=== PATIENT | male | born 1950 | race Caucasian/White ===

== ENCOUNTER 2016-12-28 16:30 | Outpatient (CLI) | payer MEDICAID | END 2016-12-28 16:31 | disposition home or self-care (01) | DX: J44.1 Chronic obstructive pulmonary disease with (acute) exacerbation (principal); R91.8 Other nonspecific abnormal finding of lung field; J84.10 Pulmonary fibrosis, unspecified ==

== ENCOUNTER 2017-01-24 16:29 | Emergency (ER) | payer MEDICAID ==
[2017-01-24] MEDS ORDERED: IPRATROPIUM/ALBUTEROL 3 ML NEB INH STA (17:02)
[2017-01-24] MEDS ORDERED: IPRATROPIUM/ALBUTEROL 3 ML NEB INH ONE (17:12)
[2017-01-24] MEDS ORDERED: DOXYCYCLINE 100 MG TABLET PO STA (17:55)
[2017-01-24] MEDS ORDERED: DOXYCYCLINE 100 MG TABLET PO ONE (17:59)
== END 2017-01-24 18:09 | disposition home or self-care (01) ==
DX: J44.1 Chronic obstructive pulmonary disease with (acute) exacerbation (principal); J84.10 Pulmonary fibrosis, unspecified; F17.200 Nicotine dependence, unspecified, uncomplicated; Z99.81 Dependence on supplemental oxygen
CPT/HCPCS: 71020; 80053; 83690; 85025; 94640; 99283; 99284; A9270; J7620

== ENCOUNTER 2017-04-05 09:18 | Outpatient (CLI) | payer MEDICAID | END 2017-04-05 09:19 | disposition home or self-care (01) | DX: D53.9 Nutritional anemia, unspecified (principal) ==

== ENCOUNTER 2017-07-01 22:24 | Outpatient (CLI) | payer MEDICAID | END 2017-07-01 22:25 | disposition critical access hospital (66) | LOC: EMS 22:24 | PROVIDERS: ATTEND Surgery | DX: R11.2 Nausea with vomiting, unspecified (principal) | CPT/HCPCS: A0425; A0427 ==

== ENCOUNTER 2017-07-01 22:35 | Inpatient (IN) | payer MEDICAID ==
[2017-07-01] MEDS ORDERED: methylPREDNISolone SUCCINATE 125 MG/2 ML VIAL IVP STA (22:46)
[2017-07-01] MEDS ORDERED: IPRATROPIUM/ALBUTEROL 3 ML NEB INH STA (22:46)
[2017-07-01] MEDS ORDERED: IPRATROPIUM/ALBUTEROL 3 ML NEB INH ONE (22:51)
[2017-07-01] MEDS ORDERED: methylPREDNISolone SUCCINATE 40 MG/ML VIAL ONE (23:10)
[2017-07-01] MEDS ORDERED: SODIUM CHLORIDE FLUSH 0.9% 10 ML SYRINGE IVP ONE (23:10)
[2017-07-01] MEDS ORDERED: levoFLOXacin 250 MG TABLET PO STA (23:15)
[2017-07-01 23:20] LABS: BASOPHILS % (AUTO) 0.3 %; EOSINOPHILS % (AUTO) 0.1 %; HCT - HEMATOCRIT 36.3 % (42.0-52.0); HGB - HEMOGLOBIN 12.3 g/dL (14.0-18.0); LYMPHOCYTES # (AUTO) 1.4 10^3/uL (1.5-3.5); LYMPHOCYTES % (AUTO) 12.3 %; MEAN CORPUSCULAR HEMOGLOBIN 31.1 pg (27.0-31.0); MEAN CORPUSCULAR VOLUME 91.6 fL (80.0-94.0); MEAN PLATELET VOLUME 8.2 fL (7.4-11.4); MONOCYTES # (AUTO) 0.6 10^3/uL (0.0-1.0); NEUTROPHILS # (AUTO) 9.1 10^3/uL (1.5-6.6); NEUTROPHILS % (AUTO) 82.3 %; RED BLOOD COUNT 3.97 10^6/uL (4.70-6.10); RED CELL DISTRIBUTION WIDTH 14.5 % (12.0-15.0); UNCORRECTED WHITE BLOOD COUNT 11.1 x10^3/uL; WHITE BLOOD COUNT 11.1 x10^3/uL (4.8-10.8)
--- NOTE | 2017-07-01 23:25 | XRAY Report ---
EXAM: CHEST RADIOGRAPHY EXAM DATE: 07/01/2017 10:54 PM. CLINICAL HISTORY: Fever, hypoxia, copd. COMPARISON: Radiograph chest 01/24/2017 TECHNIQUE: 1 view. FINDINGS: Lungs/Pleura: Redemonstration of bilateral coarse reticular opacities, consistent with chronic pulmon dang fibrosis. Redemonstration emphysematous changes bilaterally. Persistent elevation of the left hem idiaphragm. Interval development of small left pleural effusion. New left basilar atelectasis/consoli dation. No pneumothorax. Mediastinum: Stable appearance of the cardiomediastinal silhouette Other: None. IMPRESSION: 1. Compared to the prior study from 01/24/2017, there is a new left basilar atelectasis/consolidation and new small left pleural effusion, correlate clinically for pneumonia. 2. Redemonstration bilateral coarse reticular opacities, consistent with chronic pulmonary fibrosis. Redemonstration emphysematous changes bilaterally. [facility] Referring Provider Line: [phone] SITE ID: [id number]
[2017-07-01 23:32] LABS: ALBUMIN/GLOBULIN RATIO 1.2 (1.0-2.2); BILIRUBIN,TOTAL 0.9 mg/dL (0.2-1.0); CREATININE 0.7 mg/dL (0.6-1.2); POTASSIUM 3.9 mmol/L (3.5-5.0); TOTAL PROTEIN 7.4 g/dL (6.7-8.2)
[2017-07-01] MEDS ORDERED: levoFLOXacin 250 MG TABLET ONE (23:49)
--- NOTE | 2017-07-01 23:50 | ED Physician Documentation ---
PD HPI DYSPNEA - Stated complaint Stated Complaint: SOA/FEVER - Chief complaint Chief Complaint: Resp - History obtained from History obtained from: Patient, EMS - History of Present Illness Timing - onset: Today Timing - details: Gradual onset, Still present Inciting event(s): URI Improved by: O2, Inhaler/neb Worsened by: Exertion, Laying flat Associated symptoms: Fever, Cough, Wheezing Similar symptoms before: Work up / diagnostics, Treatment Recently seen: Not recently seen - Additional information Additional information: Patient is a 66 year old male with a history of severe ephysema who is presenting to the emergency department for fever, cough and hypoxia. Patient states that the symptoms have been going on for a couple days but got worse today. patient had fevers of 102. patient's girlfriend made him call ems. upon their arrival patient was hypoxic in the low 80s on room air. (patient normally is on 2 liters home 02). Review of Systems Constitutional: reports: Fever, Chills Eyes: denies: Loss of vision, Decreased vision Ears: denies: Ear pain, Drainage/discharge Nose: denies: Rhinorrhea / runny nose, Congestion Throat: denies: Dental pain / toothache Cardiac: denies: Chest pain / pressure, Palpitations, Calf pain Respiratory: reports: Dyspnea, Cough, Wheezing GI: reports: Nausea. denies: Vomiting : denies: Dysuria, Frequency Musculoskeletal: reports: Back pain. denies: Neck pain, Extremity pain, Joint pain Neurologic: denies: Generalized weakness, Focal weakness, Numbness Immunocompromised: denies: Immunocompromised PD PAST MEDICAL HISTORY - Past Medical History Past Medical History: Yes Cardiovascular: High cholesterol Respiratory: COPD, Other Neuro: None Endocrine/Autoimmune: None GI: Other : None HEENT: None Psych: None Musculoskeletal: Scoliosis, Chronic back pain Derm: None Other Past Medical History: pulmonary fibrosis. interstitial lung dz - Past Surgical History Past Surgical History: Yes General: Other HEENT: Other - Present Medications Home Medications: Ambulatory Orders Medication Instructions Recorded Confirmed Nortriptyline [Pamelor] 50 mg PO HS 11/27/13 07/01/17 Omeprazole 20 mg PO DAILY 01/21/14 07/01/17 Cyclobenzaprine [Flexeril] 10 mg PO TID PRN 07/30/15 07/01/17 Ipratropium/Albuterol [Duoneb] 3 ml INH QID PRN 07/30/15 07/01/17 Oxycodone HCl/Acetaminophen 1 each PO TID PRN 07/30/15 07/01/17 [Percocet 10-325 mg Tablet] Atorvastatin [Lipitor] 80 mg PO DAILY 01/06/16 07/01/17 Ascorbic Acid [Vitamin C] 500 mg PO BID 07/23/16 07/01/17 Cholecalciferol (Vitamin D3) 2,000 units PO DAILY 07/23/16 07/01/17 [Vitamin D3] Ferrous Sulfate 325 mg PO BID 07/23/16 07/01/17 Fluticasone/Salmeterol [Advair Hfa 2 puffs INH BID 07/23/16 07/01/17 115-21 Mcg Inhaler] Folic Acid 1 mg PO DAILY 07/23/16 07/01/17 Ipratropium/Albuterol [Combivent 1 puffs INH QID 07/23/16 07/01/17 Respimat] Budesonide [Pulmicort] 0.5 mg INH BID #60 neb 01/24/17 07/01/17 amLODIPine [Norvasc] 5 mg PO DAILY 01/24/17 07/01/17 Morphine ER [Ms Contin] 15 mg PO DAILY 07/01/17 07/01/17 - Allergies Allergies/Adverse Reactions: Allergies Allergy/AdvReac Type Severity Reaction Status Date / Time No Known Drug Allergies Allergy Verified 01/03/16 14:27 - Social History Does the pt smoke?: Yes Smoking Status: Current every day smoker Does the pt drink ETOH?: No Does the pt have substance abuse?: No - Immunizations Immunizations are current?: Yes - POLST Patient has POLST: No PD ED PE NORMAL - Vitals Vital signs reviewed: Yes - General General: Alert and oriented X 3, Well developed/nourished - HEENT HEENT: Atraumatic, PERRL - Neck Neck: Supple, no meningeal sign - Cardiac Cardiac: No murmur - Abdomen Abdomen: Soft, Non distended - Derm Derm: Normal color, Warm and dry, No rash - Extremities Extremities: No deformity, No tenderness to palpate, No edema - Neuro Neuro: Alert and oriented X 3, No motor deficit, No sensory deficit - Psych Psych: Normal mood PD ED PE EXPANDED - General General: Alert, In distress (mild distress) - Cardiac Cardiac: Tachy - Respiratory Respiratory: Distress, Labored, Accessory mm use, Retractions, Rhonchi, Right lower lobe, Left lower lobe Results - Vitals Vitals: Vital Signs - 24 hr 07/01/17 07/01/17 22:37 22:45 Temperature 40.1 C H Heart Rate 122 H 134 H Respiratory 24 22 Rate Blood Pressure 114/70 O2 Saturation 96 Oxygen O2 Source Nasal cannula Oxygen Flow Rate 5 - Labs Labs: Laboratory Tests 07/01/17 07/01/17 07/01/17 23:00 23:00 23:00 WBC 11.1 H RBC 3.97 L Hgb 12.3 L Hct 36.3 L MCV 91.6 MCH 31.1 H MCHC 34.0 RDW 14.5 Plt Count 245 MPV 8.2 Neut # 9.1 H Lymph # 1.4 L [place] # 0.6 Eos # 0.0 Baso # 0.0 Absolute Nucleated RBC 0.00 Nucleated RBCs 0.0 Sodium 137 Potassium 3.9 Chloride 104 Carbon Dioxide 23 Anion Gap 10.0 BUN 20 Creatinine 0.7 Estimated GFR (MDRD) 114 Glucose 108 H Lactic Acid Calcium 9.0 Total Bilirubin 0.9 AST 22 ALT 19 Alkaline Phosphatase 78 B-Natriuretic Peptide 32 Total Protein 7.4 Albumin 4.0 Globulin 3.4 Albumin/Globulin Ratio 1.2 Lipase 22 07/01/17 23:00 WBC RBC Hgb Hct MCV MCH MCHC RDW Plt Count MPV Neut # Lymph # [place] # Eos # Baso # Absolute Nucleated RBC Nucleated RBCs Sodium Potassium Chloride Carbon Dioxide Anion Gap BUN Creatinine Estimated GFR (MDRD) Glucose Lactic Acid 1.0 Calcium Total Bilirubin AST ALT Alkaline Phosphatase B-Natriuretic Peptide Total Protein Albumin Globulin Albumin/Globulin Ratio Lipase - Rads (name of study) chest x-ray Radiology: Final report received (left bibasilar atelectasis/consolidation) PD MEDICAL DECISION MAKING - ED course Complexity details: reviewed old records, reviewed results, re-evaluated patient , considered differential, d/w patient ED course: Patient was seen and examined at bedside. IV access was gained and labs were drawn. patient was treated with methylprednisolone and levaquin and 3 duonebs. chest x-ray was performed and consistent with pneumonia. Patient had a high port score and was admitted to the hospital for further evaluation and care. Departure - Departure Disposition: 66 [facility] DC/Xfer Clinical Impression: Pneumonia, Mild chronic obstructive pulmonary disease
[2017-07-02] MEDS ORDERED: HYDROcod/ACETAM 5/325 MG TABLET PO PRN (00:13)
[2017-07-02] MEDS ORDERED: ACETAMINOPHEN 325 MG TABLET PO PRN (00:13)
[2017-07-02] MEDS ORDERED: ONDANSETRON 4 MG/2 ML VIAL IVP PRN (00:13)
[2017-07-02] MEDS ORDERED: ONDANSETRON ODT 4 MG TABLET TL PRN (00:13)
[2017-07-02] MEDS ORDERED: NON FORMULARY MED (Oxycodone Hcl/Acetaminophen [Percocet 10-325 Mg Tablet] 1 EACH) PO SCH (00:30)
[2017-07-02] MEDS ORDERED: oxyCOD/ACETAMIN 5 MG/325 MG TABLET PO ONE (00:51)
[2017-07-02] MEDS ORDERED: NORTRIPTYLINE 25 MG CAPSULE PO SCH (01:00)
[2017-07-02] MEDS ORDERED: MORPHINE ER 15 MG TABLET PO ONE (01:39)
[2017-07-02] MEDS: MORPHINE ER 15 MG TABLET PO SCH ×2 (01:40→20:30)
[2017-07-02] MEDS ORDERED: methylPREDNISolone SUCCINATE 125 MG/2 ML VIAL IVP SCH (02:00)
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
[2017-07-02] MEDS: SODIUM CHLORIDE 0.9% 1,000 ML IV SCH ×2 (03:28→03:29)
[2017-07-02] MEDS: CYCLOBENZAPRINE 10 MG TABLET PO PRN (04:31)
[2017-07-02 05:25] LABS: BASOPHILS % (AUTO) 0.1 %; HCT - HEMATOCRIT 36.1 % (42.0-52.0); LYMPHOCYTES % (AUTO) 6.2 %; MEAN CORPUSCULAR HGB CONC 33.3 g/dL (32.0-36.0); MEAN PLATELET VOLUME 8.1 fL (7.4-11.4); MONOCYTES % (AUTO) 2.3 %; NEUTROPHILS % (AUTO) 91.4 %; RED BLOOD COUNT 3.89 10^6/uL (4.70-6.10); RED CELL DISTRIBUTION WIDTH 14.6 % (12.0-15.0)
[2017-07-02 05:32] LABS: CALCIUM 8.8 mg/dL (8.5-10.3); CREATININE 0.8 mg/dL (0.6-1.2); POTASSIUM 3.9 mmol/L (3.5-5.0)
[2017-07-02 05:45] LABS: BAND NEUTROPHILS % (MANUAL) 11 %; LYMPHOCYTES % (MANUAL) 6 %; NEUTROPHILS % (MANUAL) 80 %; NP AUTO DIFFERENTIAL? YES; NP MAN DIFFERENTIAL? NO; PLATELET ESTIMATE, MANUAL NORMAL (130-450,000) (NORMAL); TOTAL CELLS COUNTED 100
[2017-07-02] MEDS: SODIUM CHLORIDE FLUSH 0.9% 10 ML SYRINGE IVP SCH ×3 (05:53→20:34)
[2017-07-02] MEDS: methylPREDNISolone SUCCINATE 125 MG/2 ML VIAL IVP SCH ×3 (06:55→20:33)
[2017-07-02] MEDS: SACCHAROMYCES BOULARDII 250 MG CAPSULE PO SCH ×2 (08:32→16:53)
[2017-07-02] MEDS: amLODIPine 5 MG TABLET PO SCH (08:33)
[2017-07-02] MEDS: ASCORBIC ACID CHEW 500 MG TABLET PO SCH ×2 (08:33→20:29)
[2017-07-02] MEDS: ATORVASTATIN 40 MG TABLET PO SCH (08:33)
[2017-07-02] MEDS: FERROUS SULFATE 325 MG TABLET PO SCH ×2 (08:37→20:29)
[2017-07-02] MEDS: ENOXAPARIN 40 MG/0.4 ML SYRINGE SUBQ SCH (08:37)
[2017-07-02] MEDS: FOLIC ACID 1 MG TABLET PO SCH (08:37)
[2017-07-02] MEDS: CHOLECALCIFEROL 1,000 UNIT TABLET PO SCH (08:37)
[2017-07-02] MEDS: oxyCOD/ACETAMIN 5 MG/325 MG TABLET PO SCH ×4 (08:39→20:33)
[2017-07-02] MEDS: POLYETHYLENE GLYCOL 3350 17 GM PACKET PO SCH (08:39)
[2017-07-02] MEDS ORDERED: oxyCODONE 5 MG TABLET PO SCH (09:00)
[2017-07-02] MEDS ORDERED: BUDESONIDE 0.5 MG/2 ML NEB INH SCH (09:00)
[2017-07-02] MEDS: BUDESONIDE 0.5 MG/2 ML NEB INH SCH ×2 (09:15→19:33)
[2017-07-02] MEDS: IPRATROPIUM/ALBUTEROL 3 ML NEB INH PRN ×2 (09:15→19:33)
[2017-07-02] MEDS: NICOTINE 21 MG PATCH TOP SCH (11:12)
--- NOTE | 2017-07-02 11:30 | PROVIDER PROGRESS NOTE ---
Assessment/Plan - Problem List (1) Sepsis Assessment/Plan: had fever, tachy, elevated WBC improving on Levaquin likely due to PNA (2) Pneumonia Qualifiers: Pneumonia type: due to unspecified organism Assessment/Plan: continue antibiotic treatment as mentioned above (3) Mild chronic obstructive pulmonary disease Assessment/Plan: on Pulmicort neb and systematic steroid treatment for COPD flare up improving (4) Chronic respiratory failure with hypoxia Assessment/Plan: home O2 2 liter/min at night improving but not at his baseline yet (5) Opiate dependence Assessment/Plan: complicated with mild withdrawal improving; on home medicine Oxycodone and MS contin (6) Tobacco dependence Assessment/Plan: complicated with mild withdrawal agrees nicotine patch (7) Chronic pain Assessment/Plan: continue home pain medicine - Current Meds Current Meds: Current Medications Generic Name Dose Route Start Last Admin Trade Name Freq PRN Reason Stop Dose Admin Acetaminophen 650 mg 07/02/17 00:13 07/02/17 04:30 Tylenol PO 650 mg Q4HR PRN Administration Pain 1 to 4 Albuterol/Ipratropium 3 ml 07/02/17 00:17 07/02/17 09:15 Duoneb INH 3 ml QID PRN Administration dyspnea Amlodipine Besylate 5 mg 07/02/17 09:00 07/02/17 08:33 Norvasc PO 5 mg DAILY ADALI Administration Ascorbic Acid 500 mg 07/02/17 09:00 07/02/17 08:33 Vitamin C PO 500 mg BID ADALI Administration Atorvastatin Calcium 80 mg 07/02/17 09:00 07/02/17 08:33 Lipitor PO 80 mg DAILY ADALI Administration Budesonide 0.5 mg 07/02/17 08:00 07/02/17 09:15 Pulmicort INH 0.5 mg RTBID ADALI Administration Cholecalciferol 2,000 unit 07/02/17 09:00 07/02/17 08:37 Vitamin D3 PO 2,000 unit DAILY ADALI Administration Cyclobenzaprine HCl 10 mg 07/02/17 00:17 07/02/17 04:31 Flexeril PO 10 mg TID PRN Administration Spasms Enoxaparin Sodium 40 mg 07/02/17 09:00 07/02/17 08:37 Lovenox SUBQ 40 mg DAILY ADALI Administration Ferrous Sulfate 325 mg 07/02/17 09:00 07/02/17 08:37 Feosol PO 325 mg BID ADALI Administration Folic Acid 1 mg 07/02/17 09:00 07/02/17 08:37 PO 1 mg DAILY ADALI Administration Sodium Chloride 1,000 mls @ 100 mls/hr 07/02/17 01:00 07/02/17 03:29 Normal Saline 0.9% IV 07/02/17 20:59 Not Given .Q10H ADALI Methylprednisolone Sodium Succinate 125 mg 07/02/17 07:00 07/02/17 06:55 Solu-Medrol (125mg Vial) IVP 125 mg TID ADALI Administration Morphine Sulfate 15 mg 07/02/17 01:38 07/02/17 01:40 PO Not Given QPM ADALI Nicotine 1 patch 07/02/17 09:00 07/02/17 11:12 Nicoderm TOP 1 patch DAILY ADALI Administration Oxycodone HCl 1 mg 07/02/17 09:00 07/02/17 08:38 Roxicodone PO 1 mg QID ADALI Administration Oxycodone/Acetaminophen 1 tab 07/02/17 09:00 07/02/17 08:39 Percocet 5 Mg/325 Mg PO 1 tab QID ADALI Administration Polyethylene Glycol 17 gm 07/02/17 09:00 07/02/17 08:39 Miralax PO 17 gm DAILY ADALI Administration Saccharomyces Boulardii 250 mg 07/02/17 08:00 07/02/17 08:32 Florastor PO 250 mg BIDWM ADALI Administration Sodium Chloride 10 ml 07/02/17 06:00 07/02/17 05:53 Normal Saline Flush 0.9% IVP Not Given Q8HR ADALI - Lab Result Fish Bone Diagrams: 07/02/17 04:40 07/02/17 04:40 - Diagnostic Imaging Results Diagnostic Imaging Results: Final report reviewed Diagnostic Imaging Results Comments: XR 07/01/17-- new left basilar atelectasis/consolidation and new small left pleural effusion, correlate clinically for PNA; chronic pulmonary fibrosis - Additional Planning Condition/Complexity: Improved My Orders: My Active Orders 07/02/17 09:00 Nicotine 21 mg Patch [Nicoderm] 1 patch TOP DAILY Plan Discussed with:: Patient Time Spent: 31-60 minutes Subjective - Subjective Patient Reports: Other (80% at his [facility]) Nursing Reports: No Complaints Objective Vital Signs: Vital Signs - 24 hr 07/02/17 07/02/17 07/02/17 01:15 06:00 08:03 Temperature 37.7 C H 37.2 C 37.0 C Heart Rate Heart Rate [ 117 H 93 99 Radial] Respiratory 20 20 20 Rate Blood Pressure 121/61 91/53 L 112/71 [Right Brachial artery] O2 Saturation 94 99 98 07/02/17 09:15 Temperature Heart Rate 96 Heart Rate [ Radial] Respiratory 20 Rate Blood Pressure [Right Brachial artery] O2 Saturation Oxygen O2 Source Room air I&O (Last 24 Hrs): Intake and Output Totals x24h 06/30/17 07/01/17 07/02/17 23:59 23:59 23:59 Intake Total 1730 Output Total 1650 Balance 80 General: Alert, Oriented x3, Cooperative HEENT: Atraumatic, PERRLA, EOMI Neck: Supple Neuro: Non Focal Cardiovascular: Regular rate, Normal S1, Normal S2 Respiratory: No respiratory distress, Breath sounds nml Abdomen: Normal bowel sounds, Soft Extremities: No clubbing, No cyanosis Skin: No rashes - Results Results: Laboratory Results WBC 12.0 x10^3/uL (4.8-10.8) H 07/02/17 04:40 RBC 3.89 10^6/uL (4.70-6.10) L 07/02/17 04:40 Hgb 12.0 g/dL (14.0-18.0) L 07/02/17 04:40 Hct 36.1 % (42.0-52.0) L 07/02/17 04:40 MCV 93.0 fL (80.0-94.0) 07/02/17 04:40 MCH 31.0 pg (27.0-31.0) 07/02/17 04:40 MCHC 33.3 g/dL (32.0-36.0) 07/02/17 04:40 RDW 14.6 % (12.0-15.0) 07/02/17 04:40 Plt Count 228 10^3/uL (130-450) 07/02/17 04:40 MPV 8.1 fL (7.4-11.4) 07/02/17 04:40 Neut # Not Reportable 07/02/17 04:40 Lymph # Not Reportable 07/02/17 04:40 [place] # Not Reportable 07/02/17 04:40 Eos # Not Reportable 07/02/17 04:40 Baso # Not Reportable 07/02/17 04:40 Absolute Nucleated RBC Not Reportable 07/02/17 04:40 Total Counted 100 07/02/17 04:40 Band Neuts % (Manual) 11 % (0-10) H 07/02/17 04:40 Neutrophils # (Manual) 10.9 10^3/uL (1.5-6.6) H 07/02/17 04:40 Lymphocytes # (Manual) 0.7 10^3/uL (1.5-3.5) L 07/02/17 04:40 Monocytes # (Manual) 0.4 10^3/uL (0.0-1.0) 07/02/17 04:40 Nucleated RBCs Not Reportable 07/02/17 04:40 Differential Comment MANUAL DIFFERENTIAL 07/02/17 04:40 Platelet Estimate NORMAL (130-450,000) (NORMAL) 07/02/17 04:40 RBC Morph Micro Appear NORMAL APPEARANCE (NORMAL) 07/02/17 04:40 Sodium 138 mmol/L (135-145) 07/02/17 04:40 Potassium 3.9 mmol/L (3.5-5.0) 07/02/17 04:40 Chloride 106 mmol/L (101-111) 07/02/17 04:40 Carbon Dioxide 25 mmol/L (21-32) 07/02/17 04:40 Anion Gap 7.0 (6-13) 07/02/17 04:40 BUN 19 mg/dL (6-20) 07/02/17 04:40 Creatinine 0.8 mg/dL (0.6-1.2) 07/02/17 04:40 Estimated GFR (MDRD) 97 (>89) 07/02/17 04:40 Glucose 191 mg/dL (70-100) H 07/02/17 04:40 Lactic Acid 1.0 mmol/L (0.5-2.2) 07/01/17 23:00 Calcium 8.8 mg/dL (8.5-10.3) 07/02/17 04:40 Total Bilirubin 0.9 mg/dL (0.2-1.0) 07/01/17 23:00 AST 22 IU/L (10-42) 07/01/17 23:00 ALT 19 IU/L (10-60) 07/01/17 23:00 Alkaline Phosphatase 78 IU/L (42-121) 07/01/17 23:00 B-Natriuretic Peptide 32 pg/mL (5-100) 07/01/17 23:00 Total Protein 7.4 g/dL (6.7-8.2) 07/01/17 23:00 Albumin 4.0 g/dL (3.2-5.5) 07/01/17 23:00 Globulin 3.4 g/dL (2.1-4.2) 07/01/17 23:00 Albumin/Globulin Ratio 1.2 (1.0-2.2) 07/01/17 23:00 Lipase 22 U/L (22-51) 07/01/17 23:00 - Procedures Procedures: Procedures EXCISION OF STOMACH, ENDO, DIAGN (01/06/16) INSPECTION OF LOWER INTESTINAL TRACT, ENDO (01/06/16)
[2017-07-02] MEDS: oxyCODONE 5 MG TABLET PO SCH ×3 (13:30→20:31)
[2017-07-02] MEDS ORDERED: traZODone 50 MG TABLET PO PRN (15:12)
--- NOTE | 2017-07-02 15:22 | PROVIDER PROGRESS NOTE ---
Subjective - Prog Note Date Prog Note Date: 07/02/17 Prog Note Time: 02:50 - Subjective Pt reports feeling: No change Subjective: went to see patient for code status discussion. Objective - Vital Signs/Intake & Output Vital Signs: Vital Signs x48h Temp Pulse Pulse Resp BP Pulse Ox 07/02/17 14:26 36.6 C 100 20 113/58 L 96 07/02/17 09:15 96 20 07/02/17 08:03 37.0 C 99 20 112/71 98 Intake & Output: Intake & Output 06/29/17 06/30/17 07/01/17 07/02/17 23:59 23:59 23:59 23:59 Intake Total 2880 Output Total 1650 Balance 1230 - Lab Results Fish Bones: 07/02/17 04:40 07/02/17 04:40 Other Labs: Lab Results x24hrs 07/02/17 07/02/17 Range/Units 04:40 04:40 WBC 12.0 H (4.8-10.8) x10^3/uL RBC 3.89 L (4.70-6.10) 10^6/uL Hgb 12.0 L (14.0-18.0) g/dL Hct 36.1 L (42.0-52.0) % MCV 93.0 (80.0-94.0) fL MCH 31.0 (27.0-31.0) pg MCHC 33.3 (32.0-36.0) g/dL RDW 14.6 (12.0-15.0) % Plt Count 228 (130-450) 10^3/uL MPV 8.1 (7.4-11.4) fL Neut # Not Reportable Lymph # Not Reportable [place] # Not Reportable Eos # Not Reportable Baso # Not Reportable Absolute Nucleated RBC Not Reportable Total Counted 100 Band Neuts % (Manual) 11 H (0 - 10) % Neutrophils # (Manual) 10.9 H (1.5-6.6) 10^3/uL Lymphocytes # (Manual) 0.7 L (1.5-3.5) 10^3/uL Monocytes # (Manual) 0.4 (0.0-1.0) 10^3/uL Nucleated RBCs Not Reportable Differential Comment MANUAL DIFFERENTIAL Platelet Estimate NORMAL (130-450,000) (NORMAL) RBC Morph Micro Appear NORMAL APPEARANCE (NORMAL) Sodium 138 (135-145) mmol/L Potassium 3.9 (3.5-5.0) mmol/L Chloride 106 (101-111) mmol/L Carbon Dioxide 25 (21-32) mmol/L Anion Gap 7.0 (6-13) BUN 19 (6-20) mg/dL Creatinine 0.8 (0.6-1.2) mg/dL Estimated GFR (MDRD) 97 (>89) Glucose 191 H (70-100) mg/dL Calcium 8.8 (8.5-10.3) mg/dL Assessment/Plan - Problem List (1) Goals of care, counseling/discussion Impression: his SO Antoinette Marte joined the discussion through the phone. Last night when patient came to ED, he had discussion with attending provider then; his code status was DNR/I. today, patient told RN, he wanted to have CPR but not intubation. today, patient and SO initially wanted to have CPR but no intubation because patient may not have the chance to be extubated due to his poor lung function. They agreed that mask bagging for oxygen support was reasonable but not intubation period. I explained to patient and his SO how important intubation is during the resuscitation process if patient wants to have CPR, otherwise, CPR won't be effective without proper airway support. Both understand that intubation is a part of resuscitation process and it will help other organs oxygenation. both agree that patient should be full code with CPR and intubation if indicated. on the other hand patient does not want to have prolonged life support. his SO can make decisions for him if he can't then. questions and concerns were answered during the conversation. POLST form was discussed with both; it was filled by patient. also advised patient and his SO to set up [employer] transactions attorney paper work as they wish spent 17 minutes
[2017-07-02] MEDS: NORTRIPTYLINE 25 MG CAPSULE PO SCH (20:30)
[2017-07-02] MEDS ORDERED: MORPHINE ER 15 MG TABLET PO SCH (21:00)
[2017-07-02] MEDS: SODIUM CHLORIDE FLUSH 0.9% 10 ML SYRINGE IVP PRN (23:54)
[2017-07-03] MEDS: CYCLOBENZAPRINE 10 MG TABLET PO PRN ×2 (00:22→16:00)
[2017-07-03] MEDS ORDERED: oxyCODONE 5 MG TABLET PO PRN (04:57)
[2017-07-03] MEDS ORDERED: oxyCOD/ACETAMIN 5 MG/325 MG TABLET PO PRN (04:57)
[2017-07-03] MEDS: SODIUM CHLORIDE FLUSH 0.9% 10 ML SYRINGE IVP SCH ×3 (05:13→22:55)
[2017-07-03] MEDS: methylPREDNISolone SUCCINATE 125 MG/2 ML VIAL IVP SCH (05:13)
[2017-07-03 06:39] LABS: BASOPHILS % (AUTO) 0.1 %; HCT - HEMATOCRIT 35.7 % (42.0-52.0); HGB - HEMOGLOBIN 11.9 g/dL (14.0-18.0); LYMPHOCYTES # (AUTO) 1.2 10^3/uL (1.5-3.5); LYMPHOCYTES % (AUTO) 6.5 %; MEAN CORPUSCULAR HEMOGLOBIN 31.3 pg (27.0-31.0); MEAN CORPUSCULAR HGB CONC 33.5 g/dL (32.0-36.0); MEAN CORPUSCULAR VOLUME 93.4 fL (80.0-94.0); MEAN PLATELET VOLUME 8.6 fL (7.4-11.4); MONOCYTES # (AUTO) 0.7 10^3/uL (0.0-1.0); MONOCYTES % (AUTO) 3.7 %; NEUTROPHILS # (AUTO) 16.7 10^3/uL (1.5-6.6); NEUTROPHILS % (AUTO) 89.7 %; RED BLOOD COUNT 3.82 10^6/uL (4.70-6.10); RED CELL DISTRIBUTION WIDTH 14.9 % (12.0-15.0); UNCORRECTED WHITE BLOOD COUNT 18.6 x10^3/uL; WHITE BLOOD COUNT 18.6 x10^3/uL (4.8-10.8)
[2017-07-03 06:54] LABS: CALCIUM 8.9 mg/dL (8.5-10.3); CREATININE 0.9 mg/dL (0.6-1.2); POTASSIUM 4.2 mmol/L (3.5-5.0)
[2017-07-03] MEDS: IPRATROPIUM/ALBUTEROL 3 ML NEB INH PRN (07:33)
[2017-07-03] MEDS: BUDESONIDE 0.5 MG/2 ML NEB INH SCH ×2 (07:33→18:00)
--- NOTE | 2017-07-03 08:00 | PROVIDER PROGRESS NOTE ---
Assessment/Plan - Problem List (1) Pneumonia Qualifiers: Pneumonia type: due to unspecified organism Assessment/Plan: continue antibiotic treatment as mentioned above elevated WBC-- will monitor; could be steroid induced; no F/C over the night; blood culture negative so far Mild chronic obstructive pulmonary disease Assessment/Plan: on Pulmicort neb and systematic steroid treatment for COPD flare up improving change solumedrol to po prednisone still tachy at rest and on mild exertion need another day likely Chronic respiratory failure with hypoxia Assessment/Plan: home O2 2 liter/min at night improving but not at his baseline yet Opiate dependence Assessment/Plan: complicated with mild withdrawal improving on home medicine Oxycodone and MS contin Tobacco dependence Assessment/Plan: complicated with mild withdrawal agrees nicotine patch Chronic pain Assessment/Plan: not well controlled over the night since not given per his home schedule discussed with patient; reschedule the pain meds continue home pain medicine - Current Meds Current Meds: Current Medications Generic Name Dose Route Start Last Admin Trade Name Freq PRN Reason Stop Dose Admin Acetaminophen 650 mg 07/02/17 00:13 07/02/17 04:30 Tylenol PO 650 mg Q4HR PRN Administration Pain 1 to 4 Albuterol/Ipratropium 3 ml 07/02/17 00:17 07/03/17 07:33 Duoneb INH 3 ml QID PRN Administration dyspnea Amlodipine Besylate 5 mg 07/02/17 09:00 07/02/17 08:33 Norvasc PO 5 mg DAILY ADALI Administration Ascorbic Acid 500 mg 07/02/17 09:00 07/02/17 20:29 Vitamin C PO 500 mg BID ADALI Administration Atorvastatin Calcium 80 mg 07/02/17 09:00 07/02/17 08:33 Lipitor PO 80 mg DAILY ADALI Administration Budesonide 0.5 mg 07/02/17 08:00 07/03/17 07:33 Pulmicort INH 0.5 mg RTBID ADALI Administration Cholecalciferol 2,000 unit 07/02/17 09:00 07/02/17 08:37 Vitamin D3 PO 2,000 unit DAILY ADALI Administration Cyclobenzaprine HCl 10 mg 07/02/17 00:17 07/03/17 00:22 Flexeril PO 10 mg TID PRN Administration Spasms Enoxaparin Sodium 40 mg 07/02/17 09:00 07/02/17 08:37 Lovenox SUBQ 40 mg DAILY ADALI Administration Ferrous Sulfate 325 mg 07/02/17 09:00 07/02/17 20:29 Feosol PO 325 mg BID ADALI Administration Folic Acid 1 mg 07/02/17 09:00 07/02/17 08:37 PO 1 mg DAILY ADALI Administration Levofloxacin 150 mls @ 100 mls/hr 07/03/17 00:00 07/02/17 23:55 Levaquin 750 Mg/150 Ml IV 100 mls/hr Q24H ADALI Administration Nicotine 1 patch 07/02/17 09:00 07/02/17 11:12 Nicoderm TOP 1 patch DAILY ADALI Administration Nortriptyline HCl 50 mg 07/02/17 21:00 07/02/17 20:30 Pamelor PO 50 mg QPM ADALI Administration Polyethylene Glycol 17 gm 07/02/17 09:00 07/02/17 08:39 Miralax PO 17 gm DAILY ADALI Administration Saccharomyces Boulardii 250 mg 07/02/17 08:00 07/02/17 16:53 Florastor PO 250 mg BIDWM ADALI Administration Sodium Chloride 10 ml 07/02/17 00:13 07/02/17 23:54 Normal Saline Flush 0.9% IVP 10 ml PRN PRN Administration NEEDED PER PROVIDER ORDERS Sodium Chloride 10 ml 07/02/17 06:00 07/03/17 05:13 Normal Saline Flush 0.9% IVP 10 ml Q8HR ADALI Administration Trazodone HCl 100 mg 07/02/17 15:12 07/03/17 00:22 Desyrel PO 100 mg DAILY PRN Administration Insomnia - Lab Result Fish Bone Diagrams: 07/03/17 05:21 07/03/17 05:21 - Additional Planning Condition/Complexity: Improved My Orders: My Active Orders 07/02/17 09:00 Nicotine 21 mg Patch [Nicoderm] 1 patch TOP DAILY 07/02/17 13:44 Oxygen Therapy [RC] PRN 07/02/17 15:12 traZODone [Desyrel] 100 mg PO DAILY PRN 07/02/17 15:14 Code Status [OTHERS] Routine 07/03/17 08:00 predniSONE [Deltasone] 40 mg PO DAILYWM 07/03/17 11:00 oxyCODONE [Roxicodone] 5 mg PO Q6H oxyCODONE/ACET 5/325 [Percocet 5 mg/325 mg] 1 tab PO Q6H 07/04/17 01:00 Morphine ER 15 mg PO QPM Plan Discussed with:: Patient Time Spent: 15-30 minutes Subjective - Subjective Patient Reports: Pain, Other (didn't sleep well last night due to back pain 05/31 ; pain medicine schedule was different from his home's. breathing is better but still SOB) Objective Vital Signs: Vital Signs - 24 hr 07/02/17 07/02/17 07/02/17 08:03 09:15 14:26 Temperature 37.0 C 36.6 C Heart Rate 96 Heart Rate [ 99 100 Radial] Respiratory 20 20 20 Rate Blood Pressure 112/71 113/58 L [Right Brachial artery] O2 Saturation 98 96 07/02/17 07/02/17 07/02/17 15:35 19:34 20:39 Temperature 36.6 C Heart Rate 108 H Heart Rate [ 107 H Radial] Respiratory 20 20 Rate Blood Pressure 112/56 L [Right Brachial artery] O2 Saturation 91 L 93 07/03/17 07/03/17 07/03/17 04:22 07:14 07:38 Temperature 36.6 C Heart Rate 101 H Heart Rate [ 113 H 94 Radial] Respiratory 20 20 20 Rate Blood Pressure 137/73 H 123/71 [Right Brachial artery] O2 Saturation 95 99 Oxygen O2 Source Room air I&O (Last 24 Hrs): Intake and Output Totals x24h 07/01/17 07/02/17 07/03/17 23:59 23:59 23:59 Intake Total 3860 1115 Output Total 1650 Balance 2210 1115 General: Alert, Oriented x3, Cooperative HEENT: Atraumatic, PERRLA, EOMI Neck: Supple Neuro: Alert, Non Focal Cardiovascular: Regular rate, Normal S1, Normal S2, Other (mild tachy at rest during the exam) Respiratory: Chest non-tender, No respiratory distress, Breath sounds nml, Other (no wheezes at this time; decreased lung sound at bases bilaterally) Abdomen: Normal bowel sounds, Soft Skin: No rashes - Results Results: Laboratory Results WBC 18.6 x10^3/uL (4.8-10.8) H 07/03/17 05:21 RBC 3.82 10^6/uL (4.70-6.10) L 07/03/17 05:21 Hgb 11.9 g/dL (14.0-18.0) L 07/03/17 05:21 Hct 35.7 % (42.0-52.0) L 07/03/17 05:21 MCV 93.4 fL (80.0-94.0) 07/03/17 05:21 MCH 31.3 pg (27.0-31.0) H 07/03/17 05:21 MCHC 33.5 g/dL (32.0-36.0) 07/03/17 05:21 RDW 14.9 % (12.0-15.0) 07/03/17 05:21 Plt Count 226 10^3/uL (130-450) 07/03/17 05:21 MPV 8.6 fL (7.4-11.4) 07/03/17 05:21 Neut # 16.7 10^3/uL (1.5-6.6) H 07/03/17 05:21 Lymph # 1.2 10^3/uL (1.5-3.5) L 07/03/17 05:21 [place] # 0.7 10^3/uL (0.0-1.0) 07/03/17 05:21 Eos # 0.0 10^3/uL (0.0-0.7) 07/03/17 05:21 Baso # 0.0 10^3/uL (0.0-0.1) 07/03/17 05:21 Absolute Nucleated RBC 0.00 x10^3/uL 07/03/17 05:21 Total Counted 100 07/02/17 04:40 Band Neuts % (Manual) 11 % (0-10) H 07/02/17 04:40 Neutrophils # (Manual) 10.9 10^3/uL (1.5-6.6) H 07/02/17 04:40 Lymphocytes # (Manual) 0.7 10^3/uL (1.5-3.5) L 07/02/17 04:40 Monocytes # (Manual) 0.4 10^3/uL (0.0-1.0) 07/02/17 04:40 Nucleated RBCs 0.0 /100WBC 07/03/17 05:21 Differential Comment MANUAL DIFFERENTIAL 07/02/17 04:40 Platelet Estimate NORMAL (130-450,000) (NORMAL) 07/02/17 04:40 RBC Morph Micro Appear NORMAL APPEARANCE (NORMAL) 07/02/17 04:40 Sodium 140 mmol/L (135-145) 07/03/17 05:21 Potassium 4.2 mmol/L (3.5-5.0) 07/03/17 05:21 Chloride 108 mmol/L (101-111) 07/03/17 05:21 Carbon Dioxide 24 mmol/L (21-32) 07/03/17 05:21 Anion Gap 8.0 (6-13) 07/03/17 05:21 BUN 21 mg/dL (6-20) H 07/03/17 05:21 Creatinine 0.9 mg/dL (0.6-1.2) 07/03/17 05:21 Estimated GFR (MDRD) 85 (>89) L 07/03/17 05:21 Glucose 154 mg/dL (70-100) H 07/03/17 05:21 Lactic Acid 1.0 mmol/L (0.5-2.2) 07/01/17 23:00 Calcium 8.9 mg/dL (8.5-10.3) 07/03/17 05:21 Total Bilirubin 0.9 mg/dL (0.2-1.0) 07/01/17 23:00 AST 22 IU/L (10-42) 07/01/17 23:00 ALT 19 IU/L (10-60) 07/01/17 23:00 Alkaline Phosphatase 78 IU/L (42-121) 07/01/17 23:00 B-Natriuretic Peptide 32 pg/mL (5-100) 07/01/17 23:00 Total Protein 7.4 g/dL (6.7-8.2) 07/01/17 23:00 Albumin 4.0 g/dL (3.2-5.5) 07/01/17 23:00 Globulin 3.4 g/dL (2.1-4.2) 07/01/17 23:00 Albumin/Globulin Ratio 1.2 (1.0-2.2) 07/01/17 23:00 Lipase 22 U/L (22-51) 08/10/17 23:00 - Procedures Procedures: Procedures EXCISION OF STOMACH, ENDO, DIAGN (01/06/16) INSPECTION OF LOWER INTESTINAL TRACT, ENDO (01/06/16)
[2017-07-03] MEDS: amLODIPine 5 MG TABLET PO SCH (08:29)
[2017-07-03] MEDS: FOLIC ACID 1 MG TABLET PO SCH (08:29)
[2017-07-03] MEDS: CHOLECALCIFEROL 1,000 UNIT TABLET PO SCH (08:29)
[2017-07-03] MEDS: FERROUS SULFATE 325 MG TABLET PO SCH ×2 (08:29→20:50)
[2017-07-03] MEDS: SACCHAROMYCES BOULARDII 250 MG CAPSULE PO SCH ×2 (08:29→17:06)
[2017-07-03] MEDS: ATORVASTATIN 40 MG TABLET PO SCH (08:29)
[2017-07-03] MEDS: predniSONE 20 MG TABLET PO SCH (08:29)
[2017-07-03] MEDS: ASCORBIC ACID CHEW 500 MG TABLET PO SCH ×2 (08:29→20:50)
[2017-07-03] MEDS: NICOTINE 21 MG PATCH TOP SCH (08:31)
[2017-07-03] MEDS: ENOXAPARIN 40 MG/0.4 ML SYRINGE SUBQ SCH (08:31)
[2017-07-03] MEDS: POLYETHYLENE GLYCOL 3350 17 GM PACKET PO SCH (08:32)
[2017-07-03] MEDS: oxyCODONE 5 MG TABLET PO SCH ×3 (11:58→22:52)
[2017-07-03] MEDS: oxyCOD/ACETAMIN 5 MG/325 MG TABLET PO SCH ×3 (11:59→22:52)
[2017-07-03] MEDS: SENNA 8.6 MG TABLET PO SCH (13:18)
[2017-07-03] MEDS: DOCUSATE SODIUM 250 MG CAPSULE PO SCH (13:18)
[2017-07-03] MEDS: NORTRIPTYLINE 25 MG CAPSULE PO SCH (20:51)
[2017-07-04] MEDS: SODIUM CHLORIDE FLUSH 0.9% 10 ML SYRINGE IVP PRN (00:44)
[2017-07-04] MEDS ORDERED: MORPHINE ER 15 MG TABLET PO SCH (01:00)
[2017-07-04] MEDS: oxyCOD/ACETAMIN 5 MG/325 MG TABLET PO SCH ×2 (05:46→11:09)
[2017-07-04] MEDS: oxyCODONE 5 MG TABLET PO SCH ×2 (05:47→11:09)
[2017-07-04] MEDS: SODIUM CHLORIDE FLUSH 0.9% 10 ML SYRINGE IVP SCH (05:47)
[2017-07-04 06:41] LABS: BASOPHILS % (AUTO) 0.1 %; HCT - HEMATOCRIT 35.5 % (42.0-52.0); HGB - HEMOGLOBIN 11.6 g/dL (14.0-18.0); LYMPHOCYTES # (AUTO) 1.9 10^3/uL (1.5-3.5); LYMPHOCYTES % (AUTO) 9.5 %; MEAN CORPUSCULAR HEMOGLOBIN 30.7 pg (27.0-31.0); MEAN CORPUSCULAR HGB CONC 32.7 g/dL (32.0-36.0); MEAN CORPUSCULAR VOLUME 93.8 fL (80.0-94.0); MEAN PLATELET VOLUME 8.6 fL (7.4-11.4); MONOCYTES # (AUTO) 1.1 10^3/uL (0.0-1.0); MONOCYTES % (AUTO) 5.2 %; NEUTROPHILS # (AUTO) 17.2 10^3/uL (1.5-6.6); NEUTROPHILS % (AUTO) 85.2 %; RED BLOOD COUNT 3.78 10^6/uL (4.70-6.10); RED CELL DISTRIBUTION WIDTH 14.9 % (12.0-15.0); UNCORRECTED WHITE BLOOD COUNT 20.2 x10^3/uL; WHITE BLOOD COUNT 20.2 x10^3/uL (4.8-10.8)
[2017-07-04 06:54] LABS: CALCIUM 8.8 mg/dL (8.5-10.3); CREATININE 0.7 mg/dL (0.6-1.2); POTASSIUM 4.5 mmol/L (3.5-5.0)
[2017-07-04 07:19] LABS: PLATELET ESTIMATE, MANUAL NORMAL (130-450,000) (NORMAL); PLATELET MORPHOLOGY NORMAL APPEARANCE (NORMAL); WBC MORPHOLOGY (MULTIPLE) NORMAL APPEARANCE (NORMAL)
[2017-07-04] MEDS: BUDESONIDE 0.5 MG/2 ML NEB INH SCH (07:19)
[2017-07-04 07:45] VITALS: BP 100/62
[2017-07-04] MEDS: POLYETHYLENE GLYCOL 3350 17 GM PACKET PO SCH (09:02)
[2017-07-04] MEDS: ASCORBIC ACID CHEW 500 MG TABLET PO SCH (09:03)
[2017-07-04] MEDS: CHOLECALCIFEROL 1,000 UNIT TABLET PO SCH (09:03)
[2017-07-04] MEDS: SACCHAROMYCES BOULARDII 250 MG CAPSULE PO SCH (09:03)
[2017-07-04] MEDS: FOLIC ACID 1 MG TABLET PO SCH (09:03)
[2017-07-04] MEDS: amLODIPine 5 MG TABLET PO SCH (09:03)
[2017-07-04] MEDS: ATORVASTATIN 40 MG TABLET PO SCH (09:03)
[2017-07-04] MEDS: predniSONE 20 MG TABLET PO SCH (09:03)
[2017-07-04] MEDS: DOCUSATE SODIUM 250 MG CAPSULE PO SCH (09:04)
[2017-07-04] MEDS: SENNA 8.6 MG TABLET PO SCH (09:04)
[2017-07-04] MEDS: ENOXAPARIN 40 MG/0.4 ML SYRINGE SUBQ SCH (09:04)
[2017-07-04] MEDS: NICOTINE 21 MG PATCH TOP SCH (09:04)
[2017-07-04] MEDS: FERROUS SULFATE 325 MG TABLET PO SCH (09:04)
--- NOTE | 2017-07-04 10:43 | Discharge Plan ---
Discharge Plan Disposition: Home, Self Care Condition: Good Prescriptions: predniSONE [Deltasone] 40 mg PO DAILYWM #6 tablet Levofloxacin [Levaquin] 750 mg PO DAILY 5 Days Polyethylene Glycol 3350 [Miralax] 17 gm PO DAILY PRN #10 packet PRN Reason: Constipation Nicotine 21 mg Patch [Nicoderm] 1 patch TOP DAILY #14 patch Senna [Senokot] 8.6 - 17.2 mg PO DAILY PRN #30 tablet PRN Reason: Constipation Diet: Cardiac Activity Restrictions: Activity as Tolerated Additional Instructions or Follow Up instructions: see your PCP in a week; get more nicotine patch 14 mg /day ones before you run out of 21 mg patch; monitor your CBC, BMP then; get final sputum culture result consider pulmonary rehab clinic for your COPD; talk to you PCP and special education para professional about this option. see your special education para professional as scheduled. If you feel very sick, such as fever, chill, nausea, vomiting, chest pain or pressure, short of breath, contact your doctor right away or call 911 Eat healthy diet ( low fat, low carbohydrate and low salt) Exercise 30 minutes daily at least as you can tolerate Follow up with your PCP, specialist(s) as instructed. Continue to use O2, as instructed if indicated Monitor your blood pressure, heart rate/rhythm at home 1 to 2 times a day; show the results to your doctor(s). It will help them adjust your medications No Smoking: If you smoke, Please STOP! Call for help. Follow-up with: Autumn Lopez ARNP [Credentialed Staff Provider] -
--- NOTE | 2017-07-04 10:49 | DISCHARGE SUMMARY ---
"Discharge Summary Admit Date: 07/02/17 Discharge Date: 07/04/17 Discharging Provider: FIORELLA Dobbs Primary Care Provider: FIORELLA Lindsey Code Status: Attempt Resuscitation Condition at Discharge: Good Discharge Disposition: 01 Home, Self Care - DIAGNOSES Admission Diagnoses: sepsis Pneumonia COPD with pulmonary fibrosis history of GERD chronic pain syndrome tobacco abuse Discharge Diagnoses with Status of Each Condition: Pneumonia-- improving; on Levaquin; pending sputum culture result Leukocytosis: could be steroid induced; no F/C; blood culture negative so far Mild COPD exacerbation with chronic obstructive pulmonary disease and pulmononary fibrosis-- improving; on Prednisone; 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 He had a lot activities 2 days prior the admission and really tired. He came to ED with sudden nausea after missing 2 of his chronic pain meds and started hurting all over with acute shortness of breath; he felt like he had a fever. no new cough and no new phlegm. in ED, patient was noted to have sepsis with fever to 40, WBC 11, pulse 122, needs 4 liters; CXR showed left lung pneumonia. He was then admitted. please see H and P done by DR. Maria Elena Mosquera on 07/02/17 - CONSULTS | PROCEDURES Consultations: none Procedures: none - HOSPITAL COURSE Hospital Course: Since patient was admitted, he has been treated with levaquin for PNA, steroid and neb for his COPD flare up. he has improved gradually with less shortness of breath. his opiates were resumed per his home regiment. his pain is under controlled now, although initially he had mild withdrawal from the opitate. code status was addressed during the stay, he is full code, but he does not want to have prolonged life support. patient was seen today; no fever, chills, chest pain; he told me that his breathing is almost back to his baseline. he will continue to take Levaquin for another 5 days ( total 7 day treatment for PNA with COPD condition) and Prednisone oral for total 5 days. he will see his vulcan crewmember tomorrow. discharge plan was discussed with him. questions and concerns were answered. He has leukocytosis; no fever for 24 to 48 hours. blood culture negative so far ; pending sputum culture. his elevated WBC could be steroid effect. he is advised to see PCP and monitor lab at that time. - ALLERGIES Allergies/Adverse Reactions: Allergies Allergy/AdvReac Type Severity Reaction Status Date / Time No Known Drug Allergies Allergy Verified 01/03/16 14:27 - MEDICATIONS Home Medications: Ambulatory Orders Medication Instructions Recorded Confirmed Nortriptyline [Pamelor] 50 mg PO HS 11/27/13 07/01/17 Omeprazole 20 mg PO DAILY 01/21/14 07/01/17 Cyclobenzaprine [Flexeril] 10 mg PO TID PRN 07/30/15 07/01/17 Oxycodone HCl/Acetaminophen 1 each PO TID PRN 07/30/15 07/01/17 [Percocet 10-325 mg Tablet] Atorvastatin [Lipitor] 80 mg PO DAILY 01/06/16 07/01/17 Ascorbic Acid [Vitamin C] 500 mg PO BID 07/23/16 07/01/17 Cholecalciferol (Vitamin D3) 2,000 units PO DAILY 07/23/16 07/01/17 [Vitamin D3] Ferrous Sulfate 325 mg PO BID 07/23/16 07/01/17 Fluticasone/Salmeterol [Advair Hfa 2 puffs INH BID 07/23/16 07/01/17 115-21 Mcg Inhaler] Folic Acid 1 mg PO DAILY 07/23/16 07/01/17 Ipratropium/Albuterol [Combivent 1 puffs INH TID PRN 07/23/16 07/02/17 Respimat] amLODIPine [Norvasc] 5 mg PO DAILY 01/24/17 07/01/17 Morphine ER 15 mg PO DAILY 07/01/17 07/01/17 traZODone [Desyrel] 100 mg PO DAILY PRN 07/02/17 07/02/17 Levofloxacin [Levaquin] 750 mg PO DAILY 5 Days 07/04/17 Nicotine 21 mg Patch [Nicoderm] 1 patch TOP DAILY #14 patch 08/13/17 Polyethylene Glycol 3350 [Miralax] 17 gm PO DAILY PRN #10 packet 07/04/17 Senna [Senokot] 8.6 - 17.2 mg PO DAILY PRN #30 07/04/17 tablet predniSONE [Deltasone] 40 mg PO DAILYWM #6 tablet 07/04/17 - PHYSICAL EXAM AT DISCHARGE General Appearance: positive: No acute distress, Alert Eyes Bilateral: positive: Normal inspection, PERRL ENT: positive: No signs of dehydration Neck: positive: Nml inspection Respiratory: positive: Chest non-tender, No respiratory distress, Breath sounds nml, Other (no wheezes at this time) Peripheral Pulses: positive: 2+ Abdomen: positive: Non-tender, Nml bowel sounds, No distention Skin: positive: Color nml, No rash Extremities: positive: Non-tender, Full ROM Neurologic/Psychiatric: positive: Oriented x3 - LABS Result Diagrams: 07/04/17 05:34 07/04/17 05:34 - DIAGNOSTIC IMAGING Diagnostic Imaging Results: Final report reviewed Diagnostic Imaging Results Comments: CXR 07/01/17--new left basilar atelectasis/consolidation and new small left pleural effusion, correlate clinically for PNA; redemonstration bilateral coarse reticular opacities, consistent with chronic pulmonary fibrosis, emphysematous changes bilaterally . - FOLLOW UP Follow Up: PCP In a week; monitor CBC, BMP; get final sputum culture result; consider repeating CXR In 4-6 weeks - TIME SPENT Time Spent in Discharge (Minutes): 36"
[2017-07-07] MEDS ORDERED: DEXAMETHASONE 10 MG/ML VIAL ONE (15:37)
[2017-07-07] MEDS ORDERED: CHERRY SYRUP 10 ML UDC PO ONE (15:37)
== END 2017-07-04 13:30 | disposition home or self-care (01) | DRG 871 ==
LOC: ED 22:35 → ICU 07-02 00:13 → MS3 07-02 14:26
PROVIDERS: ADMIT Specialist; ATTEND Nurse Practitioner
DX: A41.9 Sepsis, unspecified organism (principal); J18.9 Pneumonia, unspecified organism; J44.0 Chronic obstructive pulmonary disease with (acute) lower respiratory infection; J44.1 Chronic obstructive pulmonary disease with (acute) exacerbation; J96.11 Chronic respiratory failure with hypoxia; F11.23 Opioid dependence with withdrawal; F17.210 Nicotine dependence, cigarettes, uncomplicated; D72.829 Elevated white blood cell count, unspecified; T38.0X5A Adverse effect of glucocorticoids and synthetic analogues, initial encounter; J84.10 Pulmonary fibrosis, unspecified; K21.9 Gastro-esophageal reflux disease without esophagitis; G89.29 Other chronic pain; Z99.81 Dependence on supplemental oxygen; T40.2X6A Underdosing of other opioids, initial encounter; Z91.138 Patient's unintentional underdosing of medication regimen for other reason; R11.2 Nausea with vomiting, unspecified; E78.5 Hyperlipidemia, unspecified; M41.9 Scoliosis, unspecified; M19.90 Unspecified osteoarthritis, unspecified site; Z86.19 Personal history of other infectious and parasitic diseases; Z79.51 Long term (current) use of inhaled steroids; Z79.899 Other long term (current) drug therapy; Z66 Do not resuscitate
CPT/HCPCS: 36415; 71010; 80048; 80053; 83605; 83690; 83880; 85025; 87040; 87070; 87150; 87205; 94640; 96374; 99284; 99285

== ENCOUNTER 2017-08-13 15:23 | Outpatient (CLI) | payer MEDICARE, MEDICAID ==
[2017-08-13 16:07] LABS: BASOPHILS # (AUTO) 0.1 10^3/uL (0.0-0.1); BASOPHILS % (AUTO) 0.6 %; EOSINOPHILS # (AUTO) 0.2 10^3/uL (0.0-0.7); EOSINOPHILS % (AUTO) 1.5 %; HCT - HEMATOCRIT 42.5 % (42.0-52.0); HGB - HEMOGLOBIN 14.4 g/dL (14.0-18.0); LYMPHOCYTES # (AUTO) 2.9 10^3/uL (1.5-3.5); LYMPHOCYTES % (AUTO) 27.9 %; MEAN CORPUSCULAR HEMOGLOBIN 31.4 pg (27.0-31.0); MEAN CORPUSCULAR HGB CONC 33.9 g/dL (32.0-36.0); MEAN CORPUSCULAR VOLUME 92.7 fL (80.0-94.0); MEAN PLATELET VOLUME 7.7 fL (7.4-11.4); MONOCYTES # (AUTO) 0.8 10^3/uL (0.0-1.0); MONOCYTES % (AUTO) 7.3 %; NEUTROPHILS # (AUTO) 6.5 10^3/uL (1.5-6.6); NEUTROPHILS % (AUTO) 62.7 %; NUCLEATED RED BLOOD CELLS AUTO 0.1 /100WBC; RED BLOOD COUNT 4.58 10^6/uL (4.70-6.10); RED CELL DISTRIBUTION WIDTH 15.4 % (12.0-15.0); UNCORRECTED WHITE BLOOD COUNT 10.4 x10^3/uL; WHITE BLOOD COUNT 10.4 x10^3/uL (4.8-10.8)
[2017-08-13 16:26] LABS: IRON 61 ug/dL (45-182); TOTAL IRON BINDING CAPACITY 287 ug/dL (250-450); TRANSFERRIN 205 mg/dL (180-329)
--- NOTE | 2017-08-13 22:55 | XRAY Report ---
EXAM: CHEST RADIOGRAPHY EXAM DATE: 08/13/2017 03:41 PM. CLINICAL HISTORY: Cough. COMPARISON: 01/24/2017. TECHNIQUE: 2 views. FINDINGS: Lungs/Pleura: Hyperexpanded with flattened diaphragm and coarse lung markings typical of COPD with fi brotic changes. No definite acute infiltrate, consolidation, effusion, or pneumothorax. Mediastinum: Normal heart size, unchanged. Upper lobe vessels not distended. Other: Moderate scoliosis. Degenerative changes. IMPRESSION: Chronic lung disease. No definite acute disease. [facility] Referring Provider Line: [phone] SITE ID: [id number]
== END 2017-08-13 15:24 | disposition home or self-care (01) ==
LOC: DI 15:23
PROVIDERS: ATTEND Nurse Practitioner Family
DX: J98.4 Other disorders of lung (principal); D53.9 Nutritional anemia, unspecified
CPT/HCPCS: 36415; 71020; 82728; 83540; 84466; 85025

== ENCOUNTER 2018-02-07 14:42 | Outpatient (CLI) | payer MEDICARE, MEDICAID ==
--- NOTE | 2018-02-08 07:25 | MRI Report ---
EXAM: MRI LUMBAR SPINE WITHOUT CONTRAST EXAM DATE: 02/07/2018 03:26 PM. CLINICAL HISTORY: 67-year-old man with low back pain. COMPARISON: MRI on 07/06/2014. TECHNIQUE: Multiplanar, multisequence T1-weighted and fluid-sensitive sequences of the lumbar spine f rom T12 to S1 without contrast. Other: None. FINDINGS: Spinal Cord: The conus terminates at L1. Cauda equina nerve roots are normal in appearance. Alignment: Convex left scoliosis centered at L3-L4 is again demonstrated. Grade 1 retrolisthesis of L 2 on L3 measures approximately 3 mm, not significant changed compared to the 2014 exam. There is also trace retrolisthesis of L1 on L2, also unchanged. Bone Marrow: Five hhe-jis-sgvmbho lumbar vertebral bodies are present. No gross fractures or bone les ions. Mild degenerative endplate edema is present at L3-L4, left side worse than right, decreased com pared to the 2014 exam. Prominent Modic type II chronic degenerative endplate changes are present at L5-S1, left-sided worse than right, similar to the prior exam. Disk Levels/Facets: T12-L1: Unremarkable. L1-L2: There is disk desiccation without significant height loss. Small broad-based disk bulge is pre sent without significant narrowing of the central canal or neural foramina. L2-L3: There is disk desiccation without significant height loss. Retrolisthesis of L2 on L3 and smal l broad-based disk bulge result in minimal narrowing of the central canal, unchanged. No significant neural foraminal narrowing. L3-L4: There is disk desiccation and mild height loss on the right. Small broad-based disk bulge and facet hypertrophy result in minimal narrowing of the central canal, unchanged. Facet hypertrophy and disk in the subarticular spaces result in egja-hb-udlxsofz narrowing of the neural foramina bilateral ly, unchanged. L4-L5: There is disk desiccation without significant height loss. Small broad-based disk bulge and fa cet hypertrophy result in minimal narrowing of the central canal, unchanged. Facet hypertrophy and di sk in the subarticular space result in mild to moderate narrowing of the left neural foramen and mini mal narrowing on the right, unchanged. L5-S1: There is disk desiccation and mild height loss on the left. Small broad-based disk bulge is pr esent without significant narrowing of the central canal or lateral recesses. Disk in the subarticula r spaces and facet hypertrophy result in pkwf-xb-fzlkzjip narrowing of the left neural foramen and mi nimal narrowing on the right, unchanged. Prominent Tarlov cyst is present on the right at S2. Musculature: Normal. No edema or fatty atrophy. Other: The partially visualized retroperitoneum is unremarkable. IMPRESSION: 1. Convex left scoliosis centered at L3-L4, similar to the 07/06/2014 exam. 2. Multilevel degenerative disk changes with mild bony endplate edema at L3-L4, decreased compared to the prior exam. Prominent chronic bony endplate changes are also present at L5-S1, not significantly changed. 3. Degenerative changes result in the following: -L3-L4: Mild to moderate narrowing of the neural foramina bilaterally, unchanged. -L4-L5: Mild to moderate narrowing of the left neural foramen, unchanged. -L5-S1: Mild to moderate narrowing of the left neural foramen, unchanged. Comment: The following findings are so common in adults without low back pain that while we report th eir presence, they must be interpreted with caution and in the context of the clinical situation. (Re roseline Hurst et al, Spine 2001) Prevalence of findings in patients without low back pain: Disk degeneration (any evidence): 92% Disk desiccation/T2 signal loss: 83% Disk height loss: 56% Disk bulge: 64% Disk protrusion: 32% Annular tear/high intensity zone: 38% [facility] Referring Provider Line: [phone] SITE ID: [id number]
== END 2018-02-07 14:43 | disposition home or self-care (01) ==
LOC: DI 14:42
PROVIDERS: ATTEND Acupuncturist
DX: M51.36 Other intervertebral disc degeneration, lumbar region (principal); M47.896 Other spondylosis, lumbar region; M51.37 Other intervertebral disc degeneration, lumbosacral region; M47.897 Other spondylosis, lumbosacral region; M41.86 Other forms of scoliosis, lumbar region; M43.16 Spondylolisthesis, lumbar region
CPT/HCPCS: 72148

== ENCOUNTER 2018-08-14 16:14 | Emergency (ER) | payer MEDICARE, MEDICAID ==
--- NOTE | 2018-08-14 16:23 | ED Physician Documentation ---
PD HPI BACK PAIN - Stated complaint Stated Complaint: MID BACK PX - History obtained from History obtained from: Patient - History of Present Illness Timing - onset: How many days ago (2) Timing - duration: Days (2) Timing - details: Gradual onset (He has a history of chronic thoracic and lumbar back pain. This is typically controlled well enough with chronic medications from the [facility] pain clinic. He states he missed a step walking down the stairs 2 days ago and had a twisting of his back. There is no fall or direct impact. He has pain in the left parathoracic area with stiffness since that time. He denies any numbness tingling or weakness in his legs. He has not had any loss of bladder control.) Location: Mid, Left Quality: Pain, Spasm Associated symptoms: No: Fever, Weakness, Numbness, Incontinent of urine Worsened by: Movement, Twisting, Palpation Contributing factors: Twisting. No: Lifting, Anticoagulated Recently seen: Not recently seen Review of Systems Constitutional: denies: Fever, Myalgias Nose: denies: Rhinorrhea / runny nose, Congestion Throat: denies: Sore throat Respiratory: denies: Cough GI: denies: Abdominal Pain, Vomiting, Diarrhea : denies: Dysuria, Frequency Skin: denies: Rash, Lesions PD PAST MEDICAL HISTORY - Past Medical History Cardiovascular: High cholesterol Respiratory: COPD, Emphysema, Other Endocrine/Autoimmune: None GI: Other : None HEENT: None Psych: None Musculoskeletal: Scoliosis, Chronic back pain Derm: None - Past Surgical History Past Surgical History: Yes General: Other HEENT: Other - Present Medications Home Medications: Ambulatory Orders Medication Instructions Recorded Confirmed Nortriptyline [Pamelor] 50 mg PO HS 11/27/13 08/14/18 Omeprazole 20 mg PO DAILY 01/21/14 08/14/18 Cyclobenzaprine [Flexeril] 10 mg PO BID 07/30/15 08/14/18 Oxycodone HCl/Acetaminophen 1 each PO TID PRN 07/30/15 08/14/18 [Percocet 10-325 mg Tablet] Atorvastatin [Lipitor] 80 mg PO DAILY 01/06/16 08/14/18 Ascorbic Acid [Vitamin C] 500 mg PO BID 07/23/16 08/14/18 Cholecalciferol (Vitamin D3) 2,000 units PO DAILY 07/23/16 08/14/18 [Vitamin D3] Ferrous Sulfate 325 mg PO BID 07/23/16 08/14/18 Fluticasone/Salmeterol [Advair Hfa 2 puffs INH BID 07/23/16 08/14/18 115-21 Mcg Inhaler] Folic Acid 1 mg PO DAILY 07/23/16 08/14/18 Ipratropium/Albuterol [Combivent 1 puffs INH TID PRN 07/23/16 08/14/18 Respimat] amLODIPine [Norvasc] 5 mg PO DAILY 01/24/17 08/14/18 Morphine ER 15 mg PO DAILY 07/01/17 08/14/18 Senna [Senokot] 8.6 - 17.2 mg PO DAILY PRN #30 07/04/17 08/14/18 tablet HYDROcodone/ACET 10/325 [[place] 10 1 each PO Q6H PRN #10 tablet 08/14/18 mg/325 mg] - Allergies Allergies/Adverse Reactions: Allergies Allergy/AdvReac Type Severity Reaction Status Date / Time No Known Drug Allergies Allergy Verified 08/14/18 16:27 - Social History Does the pt smoke?: Yes Smoking Status: Current every day smoker Does the pt drink ETOH?: No Does the pt have substance abuse?: No - Immunizations Immunizations are current?: Yes - POLST Patient has POLST: No PD ED PE NORMAL - Vitals Vital signs reviewed: Yes - General General: Alert and oriented X 3, Well developed/nourished, Other (guarded ROM of the mid back. ) - Neck Neck: Supple, no meningeal sign, No adenopathy - Cardiac Cardiac: RRR, No murmur - Respiratory Respiratory: Clear bilaterally - Abdomen Abdomen: Soft, Non tender - Back Back: No spinal TTP (but is tender to palpation left paraspinus muscle about T 9-12 area. ) - Derm Derm: Normal color, Warm and dry, No rash - Extremities Extremities: No tenderness to palpate, Normal ROM s pain - Neuro Neuro: Alert and oriented X 3, No motor deficit, No sensory deficit, Normal speech Results - Vitals Vitals: Vital Signs - 24 hr 08/14/18 16:26 Temperature 36.1 C L Heart Rate 112 H Respiratory 23 Rate Blood Pressure 113/75 O2 Saturation 95 Oxygen O2 Source Room air PD MEDICAL DECISION MAKING - ED course Complexity details: considered differential (has increased pain above baseline due to twisting injury. Will give adjunct meds for 1-2 days. Also did trigger point injection with 3 ml Marcaine in the parathoracic muscle. He has appt with [facility] tomorrow by co-incidence, so can follow up with them. No red flags nor neuro symptoms at this time. ), d/w patient - Sepsis Event Vital Signs: Vital Signs - 24 hr 08/14/18 16:26 Temperature 36.1 C L Heart Rate 112 H Respiratory 23 Rate Blood Pressure 113/75 O2 Saturation 95 Oxygen O2 Source Room air Departure - Departure Disposition: Home, Self Care Clinical Impression: Acute thoracic myofascial strain Qualifiers: Encounter type: initial encounter Qualified Code(s): S29.019A - Strain of muscle and tendon of unspecified wall of thorax, initial encounter Condition: Stable Record reviewed to determine appropriate education?: Yes Instructions: ED Sprain Thoracic Spine Follow-Up: Autumn Lopez ARNP [Primary Care Provider] - Prescriptions: HYDROcodone/ACET 10/325 [[place] 10 mg/325 mg] 1 each PO Q6H PRN #10 tablet PRN Reason: Pain Comments: Heat to the muscle area periodically for potentials spasms. Use some naproxen or ibuprofen a couple times a day for inflammation. Continue usual medications. Supplement with hydrocodone every 4-6 hours if needed for the next couple of d ays. Follow-up with the pain clinic tomorrow afternoon as planned. Further medications per their direction.
[2018-08-14] MEDS ORDERED: HYDROmorphone 2 MG/ML VIAL IM STA ×2 (16:39→16:41)
[2018-08-14] MEDS ORDERED: BUPIVACAINE 0.5% PF 10 ML VIAL SUBQ STA (16:39)
[2018-08-14] MEDS ORDERED: KETOROLAC 30 MG/ML VIAL IM STA (16:39)
[2018-08-14 17:22] VITALS: BP 133/86
== END 2018-08-14 17:20 | disposition home or self-care (01) ==
LOC: ED 16:14
DX: S29.019A Strain of muscle and tendon of unspecified wall of thorax, initial encounter (principal); X50.1XXA Overexertion from prolonged static or awkward postures, initial encounter; Y93.01 Activity, walking, marching and hiking; G89.29 Other chronic pain; M41.9 Scoliosis, unspecified; E78.00 Pure hypercholesterolemia, unspecified; F17.200 Nicotine dependence, unspecified, uncomplicated
CPT/HCPCS: 96372; 99283; J1170

== ENCOUNTER 2018-10-03 22:05 | Emergency (ER) | payer MEDICARE, MEDICAID ==
--- NOTE | 2018-10-03 22:53 | ED Physician Documentation ---
PD HPI BACK PAIN - Stated complaint Stated Complaint: BK PX - Chief complaint Chief Complaint: Back Pain - History obtained from History obtained from: Patient - History of Present Illness Timing - onset: How many days ago (3) Timing - details: Abrupt onset Pain level max: 8 Pain level now: 6 Location: Left Quality: Pain, Spasm, Similar to prior episodes Associated symptoms: No: Fever, Weakness, Numbness, Incontinent of urine, Unable to urinate, Hematuria, Incontinent of stool Improves with: Nothing Worsened by: Other (no exacerbating factors) Similar symptoms before: Diagnosis (chronic back pain) Recently seen: Emergency Dept (T+R in July for similar c/o) - Additional information Additional information: chronic back pain, takes 10mg oxycodone 4x/day, morphine 15mg PO QHS, flexeril and nortriptylene. 3 days ago, "I wrenched my back" (per patient) when pulling luggage, resulting in increased left LBP. Yesterday, he sneezed, further worsening the pain. He says he has not contacted [facility] (which is where he is seen). Review of Systems Constitutional: denies: Fever, Chills, Sweats Cardiac: denies: Chest pain / pressure : denies: Dysuria, Frequency, Unable to Void, Incontinent Musculoskeletal: reports: Back pain Neurologic: denies: Focal weakness, Numbness PD PAST MEDICAL HISTORY - Past Medical History Cardiovascular: High cholesterol Respiratory: COPD, Emphysema, Other Endocrine/Autoimmune: None GI: Other : None HEENT: None Psych: None Musculoskeletal: Scoliosis, Chronic back pain Derm: None - Past Surgical History Past Surgical History: Yes General: Other HEENT: Other - Present Medications Home Medications: Ambulatory Orders Medication Instructions Recorded Confirmed Nortriptyline [Pamelor] 50 mg PO HS 11/27/13 10/03/18 Omeprazole 20 mg PO DAILY 01/21/14 10/03/18 Cyclobenzaprine [Flexeril] 10 mg PO BID 07/30/15 10/03/18 Oxycodone HCl/Acetaminophen 1 each PO TID PRN 07/30/15 10/03/18 [Percocet 10-325 mg Tablet] Atorvastatin [Lipitor] 80 mg PO DAILY 01/06/16 10/03/18 Ascorbic Acid [Vitamin C] 500 mg PO BID 07/23/16 10/03/18 Cholecalciferol (Vitamin D3) 2,000 units PO DAILY 07/23/16 10/03/18 [Vitamin D3] Ferrous Sulfate 325 mg PO BID 07/23/16 10/03/18 Fluticasone/Salmeterol [Advair Hfa 2 puffs INH BID 07/23/16 10/03/18 115-21 Mcg Inhaler] Folic Acid 1 mg PO DAILY 07/23/16 10/03/18 Ipratropium/Albuterol [Combivent 1 puffs INH TID PRN 07/23/16 10/03/18 Respimat] amLODIPine [Norvasc] 5 mg PO DAILY 01/24/17 10/03/18 Morphine ER 15 mg PO DAILY 07/01/17 10/03/18 Senna [Senokot] 8.6 - 17.2 mg PO DAILY PRN #30 07/04/17 10/03/18 tablet Hydrocodone/Acetaminophen 1 each PO Q6HR PRN #10 tablet 10/04/18 [Hydrocodon-Acetaminophn 10-325] diazePAM [Valium] 5 mg PO BID PRN #7 tablet 10/04/18 - Allergies Allergies/Adverse Reactions: Allergies Allergy/AdvReac Type Severity Reaction Status Date / Time No Known Drug Allergies Allergy Verified 10/03/18 22:13 - Social History Does the pt smoke?: Yes Smoking Status: Current every day smoker Does the pt drink ETOH?: No Does the pt have substance abuse?: No - Immunizations Immunizations are current?: Yes - POLST Patient has POLST: No PD ED PE NORMAL - Vitals Vital signs reviewed: Yes - General General: Alert and oriented X 3, Well developed/nourished, Other (appears to be in waxing and waning painful distress) - Cardiac Cardiac: RRR, No murmur - Respiratory Respiratory: No respiratory distress, Clear bilaterally - Back Back: No CVA TTP, No spinal TTP - Derm Derm: Normal color, Warm and dry - Extremities Extremities: No edema - Neuro Neuro: Alert and oriented X 3, Other (1+/4 bilateral patellar DTR) Results - Vitals Vitals: Vital Signs - 24 hr 10/03/18 10/04/18 22:08 00:44 Temperature 36.5 C Heart Rate 100 86 Respiratory 18 16 Rate Blood Pressure 131/76 H 128/72 O2 Saturation 98 97 Oxygen O2 Source Room air PD MEDICAL DECISION MAKING - ED course Complexity details: reviewed old records, re-evaluated patient, considered differential, d/w patient ED course: Patient reported good relief with IM dilaudid, PO valium, IM toradol. Requests rx for ten tablets of hydrocodone/acetaminophen, as was prescribed in July. he says he contacts his pain clinic the next day after an ED visit, and plans to call in the morning to inform them about this visit, as well. He says he tells them which medications have been given. Over the past few years, his visits have been infrequent and usually related to his COPD rather than pain-related c/o. Departure - Departure Disposition: 01 Home, Self Care Clinical Impression: Back pain Qualifiers: Back pain location: low back pain Chronicity: chronic Back pain laterality: left Sciatica presence: without sciatica Qualified Code(s): M54.5 - Low back pain Condition: Good Instructions: NARCOTIC, Oral, ED Neck Back Pain General Follow-Up: Autumn Lopez ARNP [Primary Care Provider] - Prescriptions: Hydrocodone/Acetaminophen [Hydrocodon-Acetaminophn 10-325] 1 each PO Q6HR PRN #10 tablet PRN Reason: Pain diazePAM [Valium] 5 mg PO BID PRN #7 tablet PRN Reason: Spasms Comments: If your usual medications do not adequately control the pain, you can either take a dose of valium IN PLACE OF the cyclobenzaprine OR take a dose of the hydrocodone in addition to your usual meds (if you take the Valium, do not also take hydrocodone; if you take the hydrocodone, you can take the cyclobenzaprine, but not the valium). Discharge Date/Time: 10/04/18 00:47
[2018-10-03] MEDS ORDERED: HYDROmorphone 1 MG/ML CARPUJECT IM STA (23:08)
[2018-10-03] MEDS ORDERED: diazePAM 5 MG TABLET PO STA (23:08)
[2018-10-03] MEDS ORDERED: KETOROLAC 60 MG/2 ML VIAL IM STA (23:08)
[2018-10-04 00:45] VITALS: BP 128/72
== END 2018-10-04 00:47 | disposition home or self-care (01) ==
LOC: ED 22:05
DX: M54.5 Low back pain (principal); G89.29 Other chronic pain; M41.9 Scoliosis, unspecified; E78.00 Pure hypercholesterolemia, unspecified; F17.200 Nicotine dependence, unspecified, uncomplicated
CPT/HCPCS: 96372; 99283; A9270; J1170

== ENCOUNTER 2018-12-03 13:33 | Outpatient (CLI) | payer MEDICARE, MEDICAID ==
[2018-12-03 14:01] LABS: BASOPHILS # (AUTO) 0.1 10^3/uL (0.0-0.1); BASOPHILS % (AUTO) 1.3 %; EOSINOPHILS # (AUTO) 0.1 10^3/uL (0.0-0.7); EOSINOPHILS % (AUTO) 1.9 %; HGB - HEMOGLOBIN 14.1 g/dL (14.0-18.0); LYMPHOCYTES # (AUTO) 2.2 10^3/uL (1.5-3.5); LYMPHOCYTES % (AUTO) 29.1 %; MEAN CORPUSCULAR HEMOGLOBIN 32.6 pg (27.0-31.0); MEAN CORPUSCULAR HGB CONC 34.5 g/dL (32.0-36.0); MEAN CORPUSCULAR VOLUME 94.3 fL (80.0-94.0); MEAN PLATELET VOLUME 7.5 fL (7.4-11.4); MONOCYTES # (AUTO) 0.6 10^3/uL (0.0-1.0); MONOCYTES % (AUTO) 8.3 %; NEUTROPHILS # (AUTO) 4.6 10^3/uL (1.5-6.6); NEUTROPHILS % (AUTO) 59.4 %; PLT - PLATELET COUNT 293 10^3/uL (130-450); RED BLOOD COUNT 4.34 10^6/uL (4.70-6.10); RED CELL DISTRIBUTION WIDTH 14.2 % (12.0-15.0); WHITE BLOOD COUNT 7.7 x10^3/uL (4.8-10.8)
[2018-12-03 14:18] LABS: % IRON SATURATION 32 % (20-50); ALKALINE PHOSPHATASE 90 IU/L (42-121); ALT ALANINE AMINOTRANSFERASE 21 IU/L (10-60); AST ASPARTATE AMINOTRANSFERASE 22 IU/L (10-42); BILIRUBIN,TOTAL 0.5 mg/dL (0.2-1.0); BUN - BLOOD UREA NITROGEN 20 mg/dL (6-20); CALCIUM 9.2 mg/dL (8.5-10.3); CARBON DIOXIDE - CO2 27 mmol/L (21-32); CHLORIDE 103 mmol/L (101-111); CHOL/HDL RATIO 2.4 (<5.0); CHOLESTEROL 142 mg/dL; CREATININE 0.8 mg/dL (0.6-1.2); GFR - MDRD 97 (>89); GLUCOSE 103 mg/dL (70-100); HDL CHOLESTEROL 60 mg/dL; IRON 88 ug/dL (45-182); LDL CHOLESTEROL,CALCULATED 66 mg/dL; LDL/HDL RATIO 1.1 (<3.6); SODIUM 136 mmol/L (135-145); TOTAL IRON BINDING CAPACITY 277 ug/dL (250-450); TRANSFERRIN 198 mg/dL (180-329); VLDL CHOLESTEROL 16 mg/dL
[2018-12-03 14:47] LABS: THYROID STIMULATING HORMONE 1.88 uIU/mL (0.34-5.60)
[2018-12-03 14:52] LABS: FERRITIN 169.4 ng/mL (23.9-336.2)
== END 2018-12-03 13:34 | disposition home or self-care (01) ==
LOC: LAB 13:33
PROVIDERS: ATTEND Nurse Practitioner Family
DX: I10 Essential (primary) hypertension (principal); D53.9 Nutritional anemia, unspecified; E78.5 Hyperlipidemia, unspecified
CPT/HCPCS: 36415; 80053; 80061; 82728; 83540; 83721; 84443; 84466; 85025

== ENCOUNTER 2019-01-13 22:16 | Emergency (ER) | payer MEDICARE, MEDICAID ==
[2019-01-13 22:33] LABS: BILIRUBIN,URINE NEGATIVE (NEGATIVE); GLUCOSE, URINE (UA) NEGATIVE (NEGATIVE); KETONES,URINE (UA) NEGATIVE (NEGATIVE); LEUKOCYTE ESTERASE, URINE NEGATIVE (NEGATIVE); NITRITE,URINE NEGATIVE (NEGATIVE); OCCULT BLOOD,URINE NEGATIVE (NEGATIVE); PROTEIN,URINE NEGATIVE (NEGATIVE); UROBILINOGEN,URINE 0.2 (NORMAL) E.U./dL (NORMAL)
[2019-01-13 22:34] LABS: CLARITY,URINE CLEAR (CLEAR)
--- NOTE | 2019-01-14 00:49 | ED Physician Documentation ---
PD HPI MALE - Stated complaint Stated Complaint: MALE - Chief complaint Chief Complaint: UTI - History obtained from History obtained from: Patient - History of Present Illness Timing - onset: How many days ago (2) Timing - duration: Days (2) Timing - details: Gradual onset, Still present Associated symptoms: Urinary frequency. No: Dysuria Similar symptoms before: Has not had sx before Recently seen: Clinic - Additional information Additional information: 68-year-old male with a history of pulmonary fibrosis has developed urinary frequency. He states that he is urinating a full healthy stream and is getting up frequently to urinate. He has not had this symptom previously and he denies any burning sensation or pain associated with this. His girlfriend is insisted he come to the emergency department today the evaluated for urinary tract infection. The patient denies any pain elsewhere he denies any nausea or vomiting he denies any syncope. Review of Systems Constitutional: denies: Fever Eyes: denies: Decreased vision Ears: denies: Ear pain Nose: denies: Rhinorrhea / runny nose, Congestion Throat: denies: Sore throat Cardiac: denies: Chest pain / pressure, Palpitations Respiratory: reports: Dyspnea. denies: Cough GI: denies: Abdominal Pain, Nausea, Vomiting, Constipation, Diarrhea : reports: Frequency. denies: Dysuria Skin: denies: Rash Musculoskeletal: denies: Neck pain, Back pain, Extremity pain Neurologic: denies: Generalized weakness, Focal weakness, Numbness PD PAST MEDICAL HISTORY - Past Medical History Cardiovascular: High cholesterol Respiratory: COPD, Emphysema, Other Endocrine/Autoimmune: None GI: Other : None HEENT: None Psych: None Musculoskeletal: Scoliosis, Chronic back pain Derm: None - Past Surgical History Past Surgical History: Yes General: Other HEENT: Other - Present Medications Home Medications: Ambulatory Orders Medication Instructions Recorded Confirmed Nortriptyline [Pamelor] 50 mg PO HS 11/27/13 10/03/18 Omeprazole 20 mg PO DAILY 01/21/14 10/03/18 Cyclobenzaprine [Flexeril] 10 mg PO BID 07/30/15 10/03/18 Oxycodone HCl/Acetaminophen 1 each PO TID PRN 07/30/15 10/03/18 [Percocet 10-325 mg Tablet] Atorvastatin [Lipitor] 80 mg PO DAILY 01/06/16 10/03/18 Ascorbic Acid [Vitamin C] 500 mg PO BID 07/23/16 10/03/18 Cholecalciferol (Vitamin D3) 2,000 units PO DAILY 07/23/16 10/03/18 [Vitamin D3] Ferrous Sulfate 325 mg PO BID 07/23/16 10/03/18 Fluticasone/Salmeterol [Advair Hfa 2 puffs INH BID 07/23/16 10/03/18 115-21 Mcg Inhaler] Folic Acid 1 mg PO DAILY 07/23/16 10/03/18 Ipratropium/Albuterol [Combivent 1 puffs INH TID PRN 07/23/16 10/03/18 Respimat] amLODIPine [Norvasc] 5 mg PO DAILY 01/24/17 10/03/18 Morphine ER 15 mg PO DAILY 07/01/17 10/03/18 Senna [Senokot] 8.6 - 17.2 mg PO DAILY PRN #30 07/04/17 10/03/18 tablet Hydrocodone/Acetaminophen 1 each PO Q6HR PRN #10 tablet 10/04/18 [Hydrocodon-Acetaminophn 10-325] diazePAM [Valium] 5 mg PO BID PRN #7 tablet 10/04/18 - Allergies Allergies/Adverse Reactions: Allergies Allergy/AdvReac Type Severity Reaction Status Date / Time No Known Drug Allergies Allergy Verified 01/13/19 22:22 - Social History Does the pt smoke?: Yes Smoking Status: Current every day smoker Does the pt drink ETOH?: No Does the pt have substance abuse?: No - Immunizations Immunizations are current?: Yes - POLST Patient has POLST: No PD ED PE NORMAL - Vitals Vital signs reviewed: Yes (tachy and hypertensive ) - General General: Alert and oriented X 3, No acute distress, Well developed/nourished - HEENT HEENT: Atraumatic, PERRL, EOMI - Neck Neck: Supple, no meningeal sign - Cardiac Cardiac: RRR, No murmur - Respiratory Respiratory: No respiratory distress, Clear bilaterally - Abdomen Abdomen: Soft, Non tender - Back Back: No CVA TTP, No spinal TTP - Derm Derm: Normal color, Warm and dry, No rash - Extremities Extremities: No deformity, No edema - Neuro Neuro: Alert and oriented X 3, 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, No motor deficit, No sensory deficit, Normal speech Eye Opening: Spontaneous Motor: Obeys Commands Verbal: Oriented GCS Score: 15 - Psych Psych: Normal mood, Normal affect Results - Vitals Vitals: Vital Signs - 24 hr 01/13/19 01/14/19 22:18 00:27 Temperature 36.4 C L Heart Rate 105 H 93 Respiratory 18 18 Rate Blood Pressure 133/76 H 153/87 H O2 Saturation 94 97 Oxygen O2 Source Room air - Labs Labs: Laboratory Tests 01/13/19 01/13/19 01/14/19 22:30 23:54 01:00 WBC 8.2 RBC 4.23 L Hgb 13.5 L Hct 40.2 L MCV 94.9 H MCH 31.9 H MCHC 33.6 RDW 14.3 Plt Count 283 MPV 7.9 Neut # (Auto) 4.4 Lymph # (Auto) 2.9 Phelps # (Auto) 0.7 Eos # (Auto) 0.1 Baso # (Auto) 0.1 Absolute Nucleated RBC 0.00 Nucleated RBC % 0.0 Sodium Potassium Chloride Carbon Dioxide Anion Gap BUN Creatinine Estimated GFR (MDRD) Glucose POC Whole Bld Glucose 87 Calcium Total Bilirubin AST ALT Alkaline Phosphatase Total Protein Albumin Globulin Albumin/Globulin Ratio Lipase Urine Color YELLOW Urine Clarity CLEAR Urine pH 6.0 Ur Specific [place] 1.015 Urine Protein NEGATIVE Urine Glucose (UA) NEGATIVE Urine Ketones NEGATIVE Urine Occult Blood NEGATIVE Urine Nitrite NEGATIVE Urine Bilirubin NEGATIVE Urine Urobilinogen 0.2 (NORMAL) Ur Leukocyte Esterase NEGATIVE Ur Microscopic Review NOT INDICATED Urine Culture Comments NOT INDICATED 01/14/19 01:00 WBC RBC Hgb Hct MCV MCH MCHC RDW Plt Count MPV Neut # (Auto) Lymph # (Auto) Phelps # (Auto) Eos # (Auto) Baso # (Auto) Absolute Nucleated RBC Nucleated RBC % Sodium 141 Potassium 3.5 Chloride 104 Carbon Dioxide 27 Anion Gap 10.0 BUN 18 Creatinine 0.7 Estimated GFR (MDRD) 113 Glucose 98 POC Whole Bld Glucose Calcium 9.2 Total Bilirubin 0.5 AST 20 ALT 19 Alkaline Phosphatase 92 Total Protein 7.9 Albumin 4.0 Globulin 3.9 Albumin/Globulin Ratio 1.0 Lipase 43 Urine Color Urine Clarity Urine pH Ur Specific [place] Urine Protein Urine Glucose (UA) Urine Ketones Urine Occult Blood Urine Nitrite Urine Bilirubin Urine Urobilinogen Ur Leukocyte Esterase Ur Microscopic Review Urine Culture Comments Procedures - IVC sono (time) 0040 Bedside IVC sono: IVC measures (cm) (1.44), IVC collapsed c insp (cm) (0.68), Euvolemia PD MEDICAL DECISION MAKING - ED course Complexity details: reviewed results, re-evaluated patient, considered differential, d/w patient ED course: 68-year-old male with a chief complaint of urinary frequency has felt that he might have infection but did not have any dysuria associated with this. He repeats frequent urination with normal volumes and today on interrogation the inferior vena cava he remains euvolemic and his electrolytes are normal. He does have one medication that he has been using excessively the fluticasone and he discontinued using this excessively and began using the correct dose about 1 week ago. My suspicion is he may have retained some fluid while he was using double the dose and is now releasing that fluid. The expectation would be return to normal within 24-48 hours. I discussed the findings with the patient and he will follow-up as needed. Departure - Departure Disposition: 01 Home, Self Care Clinical Impression: Euvolemia Condition: Stable Instructions: ED Dysuria Uncertain Cause Follow-Up: Autumn Lopez ARNP [Primary Care Provider] -
[2019-01-14 01:13] LABS: BASOPHILS # (AUTO) 0.1 10^3/uL (0.0-0.1); BASOPHILS % (AUTO) 1.1 %; EOSINOPHILS # (AUTO) 0.1 10^3/uL (0.0-0.7); EOSINOPHILS % (AUTO) 1.6 %; HGB - HEMOGLOBIN 13.5 g/dL (14.0-18.0); LYMPHOCYTES # (AUTO) 2.9 10^3/uL (1.5-3.5); LYMPHOCYTES % (AUTO) 35.5 %; MEAN CORPUSCULAR HEMOGLOBIN 31.9 pg (27.0-31.0); MEAN CORPUSCULAR HGB CONC 33.6 g/dL (32.0-36.0); MEAN CORPUSCULAR VOLUME 94.9 fL (80.0-94.0); MEAN PLATELET VOLUME 7.9 fL (7.4-11.4); MONOCYTES # (AUTO) 0.7 10^3/uL (0.0-1.0); MONOCYTES % (AUTO) 8.5 %; NEUTROPHILS # (AUTO) 4.4 10^3/uL (1.5-6.6); NEUTROPHILS % (AUTO) 53.3 %; PLT - PLATELET COUNT 283 10^3/uL (130-450); RED BLOOD COUNT 4.23 10^6/uL (4.70-6.10); RED CELL DISTRIBUTION WIDTH 14.3 % (12.0-15.0); WHITE BLOOD COUNT 8.2 x10^3/uL (4.8-10.8)
[2019-01-14 01:22] LABS: BILIRUBIN,TOTAL 0.5 mg/dL (0.2-1.0); CALCIUM 9.2 mg/dL (8.5-10.3); CREATININE 0.7 mg/dL (0.6-1.2); TOTAL PROTEIN 7.9 g/dL (6.7-8.2)
[2019-01-14 01:56] VITALS: BP 151/74
== END 2019-01-14 01:56 | disposition home or self-care (01) ==
LOC: ED 22:16
DX: E86.0 Dehydration (principal); J84.10 Pulmonary fibrosis, unspecified; E78.00 Pure hypercholesterolemia, unspecified; M41.9 Scoliosis, unspecified; F17.200 Nicotine dependence, unspecified, uncomplicated
CPT/HCPCS: 36415; 80053; 81001; 81003; 83690; 85025; 87086; 99283

== ENCOUNTER 2019-02-24 02:36 | Emergency (ER) | payer MEDICARE, MEDICAID ==
--- NOTE | 2019-02-24 03:10 | ED Physician Documentation ---
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 shortly before coming to ED, he was bitten by his dog. The dog bit patient's left thumb, patient c/o pain left thumb and puncture wounds. Review of Systems Skin: reports: Laceration (s), Bite / sting Musculoskeletal: reports: Extremity pain, Extremity swelling Neurologic: denies: Focal weakness, Numbness PD PAST MEDICAL HISTORY - Past Medical History Past Medical History: Yes Cardiovascular: High cholesterol Respiratory: COPD, Emphysema, Other Endocrine/Autoimmune: None GI: Other : None HEENT: None Psych: None Musculoskeletal: Scoliosis, Chronic back pain Derm: None - Past Surgical History Past Surgical History: Yes General: Other HEENT: Other - Present Medications Home Medications: Ambulatory Orders Medication Instructions Recorded Confirmed Nortriptyline [Pamelor] 50 mg PO HS 11/27/13 10/03/18 Omeprazole 20 mg PO DAILY 01/21/14 10/03/18 Cyclobenzaprine [Flexeril] 10 mg PO BID 07/30/15 10/03/18 Oxycodone HCl/Acetaminophen 1 each PO TID PRN 07/30/15 10/03/18 [Percocet 10-325 mg Tablet] Atorvastatin [Lipitor] 80 mg PO DAILY 01/06/16 10/03/18 Ascorbic Acid [Vitamin C] 500 mg PO BID 07/23/16 10/03/18 Cholecalciferol (Vitamin D3) 2,000 units PO DAILY 07/23/16 10/03/18 [Vitamin D3] Folic Acid 1 mg PO DAILY 07/23/16 10/03/18 Ipratropium/Albuterol [Combivent 1 puffs INH TID PRN 07/23/16 10/03/18 Respimat] amLODIPine [Norvasc] 5 mg PO DAILY 01/24/17 10/03/18 Morphine ER 15 mg PO DAILY 07/01/17 10/03/18 Senna [Senokot] 8.6 - 17.2 mg PO DAILY PRN #30 07/04/17 10/03/18 tablet Amox/Clav 875/125 [Augmentin] 1 each PO Q12H #14 tablet 02/24/19 Fluticasone/Vilanterol [Breo 1 puffs INH DAILY 02/24/19 02/24/19 Ellipta 100-25 Mcg INH] oxyCODONE [Roxicodone] 5 mg PO Q6H PRN #14 tablet 02/24/19 - Allergies Allergies/Adverse Reactions: Allergies Allergy/AdvReac Type Severity Reaction Status Date / Time No Known Drug Allergies Allergy Verified 02/24/19 02:42 - Social History Does the pt smoke?: Yes Smoking Status: Current every day smoker Does the pt drink ETOH?: No Does the pt have substance abuse?: No - Immunizations Immunizations are current?: Yes - POLST Patient has POLST: No PD ED PE NORMAL - Vitals Vital signs reviewed: Yes - General General: Alert and oriented X 3, No acute distress, Well developed/nourished - Neuro Neuro: No motor deficit, No sensory deficit PD ED PE EXPANDED - Extremities EDU UE/Hands Visual: 1 - laceration (puncture) 2 - laceration (puncture) 3 - swelling, tenderness Results - Vitals Vitals: Vital Signs - 24 hr 02/24/19 02/24/19 02:39 03:35 Temperature 36.8 C Heart Rate 97 93 Respiratory 17 16 Rate Blood Pressure 136/75 H 126/77 O2 Saturation 93 94 Oxygen O2 Source Room air PD MEDICAL DECISION MAKING - ED course Complexity details: considered differential, d/w patient ED course: two puncture wounds to left thumb. Will allow to heal by secondary intention (high risk of infection if sutured at this time). Departure - Departure Disposition: 01 Home, Self Care Clinical Impression: Dog bite of left thumb Qualifiers: Encounter type: initial encounter Qualified Code(s): S61.052A - Open bite of left thumb without damage to nail, initial encounter Condition: Good Instructions: ED Bite Dog Follow-Up: Autumn Lopez ARNP [Primary Care Provider] - (2-3 days for recheck of the wound) Prescriptions: Amox/Clav 875/125 [Augmentin] 1 each PO Q12H #14 tablet oxyCODONE [Roxicodone] 5 mg PO Q6H PRN #14 tablet PRN Reason: Pain Discharge Date/Time: 02/24/19 03:40
[2019-02-24] MEDS ORDERED: oxyCODONE 5 MG TABLET PO STA (03:29)
[2019-02-24] MEDS ORDERED: AMOX/CLAV 875 MG/125 MG TABLET PO STA (03:30)
[2019-02-24 03:36] VITALS: BP 126/77
== END 2019-02-24 03:40 | disposition home or self-care (01) ==
LOC: ED 02:36
DX: F17.200 Nicotine dependence, unspecified, uncomplicated (principal)
CPT/HCPCS: 99283; A9270

== ENCOUNTER 2019-06-21 19:25 | Emergency (ER) | payer MEDICARE, MEDICAID ==
[2019-06-21] MEDS ORDERED: TETANUS/DIPHTHERIA/PERTUSSIS 0.5 ML SYRINGE IM ONE (20:17)
[2019-06-21] MEDS ORDERED: BUFFERED LIDOCAINE 10 ML SYRINGE SUBQ STA (20:17)
--- NOTE | 2019-06-21 20:19 | ED Physician Documentation ---
PD HPI UPPER EXT INJURY - Stated complaint Stated Complaint: LT FING LAC - Chief complaint Chief Complaint: Laceration - History obtained from History obtained from: Patient - History of Present Illness Location: Left (Right-handed gentleman cut his left middle finger on a sharp edge at home just prior to arrival. Tetanus is unknown.) Review of Systems Constitutional: reports: Reviewed and negative Cardiac: reports: Reviewed and negative Respiratory: reports: Reviewed and negative PD PAST MEDICAL HISTORY - Past Medical History Cardiovascular: High cholesterol Respiratory: COPD, Emphysema, Other Endocrine/Autoimmune: None GI: Other : None HEENT: None Psych: None Musculoskeletal: Scoliosis, Chronic back pain Derm: None - Past Surgical History Past Surgical History: Yes General: Other HEENT: Other - Present Medications Home Medications: Ambulatory Orders Medication Instructions Recorded Confirmed Nortriptyline [Pamelor] 50 mg PO HS 11/27/13 10/03/18 Omeprazole 20 mg PO DAILY 01/21/14 10/03/18 Cyclobenzaprine [Flexeril] 10 mg PO BID 07/30/15 10/03/18 Oxycodone HCl/Acetaminophen 1 each PO TID PRN 07/30/15 10/03/18 [Percocet 10-325 mg Tablet] Atorvastatin [Lipitor] 80 mg PO DAILY 01/06/16 10/03/18 Ascorbic Acid [Vitamin C] 500 mg PO BID 07/23/16 10/03/18 Cholecalciferol (Vitamin D3) 2,000 units PO DAILY 07/23/16 10/03/18 [Vitamin D3] Folic Acid 1 mg PO DAILY 07/23/16 10/03/18 Ipratropium/Albuterol [Combivent 1 puffs INH TID PRN 07/23/16 10/03/18 Respimat] amLODIPine [Norvasc] 5 mg PO DAILY 01/24/17 10/03/18 Morphine ER 15 mg PO DAILY 07/01/17 10/03/18 Senna [Senokot] 8.6 - 17.2 mg PO DAILY PRN #30 07/04/17 10/03/18 tablet Amox/Clav 875/125 [Augmentin] 1 each PO Q12H #14 tablet 02/24/19 Fluticasone/Vilanterol [Breo 1 puffs INH DAILY 02/24/19 02/24/19 Ellipta 100-25 Mcg INH] oxyCODONE [Roxicodone] 5 mg PO Q6H PRN #14 tablet 02/24/19 - Allergies Allergies/Adverse Reactions: Allergies Allergy/AdvReac Type Severity Reaction Status Date / Time No Known Drug Allergies Allergy Verified 02/24/19 02:42 - Social History Does the pt smoke?: Yes Smoking Status: Current every day smoker Does the pt drink ETOH?: No ETOH Use: Liquor Does the pt have substance abuse?: Yes - Immunizations Immunizations are current?: No Immunizations: TDAP >10years/unknown - POLST Patient has POLST: No PD ED PE NORMAL - Vitals Vital signs reviewed: Yes - General General: Alert and oriented X 3, No acute distress - Extremities Extremities: Other (On the pulp of the left index finger, palmar side there is a 1 cm laceration horizontal and into fat without distal neurovascular compromise.) - Neuro Neuro: Alert and oriented X 3, Normal speech Results - Vitals Vitals: Vital Signs - 24 hr 06/21/19 19:29 Temperature 36.5 C Heart Rate 100 Respiratory 16 Rate Blood Pressure 116/74 O2 Saturation 96 Oxygen O2 Source Room air Procedures - Laceration (location) L 3rd finger Length in cm: 1 Wound type: Linear Neurovascular status: Sensory intact, Motor intact, Vascular intact Tendon involvement: Tendon intact Anesthesia: Lidocaine 1%, With bicarb Wound Preparation: Irrigated copiously NS Skin layer closure: Nylon, Interrupted, Size #-0 - enter number (5-0), Sutures - enter # (3) Other: Tetanus booster given Complexity: Simple Departure - Departure Disposition: 01 Home, Self Care Clinical Impression: Laceration Condition: Good Record reviewed to determine appropriate education?: Yes Instructions: ED Laceration Hand Comments: Come back for any signs of infection which would include: Redness, swelling, d rainage, increased pain, or fevers. You can wash it soap and water. Keep it covered and moist with bacitracin ointment which is available over the counter; avoid neosporin. Follow-up with your physician in 14 days for suture removal.
[2019-06-21] MEDS ORDERED: HYDROcod/ACET 5/325 Prepack 4 PO STA (20:59)
[2019-06-21 21:01] VITALS: BP 123/75
== END 2019-06-21 21:12 | disposition home or self-care (01) ==
LOC: ED 19:25
DX: S61.213A Laceration without foreign body of left middle finger without damage to nail, initial encounter (principal); W26.8XXA Contact with other sharp object(s), not elsewhere classified, initial encounter; Y93.89 Activity, other specified; Y92.009 Unspecified place in unspecified non-institutional (private) residence as the place of occurrence of the external cause; Z23 Encounter for immunization; F17.200 Nicotine dependence, unspecified, uncomplicated
CPT/HCPCS: 12001; 90471

== ENCOUNTER 2019-07-06 22:12 | Emergency (ER) | payer MEDICARE, MEDICAID ==
[2019-07-06 22:25] VITALS: BP 119/73
[2019-07-06] MEDS ORDERED: cephALEXin 250 MG CAPSULE PO STA (22:33)
--- NOTE | 2019-07-06 22:35 | ED Physician Documentation ---
PD HPI UPPER EXT INJURY - Stated complaint Stated Complaint: LT FINGER SWELL - Chief complaint Chief Complaint: Laceration - History obtained from History obtained from: Patient - History of Present Illness Location: Left (I saw him a little over 2 weeks ago for a finger laceration to the left middle finger it was sutured. He is here mostly for suture removal but does noted some swelling over the last 3 days.) Review of Systems Constitutional: denies: Fever, Chills Respiratory: denies: Dyspnea, Cough GI: denies: Abdominal Pain PD PAST MEDICAL HISTORY - Past Medical History Past Medical History: Yes Cardiovascular: High cholesterol Respiratory: COPD, Emphysema, Other Endocrine/Autoimmune: None GI: Other : None HEENT: None Psych: None Musculoskeletal: Scoliosis, Chronic back pain Derm: None - Past Surgical History Past Surgical History: Yes General: Other HEENT: Other - Present Medications Home Medications: Ambulatory Orders Medication Instructions Recorded Confirmed Nortriptyline [Pamelor] 50 mg PO HS 11/27/13 07/06/19 Omeprazole 20 mg PO DAILY 01/21/14 07/06/19 Cyclobenzaprine [Flexeril] 10 mg PO BID 07/30/15 07/06/19 Oxycodone HCl/Acetaminophen 1 each PO TID PRN 07/30/15 07/06/19 [Percocet 10-325 mg Tablet] Atorvastatin [Lipitor] 80 mg PO DAILY 01/06/16 07/06/19 Ascorbic Acid [Vitamin C] 500 mg PO BID 07/23/16 07/06/19 Cholecalciferol (Vitamin D3) 2,000 units PO DAILY 07/23/16 07/06/19 [Vitamin D3] Folic Acid 1 mg PO DAILY 07/23/16 07/06/19 Ipratropium/Albuterol [Combivent 1 puffs INH TID PRN 07/23/16 07/06/19 Respimat] amLODIPine [Norvasc] 5 mg PO DAILY 01/24/17 07/06/19 Morphine ER 15 mg PO DAILY 07/01/17 07/06/19 Senna [Senokot] 8.6 - 17.2 mg PO DAILY PRN #30 07/04/17 07/06/19 tablet Amox/Clav 875/125 [Augmentin] 1 each PO Q12H #14 tablet 02/24/19 07/06/19 Fluticasone/Vilanterol [Breo 1 puffs INH DAILY 02/24/19 07/06/19 Ellipta 100-25 Mcg INH] oxyCODONE [Roxicodone] 5 mg PO Q6H PRN #14 tablet 02/24/19 07/06/19 Cephalexin [Keflex] 500 mg PO Q6H #28 capsule 07/06/19 - Allergies Allergies/Adverse Reactions: Allergies Allergy/AdvReac Type Severity Reaction Status Date / Time No Known Drug Allergies Allergy Verified 07/06/19 22:25 - Social History Does the pt smoke?: Yes Smoking Status: Current every day smoker Does the pt drink ETOH?: No Does the pt have substance abuse?: Yes - Immunizations Immunizations are current?: No Immunizations: TDAP >10years/unknown - POLST Patient has POLST: No PD ED PE NORMAL - Vitals Vital signs reviewed: Yes - General General: Alert and oriented X 3, No acute distress - Extremities Extremities: Other (He has a laceration on the pulp of the left middle finger with [address] and mild swelling. The sutures were removed during examination and just a drop of pus was expressible from the suture line and was sent for culture. There is no wound dehiscence.) - Neuro Neuro: Alert and oriented X 3, Normal speech Results - Vitals Vitals: Vital Signs - 24 hr 07/06/19 22:22 Temperature 36.5 C Heart Rate 96 Respiratory 16 Rate Blood Pressure 119/73 O2 Saturation 99 Oxygen O2 Source Room air Departure - Departure Disposition: 01 Home, Self Care Clinical Impression: Wound of skin, Wound infection Condition: Good Record reviewed to determine appropriate education?: Yes Instructions: ED Wound Care Prescriptions: Cephalexin [Keflex] 500 mg PO Q6H #28 capsule Comments: We are performing a wound culture, the results should be done in 48-72 hours. If antibiotic change is necessary we will call you. Return if worse in the meantime, especially if you develop increased pain, fevers, cannot keep down the medication. Otherwise follow-up with your physician in approximately 2-3 days.
== END 2019-07-06 22:42 | disposition home or self-care (01) ==
LOC: ED 22:12
DX: S61.213D Laceration without foreign body of left middle finger without damage to nail, subsequent encounter (principal); L08.9 Local infection of the skin and subcutaneous tissue, unspecified; F17.200 Nicotine dependence, unspecified, uncomplicated
CPT/HCPCS: 87070; 87181; 87205; 99283; A9270

== ENCOUNTER 2020-05-14 01:38 | Emergency (ER) | payer MEDICARE, OTHER, MEDICAID ==
[2020-05-14 01:52] VITALS: BP 118/64
[2020-05-14] MEDS ORDERED: BUFFERED LIDOCAINE 10 ML SYRINGE SUBQ STA (02:06)
[2020-05-14] MEDS ORDERED: BUFFERED LIDOCAINE 10 ML SYRINGE ONE (02:12)
--- NOTE | 2020-05-14 02:25 | ED Physician Documentation ---
PD HPI UPPER EXT INJURY - Stated complaint Stated Complaint: THUMB LAC - Chief complaint Chief Complaint: Laceration - History obtained from History obtained from: Patient, Family - History of Present Illness Location: Right, Finger (thumb) Type of injury: Blunt / blow Where injury occurred: Home Timing - onset: Today Timing - duration: Minutes Timing - details: Abrupt onset, Still present Improved by: Rest, Immobilization Worsened by: Moving, Palpating Associated symptoms: No: Weakness, Numbness, Tingling, Swelling Contributing factors: No: Anticoagulated Similar symptoms before: Diagnosis (laceration) Recently seen: Not recently seen - Additonal information Additional information: Previously well 69-year-old male was moving a kitchen island into his home when he struck his thumb against the door jam and he lacerated the dorsal surface of the right thumb. He is able to flex and extend the finger the wound smiles when he flexes. He is up-to-date on his tetanus. Review of Systems Constitutional: denies: Fever Respiratory: denies: Cough GI: denies: Vomiting Skin: reports: Laceration (s) PD PAST MEDICAL HISTORY - Past Medical History Past Medical History: Yes Cardiovascular: High cholesterol Respiratory: COPD, Emphysema, Other Endocrine/Autoimmune: None GI: Other : None HEENT: None Psych: None Musculoskeletal: Scoliosis, Chronic back pain Derm: None - Past Surgical History Past Surgical History: Yes General: Other HEENT: Other - Present Medications Home Medications: Ambulatory Orders Medication Instructions Recorded Confirmed Nortriptyline [Pamelor] 50 mg PO HS 11/27/13 07/06/19 Omeprazole 20 mg PO DAILY 01/21/14 07/06/19 Cyclobenzaprine [Flexeril] 10 mg PO BID 07/30/15 07/06/19 Oxycodone HCl/Acetaminophen 1 each PO TID PRN 07/30/15 07/06/19 [Percocet 10-325 mg Tablet] Atorvastatin [Lipitor] 80 mg PO DAILY 01/06/16 07/06/19 Ascorbic Acid [Vitamin C] 500 mg PO BID 07/23/16 07/06/19 Cholecalciferol (Vitamin D3) 2,000 units PO DAILY 07/23/16 07/06/19 [Vitamin D3] Folic Acid 1 mg PO DAILY 07/23/16 07/06/19 Ipratropium/Albuterol [Combivent 1 puffs INH TID PRN 07/23/16 07/06/19 Respimat] amLODIPine [Norvasc] 5 mg PO DAILY 01/24/17 07/06/19 Morphine ER 15 mg PO DAILY 07/01/17 07/06/19 Senna [Senokot] 8.6 - 17.2 mg PO DAILY PRN #30 07/04/17 07/06/19 tablet Amox/Clav 875/125 [Augmentin] 1 each PO Q12H #14 tablet 02/24/19 07/06/19 Fluticasone/Vilanterol [Breo 1 puffs INH DAILY 02/24/19 07/06/19 Ellipta 100-25 Mcg INH] oxyCODONE [Roxicodone] 5 mg PO Q6H PRN #14 tablet 02/24/19 07/06/19 Cephalexin [Keflex] 500 mg PO Q6H #28 capsule 07/06/19 - Allergies Allergies/Adverse Reactions: Allergies Allergy/AdvReac Type Severity Reaction Status Date / Time No Known Drug Allergies Allergy Verified 07/06/19 22:25 - Social History Does the pt smoke?: Yes Smoking Status: Current every day smoker Does the pt drink ETOH?: No Does the pt have substance abuse?: Yes - Immunizations Immunizations are current?: No Immunizations: TDAP >10years/unknown - POLST Patient has POLST: No PD ED PE NORMAL - Vitals Vital signs reviewed: Yes (Normal) - General General: Alert and oriented X 3, No acute distress, Well developed/nourished - HEENT HEENT: Atraumatic, PERRL, EOMI - Respiratory Respiratory: No respiratory distress - Derm Derm: Normal color, Warm and dry, No rash - Extremities Extremities: No deformity, No edema, Other (There is a 3.5 cm laceration over the dorsal surface of the right thumb over the IP joint. 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, No motor deficit, No sensory deficit, Normal speech Eye Opening: Spontaneous Motor: Obeys Commands Verbal: Oriented GCS Score: 15 - Psych Psych: Normal mood, Normal affect Results - Vitals Vitals: Vital Signs - 24 hr 05/14/20 01:40 Temperature 97.8 C H Heart Rate 95 Respiratory 16 Rate Blood Pressure 118/64 O2 Saturation 95 Oxygen O2 Source Room air Procedures - Laceration (location) Right thumb Length in cm: 3.5 Wound type: Linear, Clean Neurovascular status: Sensory intact, Motor intact, Vascular intact Tendon involvement: Tendon intact Anesthesia: Lidocaine 1%, With bicarb Wound Preparation: Hibiclens, Irrigated copiously NS, Wound explored, To the base Skin layer closure: Nylon, Interrupted, Size #-0 - enter number (4-0), Sutures - enter # (6) Other: Patient tolerated well, No complications, Neurovascular intact, Dressing applied, Tetanus UTD Complexity: Simple PD MEDICAL DECISION MAKING - ED course Complexity details: considered differential, d/w patient, d/w family ED course: 69-year-old male with a laceration to his right thumb has it sutured and he tolerates this well Departure - Departure Disposition: 01 Home, Self Care Clinical Impression: Thumb laceration Qualifiers: Encounter type: initial encounter Damage to nail status: without damage Foreign body presence: without foreign body Laterality: right Qualified Code(s): S61.011A - Laceration without foreign body of right thumb without damage to nail, initial encounter Condition: Stable Instructions: ED Laceration Hand Follow-Up: Erika Melo MD [Primary Care Provider] - Comments: Sutures will need to be removed in 10 to 14 days
== END 2020-05-14 02:35 | disposition home or self-care (01) ==
LOC: ED 01:38
DX: S61.011A Laceration without foreign body of right thumb without damage to nail, initial encounter (principal); W22.09XA Striking against other stationary object, initial encounter; Y93.89 Activity, other specified; Y92.009 Unspecified place in unspecified non-institutional (private) residence as the place of occurrence of the external cause; F17.200 Nicotine dependence, unspecified, uncomplicated
CPT/HCPCS: 12002; 99281; 99282

== ENCOUNTER 2020-07-22 17:30 | Emergency (ER) | payer MEDICARE, MEDICAID ==
[2020-07-22] MEDS ORDERED: predniSONE 20 MG TABLET PO STA (17:54)
[2020-07-22] MEDS ORDERED: IPRATROPIUM/ALBUTEROL 3 ML NEB INH STA (17:54)
--- NOTE | 2020-07-22 17:56 | ED Physician Documentation ---
PD HPI DYSPNEA - Stated complaint Stated Complaint: SOA - Chief complaint Chief Complaint: Resp - History obtained from History obtained from: Patient - Additional information Additional information: 69-year-old gentleman with COPD and fulminant pulmonary fibrosis, uses inhalers at home and wears 2 L of oxygen at home. Last 5 days or so he has had increasing shortness of breath. Feels like there is congestion stuck in his lungs. Mildly productive cough. No fevers. He has had some mild chest pain and "heartburn". No fevers. Notes low sats when he takes his oxygen off. Review of Systems Ten Systems: 10 systems reviewed and negative Constitutional: reports: Fatigue. denies: Fever, Chills Cardiac: denies: Palpitations, Pedal edema, Calf pain Respiratory: reports: Wheezing. denies: Hemoptysis PD PAST MEDICAL HISTORY - Past Medical History Cardiovascular: High cholesterol Respiratory: COPD, Emphysema, Other Endocrine/Autoimmune: None GI: Other : None HEENT: None Psych: None Musculoskeletal: Scoliosis, Chronic back pain Derm: None - Past Surgical History Past Surgical History: Yes General: Other HEENT: Other - Present Medications Home Medications: Ambulatory Orders Medication Instructions Recorded Confirmed Nortriptyline [Pamelor] 50 mg PO HS 11/27/13 07/06/19 Omeprazole 20 mg PO DAILY 01/21/14 07/06/19 Cyclobenzaprine [Flexeril] 10 mg PO BID 07/30/15 07/06/19 Oxycodone HCl/Acetaminophen 1 each PO TID PRN 07/30/15 07/06/19 [Percocet 10-325 mg Tablet] Atorvastatin [Lipitor] 80 mg PO DAILY 01/06/16 07/06/19 Ascorbic Acid [Vitamin C] 500 mg PO BID 07/23/16 07/06/19 Cholecalciferol (Vitamin D3) 2,000 units PO DAILY 07/23/16 07/06/19 [Vitamin D3] Folic Acid 1 mg PO DAILY 07/23/16 07/06/19 Ipratropium/Albuterol [Combivent 1 puffs INH TID PRN 07/23/16 07/06/19 Respimat] amLODIPine [Norvasc] 5 mg PO DAILY 01/24/17 07/06/19 Morphine ER 15 mg PO DAILY 07/01/17 07/06/19 Senna [Senokot] 8.6 - 17.2 mg PO DAILY PRN #30 07/04/17 07/06/19 tablet Amox/Clav 875/125 [Augmentin] 1 each PO Q12H #14 tablet 02/24/19 07/06/19 Fluticasone/Vilanterol [Breo 1 puffs INH DAILY 02/24/19 07/06/19 Ellipta 100-25 Mcg INH] oxyCODONE [Roxicodone] 5 mg PO Q6H PRN #14 tablet 02/24/19 07/06/19 Cephalexin [Keflex] 500 mg PO Q6H #28 capsule 07/06/19 Amoxicillin 1,000 mg PO TID #60 capsule 07/22/20 LORazepam [Ativan] 1 mg PO TID PRN #12 tablet 07/22/20 Omeprazole 20 mg PO DAILY #30 capsule. 07/22/20 predniSONE [Deltasone] 20 mg PO [id number] #21 tab 07/22/20 - Allergies Allergies/Adverse Reactions: Allergies Allergy/AdvReac Type Severity Reaction Status Date / Time No Known Drug Allergies Allergy Verified 07/06/19 22:25 - Social History Does the pt smoke?: Yes Smoking Status: Current every day smoker Does the pt drink ETOH?: No Does the pt have substance abuse?: Yes - Family History Family history: reports: Non contributory - Immunizations Immunizations are current?: No Immunizations: TDAP >10years/unknown - POLST Patient has POLST: No PD ED PE NORMAL - Vitals Vital signs reviewed: Yes - General General: Alert and oriented X 3, No acute distress - HEENT HEENT: PERRL, EOMI - Neck Neck: Supple, no meningeal sign, No bony TTP - Cardiac Cardiac: RRR, No murmur - Respiratory Respiratory: Other (Speaking in full sentences, has great stories about the concerts he has been to, mildly wheezy but decent air motion.) - Abdomen Abdomen: Non tender - Back Back: No CVA TTP, No spinal TTP - Extremities Extremities: No edema, No calf tenderness / cord - Neuro Neuro: Alert and oriented X 3, Normal speech Results - Vitals Vitals: Vital Signs - 24 hr 07/22/20 07/22/20 07/22/20 17:35 18:09 18:13 Temperature 36.5 C Heart Rate 120 H 98 104 H Respiratory 36 H 18 22 Rate Blood Pressure 117/83 H 112/70 O2 Saturation 80 L 98 07/22/20 07/22/20 19:00 19:40 Temperature Heart Rate 102 H 102 H Respiratory 28 H 20 Rate Blood Pressure 116/74 O2 Saturation 98 Oxygen O2 Source Nasal cannula Oxygen Flow Rate 2 - EKG (time done) 1739 Rate: Rate (enter#) (108) Rhythm: Sinus tachycardia Intervals: RBBB QRS: Normal Ischemia: Normal ST segments Computer interpretation: Agree with computer - Labs Labs: Laboratory Tests 07/22/20 07/22/20 07/22/20 18:05 18:05 18:05 WBC 8.6 RBC 3.96 L Hgb 12.4 L Hct 37.8 L MCV 95.5 H MCH 31.3 H MCHC 32.8 RDW 14.2 Plt Count 293 MPV 9.5 Neut # (Auto) 5.8 Lymph # (Auto) 2.0 [place] # (Auto) 0.7 Eos # (Auto) 0.1 Baso # (Auto) 0.1 Absolute Nucleated RBC 0.00 Nucleated RBC % 0.0 Sodium 136 Potassium 3.5 Chloride 100 L Carbon Dioxide 29 Anion Gap 7.0 BUN 24 H Creatinine 0.7 Estimated GFR (MDRD) 112 Glucose 106 H Calcium 9.0 Total Bilirubin 0.5 AST 16 ALT 14 Alkaline Phosphatase 89 Troponin I High Sens 2.7 Total Protein 7.6 Albumin 3.8 Globulin 3.8 Albumin/Globulin Ratio 1.0 Lipase 29 - Rads (name of study) CXR Radiology: EMP read contemporaneously (Possible hilar mass, otherwise no acute disease) CT of the chest Radiology: EMP read contemporaneously (Right upper lobe malignancy with bilateral hilar and mediastinal nii metastases, emphysema, indeterminate minor fissure nodular density, coronary artery disease.) PD MEDICAL DECISION MAKING - ED course ED course: 69-year-old gentleman with COPD presents with apparent exacerbation of same with congestion, productive cough, increased shortness of breath. His lungs actually did not sound too bad he he did improve with serial nebulizers here and was. Antibiotics and steroids. There was an abnormality on the chest x-ray and this was followed with a CT conf irming metastatic lung cancer. The diagnosis was shared with him and his significant other and he was given a copy of his CAT scan to aid in follow-up. 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 He will call his vocational nurse lvn tomorrow for follow-up. He was offered observation stay for symptom management but felt he would do better at home. Departure - Departure Disposition: Home, Self Care Clinical Impression: Chronic respiratory failure with hypoxia Metastatic primary lung cancer Qualifiers: Laterality: right Qualified Code(s): C34.91 - Malignant neoplasm of unspecified part of right bronchus or lung Condition: Good Record reviewed to determine appropriate education?: Yes Instructions: Cancer Lung Dc Prescriptions: Amoxicillin 1,000 mg PO TID #60 capsule LORazepam [Ativan] 1 mg PO TID PRN #12 tablet PRN Reason: Anxiety predniSONE [Deltasone] 20 mg PO [id number] #21 tab Omeprazole 20 mg PO DAILY #30 capsule. Comments: Follow-up with your vocational nurse lvn, as discussed you have what appears to be malignancy in the right upper lobe with metastases to lymph nodes. He may want to perform a bronchoscopy to get a tissue diagnosis to aid in treatment options. I am also putting you on some antibiotics and steroids which should help with your breathing. Something for stomach acid as well. Return anytime if worsening. I am also prescribing some anxiety medicine to be used sparingly.
[2020-07-22 18:13] LABS: BASOPHILS # (AUTO) 0.1 10^3/uL (0.0-0.1); BASOPHILS % (AUTO) 0.8 %; EOSINOPHILS # (AUTO) 0.1 10^3/uL (0.0-0.7); EOSINOPHILS % (AUTO) 1.5 %; HGB - HEMOGLOBIN 12.4 g/dL (14.0-18.0); LYMPHOCYTES % (AUTO) 22.6 %; MEAN CORPUSCULAR HEMOGLOBIN 31.3 pg (27.0-31.0); MEAN CORPUSCULAR HGB CONC 32.8 g/dL (32.0-36.0); MEAN CORPUSCULAR VOLUME 95.5 fL (80.0-94.0); MEAN PLATELET VOLUME 9.5 fL (7.4-11.4); MONOCYTES # (AUTO) 0.7 10^3/uL (0.0-1.0); MONOCYTES % (AUTO) 7.5 %; NEUTROPHILS # (AUTO) 5.8 10^3/uL (1.5-6.6); NEUTROPHILS % (AUTO) 67.3 %; PLT - PLATELET COUNT 293 10^3/uL (130-450); RED BLOOD COUNT 3.96 10^6/uL (4.70-6.10); RED CELL DISTRIBUTION WIDTH 14.2 % (12.0-15.0); WHITE BLOOD COUNT 8.6 x10^3/uL (4.8-10.8)
[2020-07-22 18:27] LABS: ALBUMIN 3.8 g/dL (3.2-5.5); BILIRUBIN,TOTAL 0.5 mg/dL (0.2-1.0); CREATININE 0.7 mg/dL (0.6-1.2); TOTAL PROTEIN 7.6 g/dL (6.7-8.2)
--- NOTE | 2020-07-22 18:46 | XRAY Report ---
PROCEDURE: Chest 1 View X-Ray INDICATIONS: dyspnea TECHNIQUE: One view of the chest was acquired. COMPARISON: 06.18.20 FINDINGS: Surgical changes and devices: None. Lungs and pleura: No pleural effusions or pneumothorax. Moderate diffuse reticulonodular density is unchanged. No change in right hilar prominence. Mediastinum: Mediastinal contours appear normal. Heart size is normal. Bones and chest wall: No suspicious bony lesions. Overlying soft tissues appear unremarkable. IMPRESSION: 1. No change in moderate diffuse reticulonodular density, possibly indicating fibrosis. Superimposed pneumonia may also be present. 2. No change in right hilar prominence. Follow-up PA and lateral chest x-rays or chest CT is recommen ded to ensure resolution, and to exclude underlying neoplasm. Reviewed by: Jamila Artis MD on 07/22/2020 6:44 PM PDT Approved by: Jamila Artis MD on 07/22/2020 6:44 PM PDT Station ID: [id number]
[2020-07-22] MEDS ORDERED: AMOXICILLIN 250 MG CAPSULE PO STA (19:06)
[2020-07-22] MEDS ORDERED: LEVALBUTEROL 1.25 MG/3 ML NEB INH STA (19:06)
[2020-07-22] MEDS ORDERED: IOVERSOL 320 100 ML VIAL IVP ONE ×2 (19:23→21:07)
[2020-07-22] MEDS ORDERED: oxyCODONE 5 MG TABLET PO STA (19:52)
--- NOTE | 2020-07-22 19:56 | CT Report ---
PROCEDURE: CHEST W INDICATIONS: abn cxr CONTRAST: Intravenous TECHNIQUE: After the administration of intravenous contrast, 5 mm thick sections acquired from the pulmonary api javi to the posterior costophrenic angles. 7 mm thick coronal MIP reformats were acquired. For radia tion dose reduction, the following was used: automated exposure control, adjustment of mA and/or kV according to patient size. COMPARISON: CT examination dated 03.15.16 FINDINGS: Image quality: Excellent. Lungs and pleura: Severe apical predominant emphysema. 23 mm diameter spiculated mass within the righ t upper lobe posteromedially extending to the right hilum. Increased, moderate bibasilar pulmonary fi brosis. Increased, 12 mm nodular density within the minor fissure anteriorly. No pleural effusions or pneumothorax. Central and peripheral airways are patent and normal in caliber. Mediastinum: Heart size is normal. Calcification of the coronary vasculature. No pericardial effusio n. 20 mm short axis subcarinal adenopathy. Right perihilar adenopathy measuring 20 mm short axis and 15 mm short axis. AP window adenopathy measuring 10 mm short axis. Left hilar adenopathy measuring 9 mm short axis. Aorta and central pulmonary arteries are normal in size. Esophagus is normal in calib er. No hiatal hernia. Bones and chest wall: No suspicious bony lesions. No vertebral body compression fractures. No axil geraldine or supraclavicular adenopathy by size criteria. Thyroid gland . Abdomen: Visualized upper abdominal solid organs appear normal. Upper abdominal bowel loops are nor mal in caliber. IMPRESSION: 1. Right upper lobe malignancy with bilateral hilar and mediastinal nii metastases. 2. Emphysema. 3. Increased minor fissure nodular density, which is indeterminate. 4. Coronary artery disease. Reviewed by: Jamila Artis MD on 07/22/2020 7:54 PM PDT Approved by: Jamila Artis MD on 07/22/2020 7:54 PM PDT Station ID: [id number]
[2020-07-22] MEDS ORDERED: LORazepam 1 MG TABLET PO STA (20:30)
[2020-07-22] MEDS ORDERED: PANTOPRAZOLE 40 MG TABLET PO STA (20:31)
[2020-07-22 21:06] VITALS: BP 118/81
== END 2020-07-22 20:40 | disposition home or self-care (01) ==
LOC: ED 17:30
DX: J96.11 Chronic respiratory failure with hypoxia (principal); C34.11 Malignant neoplasm of upper lobe, right bronchus or lung; C77.1 Secondary and unspecified malignant neoplasm of intrathoracic lymph nodes; J43.9 Emphysema, unspecified; J84.10 Pulmonary fibrosis, unspecified; Z99.81 Dependence on supplemental oxygen; I45.10 Unspecified right bundle-branch block; R00.0 Tachycardia, unspecified; F17.200 Nicotine dependence, unspecified, uncomplicated
CPT/HCPCS: 36415; 71045; 71260; 80053; 83690; 84484; 85025; 93005; 94640; 99284; 99285; A9270; J7512; J8499; Q9967

== ENCOUNTER 2020-08-07 02:58 | Outpatient (CLI) | payer MEDICARE, MEDICAID | END 2020-08-07 02:59 | disposition critical access hospital (66) | LOC: EMS 02:58 | PROVIDERS: ATTEND Surgery | DX: R07.9 Chest pain, unspecified (principal) | CPT/HCPCS: A0425; A0427 ==

== ENCOUNTER 2020-08-07 03:08 | Emergency (ER) | payer MEDICARE, MEDICAID ==
[2020-08-07] MEDS ORDERED: HYDROmorphone 1 MG/ML CARPUJECT IVP STA (03:27)
[2020-08-07] MEDS ORDERED: IPRATROPIUM/ALBUTEROL 3 ML NEB INH STA (03:27)
--- NOTE | 2020-08-07 03:28 | ED Physician Documentation ---
PD HPI CHEST PAIN - Stated complaint Stated Complaint: CP - Chief complaint Chief Complaint: Cardiac - History obtained from History obtained from: Patient, EMS - History of Present Illness Timing - onset: How many hours ago (1) Timing - onset during: Sleep, Rest Timing - details: Abrupt onset, Still present (improved somewhat with NTGx1 enroute.) Quality: Aching, Sharp, Pain Location: Substernal, Left chest Radiation: No: Jaw, Neck, Back Worsened by: No: Inspiration, Movement, Palpation Associated symptoms: Shortness of air, Feeling faint / dizzy. No: Nausea, General Weakness, Palpitations Similar symptoms before: Has not had sx before (has had some heaviness of chest and dyspnea related to lung disease and recent Dx of lung cancer with mets to spine. But has not had this current pain type until tonight.) Recently seen: Clinic (seen by Oncologist and will get PET scan, labs, biopsy.), Emergency Dept (seen 07/22/20 fo dyspnea and had Dx right upper lobe CA with nod es mets.) Review of Systems Constitutional: reports: Myalgias. denies: Fever, Chills Nose: denies: Rhinorrhea / runny nose, Congestion Cardiac: reports: Chest pain / pressure (just this night). denies: Palpitations, Pedal edema, Calf pain Respiratory: reports: Dyspnea, Cough, Wheezing GI: denies: Abdominal Pain, Nausea, Vomiting, Diarrhea Musculoskeletal: reports: Back pain (chronic and sees Pain Clinic [facility] Neurologic: denies: Focal weakness, Numbness, Near syncope Endocrine: reports: Weight loss PD PAST MEDICAL HISTORY - Past Medical History Past Medical History: Yes Cardiovascular: High cholesterol Respiratory: COPD, Emphysema, Other Neuro: None Endocrine/Autoimmune: None GI: Other : None HEENT: None Psych: None Musculoskeletal: Scoliosis, Chronic back pain Derm: None Other Past Medical History: LUNG CANCER STAGE 4....HOME OXYGEN @2Lpm... - Past Surgical History Past Surgical History: Yes General: Other HEENT: Other - Present Medications Home Medications: Ambulatory Orders Medication Instructions Recorded Confirmed Nortriptyline [Pamelor] 50 mg PO HS 11/27/13 07/06/19 Omeprazole 20 mg PO DAILY 01/21/14 07/06/19 Cyclobenzaprine [Flexeril] 10 mg PO BID 07/30/15 07/06/19 Oxycodone HCl/Acetaminophen 1 each PO TID PRN 07/30/15 07/06/19 [Percocet 10-325 mg Tablet] Atorvastatin [Lipitor] 80 mg PO DAILY 01/06/16 07/06/19 Ascorbic Acid [Vitamin C] 500 mg PO BID 07/23/16 07/06/19 Cholecalciferol (Vitamin D3) 2,000 units PO DAILY 07/23/16 07/06/19 [Vitamin D3] Folic Acid 1 mg PO DAILY 07/23/16 07/06/19 Ipratropium/Albuterol [Combivent 1 puffs INH TID PRN 07/23/16 07/06/19 Respimat] amLODIPine [Norvasc] 5 mg PO DAILY 01/24/17 07/06/19 Morphine ER 15 mg PO DAILY 07/01/17 07/06/19 Senna [Senokot] 8.6 - 17.2 mg PO DAILY PRN #30 07/04/17 07/06/19 tablet Amox/Clav 875/125 [Augmentin] 1 each PO Q12H #14 tablet 02/24/19 07/06/19 Fluticasone/Vilanterol [Breo 1 puffs INH DAILY 02/24/19 07/06/19 Ellipta 100-25 Mcg INH] oxyCODONE [Roxicodone] 5 mg PO Q6H PRN #14 tablet 02/24/19 07/06/19 Cephalexin [Keflex] 500 mg PO Q6H #28 capsule 07/06/19 Amoxicillin 1,000 mg PO TID #60 capsule 07/22/20 LORazepam [Ativan] 1 mg PO TID PRN #12 tablet 07/22/20 Omeprazole 20 mg PO DAILY #30 capsule. 07/22/20 predniSONE [Deltasone] 20 mg PO [id number] #21 tab 07/22/20 Doxycycline Monohydrate 100 mg PO BID #14 tablet 08/07/20 dexAMETHasone [Decadron] 4 mg PO DAILY #10 tablet 08/07/20 - Allergies Allergies/Adverse Reactions: Allergies Allergy/AdvReac Type Severity Reaction Status Date / Time No Known Drug Allergies Allergy Verified 08/07/20 03:20 - Social History Does the pt smoke?: Yes Smoking Status: Current every day smoker Does the pt drink ETOH?: No Does the pt have substance abuse?: Yes - Immunizations Immunizations are current?: No Immunizations: TDAP >10years/unknown - POLST Patient has POLST: No PD ED PE NORMAL - Vitals Vital signs reviewed: Yes - General General: Alert and oriented X 3, No acute distress (some wheezing and increased resp rate. ), Well developed/nourished - HEENT HEENT: Moist mucous membranes, Pharynx benign - Neck Neck: Supple, no meningeal sign, No adenopathy - Cardiac Cardiac: No: RRR (regular but ttachycardic) - Respiratory Respiratory: No: Clear bilaterally (diffuse exp wheezing. able to talk in sentences. ) - Abdomen Abdomen: Soft, Non tender - Derm Derm: Normal color, Warm and dry - Extremities Extremities: Normal ROM s pain, No edema, No calf tenderness / cord - Neuro Neuro: Alert and oriented X 3, No motor deficit, Normal speech Results - Vitals Vitals: Vital Signs - 24 hr 08/07/20 08/07/20 08/07/20 03:16 03:44 03:45 Temperature 36.6 C Heart Rate 109 H 107 H 106 H Respiratory 18 18 20 Rate Blood Pressure 136/116 H O2 Saturation 98 96 08/07/20 08/07/20 08/07/20 04:17 05:09 05:34 Temperature Heart Rate 106 H 103 H 103 H Respiratory 24 18 20 Rate Blood Pressure 105/68 110/74 101/65 O2 Saturation 97 94 97 Oxygen O2 Source Nasal cannula Oxygen Flow Rate 2 - EKG (time done) 03:14 Rate: Rate (enter#) (108) Rhythm: Sinus tachycardia [place]: Normal Intervals: RBBB QRS: Normal Ischemia: Normal ST segments, Non specific changes Compare to prior EKG: Unchanged from prior EKG (from 07/22/20) - Labs Labs: Laboratory Tests 08/07/20 08/07/20 08/07/20 04:00 04:00 04:00 WBC 10.4 RBC 3.91 L Hgb 12.3 L Hct 37.0 L MCV 94.6 H MCH 31.5 H MCHC 33.2 RDW 15.0 Plt Count 274 MPV 9.2 Neut # (Auto) 6.6 Lymph # (Auto) 2.6 [place] # (Auto) 0.9 Eos # (Auto) 0.2 Baso # (Auto) 0.1 Absolute Nucleated RBC 0.00 Nucleated RBC % 0.0 Sodium 134 L Potassium 4.4 Chloride 101 Carbon Dioxide 26 Anion Gap 7.0 BUN 22 H Creatinine 0.8 Estimated GFR (MDRD) 96 Glucose 123 H Calcium 9.1 Total Bilirubin 0.6 AST 20 ALT 29 Alkaline Phosphatase 69 Troponin I High Sens < 2.3 L B-Natriuretic Peptide Total Protein 6.7 Albumin 3.2 Globulin 3.5 Albumin/Globulin Ratio 0.9 L Lipase 28 08/07/20 04:00 WBC RBC Hgb Hct MCV MCH MCHC RDW Plt Count MPV Neut # (Auto) Lymph # (Auto) [place] # (Auto) Eos # (Auto) Baso # (Auto) Absolute Nucleated RBC Nucleated RBC % Sodium Potassium Chloride Carbon Dioxide Anion Gap BUN Creatinine Estimated GFR (MDRD) Glucose Calcium Total Bilirubin AST ALT Alkaline Phosphatase Troponin I High Sens B-Natriuretic Peptide 11 Total Protein Albumin Globulin Albumin/Globulin Ratio Lipase - Rads (name of study) chest xray Radiology: Prelim report reviewed (consolidation in the left base may represent new infiltrate in the left lower lobe. ), See rad report PD MEDICAL DECISION MAKING - ED course Complexity details: considered differential (chest pain tonight. Can give pain meds. Recent Dx lung CA with mets. Could be pleurisy related to that, or bony pain. Will get CXR and Trop to evaluate. ), d/w patient Departure - Departure Disposition: 01 Home, Self Care Clinical Impression: Chest pain Qualifiers: Chest pain type: precordial pain Qualified Code(s): R07.2 - Precordial pain Dyspnea Qualifiers: Dyspnea type: shortness of breath Qualified Code(s): R06.02 - Shortness of breath COPD (chronic obstructive pulmonary disease) Qualifiers: COPD type: unspecified COPD Qualified Code(s): J44.9 - Chronic obstructive pulmonary disease, unspecified Condition: Stable Record reviewed to determine appropriate education?: Yes Instructions: ED Chest Pain NonCardiac Prescriptions: dexAMETHasone [Decadron] 4 mg PO DAILY #10 tablet Doxycycline Monohydrate 100 mg PO BID #14 tablet Comments: No signs of heart attack or heart failure based on your EKG, blood test, chest x-ray. The chest x-ray showed an area possibly concerning for early pneumonia versus atelectasis. We will treat with steroid and antibiotics. Continue usual oxygen and nebulizers. Follow-up with your primary care and oncologist as planned in call and discuss your pain medicine regimen with your pain clinic in light of the new diagnosis of the lung cancer. Discharge Date/Time: 08/07/20 05:41
[2020-08-07] MEDS: DEXAMETHASONE 10 MG/ML VIAL IVP STA (03:33)
[2020-08-07 04:13] LABS: BASOPHILS # (AUTO) 0.1 10^3/uL (0.0-0.1); BASOPHILS % (AUTO) 0.5 %; EOSINOPHILS # (AUTO) 0.2 10^3/uL (0.0-0.7); EOSINOPHILS % (AUTO) 1.9 %; HGB - HEMOGLOBIN 12.3 g/dL (14.0-18.0); LYMPHOCYTES # (AUTO) 2.6 10^3/uL (1.5-3.5); LYMPHOCYTES % (AUTO) 24.5 %; MEAN CORPUSCULAR HEMOGLOBIN 31.5 pg (27.0-31.0); MEAN CORPUSCULAR HGB CONC 33.2 g/dL (32.0-36.0); MEAN CORPUSCULAR VOLUME 94.6 fL (80.0-94.0); MEAN PLATELET VOLUME 9.2 fL (7.4-11.4); MONOCYTES # (AUTO) 0.9 10^3/uL (0.0-1.0); NEUTROPHILS # (AUTO) 6.6 10^3/uL (1.5-6.6); NEUTROPHILS % (AUTO) 63.7 %; PLT - PLATELET COUNT 274 10^3/uL (130-450); RED BLOOD COUNT 3.91 10^6/uL (4.70-6.10); WHITE BLOOD COUNT 10.4 x10^3/uL (4.8-10.8)
[2020-08-07 04:26] LABS: ALBUMIN 3.2 g/dL (3.2-5.5); ALBUMIN/GLOBULIN RATIO 0.9 (1.0-2.2); BILIRUBIN,TOTAL 0.6 mg/dL (0.2-1.0); CALCIUM 9.1 mg/dL (8.5-10.3); CREATININE 0.8 mg/dL (0.6-1.2); TOTAL PROTEIN 6.7 g/dL (6.7-8.2)
[2020-08-07] MEDS ORDERED: DOXYCYCLINE 100 MG TABLET PO STA (04:59)
[2020-08-07] MEDS ORDERED: HYDROmorphone 2 MG/ML VIAL IVP STA (04:59)
[2020-08-07] MEDS ORDERED: KETOROLAC 15 MG/ML VIAL IVP STA (05:00)
[2020-08-07 05:35] VITALS: BP 101/65
--- NOTE | 2020-08-07 08:26 | XRAY Report ---
PROCEDURE: Chest 1 View X-Ray INDICATIONS: Chest Pain TECHNIQUE: One view of the chest was acquired. COMPARISON: CT chest 07/22/2020, chest x-ray 07/22/2020 FINDINGS: Surgical changes and devices: None. Lungs and pleura: Chronic interstitial changes are present. Mediastinum: Right upper lobe/perihilar prominence is present corresponding to mass lesion on chest C T. Heart size is normal. Bones and chest wall: No suspicious bony lesions. Overlying soft tissues appear unremarkable. IMPRESSION: Stable interval exam without visualized acute consolidation. Reviewed by: Queenie Sandoval MD on 08/07/2020 8:24 AM PDT Approved by: Queenie Sandoval MD on 08/07/2020 8:24 AM PDT Station ID: [id number]
== END 2020-08-07 05:41 | disposition home or self-care (01) ==
LOC: EDUNIT# → ED 03:08
DX: R07.2 Precordial pain (principal); R06.02 Shortness of breath; J44.9 Chronic obstructive pulmonary disease, unspecified; C34.90 Malignant neoplasm of unspecified part of unspecified bronchus or lung; C79.51 Secondary malignant neoplasm of bone; F17.200 Nicotine dependence, unspecified, uncomplicated; Z99.81 Dependence on supplemental oxygen
CPT/HCPCS: 36415; 71045; 80053; 83690; 83880; 84484; 85025; 93005; 94640; 96374; 96375; 99284; A9270; J1170

== ENCOUNTER 2020-09-10 02:10 | Outpatient (CLI) | payer MEDICARE, MEDICAID | END 2020-09-10 02:11 | disposition critical access hospital (66) | LOC: EMS 02:10 | PROVIDERS: ATTEND Surgery | DX: R06.02 Shortness of breath (principal); Z99.81 Dependence on supplemental oxygen | CPT/HCPCS: A0425; A0427 ==

== ENCOUNTER 2020-09-10 02:20 | Inpatient (IN) | payer MEDICARE, MEDICAID ==
[2020-09-10] MEDS ORDERED: DEXAMETHASONE 10 MG/ML VIAL IVP STA (02:52)
[2020-09-10] MEDS ORDERED: SODIUM CHLORIDE 0.9% 1,000 ML IV STA (02:52)
[2020-09-10 02:58] LABS: BASOPHILS % (AUTO) 0.8 %; EOSINOPHILS % (AUTO) 0.3 %; HGB - HEMOGLOBIN 11.1 g/dL (14.0-18.0); LYMPHOCYTES % (AUTO) 25.9 %; MEAN CORPUSCULAR HEMOGLOBIN 30.4 pg (27.0-31.0); MEAN CORPUSCULAR HGB CONC 32.2 g/dL (32.0-36.0); MEAN CORPUSCULAR VOLUME 94.5 fL (80.0-94.0); MEAN PLATELET VOLUME 9.2 fL (7.4-11.4); MONOCYTES # (AUTO) 0.3 10^3/uL (0.0-1.0); MONOCYTES % (AUTO) 7.3 %; NEUTROPHILS # (AUTO) 2.6 10^3/uL (1.5-6.6); NEUTROPHILS % (AUTO) 65.4 %; PLT - PLATELET COUNT 174 10^3/uL (130-450); RED BLOOD COUNT 3.65 10^6/uL (4.70-6.10); RED CELL DISTRIBUTION WIDTH 14.2 % (12.0-15.0)
--- NOTE | 2020-09-10 03:01 | ED Physician Documentation ---
PD HPI DYSPNEA - Stated complaint Stated Complaint: SOA - Chief complaint Chief Complaint: Resp - History obtained from History obtained from: Patient, Family - History of Present Illness Timing - onset during: Rest Timing - duration: Hours Timing - details: Gradual onset, Still present Inciting event(s): URI Improved by: O2, Inhaler/neb, Steroids Worsened by: Exertion, Coughing Associated symptoms: Cough, Wheezing Similar symptoms before: Diagnosis (lung cancer and COPD exacerbation. pulmonary fibrosis.) Recently seen: Clinic - Additional information Additional information: 70-year-old male with a history of pulmonary fibrosis and COPD has developed a lung cancer which has not been pathologically defined has started chemotherapy at [facility] and before he finished his first round he developed some hematuria and the first round was not completed. He is scheduled to go back to restart chemotherapy in 6 days. He has developed increased shortness of breath with exertion and he is coughing up yellow-green phlegm. Review of Systems Constitutional: reports: Fatigue. denies: Fever Eyes: denies: Decreased vision Ears: denies: Ear pain Nose: denies: Rhinorrhea / runny nose, Congestion Throat: denies: Sore throat Cardiac: denies: Chest pain / pressure, Palpitations Respiratory: reports: Dyspnea, Cough, Wheezing GI: denies: Abdominal Pain, Nausea, Vomiting : denies: Dysuria PD PAST MEDICAL HISTORY - Past Medical History Past Medical History: Yes Cardiovascular: High cholesterol Respiratory: COPD, Emphysema, Other Neuro: None Endocrine/Autoimmune: None GI: Other : None HEENT: None Psych: None Musculoskeletal: Scoliosis, Chronic back pain Derm: None Other Past Medical History: lung cancer, undergoing treatment - Past Surgical History Past Surgical History: Yes General: Other HEENT: Other - Present Medications Home Medications: Ambulatory Orders Medication Instructions Recorded Confirmed Nortriptyline [Pamelor] 50 mg PO HS 11/27/13 07/06/19 Omeprazole 20 mg PO DAILY 01/21/14 07/06/19 Cyclobenzaprine [Flexeril] 10 mg PO BID 07/30/15 07/06/19 Oxycodone HCl/Acetaminophen 1 each PO TID PRN 07/30/15 07/06/19 [Percocet 10-325 mg Tablet] Atorvastatin [Lipitor] 80 mg PO DAILY 01/06/16 07/06/19 Ascorbic Acid [Vitamin C] 500 mg PO BID 07/23/16 07/06/19 Cholecalciferol (Vitamin D3) 2,000 units PO DAILY 07/23/16 07/06/19 [Vitamin D3] Folic Acid 1 mg PO DAILY 07/23/16 07/06/19 Ipratropium/Albuterol [Combivent 1 puffs INH TID PRN 07/23/16 07/06/19 Respimat] amLODIPine [Norvasc] 5 mg PO DAILY 01/24/17 07/06/19 Morphine ER 15 mg PO DAILY 07/01/17 07/06/19 Senna [Senokot] 8.6 - 17.2 mg PO DAILY PRN #30 07/04/17 07/06/19 tablet Amox/Clav 875/125 [Augmentin] 1 each PO Q12H #14 tablet 02/24/19 07/06/19 Fluticasone/Vilanterol [Breo 1 puffs INH DAILY 02/24/19 07/06/19 Ellipta 100-25 Mcg INH] oxyCODONE [Roxicodone] 5 mg PO Q6H PRN #14 tablet 02/24/19 07/06/19 Cephalexin [Keflex] 500 mg PO Q6H #28 capsule 07/06/19 Amoxicillin 1,000 mg PO TID #60 capsule 07/22/20 LORazepam [Ativan] 1 mg PO TID PRN #12 tablet 07/22/20 Omeprazole 20 mg PO DAILY #30 capsule. 07/22/20 predniSONE [Deltasone] 20 mg PO [id number] #21 tab 07/22/20 Doxycycline Monohydrate 100 mg PO BID #14 tablet 08/07/20 dexAMETHasone [Decadron] 4 mg PO DAILY #10 tablet 08/07/20 - Allergies Allergies/Adverse Reactions: Allergies Allergy/AdvReac Type Severity Reaction Status Date / Time No Known Drug Allergies Allergy Verified 08/07/20 03:20 - Social History Does the pt smoke?: Yes Smoking Status: Current every day smoker Does the pt drink ETOH?: No Does the pt have substance abuse?: Yes - Immunizations Immunizations are current?: No Immunizations: TDAP >10years/unknown - POLST Patient has POLST: No PD ED PE NORMAL - Vitals Vital signs reviewed: Yes (tachy and hypertensive ) - General General: Alert and oriented X 3, Well developed/nourished, Other (tachypneic at rest ) - HEENT HEENT: Atraumatic, PERRL, EOMI - Neck Neck: Supple, no meningeal sign, No bony TTP - Cardiac Cardiac: No murmur, Other (tachy to 120) - Respiratory Respiratory: Other (tachypneic with diminished breath sounds. Periodic harsh wheezes that clear with coughing) - Abdomen Abdomen: Soft, Non tender - Back Back: No CVA TTP, No spinal TTP - Derm Derm: Normal color, Warm and dry, No rash - Extremities Extremities: No deformity, No edema, No calf tenderness / cord - Neuro Neuro: No motor deficit, No sensory deficit Eye Opening: Spontaneous Motor: Obeys Commands Verbal: Oriented GCS Score: 15 - Psych Psych: Normal mood, Normal affect Results - Vitals Vitals: Vital Signs - 24 hr 09/10/20 09/10/20 02:23 03:30 Temperature 37.3 C Heart Rate 124 H 120 H Respiratory 22 18 Rate Blood Pressure 137/92 H 126/76 O2 Saturation 100 100 Oxygen O2 Source Non-rebreather mask Oxygen Flow Rate 13 - Labs Labs: Laboratory Tests 09/10/20 09/10/20 09/10/20 02:35 02:35 02:35 WBC 4.0 L RBC 3.65 L Hgb 11.1 L Hct 34.5 L MCV 94.5 H MCH 30.4 MCHC 32.2 RDW 14.2 Plt Count 174 MPV 9.2 Neut # (Auto) 2.6 Lymph # (Auto) 1.0 L [place] # (Auto) 0.3 Eos # (Auto) 0.0 Baso # (Auto) 0.0 Absolute Nucleated RBC 0.00 Nucleated RBC % 0.0 Sodium 136 Potassium 3.8 Chloride 98 L Carbon Dioxide 27 Anion Gap 11.0 BUN 16 Creatinine 0.7 Estimated GFR (MDRD) 112 Glucose 138 H Lactic Acid 1.2 Calcium 9.4 Total Bilirubin 0.5 AST 16 ALT 20 Alkaline Phosphatase 88 Total Protein 7.4 Albumin 3.6 Globulin 3.8 Albumin/Globulin Ratio 0.9 L Lipase 27 Urine Color Urine Clarity Urine pH Ur Specific [place] Urine Protein Urine Glucose (UA) Urine Ketones Urine Occult Blood Urine Nitrite Urine Bilirubin Urine Urobilinogen Ur Leukocyte Esterase Ur Microscopic Review Urine Culture Comments 09/10/20 04:10 WBC RBC Hgb Hct MCV MCH MCHC RDW Plt Count MPV Neut # (Auto) Lymph # (Auto) [place] # (Auto) Eos # (Auto) Baso # (Auto) Absolute Nucleated RBC Nucleated RBC % Sodium Potassium Chloride Carbon Dioxide Anion Gap BUN Creatinine Estimated GFR (MDRD) Glucose Lactic Acid Calcium Total Bilirubin AST ALT Alkaline Phosphatase Total Protein Albumin Globulin Albumin/Globulin Ratio Lipase Urine Color YELLOW Urine Clarity CLEAR Urine pH 5.5 Ur Specific [place] 1.020 Urine Protein NEGATIVE Urine Glucose (UA) NEGATIVE Urine Ketones NEGATIVE Urine Occult Blood TRACE-INTA Urine Nitrite NEGATIVE Urine Bilirubin NEGATIVE Urine Urobilinogen 0.2 (NORMAL) Ur Leukocyte Esterase NEGATIVE Ur Microscopic Review NOT INDICATED Urine Culture Comments NOT INDICATED - Rads (name of study) chest Radiology: Prelim report reviewed (Suspect developing consolidation left lung base. This is more prominent than previously seen.), EMP read indepedently, See rad report Procedures - IVC sono (time) 0230 Bedside IVC sono: IVC measures (cm) (1.07), IVC collapsed c insp (cm) (complete), Dehydration (est 1-2 liter deficit) PD MEDICAL DECISION MAKING - ED course Complexity details: reviewed old records, reviewed results, re-evaluated patient, considered differential, d/w patient, d/w family ED course: 70-year-old male with a history of pulmonary fibrosis and COPD has developed lung cancer over the summer and he has started treatment at [facility] and felt that he had had some improvement until about 4 days ago when he began to have increasing shortness of breath cough productive of yellow-green phlegm and this evening his breathing was so bad he was unable to keep his oxygen saturations above 70 with 4 L nasal cannula and he called the ambulance. In route to the hospital he was administered a DuoNeb treatment with some improvement he was placed onto a nonrebreather mask with return of oxygen saturation up to 100%. He arrives to the emergency department still short of breath but improved. He has not had a fever associated with this. He did call the on-call oncologist and was instructed that if he were to be admitted they would consider admitting him at the [facility]. Here in the emergency department he is administered 10 mg of dexamethasone intravenously and intravenous fluid. He has improvement in all vitals. His chest x-ray is concerning for a developing infiltrate in the left base of his lung. There are not significant changes to the right hilum. He does have extensive pulmonary fibrosis. He has a developing contralateral pneumonia. The on-call oncologist at [facility] is contacted Dr. Mcclure. The patient would like to stay at [facility] for treatment of pneumonia and Dr. Mcclure is supportive of this decision. Dr. Bray is consulted in the case and graciously agrees to care for the patient in the hospital. The patient is comfortable at rest, no longer wheezing and weening of the oxygen is attempted. This is interrupted by the patient standing at the bedside to urinate and this results in dramatic wheezing and desaturation that takes about 6-7 minutes to recover. Departure - Departure Disposition: 68 [facility] DC/Xfer Clinical Impression: Severe chronic obstructive pulmonary disease Pneumonia Qualifiers: Pneumonia type: due to unspecified organism Laterality: left Lung location: lower lobe of lung Qualified Code(s): J18.9 - Pneumonia, unspecified organism Lung cancer, hilus Qualifiers: Laterality: right Qualified Code(s): C34.01 - Malignant neoplasm of right main bronchus Condition: Stable
[2020-09-10] MEDS ORDERED: oxyCODONE 5 MG TABLET PO STA ×2 (03:03→04:02)
[2020-09-10 03:07] LABS: ALBUMIN 3.6 g/dL (3.2-5.5); ALBUMIN/GLOBULIN RATIO 0.9 (1.0-2.2); BILIRUBIN,TOTAL 0.5 mg/dL (0.2-1.0); CALCIUM 9.4 mg/dL (8.5-10.3); CREATININE 0.7 mg/dL (0.6-1.2); TOTAL PROTEIN 7.4 g/dL (6.7-8.2)
[2020-09-10] MEDS ORDERED: cefTRIAXone 1 GM in SODIUM CHLORIDE 0.9% MINIBAG 100 ML IV STA (03:52)
[2020-09-10] MEDS ORDERED: AZITHROMYCIN INJ 500 MG in SODIUM CHLORIDE 0.9% 250 ML IV STA (03:59)
[2020-09-10] MEDS ORDERED: cefTRIAXone 1 GM VIAL ONE (04:02)
[2020-09-10 04:33] LABS: BILIRUBIN,URINE NEGATIVE (NEGATIVE); GLUCOSE, URINE (UA) NEGATIVE (NEGATIVE); KETONES,URINE (UA) NEGATIVE (NEGATIVE); LEUKOCYTE ESTERASE, URINE NEGATIVE (NEGATIVE); NITRITE,URINE NEGATIVE (NEGATIVE); OCCULT BLOOD,URINE TRACE-INTA (NEGATIVE); PH,URINE 5.5 PH (5.0-7.5); PROTEIN,URINE NEGATIVE (NEGATIVE); UROBILINOGEN,URINE 0.2 (NORMAL) E.U./dL (NORMAL)
[2020-09-10 04:34] LABS: CLARITY,URINE CLEAR (CLEAR)
[2020-09-10] MEDS ORDERED: ONDANSETRON 4 MG/2 ML VIAL IVP PRN (04:54)
[2020-09-10] MEDS ORDERED: ALBUTEROL NEB 2.5 MG/3 ML INH PRN (04:54)
[2020-09-10] MEDS ORDERED: oxyCODONE 5 MG TABLET PO PRN (04:54)
[2020-09-10] MEDS ORDERED: IPRATROPIUM 0.2 MG/ML NEB INH PRN (04:54)
[2020-09-10] MEDS ORDERED: ALBUTEROL 1 PUFF INH STA ×2 (05:00→08:07)
--- NOTE | 2020-09-10 05:01 | HISTORY & PHYSICAL EXAMINATION ---
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 He reports that he is chronically short of breath due to his COPD and pulmonary fibrosis. He has been short of breath for the past couple weeks and he thought this may have been the cancer but yesterday this became much more severe and he started to develop a cough with sputum production and so he sought medical attention. He reports no fevers but does complain of chills. Reports dyspnea at rest but this is most prominent with minimal exertion. He denies any chest pain, nausea, vomiting. He reports being tested for COVID-19 3 times now with the most recent being about 10 days ago and all of these tests were negative. He rarely leaves the house due to his dyspnea except for his medical appointments. He denies any history of blood clots in the past and denies any leg pain or edema. He is followed at the [facility]. His oncologist is Dr. Mary Wilson. Patient tells me he started chemotherapy about 3 weeks ago but only finished 2 out of 3 treatments due to some hematuria that presented after the second day of treatment. States he underwent bronchoscopy and had a biopsy of a lymph node. Unfortunately, they could not make an official diagnosis with this biopsy but he states that they are treating him as if he has small cell cancer. He is due for his next treatment in 6 days. He has been on and off of steroids for the past couple months due to his dyspnea. His surgical lead is at the [facility]. He had called him yesterday to make an appointment for today due to his dyspnea. In the emergency department, he was found to be afebrile with a temperature of 37.3 C. He was tachycardic with a heart rate in the 120s. His blood pressure is 137/92. He was tachypneic with a respiratory in the low 20s. He was initially saturating in the mid 70s on 4 L of oxygen upon EMS arrival and he was placed on a nonrebreather mask with improvement in his saturations to 100%. He did desaturate in the emergency department with minimal exertion and so he remains on a nonrebreather mask saturating 100% on 15 L a minute. Labs in the emergency department were unremarkable. Chest x-ray was concerning for a left lower lobe infiltrate. He was given ceftriaxone and azithromycin IV in the emergency department. Due to to the above findings, medicine was consulted for admission. The emergency department provider did speak with the oncologist on- call initially and it was felt the patient did not need to be transferred at this time. I did discuss goals of care and the patient would like to be a full code. History - Past Medical History Cardiovascular: reports: High cholesterol Respiratory: reports: COPD, Emphysema, Other Neuro: reports: None Endocrine/Autoimmune: reports: None GI: reports: Other : reports: None HEENT: reports: None Psych: reports: None Musculoskeletal: reports: Scoliosis, Chronic back pain Derm: reports: None MRSA Hx?: No Other Past Medical History: Lung cancer, presumed to be small cell cancer. - Past Surgical History General: reports: Other HEENT: reports: Other - Family & Social History Family History Comment/Other: Father from ALS. His mother in her 50s from alcoholism. Living arrangement: At home Living Situation: With spouse/s.o. Social History Notes: He lives at home with his significant other. He has significant smoking history but quit recently. He smoked up to 3 packs a day but usually smoked 1 to 2 packs a day. He smoked for over 40 years. He reports very minimal alcohol use. He has a remote history of cocaine use when he was living in [place]. - POLST Patient has POLST: No Meds/Allgy - Home Medications Home Medications: Ambulatory Orders Medication Instructions Recorded Confirmed Nortriptyline [Pamelor] 50 mg PO HS 11/27/13 07/06/19 Omeprazole 20 mg PO DAILY 01/21/14 07/06/19 Cyclobenzaprine [Flexeril] 10 mg PO BID 07/30/15 07/06/19 Oxycodone HCl/Acetaminophen 1 each PO TID PRN 07/30/15 07/06/19 [Percocet 10-325 mg Tablet] Atorvastatin [Lipitor] 80 mg PO DAILY 01/06/16 07/06/19 Ascorbic Acid [Vitamin C] 500 mg PO BID 07/23/16 07/06/19 Cholecalciferol (Vitamin D3) 2,000 units PO DAILY 07/23/16 07/06/19 [Vitamin D3] Folic Acid 1 mg PO DAILY 07/23/16 07/06/19 Ipratropium/Albuterol [Combivent 1 puffs INH TID PRN 07/23/16 07/06/19 Respimat] amLODIPine [Norvasc] 5 mg PO DAILY 01/24/17 07/06/19 Morphine ER 15 mg PO DAILY 07/01/17 07/06/19 Senna [Senokot] 8.6 - 17.2 mg PO DAILY PRN #30 07/04/17 07/06/19 tablet Amox/Clav 875/125 [Augmentin] 1 each PO Q12H #14 tablet 02/24/19 07/06/19 Fluticasone/Vilanterol [Breo 1 puffs INH DAILY 02/24/19 07/06/19 Ellipta 100-25 Mcg INH] oxyCODONE [Roxicodone] 5 mg PO Q6H PRN #14 tablet 02/24/19 07/06/19 Cephalexin [Keflex] 500 mg PO Q6H #28 capsule 07/06/19 Amoxicillin 1,000 mg PO TID #60 capsule 07/22/20 LORazepam [Ativan] 1 mg PO TID PRN #12 tablet 07/22/20 Omeprazole 20 mg PO DAILY #30 capsule. 07/22/20 predniSONE [Deltasone] 20 mg PO [id number] #21 tab 07/22/20 Doxycycline Monohydrate 100 mg PO BID #14 tablet 08/07/20 dexAMETHasone [Decadron] 4 mg PO DAILY #10 tablet 08/07/20 - Allergies Allergies/Adverse Reactions: Allergies Allergy/AdvReac Type Severity Reaction Status Date / Time No Known Drug Allergies Allergy Verified 08/07/20 03:20 Review of Systems - Constitutional Constitutional: reports: Fatigue, Chills. denies: Fever - Eyes Eyes: denies: Blurred vision - Ears, Nose & Throat Ears, Nose & Throat: denies: Nasal congestion, Sore throat - Cardiovascular Cariovascular: reports: Lightheadedness, Exertional dyspnea, Decr. exercise tolerance. denies: Palpitations, Chest pain, Edema - Respiratory Respiratory: reports: Cough, Sputum production, Wheezing, SOB at rest, SOB with exertion - Gastrointestinal Gastrointestinal: denies: Abdominal pain, Nausea, Vomiting - Genitourinary Genitourinary: denies: Dysuria, Frequency, Urgency, Hematuria - Musculoskeletal Musculoskeletal: denies: Muscle pain, Limited range of motion - Integumentary Integumentary: denies: Rash - Neurological Neurological: denies: General weakness, Focal weakness - Hematologic/Lymphatic Hematologic/Lymphatic: denies: Anemia, Bruising, Blood clots, Bleeding tendencies - All Other Systems All Other Systems: reports: Reviewed and negative Prior Level of Functionality: He is independent with his ADLs. He has been less active recently due to baseline dyspnea. Exam - Vital Signs Reviewed Vital Signs: Yes Vital Signs: Vital Signs x48h Temp Pulse Resp BP Pulse Ox 09/10/20 04:30 126 H 28 H 127/86 H 100 09/10/20 04:10 70 L 09/10/20 03:30 120 H 18 126/76 100 09/10/20 02:23 37.3 C 124 H 22 137/92 H 100 - Physical Exam General Appearance: positive: Alert, Mild distress Eyes Bilateral: positive: Normal inspection, Conjunctivae nml ENT: positive: ENT inspection nml, Other (Non-rebreather mask in place) Respiratory: positive: Other (Does appear in respiratory stress with minimal movement but once he is sitting in bed, he starts to appear more comfortable although still tachypneic. He has bilateral expiratory wheezes. Crackles noted in the right and left base.). negative: No respiratory distress Cardiovascular: positive: No murmur, Extrasystoles, Tachycardia. negative: Regular rate & rhythm, Bradycardia Abdomen: positive: Non-tender, No distention. negative: Tenderness, Guarding, Rebound Skin: positive: Warm, Dry Extremities: positive: Full ROM, No pedal edema Neurologic/Psychiatric: positive: Oriented x3, Motor nml. negative: Disoriented to person, Disoriented to place, Disoriented to time Conclusion/Plan - Problem List (1) Acute on chronic respiratory failure with hypoxia Conclusion/Plan: He has chronic respiratory failure secondary to his COPD and pulmonary fibrosis. He is now acutely hypoxic likely due to the left lower lobe infiltrate. He saturating 90% on nonrebreather mask at 15 L a minute. This can likely be deescalated although he does desaturate with minimal exertion. We will place him on ceftriaxone IV and doxycycline IV for community-acquired pneumonia given his QTC is prolonged. We will also start him on Solu-Medrol 40 mg IV 3 times daily. We will use albuterol MDI every 4 hours. Rule out Covid and influenza. Continue supplemental oxygen for goal saturation greater than 88%. If he does not improve over next 24 to 36 hours, we will need to consider a CT angiogram to evaluate for pulmonary embolism. (2) Community acquired pneumonia of left lower lobe of lung Conclusion/Plan: Chest x-ray is concerning for developing left lower lobe infiltrate. He does n ot have a white count although he is immunocompromised and on chemotherapy which can prevent a leukocytosis. He does have change in sputum production and an obvious infiltrate on imaging. At this time, we will place him on ceftriaxone and doxycycline IV given his QTC is prolonged. We will obtain sputum cultures. If there is no improvement over next 24 hours, we will consider broadening his antibiotics. (3) COPD exacerbation Conclusion/Plan: Does have pneumonia as well as wheezing throughout all lung serrano. I do not have recent pulmonary function testing available to me but suspect he likely has moderate to severe COPD given his chronic hypoxia. We will treat underlying pneumonia with ceftriaxone and doxycycline IV. We will place him on Solu-Medrol 40 mg IV 3 times daily. We will use albuterol MDI every 4 hours until Covid is ruled out then place him on nebulizers. Continue supplemental oxygen for goal saturation greater than 88%. (4) Lung cancer, hilus Conclusion/Plan: He has a right hilar lung mass and this is concerning for small cell cancer although biopsy was inconclusive from what the patient has told me. He is due for his next dose of chemotherapy 6 days at the [facility]. At this time we will treat the left lower lobe infiltrate as mentioned above. Qualifiers: Laterality: right Qualified Code(s): C34.01 - Malignant neoplasm of right main bronchus (5) Pulmonary fibrosis Conclusion/Plan: It is unclear how much of his chronic hypoxic story failure related to pulmonary fibrosis or the COPD. He believes he has a fibrosis secondary to his cocaine use in the past. We will continue treatment of the pneumonia and COPD exacerbation as mentioned above. Continue supplemental oxygen. (6) Chronic pain Conclusion/Plan: We will continue his home pain medications once the dosing is confirmed by pharmacy. (7) Hypertension Conclusion/Plan: He is currently normotensive. We will resume his home amlodipine and metoprolol once dosing is confirmed by pharmacy. Qualifiers: Hypertension type: essential hypertension Qualified Code(s): I10 - Essential (primary) hypertension - Lab Results Lab results reviewed: Yes Fish Bones: 09/10/20 05:13 09/10/20 05:13 - Diagnostic Imaging Results Diagnostic Imaging Results: positive: Prelim report reviewed - EKG Results EKG Interpreted Independently: Yes EKG Comparison: Unchanged from prior EKG EKG Findings: EKG shows sinus tachycardia with a right bundle branch block. This is unchanged compared to prior EKG. No obvious ischemic changes. Core Measures - Anticipated LOS I expect patient to be DC'd or transferred within 96 hours.: Yes - Issues Hospital Issues and Management Plan: 70-year-old male with COPD and pulmonary fibrosis as well as a recent diagnosis of lung cancer presents with worsening dyspnea found to have a COPD exacerbation and community-acquired pneumonia. We will admit for IV steroids and antibiotics. He is quite hypoxic and we will place him in the intensive care unit. - DVT/VTE - Prophylaxis VTE/DVT Device ordered at admit?: Yes VTE/DVT Prophylaxis med ordered at admit?: Yes
--- NOTE | 2020-09-10 05:02 | ADVANCE CARE PLANNING NOTE ---
Advance Care Planning - Planning Encounter Date: 09/10/20 Time: 04:30 Purpose: To clarify goals of care. Parties in Attendance: The patient and his partner, Bertha. Decisional Capacity of the Patient: He has ability to make his own medical decisions. - Diagnosis for Encounter (1) Acute on chronic respiratory failure with hypoxia Summary: He is now admitted for acute on chronic hypoxic respiratory failure secondary to community-acquired pneumonia. He does have COPD and pulmonary fibrosis and is on 4 L of oxygen at baseline. 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 He is now quite hypoxic on nonrebreather mask although appears more comfortable. He will be admitted to intensive care unit for IV antibiotics and steroids. - Encounter Subjective/Patient's Story: Patient lives at home with his significant other, Bertha. He currently does not work due to his severe COPD. He does have chronic dyspnea at baseline and this has limited his activity. He has not left the house very much over the past few months except for his medical appointments due to his dyspnea. He is still satisfied with his current quality of life. Objective/Medical Story: The patient was a longtime smoker and used cocaine many years ago. He believes he developed pulmonary fibrosis due to the cocaine use. He was also a significant smoker and developed COPD. He has now been on oxygen for some time and initially only required 2 L but now he is on 4 L of oxygen at baseline. He was just diagnosed with the right hilar lung mass a few months ago and underwent biopsy of a lymph node which unfortunately was inconclusive. 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 It appears the malignancy is localized without evidence of metastasis. He started chemotherapy 3 weeks ago and he is due for his next treatment in 6 days. He presents today as mentioned above with worsening dyspnea and productive cough as well as wheezing. He is found to have a left lower lobe infiltrate which is new and will be admitted for community-acquired pneumonia. Goals of Care: The patient has discussed goals of care with significant other over the past few months and he has been going back and forth on his wishes. At this time, he wants to continue discussion with his significant other but he does want CPR and mechanical ventilation. He understands that he may not be able to be weaned off of ventilator but at this time, he wants to give it a shot. He wants to treat this current pneumonia and grant the cancer which is a relatively new diagnosis for him. He is very happy with the care he is receiving at [facility] and he has a positive outlook on his grant with the lung cancer. Plan: After discussion with the patient and his significant other, the patient has decided to be a full code at this time. He is agreeable to mechanical ventilation and CPR. We did talk about the possibility of tracheostomy if he was unable to be weaned off of mechanical ventilation but he has not decided on this yet. He will continue to discuss this with his significant other as they have been over the past few months. Additional Discussion: We discussed extensively what entails of CPR and mechanical ventilation. He understands in the past that his looper operator has told him that he may not be able to be weaned off of ventilator if he was ever intubated. I discussed that some patients end up with a tracheostomy and all of this may potentially be temporary, this could also be permanent. Some patients are also required mechanical ventilation after tracheostomy is performed and this requires the patient to reside at a care home care facility. Code Status: Attempt Resuscitation Time spent on advance care plannin
[2020-09-10 05:18] LABS: BASOPHILS % (AUTO) 0.3 %; HGB - HEMOGLOBIN 10.4 g/dL (14.0-18.0); LYMPHOCYTES # (AUTO) 0.4 10^3/uL (1.5-3.5); LYMPHOCYTES % (AUTO) 11.4 %; MEAN CORPUSCULAR HEMOGLOBIN 30.9 pg (27.0-31.0); MEAN CORPUSCULAR HGB CONC 32.8 g/dL (32.0-36.0); MEAN CORPUSCULAR VOLUME 94.1 fL (80.0-94.0); MONOCYTES # (AUTO) 0.1 10^3/uL (0.0-1.0); MONOCYTES % (AUTO) 2.5 %; NEUTROPHILS # (AUTO) 2.7 10^3/uL (1.5-6.6); NEUTROPHILS % (AUTO) 85.2 %; PLT - PLATELET COUNT 160 10^3/uL (130-450); RED BLOOD COUNT 3.37 10^6/uL (4.70-6.10); RED CELL DISTRIBUTION WIDTH 14.1 % (12.0-15.0); WHITE BLOOD COUNT 3.2 x10^3/uL (4.8-10.8)
[2020-09-10 05:33] LABS: CALCIUM 8.2 mg/dL (8.5-10.3); CREATININE 0.5 mg/dL (0.6-1.2); MAGNESIUM 1.8 mg/dL (1.7-2.8); PHOSPHORUS 2.7 mg/dL (2.5-4.6)
[2020-09-10] MEDS: LACTATED RINGERS 1,000 ML IV SCH ×2 (06:44→16:26)
[2020-09-10] MEDS: methylPREDNISolone SUCCINATE 40 MG/ML VIAL IVP SCH ×3 (06:53→21:49)
[2020-09-10] MEDS: INSULIN ASPART 300 UNIT/3 ML PEN SUBQ SCH ×4 (07:41→21:17)
--- NOTE | 2020-09-10 08:03 | XRAY Report ---
PROCEDURE: Chest 1 View X-Ray INDICATIONS: soa TECHNIQUE: One view of the chest was acquired. COMPARISON: 08/07/[address] chest dated 07/22/2020 FINDINGS: Surgical changes and devices: None. Lungs and pleura: Pulmonary fibrosis. Progression of ill-defined, patchy left lower lung zone opaciti es/consolidation. Right lung remains clear. No pneumothorax. No pleural effusion. Mediastinum: Mediastinal contours appear stable with abnormal right perihilar contours compatible wi th previously noted medial right lung mass and right hilar adenopathy. Heart size is normal. Bones and chest wall: No suspicious bony lesions. Overlying soft tissues appear unremarkable. IMPRESSION: 1. Interval progression of left lower lung zone airspace disease. 2. Stable appearance of right perihilar mass and right hilar adenopathy. No significant discrepancy with initial interpretation by overnight radiologist. Reviewed by: Nato Hilario MD on 09/10/2020 8:02 AM PDT Approved by: Nato Hilario MD on 09/10/2020 8:02 AM PDT Station ID: [id number]
[2020-09-10] MEDS: ENOXAPARIN 40 MG/0.4 ML SYRINGE SUBQ SCH (09:50)
[2020-09-10] MEDS: SODIUM CHLORIDE FLUSH 0.9% 10 ML SYRINGE IVP SCH ×2 (09:50→18:34)
[2020-09-10] MEDS: ACETAMINOPHEN 325 MG TABLET PO PRN ×2 (12:35→18:34)
[2020-09-10] MEDS: oxyCODONE 5 MG TABLET PO PRN ×2 (12:35→18:34)
[2020-09-10] MEDS: NICOTINE 21 MG PATCH TOP SCH (14:44)
[2020-09-10] MEDS: SODIUM CHLORIDE FLUSH 0.9% 10 ML SYRINGE IVP PRN (14:52)
[2020-09-10] MEDS: LORazepam 1 MG TABLET PO SCH ×2 (15:08→21:49)
[2020-09-10] MEDS: ALBUTEROL 1 PUFF INH PRN (15:25)
[2020-09-10] MEDS ORDERED: traZODone 50 MG TABLET PO PRN (17:36)
[2020-09-10] MEDS: LIDOCAINE PATCH 5% TOP PRN (18:35)
[2020-09-10] MEDS: NORTRIPTYLINE 25 MG CAPSULE PO SCH (21:16)
[2020-09-10] MEDS: METHADONE 5 MG TABLET PO SCH (21:17)
[2020-09-10] MEDS: ASCORBIC ACID CHEW 500 MG TABLET PO SCH (21:17)
[2020-09-10] MEDS: ATORVASTATIN 40 MG TABLET PO SCH (21:17)
[2020-09-11] MEDS: oxyCODONE 5 MG TABLET PO PRN ×2 (03:06→09:09)
[2020-09-11] MEDS: SODIUM CHLORIDE FLUSH 0.9% 10 ML SYRINGE IVP SCH ×4 (03:08→22:40)
[2020-09-11] MEDS: ALBUTEROL 1 PUFF INH PRN ×4 (03:58→16:10)
[2020-09-11 06:02] LABS: BASOPHILS % (AUTO) 0.2 %; HGB - HEMOGLOBIN 10.1 g/dL (14.0-18.0); LYMPHOCYTES % (AUTO) 14.3 %; MEAN CORPUSCULAR HEMOGLOBIN 31.2 pg (27.0-31.0); MEAN CORPUSCULAR HGB CONC 33.8 g/dL (32.0-36.0); MEAN CORPUSCULAR VOLUME 92.3 fL (80.0-94.0); MEAN PLATELET VOLUME 9.6 fL (7.4-11.4); MONOCYTES % (AUTO) 7.4 %; NEUTROPHILS % (AUTO) 76.6 %; PLT - PLATELET COUNT 199 10^3/uL (130-450); RED BLOOD COUNT 3.24 10^6/uL (4.70-6.10); WHITE BLOOD COUNT 4.7 x10^3/uL (4.8-10.8)
[2020-09-11 06:10] LABS: ABNORMAL LYMPHS % (MANUAL) 0 %
[2020-09-11 06:17] LABS: CREATININE 0.6 mg/dL (0.6-1.2); PHOSPHORUS 2.9 mg/dL (2.5-4.6)
[2020-09-11 06:30] LABS: BAND NEUTROPHILS % (MANUAL) 3 %; DIFFERENTIAL COMMENT MANUAL DIFFERENTIAL; LYMPHOCYTES # (MANUAL) 0.8 10^3/uL (1.5-3.5); LYMPHOCYTES % (MANUAL) 16 %; PLATELET ESTIMATE, MANUAL NORMAL (130-450,000) (NORMAL); RBC MORPHOLOGY (MULTIPLE) NORMAL APPEARANCE (NORMAL)
[2020-09-11] MEDS: methylPREDNISolone SUCCINATE 40 MG/ML VIAL IVP SCH ×3 (06:41→22:37)
[2020-09-11] MEDS: LORazepam 1 MG TABLET PO SCH ×3 (06:50→22:37)
[2020-09-11] MEDS ORDERED: AZITHROMYCIN INJ 500 MG in SODIUM CHLORIDE 0.9% 250 ML IV SCH (09:00)
[2020-09-11] MEDS: NICOTINE 21 MG PATCH TOP SCH (09:02)
[2020-09-11] MEDS: ENOXAPARIN 40 MG/0.4 ML SYRINGE SUBQ SCH (09:02)
[2020-09-11] MEDS: DOXYCYCLINE INJ 100 MG in SODIUM CHLORIDE 0.9% MINIBAG 100 ML IV SCH ×2 (09:03→21:43)
[2020-09-11] MEDS: cefTRIAXone 1 GM in SODIUM CHLORIDE 0.9% MINIBAG 100 ML IV SCH (09:03)
[2020-09-11] MEDS: ASCORBIC ACID CHEW 500 MG TABLET PO SCH ×2 (09:03→21:42)
[2020-09-11] MEDS: FOLIC ACID 1 MG TABLET PO SCH (09:04)
[2020-09-11] MEDS: CHOLECALCIFEROL 25 MCG TABLET PO SCH (09:04)
[2020-09-11] MEDS: METHADONE 5 MG TABLET PO SCH ×2 (09:04→21:42)
[2020-09-11] MEDS: CITALOPRAM HYDROBROMIDE 20 MG TABLET PO SCH (09:05)
[2020-09-11] MEDS: amLODIPine 5 MG TABLET PO SCH (09:05)
[2020-09-11] MEDS: ACETAMINOPHEN 325 MG TABLET PO PRN (09:09)
[2020-09-11] MEDS: INSULIN ASPART 300 UNIT/3 ML PEN SUBQ SCH ×4 (09:16→21:25)
--- NOTE | 2020-09-11 14:37 | PROVIDER PROGRESS NOTE ---
Assessment/Plan - Problem List (1) Acute on chronic respiratory failure with hypoxia Assessment/Plan: He has chronic respiratory failure secondary to his COPD and pulmonary fibrosis. He is on home O2 at 4L 24/7. Her he was desaturating and needed to be on a non- rebreather, but never needed a BIPAP. Today the O2 needs have been tapered down to his home dose, with treatment of the COPD exacerbation and community-acquired pneumonia, therefore will not obtain imaging to look for PE. Will transfer him out of ICU to [facility]. (2) Community acquired pneumonia of left lower lobe of lung Assessment/Plan: Chest x-ray showed a left lower lobe infiltrate. He dis not have a white count although he is immunocompromised and on chemotherapy which can prevent a jaspreet kocytosis. He did have change in sputum production and it has gram Pos bacteria on culture, awaiting identification then sensitivities. He is on iv ceftriaxone and doxycycline IV (given his QTC is prolonged, so Zithromax was not used). His Covid result is still pending, he remains in isolation until it is returned and negative result. (3) COPD exacerbation Assessment/Plan: He does have pneumonia which caused this exacerbation, as well as wheezing throu ghout all lung serrano. The EMR states he has severe COPD with chronic hypoxia. He is on Solu-Medrol 40 mg IV 3 times daily. He is getting albuterol MDI every 4 hours until Covid is ruled out then place him on nebulizers. Continue supplemental oxygen for goal saturation greater than 88%. (4) Lung cancer, hilus Qualifiers: Laterality: right Qualified Code(s): C34.01 - Malignant neoplasm of right main bronchus Assessment/Plan: He has a right hilar lung mass, probably small cell cancer although biopsy was inconclusive from what the patient said. He is due for his next dose of chemotherapy 5 days at the [facility]. (5) Pulmonary fibrosis Assessment/Plan: It is unclear how much of his chronic hypoxic respiratory failure is related to pulmonary fibrosis or to his COPD. He believes he has a fibrosis secondary to his cocaine use in the past. We will continue treatment of the pneumonia and COPD exacerbation as mentioned above. Continue supplemental oxygen. (6) Anemia Assessment/Plan: Likely part of this is hemodilution all. We will order B12, folate levels and iron stores and replace if low (7) Hypertension Qualifiers: Hypertension type: essential hypertension Qualified Code(s): I10 - Essential (primary) hypertension Assessment/Plan: Will resume his home amlodipine and metoprolol once dosing is confirmed by pharmacy. (8) Chronic pain Assessment/Plan: We will continue his home pain medications once the dosing is confirmed by pharmacy. (9) Tobacco use Assessment/Plan: The patient still smokes despite having COPD, pulmonary fibrosis and lung cancer. He requested a nicotine patch which was ordered. - Current Meds Current Meds: Current Medications Generic Name Dose Route Start Last Admin Trade Name Freq PRN Reason Stop Dose Admin Acetaminophen 325 mg 09/10/20 12:30 09/11/20 09:09 Tylenol PO 325 mg Q6H PRN Administration PAIN Albuterol 2 puffs 09/10/20 11:00 09/11/20 13:30 Mdi: Albuterol INH 2 puffs Q4H PRN Administration Wheezing Amlodipine Besylate 2.5 mg 09/11/20 09:00 09/11/20 09:05 Norvasc PO 2.5 mg DAILY ADALI Administration Ascorbic Acid 500 mg 09/10/20 21:00 09/11/20 09:03 Vitamin C PO 500 mg BID ADALI Administration Atorvastatin Calcium 80 mg 09/10/20 21:00 09/10/20 21:17 Lipitor PO 80 mg QPM ADALI Administration Cholecalciferol 50 mcg 09/11/20 09:00 09/11/20 09:04 Vitamin D3 PO 50 mcg DAILY ADALI Administration Citalopram Hydrobromide 20 mg 09/11/20 09:00 09/11/20 09:05 Celexa PO 20 mg DAILY ADALI Administration Enoxaparin Sodium 40 mg 09/10/20 09:00 09/11/20 09:02 Lovenox SUBQ 40 mg DAILY ADALI Administration Folic Acid 1 mg 09/11/20 09:00 09/11/20 09:04 PO 1 mg DAILY ADALI Administration Ceftriaxone Sodium 1 gm/ 100 mls @ 200 mls/hr 09/11/20 09:00 09/11/20 09:53 Sodium Chloride IV 09/14/20 09:29 Infused DAILY ADALI Infusion Doxycycline Hyclate 100 mg/ 100 mls @ 100 mls/hr 09/11/20 09:00 09/11/20 10:05 Sodium Chloride IV Infused BID ADALI Infusion Insulin Aspart 1 - 9 unit 09/10/20 08:00 09/11/20 11:51 Novolog SUBQ 1 unit 0800,1200,1700,2100 ADALI Administration Protocol Lidocaine 1 patch 09/10/20 17:36 09/10/20 18:35 Lidoderm Patch TOP 1 patch DAILY PRN Administration PAIN Lorazepam 1 mg 09/10/20 14:00 09/11/20 06:50 Ativan PO Not Given TID ADALI Methadone HCl 5 mg 09/10/20 21:00 09/11/20 09:04 PO 5 mg BID ADALI Administration Methylprednisolone 40 mg 09/10/20 06:00 09/11/20 06:41 Solu-Medrol (40mg Vial) IVP 40 mg TID ADALI Administration Nicotine 1 patch 09/10/20 13:52 09/11/20 09:02 Nicoderm TOP 1 patch DAILY ADALI Administration Nortriptyline HCl 50 mg 09/10/20 21:00 09/10/20 21:16 Pamelor PO 50 mg QPM ADALI Administration Oxycodone HCl 10 mg 09/10/20 12:27 09/11/20 09:09 Roxicodone PO 10 mg Q6H PRN Administration PAIN Sodium Chloride 10 ml 09/10/20 09:00 09/11/20 09:06 Normal Saline Flush 0.9% IVP 10 ml 0100,0900,1700 ADALI Administration Sodium Chloride 10 ml 09/10/20 04:54 09/10/20 14:52 Normal Saline Flush 0.9% IVP 20 ml PRN PRN Administration NEEDED PER PROVIDER ORDERS - Lab Result Fish Bone Diagrams: 09/12/20 04:40 09/12/20 04:40 - Additional Planning My Orders: My Active Orders 09/10/20 13:52 Nicotine 21 mg Patch [Nicoderm] 1 patch TOP DAILY 09/10/20 14:00 LORazepam [Ativan] 1 mg PO TID 09/10/20 17:36 Lidocaine Patch 5% [Lidoderm Patch] 1 patch TOP DAILY PRN traZODone [Desyrel] 50 mg PO QPM PRN 09/10/20 21:00 Ascorbic Acid Chew [Vitamin C] 500 mg PO BID Atorvastatin [Lipitor] 80 mg PO QPM Methadone 5 mg PO BID Nortriptyline [Pamelor] 50 mg PO QPM 09/11/20 09:00 Cholecalciferol [Vitamin D3] 50 mcg PO DAILY Citalopram Hydrobromide [Celexa] 20 mg PO DAILY Folic Acid 1 mg PO DAILY amLODIPine [Norvasc] 2.5 mg PO DAILY Subjective - Subjective Patient Reports: Feeling Better (He can "complete a full sentence without being short of breath or coughing"), Cough, Shortness of Breath Objective Vital Signs: Vital Signs - 24 hr 09/10/20 09/10/20 09/10/20 15:00 15:25 16:34 Temperature 36.6 C Heart Rate 118 H Heart Rate [ 119 H 120 H Monitoring electrodes] Respiratory 16 18 20 Rate Blood Pressure 108/74 127/69 [Left Brachial artery] O2 Saturation 98 96 09/10/20 09/10/20 09/10/20 17:00 18:00 19:00 Temperature Heart Rate Heart Rate [ 122 H 120 H 118 H Monitoring electrodes] Respiratory 24 24 27 H Rate Blood Pressure 116/73 110/87 H 115/76 [Left Brachial artery] O2 Saturation 94 96 96 09/10/20 09/10/20 09/10/20 20:00 21:00 22:00 Temperature 36.7 C Heart Rate Heart Rate [ 117 H 120 H 116 H Monitoring electrodes] Respiratory 26 H 28 H 27 H Rate Blood Pressure 132/81 H 125/73 132/78 H [Left Brachial artery] O2 Saturation 97 97 96 09/10/20 09/11/20 09/11/20 23:00 00:00 01:00 Temperature Heart Rate Heart Rate [ 126 H 119 H 117 H Monitoring electrodes] Respiratory 26 H 25 H 22 Rate Blood Pressure 135/74 H 130/83 H 144/90 H [Left Brachial artery] O2 Saturation 96 95 96 09/11/20 09/11/20 09/11/20 01:59 02:00 03:00 Temperature Heart Rate Heart Rate [ 118 H 117 H 113 H Monitoring electrodes] Respiratory 23 22 18 Rate Blood Pressure 142/93 H 142/93 H 136/89 H [Left Brachial artery] O2 Saturation 95 96 97 09/11/20 09/11/20 09/11/20 03:45 04:00 04:58 Temperature 36.6 C Heart Rate 112 H Heart Rate [ 114 H 111 H Monitoring electrodes] Respiratory 20 14 15 Rate Blood Pressure 135/83 H 120/68 [Left Brachial artery] O2 Saturation 98 96 10/21/20 10/21/20 10/21/20 06:00 07:00 08:00 Temperature 36.8 C Heart Rate Heart Rate [ 105 H 103 H 117 H Monitoring electrodes] Respiratory 14 13 22 Rate Blood Pressure 111/76 120/78 115/71 [Left Brachial artery] O2 Saturation 98 98 89 L 09/11/20 09/11/20 09/11/20 09:00 09:45 10:00 Temperature 98.0 C H Heart Rate 118 H Heart Rate [ 117 H 114 H Monitoring electrodes] Respiratory 27 H 25 H 25 H Rate Blood Pressure 132/74 H 126/107 H [Left Brachial artery] O2 Saturation 93 96 09/11/20 09/11/20 09/11/20 11:00 12:00 13:00 Temperature Heart Rate Heart Rate [ 119 H 120 H 119 H Monitoring electrodes] Respiratory 26 H 21 24 Rate Blood Pressure 132/75 H 136/83 H 135/80 H [Left Brachial artery] O2 Saturation 92 94 95 09/11/20 09/11/20 13:30 14:00 Temperature Heart Rate 121 H Heart Rate [ Monitoring electrodes] Respiratory 25 H 18 Rate Blood Pressure 132/75 H [Left Brachial artery] O2 Saturation 96 Oxygen O2 Source Nasal cannula Oxygen Flow Rate 13 I&O (Last 24 Hrs): Intake and Output Totals x24h 09/09/20 09/10/20 09/11/20 23:59 23:59 23:59 Intake Total 4146.666 1275 Output Total 2960 1410 Balance 1186.666 -135 General: Alert, Oriented x3 HEENT: Mucous membr. moist/pink, Other (Hoarseness of voice and inspiratory and expiratory wheezing are audible across the room) Neck: Supple, No JVD Neuro: Alert, Non Focal Cardiovascular: Regular rate, No murmurs Respiratory: Other (Inspiratory and inspiratory wheezing are heard, prolonged expiratory phase, scattered wheezes on chest exam) Abdomen: Normal bowel sounds, Soft Extremities: No clubbing, No edema - Results Results: Laboratory Results WBC 4.7 x10^3/uL (4.8-10.8) L 09/11/20 05:05 RBC 3.24 10^6/uL (4.70-6.10) L 09/11/20 05:05 Hgb 10.1 g/dL (14.0-18.0) L 09/11/20 05:05 Hct 29.9 % (42.0-52.0) L 09/11/20 05:05 MCV 92.3 fL (80.0-94.0) 09/11/20 05:05 MCH 31.2 pg (27.0-31.0) H 09/11/20 05:05 MCHC 33.8 g/dL (32.0-36.0) 09/11/20 05:05 RDW 14.0 % (12.0-15.0) 09/11/20 05:05 Plt Count 199 10^3/uL (130-450) 09/11/20 05:05 MPV 9.6 fL (7.4-11.4) 09/11/20 05:05 Neut # (Auto) Not Reportable 09/11/20 05:05 Lymph # (Auto) Not Reportable 09/11/20 05:05 [place] # (Auto) Not Reportable 09/11/20 05:05 Eos # (Auto) Not Reportable 09/11/20 05:05 Baso # (Auto) Not Reportable 09/11/20 05:05 Absolute Nucleated RBC Not Reportable 09/11/20 05:05 Total Counted 100 09/11/20 05:05 Band Neuts % (Manual) 3 % (0-10) 09/11/20 05:05 Abnorm Lymph % (Manual) 0 % 09/11/20 05:05 Nucleated RBC % Not Reportable 09/11/20 05:05 Neutrophils # (Manual) 3.9 10^3/uL (1.5-6.6) 09/11/20 05:05 Lymphocytes # (Manual) 0.8 10^3/uL (1.5-3.5) L 09/11/20 05:05 Monocytes # (Manual) 0.0 10^3/uL (0.0-1.0) 09/11/20 05:05 Eosinophils # (Manual) 0.0 10^3/uL (0-0.7) 09/11/20 05:05 Basophils # (Manual) 0.0 10^3/uL (0-0.1) 09/11/20 05:05 Differential Comment MANUAL DIFFERENTIAL 09/11/20 05:05 Platelet Estimate NORMAL (130-450,000) (NORMAL) 09/11/20 05:05 RBC Morph Micro Appear NORMAL APPEARANCE (NORMAL) 09/11/20 05:05 Sodium 135 mmol/L (135-145) 09/11/20 05:05 Potassium 3.9 mmol/L (3.5-5.0) 09/11/20 05:05 Chloride 99 mmol/L (101-111) L 09/11/20 05:05 Carbon Dioxide 26 mmol/L (21-32) 09/11/20 05:05 Anion Gap 10.0 (6-13) 09/11/20 05:05 BUN 18 mg/dL (6-20) 09/11/20 05:05 Creatinine 0.6 mg/dL (0.6-1.2) 09/11/20 05:05 Estimated GFR (MDRD) 134 (>89) 09/11/20 05:05 Glucose 179 mg/dL (70-100) H 09/11/20 05:05 Lactic Acid 1.2 mmol/L (0.5-2.2) 09/10/20 02:35 Calcium 9.0 mg/dL (8.5-10.3) 09/11/20 05:05 Phosphorus 2.9 mg/dL (2.5-4.6) 09/11/20 05:05 Magnesium 2.0 mg/dL (1.7-2.8) 09/11/20 05:05 Total Bilirubin 0.5 mg/dL (0.2-1.0) 09/10/20 02:35 AST 16 IU/L (10-42) 09/10/20 02:35 ALT 20 IU/L (10-60) 09/10/20 02:35 Alkaline Phosphatase 88 IU/L (42-121) 09/10/20 02:35 Troponin I High Sens 31.6 ng/L (2.3-19.7) H* 09/10/20 08:39 Total Protein 7.4 g/dL (6.7-8.2) 09/10/20 02:35 Albumin 3.6 g/dL (3.2-5.5) 09/10/20 02:35 Globulin 3.8 g/dL (2.1-4.2) 09/10/20 02:35 Albumin/Globulin Ratio 0.9 (1.0-2.2) L 09/10/20 02:35 Lipase 27 U/L (22-51) 09/10/20 02:35 Urine Color YELLOW 09/10/20 04:10 Urine Clarity CLEAR (CLEAR) 09/10/20 04:10 Urine pH 5.5 PH (5.0-7.5) 09/10/20 04:10 Ur Specific [place] 1.020 (1.002-1.030) 09/10/20 04:10 Urine Protein NEGATIVE mg/dL (NEGATIVE) 09/10/20 04:10 Urine Glucose (UA) NEGATIVE mg/dL (NEGATIVE) 09/10/20 04:10 Urine Ketones NEGATIVE mg/dL (NEGATIVE) 09/10/20 04:10 Urine Occult Blood TRACE-INTA (NEGATIVE) 09/10/20 04:10 Urine Nitrite NEGATIVE (NEGATIVE) 09/10/20 04:10 Urine Bilirubin NEGATIVE (NEGATIVE) 09/10/20 04:10 Urine Urobilinogen 0.2 (NORMAL) E.U./dL (NORMAL) 09/10/20 04:10 Ur Leukocyte Esterase NEGATIVE (NEGATIVE) 09/10/20 04:10 Ur Microscopic Review NOT INDICATED 09/10/20 04:10 Urine Culture Comments NOT INDICATED 09/10/20 04:10 Nasal Screen MRSA (PCR) NEGATIVE (NEGATIVE) 09/10/20 05:30 Influenza A (Rapid) Negative (Negative) 09/10/20 08:30 Influenza B (Rapid) Negative (Negative) 09/10/20 08:30 - Procedures Procedures: Procedures EXCISION OF STOMACH, ENDO, DIAGN (01/06/16) INSPECTION OF LOWER INTESTINAL TRACT, ENDO (01/06/16)
[2020-09-11] MEDS: NORTRIPTYLINE 25 MG CAPSULE PO SCH (21:42)
[2020-09-11] MEDS: ATORVASTATIN 40 MG TABLET PO SCH (21:42)
[2020-09-11] MEDS: guaiFENesin 600 MG TABLET PO SCH (21:42)
[2020-09-12 05:22] LABS: BASOPHILS % (AUTO) 0.2 %; HGB - HEMOGLOBIN 10.8 g/dL (14.0-18.0); LYMPHOCYTES % (AUTO) 17.7 %; MEAN CORPUSCULAR HEMOGLOBIN 31.5 pg (27.0-31.0); MEAN CORPUSCULAR HGB CONC 33.5 g/dL (32.0-36.0); MEAN CORPUSCULAR VOLUME 93.9 fL (80.0-94.0); MEAN PLATELET VOLUME 9.5 fL (7.4-11.4); MONOCYTES % (AUTO) 9.6 %; NEUTROPHILS % (AUTO) 68.5 %; PLT - PLATELET COUNT 255 10^3/uL (130-450); RED BLOOD COUNT 3.43 10^6/uL (4.70-6.10); RED CELL DISTRIBUTION WIDTH 14.2 % (12.0-15.0); WHITE BLOOD COUNT 4.8 x10^3/uL (4.8-10.8)
[2020-09-12 05:33] LABS: CALCIUM 9.3 mg/dL (8.5-10.3); CREATININE 0.6 mg/dL (0.6-1.2)
[2020-09-12 05:34] LABS: ABNORMAL LYMPHS % (MANUAL) 0 %
[2020-09-12 06:01] LABS: BAND NEUTROPHILS % (MANUAL) 2 %; DIFFERENTIAL COMMENT MANUAL DIFFERENTIAL; LYMPHOCYTES # (MANUAL) 0.5 10^3/uL (1.5-3.5); LYMPHOCYTES % (MANUAL) 11 %; MONOCYTES # (MANUAL) 0.1 10^3/uL (0.0-1.0); PLATELET ESTIMATE, MANUAL NORMAL (130-450,000) (NORMAL); RBC MORPHOLOGY (MULTIPLE) NORMAL APPEARANCE (NORMAL)
[2020-09-12] MEDS: methylPREDNISolone SUCCINATE 40 MG/ML VIAL IVP SCH ×3 (06:16→21:46)
[2020-09-12] MEDS: LORazepam 1 MG TABLET PO SCH ×3 (06:16→21:46)
[2020-09-12] MEDS: ALBUTEROL 1 PUFF INH PRN (07:37)
[2020-09-12] MEDS: INSULIN ASPART 300 UNIT/3 ML PEN SUBQ SCH ×4 (08:00→21:25)
[2020-09-12] MEDS: amLODIPine 5 MG TABLET PO SCH (08:22)
[2020-09-12] MEDS: CHOLECALCIFEROL 25 MCG TABLET PO SCH (08:23)
[2020-09-12] MEDS: FOLIC ACID 1 MG TABLET PO SCH (08:24)
[2020-09-12] MEDS: ASCORBIC ACID CHEW 500 MG TABLET PO SCH ×2 (08:24→20:54)
[2020-09-12] MEDS: METHADONE 5 MG TABLET PO SCH ×2 (08:25→20:54)
[2020-09-12] MEDS: guaiFENesin 600 MG TABLET PO SCH ×2 (08:25→20:54)
[2020-09-12] MEDS: CITALOPRAM HYDROBROMIDE 20 MG TABLET PO SCH (08:26)
[2020-09-12] MEDS: polyethylene glycoL 3350 17 GM PACKET PO SCH (08:27)
[2020-09-12] MEDS: cefTRIAXone 1 GM in SODIUM CHLORIDE 0.9% MINIBAG 100 ML IV SCH (08:30)
[2020-09-12] MEDS: SODIUM CHLORIDE FLUSH 0.9% 10 ML SYRINGE IVP SCH ×3 (08:33→13:56)
[2020-09-12] MEDS: oxyCODONE 5 MG TABLET PO PRN ×2 (08:45→14:02)
[2020-09-12] MEDS: NICOTINE 21 MG PATCH TOP SCH (08:46)
[2020-09-12] MEDS: ENOXAPARIN 40 MG/0.4 ML SYRINGE SUBQ SCH (09:17)
[2020-09-12] MEDS: LIDOCAINE PATCH 5% TOP PRN (09:21)
[2020-09-12] MEDS: DOXYCYCLINE INJ 100 MG in SODIUM CHLORIDE 0.9% MINIBAG 100 ML IV SCH ×2 (10:04→20:33)
--- NOTE | 2020-09-12 11:49 | PROVIDER PROGRESS NOTE ---
Assessment/Plan - Problem List (1) Acute on chronic respiratory failure with hypoxia Assessment/Plan: The patient has been weaned down to his chronic 4 L/min FiO2 by nasal cannula. Will transfer out of ICU, to [facility]. Will order PT for evaluation, since he described severe shortness of breath plus weakness just getting in and out of bed at home. (2) Community acquired pneumonia of left lower lobe of lung Assessment/Plan: The COVID test has returned neg. The sputum culture is growing alpha-hemolytic Strep. The blood culture is growing gram-positive cocci and gram-positive bacilli; this could be contaminant. Await culture results of the above. Continue with empiric treatment using IV ceftriaxone and IV doxycycline (no Zithromax because of a prolonged QT interval at admission). Mucinex was started yesterday for better pulmonary toilet. The patient is a candidate for a flutter valve or a vest to help with expectoration. (3) COPD exacerbation Assessment/Plan: The Covid test has returned and is negative. We will change his MDI inhaler to nebulizer treatment using DuoNeb 4 times daily and as needed every 4 hours, Pulmicort nebulizer twice daily. Continue IV steroids and p.o. Mucinex and supplemental oxygen. Will order evaluation with physical therapy, since yesterday's discussion c entered around how short of breath he is and weak, just moving in and out of bed. 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 That Oncologist, Dr. Yulisa Wilson, (pager [phone]) called me after that telemedicine Zoom visit and we updated each other. He will not get chemotherapy this week. The next chemotherapy will be planned for September 23. He does indeed have a prognosis of just several months and this treatment will not be curative. He cannot get radiation because it would worsen his pulmonary fibrosis. (5) Pulmonary fibrosis Assessment/Plan: As per Hx. (6) Anemia Qualifiers: Anemia type: iron deficiency Assessment/Plan: B12 and folate levels are adequate. Iron levels are low. Will start oral Iron replacement. (7) Hypertension Qualifiers: Hypertension type: essential hypertension Qualified Code(s): I10 - Essential (primary) hypertension Assessment/Plan: BP is controlled on current meds and management. (8) Chronic pain Assessment/Plan: Pain is controlled on his current meds and management. (9) Tobacco use Assessment/Plan: He is on a daily nicotine patch, 21 mg. - Current Meds Current Meds: Current Medications Generic Name Dose Route Start Last Admin Trade Name Freq PRN Reason Stop Dose Admin Amlodipine Besylate 2.5 mg 09/11/20 09:00 09/12/20 08:22 Norvasc PO 2.5 mg DAILY ADALI Administration Ascorbic Acid 500 mg 09/10/20 21:00 09/12/20 08:24 Vitamin C PO 500 mg BID ADALI Administration Atorvastatin Calcium 80 mg 09/10/20 21:00 09/11/20 21:42 Lipitor PO 80 mg QPM ADALI Administration Cholecalciferol 50 mcg 09/11/20 09:00 09/12/20 08:23 Vitamin D3 PO 50 mcg DAILY ADALI Administration Citalopram Hydrobromide 20 mg 09/11/20 09:00 09/12/20 08:26 Celexa PO 20 mg DAILY ADALI Administration Enoxaparin Sodium 40 mg 09/10/20 09:00 09/12/20 09:17 Lovenox SUBQ 40 mg DAILY ADALI Administration Folic Acid 1 mg 09/11/20 09:00 09/12/20 08:24 PO 1 mg DAILY ADALI Administration Guaifenesin 600 mg 09/11/20 21:00 09/12/20 08:25 Mucinex PO 600 mg BID ADALI Administration Ceftriaxone Sodium 1 gm/ 100 mls @ 200 mls/hr 09/11/20 09:00 09/12/20 09:50 Sodium Chloride IV 09/14/20 09:29 Infused DAILY ADALI Infusion Doxycycline Hyclate 100 mg/ 100 mls @ 100 mls/hr 09/11/20 09:00 09/12/20 10:04 Sodium Chloride IV 100 mls/hr BID ADALI Administration Insulin Aspart 1 - 9 unit 09/10/20 08:00 09/12/20 08:00 Novolog SUBQ Not Given 0800,1200,1700,2100 [facility] Protocol Lidocaine 1 patch 09/10/20 17:36 09/12/20 09:21 Lidoderm Patch TOP 1 patch DAILY PRN Administration PAIN Lorazepam 1 mg 09/10/20 14:00 09/12/20 06:16 Ativan PO 1 mg TID ADALI Administration Methadone HCl 5 mg 09/10/20 21:00 09/12/20 08:25 PO 5 mg BID ADALI Administration Methylprednisolone 40 mg 09/10/20 06:00 09/12/20 06:16 Solu-Medrol (40mg Vial) IVP 40 mg TID ADALI Administration Nicotine 1 patch 09/10/20 13:52 09/12/20 08:46 Nicoderm TOP 1 patch DAILY ADALI Administration Nortriptyline HCl 50 mg 09/10/20 21:00 09/11/20 21:42 Pamelor PO 50 mg QPM ADALI Administration Oxycodone HCl 10 mg 09/10/20 12:27 09/12/20 08:45 Roxicodone PO 10 mg Q6H PRN Administration PAIN Polyethylene Glycol 17 gm 09/12/20 09:00 09/12/20 08:27 Miralax PO 17 gm DAILY ADALI Administration Sodium Chloride 10 ml 09/10/20 09:00 09/12/20 11:28 Normal Saline Flush 0.9% IVP 10 ml 0100,0900,1700 ADALI Administration Sodium Chloride 10 ml 09/10/20 04:54 09/10/20 14:52 Normal Saline Flush 0.9% IVP 20 ml PRN PRN Administration NEEDED PER PROVIDER ORDERS - Lab Result Fish Bone Diagrams: 09/12/20 04:40 09/12/20 04:40 - Additional Planning My Orders: My Active Orders 09/12/20 Evaluate and Treat PT [PT] Routine 09/12/20 Breakfast Regular Diet [DIET] 09/12/20 09:29 Ipratropium/Albuterol [Duoneb] 3 ml INH Q4HR PRN 09/12/20 11:00 Ipratropium/Albuterol [Duoneb] 3 ml INH RTQID 09/12/20 11:46 Budesonide [Pulmicort] 0.5 mg INH RTBID 09/12/20 21:00 Montelukast [Singulair] 10 mg PO QPM Subjective - Subjective Patient Reports: Feeling Better, Shortness of Breath, Other (Still has cough, has less hoarseness and stridor.) Objective Vital Signs: Vital Signs - 24 hr 09/11/20 09/11/20 09/11/20 12:00 13:00 13:30 Temperature Heart Rate 121 H Heart Rate [ 120 H 119 H Monitoring electrodes] Respiratory 21 24 25 H Rate Blood Pressure 136/83 H 135/80 H [Left Brachial artery] O2 Saturation 94 95 09/11/20 09/11/20 09/11/20 14:00 15:00 16:00 Temperature Heart Rate Heart Rate [ 122 H 123 H Monitoring electrodes] Respiratory 18 28 H 23 Rate Blood Pressure 132/75 H 135/76 H 135/75 H [Left Brachial artery] O2 Saturation 96 95 95 09/11/20 09/11/20 09/11/20 16:10 17:00 18:00 Temperature Heart Rate 122 H Heart Rate [ 123 H 112 H Monitoring electrodes] Respiratory 24 22 94 H Rate Blood Pressure 148/84 H 142/111 H [Left Brachial artery] O2 Saturation 94 16 L 09/11/20 09/11/20 09/11/20 19:00 20:00 21:00 Temperature 36.7 C Heart Rate Heart Rate [ 118 H 117 H 111 H Monitoring electrodes] Respiratory 18 23 15 Rate Blood Pressure 136/81 H 137/84 H 113/75 [Left Brachial artery] O2 Saturation 95 93 95 09/11/20 09/11/20 09/12/20 22:00 23:00 00:00 Temperature 36.7 C Heart Rate Heart Rate [ 117 H 118 H 114 H Monitoring electrodes] Respiratory 25 H 22 31 H Rate Blood Pressure 133/87 H 134/77 H [Left Brachial artery] O2 Saturation 91 L 94 95 09/12/20 09/12/20 09/12/20 04:00 07:39 07:43 Temperature 36.8 C Heart Rate 108 H Heart Rate [ 104 H 103 H Monitoring electrodes] Respiratory 15 19 23 Rate Blood Pressure 121/79 125/80 [Left Brachial artery] O2 Saturation 95 97 09/12/20 09:00 Temperature 36.6 C Heart Rate Heart Rate [ 113 H Monitoring electrodes] Respiratory 22 Rate Blood Pressure 142/93 H [Left Brachial artery] O2 Saturation 97 Oxygen O2 Source Nasal cannula Oxygen Flow Rate 13 I&O (Last 24 Hrs): Intake and Output Totals x24h 09/10/20 09/11/20 09/12/20 23:59 23:59 23:59 Intake Total 4146.666 1975 840 Output Total 2630 0610 710 Balance 1186.096 -775 130 General: Alert, Oriented x3 HEENT: Mucous membr. moist/pink Neck: Supple Neuro: Alert, Non Focal Cardiovascular: Regular rate Respiratory: Wheezes Abdomen: Soft Extremities: No edema - Results Results: Laboratory Results WBC 4.8 x10^3/uL (4.8-10.8) 09/12/20 04:40 RBC 3.43 10^6/uL (4.70-6.10) L 09/12/20 04:40 Hgb 10.8 g/dL (14.0-18.0) L 09/12/20 04:40 Hct 32.2 % (42.0-52.0) L 09/12/20 04:40 MCV 93.9 fL (80.0-94.0) 09/12/20 04:40 MCH 31.5 pg (27.0-31.0) H 09/12/20 04:40 MCHC 33.5 g/dL (32.0-36.0) 09/12/20 04:40 RDW 14.2 % (12.0-15.0) 09/12/20 04:40 Plt Count 255 10^3/uL (130-450) 09/12/20 04:40 MPV 9.5 fL (7.4-11.4) 09/12/20 04:40 Neut # (Auto) Not Reportable 09/12/20 04:40 Lymph # (Auto) Not Reportable 09/12/20 04:40 [place] # (Auto) Not Reportable 09/12/20 04:40 Eos # (Auto) Not Reportable 09/12/20 04:40 Baso # (Auto) Not Reportable 09/12/20 04:40 Absolute Nucleated RBC Not Reportable 09/12/20 04:40 Total Counted 100 09/12/20 04:40 Band Neuts % (Manual) 2 % (0-10) 09/12/20 04:40 Abnorm Lymph % (Manual) 0 % 09/12/20 04:40 Nucleated RBC % Not Reportable 09/12/20 04:40 Neutrophils # (Manual) 4.2 10^3/uL (1.5-6.6) 09/12/20 04:40 Lymphocytes # (Manual) 0.5 10^3/uL (1.5-3.5) L 09/12/20 04:40 Monocytes # (Manual) 0.1 10^3/uL (0.0-1.0) 09/12/20 04:40 Eosinophils # (Manual) 0.0 10^3/uL (0-0.7) 09/12/20 04:40 Basophils # (Manual) 0.0 10^3/uL (0-0.1) 09/12/20 04:40 Differential Comment MANUAL DIFFERENTIAL 09/12/20 04:40 Platelet Estimate NORMAL (130-450,000) (NORMAL) 09/12/20 04:40 RBC Morph Micro Appear NORMAL APPEARANCE (NORMAL) 09/12/20 04:40 Sodium 137 mmol/L (135-145) 09/12/20 04:40 Potassium 4.4 mmol/L (3.5-5.0) 09/12/20 04:40 Chloride 99 mmol/L (101-111) L 09/12/20 04:40 Carbon Dioxide 29 mmol/L (21-32) 09/12/20 04:40 Anion Gap 9.0 (6-13) 09/12/20 04:40 BUN 23 mg/dL (6-20) H 09/12/20 04:40 Creatinine 0.6 mg/dL (0.6-1.2) 09/12/20 04:40 Estimated GFR (MDRD) 134 (>89) 09/12/20 04:40 Glucose 139 mg/dL (70-100) H 09/12/20 04:40 Lactic Acid 1.2 mmol/L (0.5-2.2) 09/10/20 02:35 Calcium 9.3 mg/dL (8.5-10.3) 09/12/20 04:40 Phosphorus 3.0 mg/dL (2.5-4.6) 09/12/20 04:40 Magnesium 2.0 mg/dL (1.7-2.8) 09/12/20 04:40 Total Bilirubin 0.5 mg/dL (0.2-1.0) 09/10/20 02:35 AST 16 IU/L (10-42) 09/10/20 02:35 ALT 20 IU/L (10-60) 09/10/20 02:35 Alkaline Phosphatase 88 IU/L (42-121) 09/10/20 02:35 Troponin I High Sens 31.6 ng/L (2.3-19.7) H* 09/10/20 08:39 Total Protein 7.4 g/dL (6.7-8.2) 09/10/20 02:35 Albumin 3.6 g/dL (3.2-5.5) 09/10/20 02:35 Globulin 3.8 g/dL (2.1-4.2) 09/10/20 02:35 Albumin/Globulin Ratio 0.9 (1.0-2.2) L 09/10/20 02:35 Lipase 27 U/L (22-51) 09/10/20 02:35 Urine Color YELLOW 09/10/20 04:10 Urine Clarity CLEAR (CLEAR) 09/10/20 04:10 Urine pH 5.5 PH (5.0-7.5) 09/10/20 04:10 Ur Specific [place] 1.020 (1.002-1.030) 09/10/20 04:10 Urine Protein NEGATIVE mg/dL (NEGATIVE) 09/10/20 04:10 Urine Glucose (UA) NEGATIVE mg/dL (NEGATIVE) 09/10/20 04:10 Urine Ketones NEGATIVE mg/dL (NEGATIVE) 09/10/20 04:10 Urine Occult Blood TRACE-INTA (NEGATIVE) 09/10/20 04:10 Urine Nitrite NEGATIVE (NEGATIVE) 09/10/20 04:10 Urine Bilirubin NEGATIVE (NEGATIVE) 09/10/20 04:10 Urine Urobilinogen 0.2 (NORMAL) E.U./dL (NORMAL) 09/10/20 04:10 Ur Leukocyte Esterase NEGATIVE (NEGATIVE) 09/10/20 04:10 Ur Microscopic Review NOT INDICATED 09/10/20 04:10 Urine Culture Comments NOT INDICATED 09/10/20 04:10 Nasal Screen MRSA (PCR) NEGATIVE (NEGATIVE) 09/10/20 05:30 Coronavirus (PCR) NEGATIVE 09/10/20 06:30 Influenza A (Rapid) Negative (Negative) 09/10/20 08:30 Influenza B (Rapid) Negative (Negative) 09/10/20 08:30 - Procedures Procedures: Procedures EXCISION OF STOMACH, ENDO, DIAGN (01/06/16) INSPECTION OF LOWER INTESTINAL TRACT, ENDO (01/06/16)
[2020-09-12] MEDS: IPRATROPIUM/ALBUTEROL 3 ML NEB INH SCH ×3 (12:19→19:35)
[2020-09-12 13:01] LABS: % IRON SATURATION 25 % (20-50); IRON 57 ug/dL (45-182); TOTAL IRON BINDING CAPACITY 230 ug/dL (250-450); TRANSFERRIN 164 mg/dL (180-329)
[2020-09-12 13:28] LABS: FOLATE 12.53 ng/mL (5.90 - >24.8)
[2020-09-12] MEDS: BUDESONIDE 0.5 MG/2 ML NEB INH SCH ×2 (15:39→19:35)
[2020-09-12] MEDS ORDERED: oxyCODONE 5 MG TABLET PO PRN (16:01)
[2020-09-12] MEDS ORDERED: BUDESONIDE 0.5 MG/2 ML NEB INH SCH (19:00)
[2020-09-12] MEDS: MONTELUKAST 10 MG TABLET PO SCH (20:54)
[2020-09-12] MEDS: ATORVASTATIN 40 MG TABLET PO SCH (20:54)
[2020-09-12] MEDS: NORTRIPTYLINE 25 MG CAPSULE PO SCH (20:54)
[2020-09-12] MEDS: CALCIUM CARBONATE CHEW 500 MG TABLET PO PRN (22:40)
[2020-09-12] MEDS: PANTOPRAZOLE 40 MG TABLET PO SCH (22:41)
[2020-09-13] MEDS: IPRATROPIUM/ALBUTEROL 3 ML NEB INH PRN ×2 (04:41→23:57)
[2020-09-13] MEDS: oxyCODONE 5 MG TABLET PO PRN ×2 (04:55→22:34)
[2020-09-13] MEDS: LORazepam 1 MG TABLET PO SCH ×3 (05:35→21:09)
[2020-09-13] MEDS: SODIUM CHLORIDE FLUSH 0.9% 10 ML SYRINGE IVP PRN ×3 (05:35→14:20)
[2020-09-13] MEDS: methylPREDNISolone SUCCINATE 40 MG/ML VIAL IVP SCH ×3 (05:36→21:11)
[2020-09-13 05:45] LABS: HGB - HEMOGLOBIN 11.8 g/dL (14.0-18.0); LYMPHOCYTES # (AUTO) 1.2 10^3/uL (1.5-3.5); LYMPHOCYTES % (AUTO) 23.4 %; MEAN CORPUSCULAR HEMOGLOBIN 31.2 pg (27.0-31.0); MEAN CORPUSCULAR HGB CONC 33.2 g/dL (32.0-36.0); MEAN CORPUSCULAR VOLUME 93.9 fL (80.0-94.0); MEAN PLATELET VOLUME 9.3 fL (7.4-11.4); MONOCYTES # (AUTO) 0.6 10^3/uL (0.0-1.0); MONOCYTES % (AUTO) 11.7 %; NEUTROPHILS # (AUTO) 3.2 10^3/uL (1.5-6.6); NEUTROPHILS % (AUTO) 64.1 %; PLT - PLATELET COUNT 286 10^3/uL (130-450); RED BLOOD COUNT 3.78 10^6/uL (4.70-6.10); RED CELL DISTRIBUTION WIDTH 14.3 % (12.0-15.0)
[2020-09-13 05:56] LABS: CALCIUM 9.7 mg/dL (8.5-10.3); CREATININE 0.7 mg/dL (0.6-1.2); MAGNESIUM 2.1 mg/dL (1.7-2.8); PHOSPHORUS 4.2 mg/dL (2.5-4.6)
[2020-09-13] MEDS: IPRATROPIUM/ALBUTEROL 3 ML NEB INH SCH ×4 (08:11→20:28)
[2020-09-13] MEDS: BUDESONIDE 0.5 MG/2 ML NEB INH SCH ×2 (08:11→20:28)
--- NOTE | 2020-09-13 08:39 | PROVIDER PROGRESS NOTE ---
Assessment/Plan - Problem List (1) Acute on chronic respiratory failure with hypoxia Assessment/Plan: The patient has been weaned down to his chronic 4 L/min FiO2 by nasal cannula. He was transfered out of ICU last night, to [facility]. I ordered PT for evaluation, since he described severe shortness of breath plus weakness just getting in and out of bed at home. He could not participate yesterday because of reported severe weakness after having to Zoom telemedicine visits with 2 of his doctors. (2) Community acquired pneumonia of left lower lobe of lung Assessment/Plan: The COVID test returned neg yesterday. The sputum culture is growing alpha- hemolytic Strep. The blood culture is growing gram-positive cocci and gram- positive bacilli; these could be contaminants, but awaiting final dx from the microbiology lab.. Continue with empiric treatment using IV ceftriaxone and IV doxycycline (no Zithromax because of a prolonged QT interval at admission). Mucinex was started for better pulmonary toilet. The patient is a candidate for a flutter valve or a vest to help with expectoration if needed. (3) COPD exacerbation Assessment/Plan: The Covid test returned negative yesterday and he was switched from MDI inhaler to nebulizer treatment using DuoNeb 4 times daily and as needed every 4 hours, Pulmicort nebulizer twice daily. Continue IV steroids and p.o. Mucinex and supplemental oxygen. Awaiting evaluation with physical therapy, since discussions have centered around how short of breath he is and weak, just moving in and out of bed. 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 That Oncologist, Dr. Yulisa Wilson, (pager [phone]) called me after that telemedicine Zoom visit and we updated each other. He will not get chemotherapy this week. The next chemotherapy will be planned for September 23. He does indeed have a prognosis of just several months and this treatment will not be curative. He cannot get radiation because it would worsen his pulmonary fibrosis. (5) Pulmonary fibrosis Assessment/Plan: As per Hx. (6) Anemia Qualifiers: Anemia type: iron deficiency Assessment/Plan: B12 and folate levels are adequate. Iron levels were low. He will start oral Iron replacement today. (7) Hypertension Qualifiers: Hypertension type: essential hypertension Qualified Code(s): I10 - Essential (primary) hypertension Assessment/Plan: BP is controlled on current meds and management. (8) Chronic pain Assessment/Plan: He needed an increase from 4x per day pain meds to 5x per day pain meds, which is what he takes at home. (9) Tobacco use Assessment/Plan: He is on a daily nicotine patch, 21 mg. - Current Meds Current Meds: Current Medications Generic Name Dose Route Start Last Admin Trade Name Freq PRN Reason Stop Dose Admin Albuterol/Ipratropium 3 ml 09/12/20 11:00 09/13/20 08:11 Duoneb INH 3 ml RTQID ADALI Administration Albuterol/Ipratropium 3 ml 09/12/20 09:29 09/13/20 04:41 Duoneb INH 3 ml Q4HR PRN Administration Wheezing Amlodipine Besylate 2.5 mg 09/11/20 09:00 09/12/20 08:22 Norvasc PO 2.5 mg DAILY ADALI Administration Ascorbic Acid 500 mg 09/10/20 21:00 09/12/20 20:54 Vitamin C PO 500 mg BID ADALI Administration Atorvastatin Calcium 80 mg 09/10/20 21:00 09/12/20 20:54 Lipitor PO 80 mg QPM ADALI Administration Budesonide 0.5 mg 09/12/20 11:46 09/13/20 08:11 Pulmicort INH 0.5 mg RTBID ADALI Administration Calcium Carbonate/Glycine 500 mg 09/12/20 22:04 09/12/20 22:40 Tums PO 500 mg TID PRN Administration Heartburn Cholecalciferol 50 mcg 09/11/20 09:00 09/12/20 08:23 Vitamin D3 PO 50 mcg DAILY ADALI Administration Citalopram Hydrobromide 20 mg 09/11/20 09:00 09/12/20 08:26 Celexa PO 20 mg DAILY ADALI Administration Enoxaparin Sodium 40 mg 09/10/20 09:00 09/12/20 09:17 Lovenox SUBQ 40 mg DAILY ADALI Administration Folic Acid 1 mg 09/11/20 09:00 09/12/20 08:24 PO 1 mg DAILY ADALI Administration Guaifenesin 600 mg 09/11/20 21:00 09/12/20 20:54 Mucinex PO 600 mg BID ADALI Administration Ceftriaxone Sodium 1 gm/ 100 mls @ 200 mls/hr 09/11/20 09:00 09/12/20 09:50 Sodium Chloride IV 09/14/20 09:29 Infused DAILY ADALI Infusion Doxycycline Hyclate 100 mg/ 100 mls @ 100 mls/hr 09/11/20 09:00 09/12/20 22:32 Sodium Chloride IV Infused BID ADALI Infusion Insulin Aspart 1 - 9 unit 09/10/20 08:00 09/12/20 21:25 Novolog SUBQ Not Given 0800,1200,1700,2100 [facility] Protocol Lidocaine 1 patch 09/10/20 17:36 09/12/20 09:21 Lidoderm Patch TOP 1 patch DAILY PRN Administration PAIN Lorazepam 1 mg 09/10/20 14:00 09/13/20 05:35 Ativan PO 1 mg TID ADALI Administration Methadone HCl 5 mg 09/10/20 21:00 09/12/20 20:54 PO 5 mg BID ADALI Administration Methylprednisolone 40 mg 09/10/20 06:00 09/13/20 05:36 Solu-Medrol (40mg Vial) IVP 40 mg TID ADALI Administration Montelukast Sodium 10 mg 09/12/20 21:00 09/12/20 20:54 Singulair PO 10 mg QPM ADALI Administration Nicotine 1 patch 09/10/20 13:52 09/12/20 08:46 Nicoderm TOP 1 patch DAILY ADALI Administration Nortriptyline HCl 50 mg 09/10/20 21:00 09/12/20 20:54 Pamelor PO 50 mg QPM ADALI Administration Oxycodone HCl 10 mg 09/12/20 16:02 09/13/20 04:55 Roxicodone PO 10 mg Q4H PRN Administration PAIN Pantoprazole Sodium 40 mg 09/12/20 23:00 09/12/20 22:41 Protonix PO 40 mg BID ADALI Administration Polyethylene Glycol 17 gm 09/12/20 09:00 09/12/20 08:27 Miralax PO 17 gm DAILY ADALI Administration Sodium Chloride 10 ml 09/10/20 09:00 09/12/20 13:56 Normal Saline Flush 0.9% IVP 10 ml 0100,0900,1700 ADALI Administration Sodium Chloride 10 ml 09/10/20 04:54 09/13/20 05:35 Normal Saline Flush 0.9% IVP 10 ml PRN PRN Administration NEEDED PER PROVIDER ORDERS - Lab Result Fish Bone Diagrams: 09/14/20 05:15 09/14/20 05:15 - Additional Planning My Orders: My Active Orders 09/12/20 09:29 Ipratropium/Albuterol [Duoneb] 3 ml INH Q4HR PRN 09/12/20 11:00 Ipratropium/Albuterol [Duoneb] 3 ml INH RTQID 09/12/20 11:46 Budesonide [Pulmicort] 0.5 mg INH RTBID 09/12/20 16:02 oxyCODONE [Roxicodone] 10 mg PO Q4H PRN 09/12/20 21:00 Montelukast [Singulair] 10 mg PO QPM 09/13/20 08:00 Ferrous Gluconate [Fergon] 324 mg PO DAILYWM Subjective - Subjective Patient Reports: Feeling Better, Shortness of Breath (He reports he was too weak and short of breath to even dangle his feet or get out of bed yesterday when physical therapy was to start with him.) Objective Vital Signs: Vital Signs - 24 hr 09/12/20 09/12/20 09/12/20 09:00 12:20 13:00 Temperature 36.6 C Heart Rate 112 H Heart Rate [ 113 H 118 H Monitoring electrodes] Respiratory 22 24 23 Rate Blood Pressure 142/93 H 134/81 H [Left Brachial artery] Blood Pressure [Right Brachial artery] O2 Saturation 97 95 09/12/20 09/12/20 09/12/20 15:40 15:41 19:18 Temperature 36.6 C 36.4 C L Heart Rate 117 H 117 H Heart Rate [ 113 H Monitoring electrodes] Respiratory 22 24 24 Rate Blood Pressure 139/77 H [Left Brachial artery] Blood Pressure [Right Brachial artery] O2 Saturation 92 94 09/12/20 09/13/20 09/13/20 19:36 00:03 00:15 Temperature 36.7 C Heart Rate 120 H Heart Rate [ 106 H 112 H Monitoring electrodes] Respiratory 18 20 Rate Blood Pressure [Left Brachial artery] Blood Pressure 122/75 [Right Brachial artery] O2 Saturation 90 L 94 09/13/20 09/13/20 09/13/20 04:38 04:41 06:26 Temperature Heart Rate 104 H Heart Rate [ 106 H Monitoring electrodes] Respiratory 20 Rate Blood Pressure [Left Brachial artery] Blood Pressure [Right Brachial artery] O2 Saturation 94 94 09/13/20 09/13/20 08:11 08:20 Temperature 36.5 C Heart Rate 106 H Heart Rate [ 94 Monitoring electrodes] Respiratory 18 20 Rate Blood Pressure [Left Brachial artery] Blood Pressure 125/70 [Right Brachial artery] O2 Saturation 96 Oxygen O2 Source Oxymask Oxygen Flow Rate 13 I&O (Last 24 Hrs): Intake and Output Totals x24h 09/11/20 09/12/20 09/13/20 23:59 23:59 23:59 Intake Total 1975 2433.334 Output Total 2510 2560 1125 Balance -535 -126.666 -1125 General: Other (Sleeping most of the day after working with PT for the first time.) HEENT: Mucous membr. moist/pink, Other (Wearing O2 by nasal cannula) Neck: Supple Neuro: Alert, Non Focal Cardiovascular: Regular rate Respiratory: No respiratory distress (At rest, on supplemental oxygen per n.c.) Abdomen: Soft Extremities: No edema - Results Results: Laboratory Results WBC 5.0 x10^3/uL (4.8-10.8) 09/13/20 05:37 RBC 3.78 10^6/uL (4.70-6.10) L 09/13/20 05:37 Hgb 11.8 g/dL (14.0-18.0) L 09/13/20 05:37 Hct 35.5 % (42.0-52.0) L 09/13/20 05:37 MCV 93.9 fL (80.0-94.0) 09/13/20 05:37 MCH 31.2 pg (27.0-31.0) H 09/13/20 05:37 MCHC 33.2 g/dL (32.0-36.0) 09/13/20 05:37 RDW 14.3 % (12.0-15.0) 09/13/20 05:37 Plt Count 286 10^3/uL (130-450) 09/13/20 05:37 MPV 9.3 fL (7.4-11.4) 09/13/20 05:37 Neut # (Auto) 3.2 10^3/uL (1.5-6.6) 09/13/20 05:37 Lymph # (Auto) 1.2 10^3/uL (1.5-3.5) L 09/13/20 05:37 [place] # (Auto) 0.6 10^3/uL (0.0-1.0) 09/13/20 05:37 Eos # (Auto) 0.0 10^3/uL (0.0-0.7) 09/13/20 05:37 Baso # (Auto) 0.0 10^3/uL (0.0-0.1) 09/13/20 05:37 Absolute Nucleated RBC 0.00 x10^3/uL 09/13/20 05:37 Total Counted 100 09/12/20 04:40 Band Neuts % (Manual) 2 % (0-10) 09/12/20 04:40 Abnorm Lymph % (Manual) 0 % 09/12/20 04:40 Nucleated RBC % 0.0 /100WBC 09/13/20 05:37 Neutrophils # (Manual) 4.2 10^3/uL (1.5-6.6) 09/12/20 04:40 Lymphocytes # (Manual) 0.5 10^3/uL (1.5-3.5) L 09/12/20 04:40 Monocytes # (Manual) 0.1 10^3/uL (0.0-1.0) 09/12/20 04:40 Eosinophils # (Manual) 0.0 10^3/uL (0-0.7) 09/12/20 04:40 Basophils # (Manual) 0.0 10^3/uL (0-0.1) 09/12/20 04:40 Differential Comment MANUAL DIFFERENTIAL 09/12/20 04:40 Platelet Estimate NORMAL (130-450,000) (NORMAL) 09/12/20 04:40 RBC Morph Micro Appear NORMAL APPEARANCE (NORMAL) 09/12/20 04:40 Sodium 134 mmol/L (135-145) L 09/13/20 05:37 Potassium 4.6 mmol/L (3.5-5.0) 09/13/20 05:37 Chloride 94 mmol/L (101-111) L 09/13/20 05:37 Carbon Dioxide 29 mmol/L (21-32) 09/13/20 05:37 Anion Gap 11.0 (6-13) 09/13/20 05:37 BUN 23 mg/dL (6-20) H 09/13/20 05:37 Creatinine 0.7 mg/dL (0.6-1.2) 09/13/20 05:37 Estimated GFR (MDRD) 112 (>89) 09/13/20 05:37 Glucose 132 mg/dL (70-100) H 09/13/20 05:37 Lactic Acid 1.2 mmol/L (0.5-2.2) 09/10/20 02:35 Calcium 9.7 mg/dL (8.5-10.3) 09/13/20 05:37 Phosphorus 4.2 mg/dL (2.5-4.6) 09/13/20 05:37 Magnesium 2.1 mg/dL (1.7-2.8) 09/13/20 05:37 Iron 57 ug/dL (45-182) 09/12/20 04:40 TIBC 230 ug/dL (250-450) L 09/12/20 04:40 % Saturation 25 % (20-50) 09/12/20 04:40 Transferrin 164 mg/dL (180-329) L 09/12/20 04:40 Total Bilirubin 0.5 mg/dL (0.2-1.0) 09/10/20 02:35 AST 16 IU/L (10-42) 09/10/20 02:35 ALT 20 IU/L (10-60) 09/10/20 02:35 Alkaline Phosphatase 88 IU/L (42-121) 09/10/20 02:35 Troponin I High Sens 31.6 ng/L (2.3-19.7) H* 09/10/20 08:39 Total Protein 7.4 g/dL (6.7-8.2) 09/10/20 02:35 Albumin 3.6 g/dL (3.2-5.5) 09/10/20 02:35 Globulin 3.8 g/dL (2.1-4.2) 09/10/20 02:35 Albumin/Globulin Ratio 0.9 (1.0-2.2) L 09/10/20 02:35 Lipase 27 U/L (22-51) 09/10/20 02:35 Vitamin B12 524 pg/mL (180-914) 09/12/20 04:40 Folate 12.53 ng/mL (5.90 - >24.8) 09/12/20 04:40 Urine Color YELLOW 09/10/20 04:10 Urine Clarity CLEAR (CLEAR) 09/10/20 04:10 Urine pH 5.5 PH (5.0-7.5) 09/10/20 04:10 Ur Specific [place] 1.020 (1.002-1.030) 09/10/20 04:10 Urine Protein NEGATIVE mg/dL (NEGATIVE) 09/10/20 04:10 Urine Glucose (UA) NEGATIVE mg/dL (NEGATIVE) 09/10/20 04:10 Urine Ketones NEGATIVE mg/dL (NEGATIVE) 09/10/20 04:10 Urine Occult Blood TRACE-INTA (NEGATIVE) 09/10/20 04:10 Urine Nitrite NEGATIVE (NEGATIVE) 09/10/20 04:10 Urine Bilirubin NEGATIVE (NEGATIVE) 09/10/20 04:10 Urine Urobilinogen 0.2 (NORMAL) E.U./dL (NORMAL) 09/10/20 04:10 Ur Leukocyte Esterase NEGATIVE (NEGATIVE) 09/10/20 04:10 Ur Microscopic Review NOT INDICATED 09/10/20 04:10 Urine Culture Comments NOT INDICATED 09/10/20 04:10 Nasal Screen MRSA (PCR) NEGATIVE (NEGATIVE) 09/10/20 05:30 Coronavirus (PCR) NEGATIVE 09/10/20 06:30 Influenza A (Rapid) Negative (Negative) 09/10/20 08:30 Influenza B (Rapid) Negative (Negative) 09/10/20 08:30 - Procedures Procedures: Procedures EXCISION OF STOMACH, ENDO, DIAGN (01/06/16) INSPECTION OF LOWER INTESTINAL TRACT, ENDO (01/06/16)
[2020-09-13] MEDS: amLODIPine 5 MG TABLET PO SCH (08:55)
[2020-09-13] MEDS: PANTOPRAZOLE 40 MG TABLET PO SCH ×2 (08:58→21:09)
[2020-09-13] MEDS: polyethylene glycoL 3350 17 GM PACKET PO SCH (08:59)
[2020-09-13] MEDS: FOLIC ACID 1 MG TABLET PO SCH (08:59)
[2020-09-13] MEDS: CITALOPRAM HYDROBROMIDE 20 MG TABLET PO SCH (08:59)
[2020-09-13] MEDS: guaiFENesin 600 MG TABLET PO SCH ×2 (08:59→21:09)
[2020-09-13] MEDS: CHOLECALCIFEROL 25 MCG TABLET PO SCH (08:59)
[2020-09-13] MEDS: SENNA 8.6 MG TABLET PO SCH (09:00)
[2020-09-13] MEDS: DOCUSATE SODIUM 250 MG CAPSULE PO SCH (09:00)
[2020-09-13] MEDS: cefTRIAXone 1 GM in SODIUM CHLORIDE 0.9% MINIBAG 100 ML IV SCH (09:00)
[2020-09-13] MEDS: INSULIN ASPART 300 UNIT/3 ML PEN SUBQ SCH ×4 (09:01→21:14)
[2020-09-13] MEDS: SODIUM CHLORIDE FLUSH 0.9% 10 ML SYRINGE IVP SCH ×2 (09:15→17:14)
[2020-09-13] MEDS: NICOTINE 21 MG PATCH TOP SCH (09:16)
[2020-09-13] MEDS: LIDOCAINE PATCH 5% TOP PRN (09:27)
[2020-09-13] MEDS: METHADONE 5 MG TABLET PO SCH ×2 (09:28→21:08)
[2020-09-13] MEDS: FERROUS GLUCONATE 324 MG TABLET PO SCH (09:28)
[2020-09-13] MEDS: ASCORBIC ACID CHEW 500 MG TABLET PO SCH ×2 (09:28→21:09)
[2020-09-13] MEDS: ENOXAPARIN 40 MG/0.4 ML SYRINGE SUBQ SCH (09:28)
[2020-09-13] MEDS: DOXYCYCLINE INJ 100 MG in SODIUM CHLORIDE 0.9% MINIBAG 100 ML IV SCH ×2 (09:36→21:07)
[2020-09-13] MEDS: NORTRIPTYLINE 25 MG CAPSULE PO SCH (21:08)
[2020-09-13] MEDS: MONTELUKAST 10 MG TABLET PO SCH (21:09)
[2020-09-13] MEDS: ATORVASTATIN 40 MG TABLET PO SCH (21:09)
[2020-09-14] MEDS: SODIUM CHLORIDE FLUSH 0.9% 10 ML SYRINGE IVP SCH ×4 (01:14→21:26)
[2020-09-14] MEDS: oxyCODONE 5 MG TABLET PO PRN ×2 (02:44→19:47)
[2020-09-14] MEDS: ACETAMINOPHEN 325 MG TABLET PO PRN ×2 (02:44→19:48)
[2020-09-14] MEDS: methylPREDNISolone SUCCINATE 40 MG/ML VIAL IVP SCH ×3 (05:11→21:28)
[2020-09-14] MEDS: LORazepam 1 MG TABLET PO SCH ×3 (05:11→21:26)
[2020-09-14] MEDS: SODIUM CHLORIDE FLUSH 0.9% 10 ML SYRINGE IVP PRN ×3 (05:12→21:26)
[2020-09-14 05:39] LABS: BASOPHILS % (AUTO) 0.2 %; HGB - HEMOGLOBIN 11.3 g/dL (14.0-18.0); LYMPHOCYTES # (AUTO) 1.4 10^3/uL (1.5-3.5); LYMPHOCYTES % (AUTO) 26.4 %; MEAN CORPUSCULAR HEMOGLOBIN 31.3 pg (27.0-31.0); MEAN CORPUSCULAR HGB CONC 33.2 g/dL (32.0-36.0); MEAN CORPUSCULAR VOLUME 94.2 fL (80.0-94.0); MEAN PLATELET VOLUME 9.3 fL (7.4-11.4); MONOCYTES # (AUTO) 0.8 10^3/uL (0.0-1.0); MONOCYTES % (AUTO) 15.1 %; NEUTROPHILS # (AUTO) 2.9 10^3/uL (1.5-6.6); NEUTROPHILS % (AUTO) 56.2 %; PLT - PLATELET COUNT 323 10^3/uL (130-450); RED BLOOD COUNT 3.61 10^6/uL (4.70-6.10); RED CELL DISTRIBUTION WIDTH 14.6 % (12.0-15.0); WHITE BLOOD COUNT 5.2 x10^3/uL (4.8-10.8)
[2020-09-14 05:52] LABS: CALCIUM 9.2 mg/dL (8.5-10.3); CREATININE 0.7 mg/dL (0.6-1.2); MAGNESIUM 2.1 mg/dL (1.7-2.8); PHOSPHORUS 3.9 mg/dL (2.5-4.6)
[2020-09-14] MEDS: IPRATROPIUM/ALBUTEROL 3 ML NEB INH SCH ×4 (07:46→20:55)
[2020-09-14] MEDS: BUDESONIDE 0.5 MG/2 ML NEB INH SCH ×2 (07:46→20:55)
[2020-09-14] MEDS: FERROUS GLUCONATE 324 MG TABLET PO SCH (08:42)
[2020-09-14] MEDS: NICOTINE 21 MG PATCH TOP SCH (08:43)
[2020-09-14] MEDS: guaiFENesin 600 MG TABLET PO SCH ×2 (08:43→21:26)
[2020-09-14] MEDS: FOLIC ACID 1 MG TABLET PO SCH (08:44)
[2020-09-14] MEDS: amLODIPine 5 MG TABLET PO SCH (08:44)
[2020-09-14] MEDS: METHADONE 5 MG TABLET PO SCH ×2 (08:44→21:27)
[2020-09-14] MEDS: CHOLECALCIFEROL 25 MCG TABLET PO SCH (08:46)
[2020-09-14] MEDS: INSULIN ASPART 300 UNIT/3 ML PEN SUBQ SCH ×4 (08:46→21:27)
[2020-09-14] MEDS: PANTOPRAZOLE 40 MG TABLET PO SCH ×2 (08:47→21:26)
[2020-09-14] MEDS: ASCORBIC ACID CHEW 500 MG TABLET PO SCH ×2 (08:47→21:26)
[2020-09-14] MEDS: CITALOPRAM HYDROBROMIDE 20 MG TABLET PO SCH (08:47)
[2020-09-14] MEDS: ENOXAPARIN 40 MG/0.4 ML SYRINGE SUBQ SCH (08:47)
[2020-09-14] MEDS: polyethylene glycoL 3350 17 GM PACKET PO SCH (08:48)
[2020-09-14] MEDS: LIDOCAINE PATCH 5% TOP PRN (08:48)
[2020-09-14] MEDS: DOCUSATE SODIUM 250 MG CAPSULE PO SCH (09:01)
[2020-09-14] MEDS: SENNA 8.6 MG TABLET PO SCH (09:01)
[2020-09-14] MEDS: cefTRIAXone 1 GM in SODIUM CHLORIDE 0.9% MINIBAG 100 ML IV SCH (09:04)
[2020-09-14] MEDS: DOXYCYCLINE INJ 100 MG in SODIUM CHLORIDE 0.9% MINIBAG 100 ML IV SCH ×2 (10:10→21:28)
--- NOTE | 2020-09-14 11:27 | PROVIDER PROGRESS NOTE ---
Assessment/Plan - Problem List (1) Acute on chronic respiratory failure with hypoxia Assessment/Plan: It was learned that his O2 setting was decreased to 2 L. His home O2 setting is always at 4 L. Will continue treatment of the COPD exacerbation and pneumonia. Will order: no lower than 4 L nasal cannula supplementation at all times. He got out of bed and took several steps for the first time yesterday with PT. Continue to work with PT, and he may need an increase in his supplemental O2 settings with activity. Plan to do exercise oximetry testing on the day of discharge; he will be possibly ready for discharge tomorrow. (2) Community acquired pneumonia of left lower lobe of lung Assessment/Plan: The sputum production sent for culture grew oral juan. Blood culture was only identified as a gram-positive therefore is considered to be a contaminant. He is on empiric ceftriaxone and doxycycline, since admission. Will plan a 7-10 day course of treatment. Today is day #5. (3) COPD exacerbation Assessment/Plan: He is improved significantly ever since nebs have been started, after the Covid was negative and inhalers could be stopped. Continue with IV steroids. He will also need oral steroids at discharge with a very slow taper. Continue with Montelukast. Continue with Mucinex for pulmonary toilet. (4) Lung cancer, hilus Qualifiers: Laterality: right Qualified Code(s): C34.01 - Malignant neoplasm of right main bronchus Assessment/Plan: He knows that the future management of this will be on September 23 at [facility] (5) Pulmonary fibrosis Assessment/Plan: As per Hx (6) Anemia Qualifiers: Anemia type: iron deficiency Assessment/Plan: Iron supplementation has been started orally. Follow CBC daily while here. (7) Hypertension Qualifiers: Hypertension type: essential hypertension Qualified Code(s): I10 - Essential (primary) hypertension Assessment/Plan: BP controlled on current meds and management. (8) Chronic pain Assessment/Plan: His pain is in the spine, he just had a Zoom telemedicine appointment with the doctor who follows this, 2 days ago. Pain controlled on current meds and management, his narcotics needed to be increased to 5 times a day as needed, as he takes at home. (9) Tobacco use Assessment/Plan: Nicotine patch ordered - Current Meds Current Meds: Current Medications Generic Name Dose Route Start Last Admin Trade Name Freq PRN Reason Stop Dose Admin Acetaminophen 650 mg 09/10/20 04:54 09/14/20 02:44 Tylenol PO 325 mg Q4HR PRN Administration Pain 1 to 4 Albuterol/Ipratropium 3 ml 09/12/20 11:00 09/14/20 11:20 Duoneb INH 3 ml RTQID ADALI Administration Albuterol/Ipratropium 3 ml 09/12/20 09:29 09/13/20 23:57 Duoneb INH 3 ml Q4HR PRN Administration Wheezing Amlodipine Besylate 2.5 mg 09/11/20 09:00 09/14/20 08:44 Norvasc PO 2.5 mg DAILY ADALI Administration Ascorbic Acid 500 mg 09/10/20 21:00 09/14/20 08:47 Vitamin C PO 500 mg BID ADALI Administration Atorvastatin Calcium 80 mg 09/10/20 21:00 09/13/20 21:09 Lipitor PO 80 mg QPM ADALI Administration Budesonide 0.5 mg 09/12/20 11:46 09/14/20 07:46 Pulmicort INH 0.5 mg RTBID ADALI Administration Calcium Carbonate/Glycine 500 mg 09/12/20 22:04 09/12/20 22:40 Tums PO 500 mg TID PRN Administration Heartburn Cholecalciferol 50 mcg 09/11/20 09:00 09/14/20 08:46 Vitamin D3 PO 50 mcg DAILY [facility] Administration Citalopram Hydrobromide 20 mg 09/11/20 09:00 09/14/20 08:47 Celexa PO 20 mg DAILY [facility] Administration Docusate Sodium 250 - 500 mg 09/13/20 09:00 09/14/20 09:01 Colace 250mg Capsule PO Not Given DAILY [facility] Enoxaparin Sodium 40 mg 09/10/20 09:00 09/14/20 08:47 Lovenox SUBQ 40 mg DAILY ADALI Administration Ferrous Gluconate 324 mg 09/13/20 08:00 09/14/20 08:42 Fergon PO 324 mg DAILYWM ADALI Administration Folic Acid 1 mg 09/11/20 09:00 09/14/20 08:44 PO 1 mg DAILY ADALI Administration Guaifenesin 600 mg 09/11/20 21:00 09/14/20 08:43 Mucinex PO 600 mg BID ADALI Administration Doxycycline Hyclate 100 mg/ 100 mls @ 100 mls/hr 09/11/20 09:00 09/14/20 10:10 Sodium Chloride IV 09/15/20 15:00 100 mls/hr BID ADALI Administration Insulin Aspart 1 - 9 unit 09/10/20 08:00 09/14/20 08:46 Novolog SUBQ Not Given 0800,1200,1700,2100 [facility] Protocol Lidocaine 1 patch 09/10/20 17:36 09/14/20 08:48 Lidoderm Patch TOP 1 patch DAILY PRN Administration PAIN Lorazepam 1 mg 09/10/20 14:00 09/14/20 05:11 Ativan PO 1 mg TID ADALI Administration Methadone HCl 5 mg 09/10/20 21:00 09/14/20 08:44 PO 5 mg BID ADALI Administration Methylprednisolone 40 mg 09/10/20 06:00 09/14/20 05:11 Solu-Medrol (40mg Vial) IVP 40 mg TID ADALI Administration Montelukast Sodium 10 mg 09/12/20 21:00 09/13/20 21:09 Singulair PO 10 mg QPM ADALI Administration Nicotine 1 patch 09/10/20 13:52 09/14/20 08:43 Nicoderm TOP 1 patch DAILY ADALI Administration Nortriptyline HCl 50 mg 09/10/20 21:00 09/13/20 21:08 Pamelor PO 50 mg QPM ADALI Administration Oxycodone HCl 10 mg 09/12/20 16:02 09/14/20 02:44 Roxicodone PO 10 mg Q4H PRN Administration PAIN Pantoprazole Sodium 40 mg 09/12/20 23:00 09/14/20 08:47 Protonix PO 40 mg BID ADALI Administration Polyethylene Glycol 17 gm 09/12/20 09:00 09/14/20 08:48 Miralax PO 17 gm DAILY ADALI Administration Senna 8.6 - 17.2 mg 09/13/20 09:00 09/14/20 09:01 Senokot PO Not Given DAILY ADALI Sodium Chloride 10 ml 09/10/20 09:00 09/14/20 09:06 Normal Saline Flush 0.9% IVP 10 ml 0100,0900,1700 ADALI Administration Sodium Chloride 10 ml 09/10/20 04:54 09/14/20 05:12 Normal Saline Flush 0.9% IVP 10 ml PRN PRN Administration NEEDED PER PROVIDER ORDERS - Lab Result Fish Bone Diagrams: 09/14/20 05:15 09/14/20 05:15 - Additional Planning My Orders: My Active Orders 09/14/20 10:31 Miscellaenous Nursing Order [RC] QSHIFT Subjective - Subjective Patient Reports: Feeling Better, Shortness of Breath (He still had tachypnea and desaturated just after positioning himself in bed and after nebulizer treatment) Objective Vital Signs: Vital Signs - 24 hr 09/13/20 09/13/20 09/13/20 12:25 15:24 20:30 Temperature Heart Rate 105 H 115 H Heart Rate [ 141 H Activity] Heart Rate [ Brachial] Heart Rate [ Monitoring electrodes] Heart Rate [ 125 H Sitting] Heart Rate [ 132 H Standing] Heart Rate [ 118 H Supine] Respiratory 16 20 Rate Blood Pressure 116/68 [Activity] Blood Pressure [Left Brachial artery] Blood Pressure [Right Brachial artery] Blood Pressure 137/71 H [Sitting] Blood Pressure 109/59 L [Standing] Blood Pressure 120/69 [Supine] O2 Saturation 09/13/20 09/13/20 09/13/20 22:00 23:40 23:55 Temperature 36.7 C 36.6 C Heart Rate 112 H Heart Rate [ Activity] Heart Rate [ Brachial] Heart Rate [ 113 H 112 H Monitoring electrodes] Heart Rate [ Sitting] Heart Rate [ Standing] Heart Rate [ Supine] Respiratory 21 22 20 Rate Blood Pressure [Activity] Blood Pressure 122/76 [Left Brachial artery] Blood Pressure 137/69 H [Right Brachial artery] Blood Pressure [Sitting] Blood Pressure [Standing] Blood Pressure [Supine] O2 Saturation 93 98 09/14/20 09/14/20 09/14/20 01:32 07:26 07:46 Temperature 36.8 C Heart Rate 107 H Heart Rate [ Activity] Heart Rate [ 109 H Brachial] Heart Rate [ 116 H Monitoring electrodes] Heart Rate [ Sitting] Heart Rate [ Standing] Heart Rate [ Supine] Respiratory 22 20 Rate Blood Pressure [Activity] Blood Pressure 108/71 [Left Brachial artery] Blood Pressure [Right Brachial artery] Blood Pressure [Sitting] Blood Pressure [Standing] Blood Pressure [Supine] O2 Saturation 95 93 09/14/20 11:20 Temperature Heart Rate 109 H Heart Rate [ Activity] Heart Rate [ Brachial] Heart Rate [ Monitoring electrodes] Heart Rate [ Sitting] Heart Rate [ Standing] Heart Rate [ Supine] Respiratory 20 Rate Blood Pressure [Activity] Blood Pressure [Left Brachial artery] Blood Pressure [Right Brachial artery] Blood Pressure [Sitting] Blood Pressure [Standing] Blood Pressure [Supine] O2 Saturation Oxygen O2 Source Nasal cannula Oxygen Flow Rate 13 I&O (Last 24 Hrs): Intake and Output Totals x24h 09/12/20 09/13/20 09/14/20 23:59 23:59 23:59 Intake Total 2433.334 1320 880 Output Total 2560 2575 1430 Balance -126.666 -1255 -550 General: Alert, Oriented x3 HEENT: Mucous membr. moist/pink Neck: Supple Neuro: Alert, Non Focal Cardiovascular: Regular rate, No murmurs Respiratory: Breath sounds nml, Other (He has INSPIRATORY stridor) Abdomen: Soft Extremities: No edema - Results Results: Laboratory Results WBC 5.2 x10^3/uL (4.8-10.8) 09/14/20 05:15 RBC 3.61 10^6/uL (4.70-6.10) L 09/14/20 05:15 Hgb 11.3 g/dL (14.0-18.0) L 09/14/20 05:15 Hct 34.0 % (42.0-52.0) L 09/14/20 05:15 MCV 94.2 fL (80.0-94.0) H 09/14/20 05:15 MCH 31.3 pg (27.0-31.0) H 09/14/20 05:15 MCHC 33.2 g/dL (32.0-36.0) 09/14/20 05:15 RDW 14.6 % (12.0-15.0) 09/14/20 05:15 Plt Count 323 10^3/uL (130-450) 09/14/20 05:15 MPV 9.3 fL (7.4-11.4) 09/14/20 05:15 Neut # (Auto) 2.9 10^3/uL (1.5-6.6) 09/14/20 05:15 Lymph # (Auto) 1.4 10^3/uL (1.5-3.5) L 09/14/20 05:15 [place] # (Auto) 0.8 10^3/uL (0.0-1.0) 09/14/20 05:15 Eos # (Auto) 0.0 10^3/uL (0.0-0.7) 09/14/20 05:15 Baso # (Auto) 0.0 10^3/uL (0.0-0.1) 09/14/20 05:15 Absolute Nucleated RBC 0.00 x10^3/uL 09/14/20 05:15 Total Counted 100 09/12/20 04:40 Band Neuts % (Manual) 2 % (0-10) 09/12/20 04:40 Abnorm Lymph % (Manual) 0 % 09/12/20 04:40 Nucleated RBC % 0.0 /100WBC 09/14/20 05:15 Neutrophils # (Manual) 4.2 10^3/uL (1.5-6.6) 09/12/20 04:40 Lymphocytes # (Manual) 0.5 10^3/uL (1.5-3.5) L 09/12/20 04:40 Monocytes # (Manual) 0.1 10^3/uL (0.0-1.0) 09/12/20 04:40 Eosinophils # (Manual) 0.0 10^3/uL (0-0.7) 09/12/20 04:40 Basophils # (Manual) 0.0 10^3/uL (0-0.1) 09/12/20 04:40 Differential Comment MANUAL DIFFERENTIAL 09/12/20 04:40 Platelet Estimate NORMAL (130-450,000) (NORMAL) 09/12/20 04:40 RBC Morph Micro Appear NORMAL APPEARANCE (NORMAL) 09/12/20 04:40 Sodium 134 mmol/L (135-145) L 09/14/20 05:15 Potassium 4.8 mmol/L (3.5-5.0) 09/14/20 05:15 Chloride 95 mmol/L (101-111) L 09/14/20 05:15 Carbon Dioxide 30 mmol/L (21-32) 09/14/20 05:15 Anion Gap 9.0 (6-13) 09/14/20 05:15 BUN 27 mg/dL (6-20) H 09/14/20 05:15 Creatinine 0.7 mg/dL (0.6-1.2) 09/14/20 05:15 Estimated GFR (MDRD) 112 (>89) 09/14/20 05:15 Glucose 125 mg/dL (70-100) H 09/14/20 05:15 Lactic Acid 1.2 mmol/L (0.5-2.2) 09/10/20 02:35 Calcium 9.2 mg/dL (8.5-10.3) 09/14/20 05:15 Phosphorus 3.9 mg/dL (2.5-4.6) 09/14/20 05:15 Magnesium 2.1 mg/dL (1.7-2.8) 09/14/20 05:15 Iron 57 ug/dL (45-182) 09/12/20 04:40 TIBC 230 ug/dL (250-450) L 09/12/20 04:40 % Saturation 25 % (20-50) 09/12/20 04:40 Transferrin 164 mg/dL (180-329) L 09/12/20 04:40 Total Bilirubin 0.5 mg/dL (0.2-1.0) 09/10/20 02:35 AST 16 IU/L (10-42) 09/10/20 02:35 ALT 20 IU/L (10-60) 09/10/20 02:35 Alkaline Phosphatase 88 IU/L (42-121) 09/10/20 02:35 Troponin I High Sens 31.6 ng/L (2.3-19.7) H* 09/10/20 08:39 Total Protein 7.4 g/dL (6.7-8.2) 09/10/20 02:35 Albumin 3.6 g/dL (3.2-5.5) 09/10/20 02:35 Globulin 3.8 g/dL (2.1-4.2) 09/10/20 02:35 Albumin/Globulin Ratio 0.9 (1.0-2.2) L 09/10/20 02:35 Lipase 27 U/L (22-51) 09/10/20 02:35 Vitamin B12 524 pg/mL (180-914) 09/12/20 04:40 Folate 12.53 ng/mL (5.90 - >24.8) 09/12/20 04:40 Urine Color YELLOW 09/10/20 04:10 Urine Clarity CLEAR (CLEAR) 09/10/20 04:10 Urine pH 5.5 PH (5.0-7.5) 09/10/20 04:10 Ur Specific [place] 1.020 (1.002-1.030) 09/10/20 04:10 Urine Protein NEGATIVE mg/dL (NEGATIVE) 09/10/20 04:10 Urine Glucose (UA) NEGATIVE mg/dL (NEGATIVE) 09/10/20 04:10 Urine Ketones NEGATIVE mg/dL (NEGATIVE) 09/10/20 04:10 Urine Occult Blood TRACE-INTA (NEGATIVE) 09/10/20 04:10 Urine Nitrite NEGATIVE (NEGATIVE) 09/10/20 04:10 Urine Bilirubin NEGATIVE (NEGATIVE) 09/10/20 04:10 Urine Urobilinogen 0.2 (NORMAL) E.U./dL (NORMAL) 09/10/20 04:10 Ur Leukocyte Esterase NEGATIVE (NEGATIVE) 09/10/20 04:10 Ur Microscopic Review NOT INDICATED 09/10/20 04:10 Urine Culture Comments NOT INDICATED 09/10/20 04:10 Nasal Screen MRSA (PCR) NEGATIVE (NEGATIVE) 09/10/20 05:30 Coronavirus (PCR) NEGATIVE 09/10/20 06:30 Influenza A (Rapid) Negative (Negative) 09/10/20 08:30 Influenza B (Rapid) Negative (Negative) 09/10/20 08:30 - Procedures Procedures: Procedures EXCISION OF STOMACH, ENDO, DIAGN (01/06/16) INSPECTION OF LOWER INTESTINAL TRACT, ENDO (01/06/16)
[2020-09-14] MEDS: ATORVASTATIN 40 MG TABLET PO SCH (21:27)
[2020-09-14] MEDS: MONTELUKAST 10 MG TABLET PO SCH (21:27)
[2020-09-14] MEDS: NORTRIPTYLINE 25 MG CAPSULE PO SCH (21:27)
[2020-09-14] MEDS: CALCIUM CARBONATE CHEW 500 MG TABLET PO PRN (22:20)
[2020-09-15] MEDS: ACETAMINOPHEN 325 MG TABLET PO PRN ×3 (00:43→17:02)
[2020-09-15] MEDS: SODIUM CHLORIDE FLUSH 0.9% 10 ML SYRINGE IVP SCH ×3 (00:44→20:59)
[2020-09-15] MEDS: oxyCODONE 5 MG TABLET PO PRN ×3 (00:44→17:02)
[2020-09-15] MEDS: IPRATROPIUM/ALBUTEROL 3 ML NEB INH PRN (01:32)
[2020-09-15] MEDS: LORazepam 1 MG TABLET PO SCH ×3 (05:47→20:55)
[2020-09-15] MEDS: methylPREDNISolone SUCCINATE 40 MG/ML VIAL IVP SCH ×2 (05:49→20:56)
[2020-09-15] MEDS: SODIUM CHLORIDE FLUSH 0.9% 10 ML SYRINGE IVP PRN ×2 (05:49→20:56)
[2020-09-15] MEDS: IPRATROPIUM/ALBUTEROL 3 ML NEB INH SCH (07:45)
[2020-09-15] MEDS: BUDESONIDE 0.5 MG/2 ML NEB INH SCH ×2 (07:45→20:04)
--- NOTE | 2020-09-15 08:33 | PROVIDER PROGRESS NOTE ---
Assessment/Plan - Problem List (1) Acute on chronic respiratory failure with hypoxia Assessment/Plan: It was learned that his O2 setting was decreased to 2 L yesterday morning, then he desaturated to < 88% while getting a neb treatment, while on 2L O2 yesterday. His home O2 setting is always at 4 L. Yesterday,it was ordered to not lower O2 lower than 4 L nasal cannula supplementation at all times. He got out of bed and took several steps for the first time 2 days ago with PT. He is requesting a prescription for a triangle lift (since he has a hospital bed at home to connect it to). Continue to work with PT, and he may need an increase in his supplemental O2 settings with activity. Plan to do exercise oximetry testing on the day of discharge; he will be possibly ready for discharge tomorrow. (2) Tachycardia Assessment/Plan: His HR has been > 100 on every day since admission, it is multifactorial. Will change Duonebs to Xopenex. Will decrease Nicotine patch from 21 mg to 14 mg top. daily. Will change Amlodipine to Cardizem (for BP control) and assess VS. he is not on telemetry any longer. Assess HR with exercise during PT; he may need a higher dose of Cardizem. Not ready for DCh due to these med changes. (3) Weakness Assessment/Plan: He has had about 2 days of working with physical therapy. He has noticed improvement. He is requesting a trapeze attachment to a hospital bed which is arriving to his house today. Possibly ready for discharge tomorrow. (4) Community acquired pneumonia of left lower lobe of lung Assessment/Plan: The sputum grew oral juan. He has improved on iv Ceftriaxone x 5 days and Doxycycline. Today is Day#6 of a 7 day course. (5) COPD exacerbation Assessment/Plan: He is improved significantly ever since nebs have been started, after the Covid was negative and inhalers could be stopped. He is still tachycardic. Will change Duoneb to Xopenex. Will continue Pulmocort and Mucinex and Montelukast. Continue supplemental O2. Will start to decrease iv steroid to bid. He will also need oral steroids at discharge with a very slow taper after Dch, for severe COPD. Possible Dch tomorrow, too many med changes made today to Dch today. (6) Lung cancer, hilus Qualifiers: Laterality: right Qualified Code(s): C34.01 - Malignant neoplasm of right main bronchus Assessment/Plan: He knows that the future management of this will be on September 23 at [facility] (7) Pulmonary fibrosis Assessment/Plan: As per Hx. (8) Anemia Qualifiers: Anemia type: iron deficiency Assessment/Plan: Iron supplementation has been started orally. Follow CBC intermittently while here. (9) Hypertension Qualifiers: Hypertension type: essential hypertension Qualified Code(s): I10 - Essential (primary) hypertension Assessment/Plan: BP controlled on current meds and management, but will change the Amlodipine to Cardizm due to tachycardia ever since admission. (10) Chronic pain Assessment/Plan: His pain is in the spine, he just had a Zoom telemedicine appointment with the doctor who follows this, 3 days ago. Pain controlled on current meds and management, his narcotics needed to be increased to 5 times a day as needed, as he takes at home. (11) Tobacco use Assessment/Plan: He has been on Nicotine ptch 21 mg daily since admission. Will decrease to 14 mg daily NOW, due to tachycardia. - Current Meds Current Meds: Current Medications Generic Name Dose Route Start Last Admin Trade Name Freq PRN Reason Stop Dose Admin Acetaminophen 650 mg 09/10/20 04:54 09/15/20 04:48 Tylenol PO 325 mg Q4HR PRN Administration Pain 1 to 4 Ascorbic Acid 500 mg 09/10/20 21:00 09/14/20 21:26 Vitamin C PO 500 mg BID ADALI Administration Atorvastatin Calcium 80 mg 09/10/20 21:00 09/14/20 21:27 Lipitor PO 80 mg QPM ADALI Administration Budesonide 0.5 mg 09/12/20 11:46 09/15/20 07:45 Pulmicort INH 0.5 mg RTBID ADALI Administration Calcium Carbonate/Glycine 500 mg 09/12/20 22:04 09/14/20 22:20 Tums PO 500 mg TID PRN Administration Heartburn Cholecalciferol 50 mcg 09/11/20 09:00 09/14/20 08:46 Vitamin D3 PO 50 mcg DAILY ADALI Administration Citalopram Hydrobromide 20 mg 09/11/20 09:00 09/14/20 08:47 Celexa PO 20 mg DAILY ADALI Administration Docusate Sodium 250 - 500 mg 09/13/20 09:00 09/14/20 09:01 Colace 250mg Capsule PO Not Given DAILY ADALI Enoxaparin Sodium 40 mg 09/10/20 09:00 09/14/20 08:47 Lovenox SUBQ 40 mg DAILY ADALI Administration Ferrous Gluconate 324 mg 09/13/20 08:00 09/14/20 08:42 Fergon PO 324 mg DAILYWM ADALI Administration Folic Acid 1 mg 09/11/20 09:00 09/14/20 08:44 PO 1 mg DAILY ADALI Administration Guaifenesin 600 mg 09/11/20 21:00 09/14/20 21:26 Mucinex PO 600 mg BID ADALI Administration Doxycycline Hyclate 100 mg/ 100 mls @ 100 mls/hr 09/11/20 09:00 09/14/20 22:28 Sodium Chloride IV 09/15/20 15:00 Infused BID ADALI Infusion Insulin Aspart 1 - 9 unit 09/10/20 08:00 09/14/20 21:27 Novolog SUBQ Not Given 0800,1200,1700,2100 [facility] Protocol Lidocaine 1 patch 09/10/20 17:36 09/14/20 08:48 Lidoderm Patch TOP 1 patch DAILY PRN Administration PAIN Lorazepam 1 mg 09/10/20 14:00 09/15/20 05:47 Ativan PO 1 mg TID ADALI Administration Methadone HCl 5 mg 09/10/20 21:00 09/14/20 21:27 PO 5 mg BID ADALI Administration Montelukast Sodium 10 mg 09/12/20 21:00 09/14/20 21:27 Singulair PO 10 mg QPM ADALI Administration Nortriptyline HCl 50 mg 09/10/20 21:00 09/14/20 21:27 Pamelor PO 50 mg QPM ADALI Administration Oxycodone HCl 10 mg 09/12/20 16:02 09/15/20 04:47 Roxicodone PO 10 mg Q4H PRN Administration PAIN Pantoprazole Sodium 40 mg 09/12/20 23:00 09/14/20 21:26 Protonix PO 40 mg BID ADALI Administration Polyethylene Glycol 17 gm 09/12/20 09:00 09/14/20 08:48 Miralax PO 17 gm DAILY ADALI Administration Senna 8.6 - 17.2 mg 09/13/20 09:00 09/14/20 09:01 Senokot PO Not Given DAILY ADALI Sodium Chloride 10 ml 09/10/20 09:00 09/15/20 00:44 Normal Saline Flush 0.9% IVP 10 ml 0100,0900,1700 ADALI Administration Sodium Chloride 10 ml 09/10/20 04:54 09/15/20 05:49 Normal Saline Flush 0.9% IVP 10 ml PRN PRN Administration NEEDED PER PROVIDER ORDERS - Lab Result Fish Bone Diagrams: 09/14/20 05:15 09/14/20 05:15 - Additional Planning My Orders: My Active Orders 09/14/20 10:31 Miscellaenous Nursing Order [RC] QSHIFT 09/15/20 08:30 Levalbuterol [Xopenex] 1.25 mg INH Q4H PRN 09/15/20 09:00 Nicotine 14 mg Patch [Nicoderm] 1 patch TOP DAILY diltiaZEM [Cardizem] 60 mg PO BID 09/15/20 12:00 Levalbuterol [Xopenex] 1.25 mg INH QID 09/15/20 21:00 methylPREDNISolone SUCCINATE [SOLU-Medrol (40MG VIAL)] 40 mg IVP BID 09/16/20 09:00 Oxygen Desat. Study w/Exercise [RC] .ONCE Subjective - Subjective Patient Reports: Feeling Better ("This is the first day I feel like myself") Objective Vital Signs: Vital Signs - 24 hr 09/14/20 09/14/20 09/14/20 11:20 15:41 16:33 Temperature 36.5 C Heart Rate 109 H 109 H Heart Rate [ 112 H Brachial] Respiratory 20 20 18 Rate Blood Pressure 113/66 [Left Brachial artery] O2 Saturation 97 09/14/20 09/14/20 09/15/20 20:55 23:50 01:30 Temperature 36.8 C Heart Rate 113 H 106 H Heart Rate [ 112 H Brachial] Respiratory 18 18 18 Rate Blood Pressure 125/76 [Left Brachial artery] O2 Saturation 95 09/15/20 09/15/20 07:26 07:45 Temperature 36.5 C Heart Rate 103 H Heart Rate [ 103 H Brachial] Respiratory 20 18 Rate Blood Pressure 120/71 [Left Brachial artery] O2 Saturation 93 Oxygen O2 Source Oxymask Oxygen Flow Rate 13 I&O (Last 24 Hrs): Intake and Output Totals x24h 09/13/20 09/14/20 09/15/20 23:59 23:59 23:59 Intake Total 1320 1840 90 Output Total 2575 1680 985 Balance -1255 160 -895 General: Alert, Oriented x3 HEENT: Mucous membr. moist/pink Neck: Supple Neuro: Alert, Non Focal Cardiovascular: Regular rate Respiratory: No respiratory distress (While getting a neb treatment by a Ventimask), Other (He is on O2 by nasal cannula) Abdomen: No tenderness Extremities: No edema - Results Results: Laboratory Results WBC 5.2 x10^3/uL (4.8-10.8) 09/14/20 05:15 RBC 3.61 10^6/uL (4.70-6.10) L 09/14/20 05:15 Hgb 11.3 g/dL (14.0-18.0) L 09/14/20 05:15 Hct 34.0 % (42.0-52.0) L 09/14/20 05:15 MCV 94.2 fL (80.0-94.0) H 09/14/20 05:15 MCH 31.3 pg (27.0-31.0) H 09/14/20 05:15 MCHC 33.2 g/dL (32.0-36.0) 09/14/20 05:15 RDW 14.6 % (12.0-15.0) 09/14/20 05:15 Plt Count 323 10^3/uL (130-450) 09/14/20 05:15 MPV 9.3 fL (7.4-11.4) 09/14/20 05:15 Neut # (Auto) 2.9 10^3/uL (1.5-6.6) 09/14/20 05:15 Lymph # (Auto) 1.4 10^3/uL (1.5-3.5) L 09/14/20 05:15 [place] # (Auto) 0.8 10^3/uL (0.0-1.0) 09/14/20 05:15 Eos # (Auto) 0.0 10^3/uL (0.0-0.7) 09/14/20 05:15 Baso # (Auto) 0.0 10^3/uL (0.0-0.1) 09/14/20 05:15 Absolute Nucleated RBC 0.00 x10^3/uL 09/14/20 05:15 Total Counted 100 09/12/20 04:40 Band Neuts % (Manual) 2 % (0-10) 09/12/20 04:40 Abnorm Lymph % (Manual) 0 % 09/12/20 04:40 Nucleated RBC % 0.0 /100WBC 09/14/20 05:15 Neutrophils # (Manual) 4.2 10^3/uL (1.5-6.6) 09/12/20 04:40 Lymphocytes # (Manual) 0.5 10^3/uL (1.5-3.5) L 09/12/20 04:40 Monocytes # (Manual) 0.1 10^3/uL (0.0-1.0) 09/12/20 04:40 Eosinophils # (Manual) 0.0 10^3/uL (0-0.7) 09/12/20 04:40 Basophils # (Manual) 0.0 10^3/uL (0-0.1) 09/12/20 04:40 Differential Comment MANUAL DIFFERENTIAL 09/12/20 04:40 Platelet Estimate NORMAL (130-450,000) (NORMAL) 09/12/20 04:40 RBC Morph Micro Appear NORMAL APPEARANCE (NORMAL) 09/12/20 04:40 Sodium 134 mmol/L (135-145) L 09/14/20 05:15 Potassium 4.8 mmol/L (3.5-5.0) 09/14/20 05:15 Chloride 95 mmol/L (101-111) L 09/14/20 05:15 Carbon Dioxide 30 mmol/L (21-32) 09/14/20 05:15 Anion Gap 9.0 (6-13) 09/14/20 05:15 BUN 27 mg/dL (6-20) H 09/14/20 05:15 Creatinine 0.7 mg/dL (0.6-1.2) 09/14/20 05:15 Estimated GFR (MDRD) 112 (>89) 09/14/20 05:15 Glucose 125 mg/dL (70-100) H 09/14/20 05:15 Lactic Acid 1.2 mmol/L (0.5-2.2) 09/10/20 02:35 Calcium 9.2 mg/dL (8.5-10.3) 09/14/20 05:15 Phosphorus 3.9 mg/dL (2.5-4.6) 09/14/20 05:15 Magnesium 2.1 mg/dL (1.7-2.8) 09/14/20 05:15 Iron 57 ug/dL (45-182) 09/12/20 04:40 TIBC 230 ug/dL (250-450) L 09/12/20 04:40 % Saturation 25 % (20-50) 09/12/20 04:40 Transferrin 164 mg/dL (180-329) L 09/12/20 04:40 Total Bilirubin 0.5 mg/dL (0.2-1.0) 09/10/20 02:35 AST 16 IU/L (10-42) 09/10/20 02:35 ALT 20 IU/L (10-60) 09/10/20 02:35 Alkaline Phosphatase 88 IU/L (42-121) 09/10/20 02:35 Troponin I High Sens 31.6 ng/L (2.3-19.7) H* 09/10/20 08:39 Total Protein 7.4 g/dL (6.7-8.2) 09/10/20 02:35 Albumin 3.6 g/dL (3.2-5.5) 09/10/20 02:35 Globulin 3.8 g/dL (2.1-4.2) 09/10/20 02:35 Albumin/Globulin Ratio 0.9 (1.0-2.2) L 09/10/20 02:35 Lipase 27 U/L (22-51) 09/10/20 02:35 Vitamin B12 524 pg/mL (180-914) 09/12/20 04:40 Folate 12.53 ng/mL (5.90 - >24.8) 09/12/20 04:40 Urine Color YELLOW 09/10/20 04:10 Urine Clarity CLEAR (CLEAR) 09/10/20 04:10 Urine pH 5.5 PH (5.0-7.5) 09/10/20 04:10 Ur Specific [place] 1.020 (1.002-1.030) 09/10/20 04:10 Urine Protein NEGATIVE mg/dL (NEGATIVE) 09/10/20 04:10 Urine Glucose (UA) NEGATIVE mg/dL (NEGATIVE) 09/10/20 04:10 Urine Ketones NEGATIVE mg/dL (NEGATIVE) 09/10/20 04:10 Urine Occult Blood TRACE-INTA (NEGATIVE) 09/10/20 04:10 Urine Nitrite NEGATIVE (NEGATIVE) 09/10/20 04:10 Urine Bilirubin NEGATIVE (NEGATIVE) 09/10/20 04:10 Urine Urobilinogen 0.2 (NORMAL) E.U./dL (NORMAL) 09/10/20 04:10 Ur Leukocyte Esterase NEGATIVE (NEGATIVE) 09/10/20 04:10 Ur Microscopic Review NOT INDICATED 09/10/20 04:10 Urine Culture Comments NOT INDICATED 09/10/20 04:10 Nasal Screen MRSA (PCR) NEGATIVE (NEGATIVE) 09/10/20 05:30 Coronavirus (PCR) NEGATIVE 09/10/20 06:30 Influenza A (Rapid) Negative (Negative) 09/10/20 08:30 Influenza B (Rapid) Negative (Negative) 09/10/20 08:30 - Procedures Procedures: Procedures EXCISION OF STOMACH, ENDO, DIAGN (01/06/16) INSPECTION OF LOWER INTESTINAL TRACT, ENDO (01/06/16)
[2020-09-15] MEDS: NICOTINE 14 MG PATCH TOP SCH (08:51)
[2020-09-15] MEDS: LIDOCAINE PATCH 5% TOP PRN (08:53)
[2020-09-15] MEDS: DOXYCYCLINE INJ 100 MG in SODIUM CHLORIDE 0.9% MINIBAG 100 ML IV SCH (08:56)
[2020-09-15] MEDS: DOCUSATE SODIUM 250 MG CAPSULE PO SCH (08:57)
[2020-09-15] MEDS: CHOLECALCIFEROL 25 MCG TABLET PO SCH (09:06)
[2020-09-15] MEDS: INSULIN ASPART 300 UNIT/3 ML PEN SUBQ SCH ×4 (09:06→21:12)
[2020-09-15] MEDS: FERROUS GLUCONATE 324 MG TABLET PO SCH (09:07)
[2020-09-15] MEDS: FOLIC ACID 1 MG TABLET PO SCH (09:07)
[2020-09-15] MEDS: ASCORBIC ACID CHEW 500 MG TABLET PO SCH ×2 (09:07→20:56)
[2020-09-15] MEDS: guaiFENesin 600 MG TABLET PO SCH ×2 (09:07→20:55)
[2020-09-15] MEDS: PANTOPRAZOLE 40 MG TABLET PO SCH ×2 (09:08→20:55)
[2020-09-15] MEDS: CITALOPRAM HYDROBROMIDE 20 MG TABLET PO SCH (09:08)
[2020-09-15] MEDS: ENOXAPARIN 40 MG/0.4 ML SYRINGE SUBQ SCH (09:08)
[2020-09-15] MEDS: polyethylene glycoL 3350 17 GM PACKET PO SCH (09:10)
[2020-09-15] MEDS: SENNA 8.6 MG TABLET PO SCH (09:11)
[2020-09-15] MEDS: METHADONE 5 MG TABLET PO SCH ×2 (09:14→20:56)
[2020-09-15] MEDS: LEVALBUTEROL 1.25 MG/3 ML NEB INH SCH ×3 (11:45→20:04)
[2020-09-15] MEDS: NORTRIPTYLINE 25 MG CAPSULE PO SCH (20:55)
[2020-09-15] MEDS: MONTELUKAST 10 MG TABLET PO SCH (20:56)
[2020-09-15] MEDS: ATORVASTATIN 40 MG TABLET PO SCH (20:56)
[2020-09-15] MEDS: CALCIUM CARBONATE CHEW 500 MG TABLET PO PRN (20:56)
[2020-09-16] MEDS: oxyCODONE 5 MG TABLET PO PRN ×3 (00:48→16:34)
[2020-09-16] MEDS: ACETAMINOPHEN 325 MG TABLET PO PRN ×3 (00:49→16:34)
[2020-09-16] MEDS: SODIUM CHLORIDE FLUSH 0.9% 10 ML SYRINGE IVP SCH ×3 (00:51→16:36)
[2020-09-16] MEDS: LEVALBUTEROL 1.25 MG/3 ML NEB INH PRN (01:40)
[2020-09-16] MEDS: LORazepam 1 MG TABLET PO SCH ×3 (06:00→21:44)
[2020-09-16] MEDS: LEVALBUTEROL 1.25 MG/3 ML NEB INH SCH ×4 (07:28→21:18)
[2020-09-16] MEDS: BUDESONIDE 0.5 MG/2 ML NEB INH SCH ×2 (07:28→21:18)
[2020-09-16] MEDS: FERROUS GLUCONATE 324 MG TABLET PO SCH (07:50)
[2020-09-16] MEDS: INSULIN ASPART 300 UNIT/3 ML PEN SUBQ SCH ×4 (07:50→21:10)
[2020-09-16] MEDS: METHADONE 5 MG TABLET PO SCH ×2 (08:47→21:44)
[2020-09-16] MEDS: PANTOPRAZOLE 40 MG TABLET PO SCH ×2 (08:47→21:45)
[2020-09-16] MEDS: ASCORBIC ACID CHEW 500 MG TABLET PO SCH ×2 (08:48→21:44)
[2020-09-16] MEDS: CHOLECALCIFEROL 25 MCG TABLET PO SCH (08:48)
[2020-09-16] MEDS: FOLIC ACID 1 MG TABLET PO SCH (08:48)
[2020-09-16] MEDS: guaiFENesin 600 MG TABLET PO SCH ×2 (08:48→21:44)
[2020-09-16] MEDS: polyethylene glycoL 3350 17 GM PACKET PO SCH (08:49)
[2020-09-16] MEDS: CITALOPRAM HYDROBROMIDE 20 MG TABLET PO SCH (08:49)
[2020-09-16] MEDS: methylPREDNISolone SUCCINATE 40 MG/ML VIAL IVP SCH ×2 (08:49→21:45)
[2020-09-16] MEDS: SENNA 8.6 MG TABLET PO SCH (08:50)
[2020-09-16] MEDS: LIDOCAINE PATCH 5% TOP PRN (08:51)
[2020-09-16] MEDS: DOCUSATE SODIUM 250 MG CAPSULE PO SCH (08:51)
[2020-09-16] MEDS: NICOTINE 14 MG PATCH TOP SCH (08:57)
[2020-09-16] MEDS: ENOXAPARIN 40 MG/0.4 ML SYRINGE SUBQ SCH (09:07)
--- NOTE | 2020-09-16 14:54 | Discharge Plan ---
Discharge Plan Problem Reviewed?: Yes Disposition: Home, Self Care Condition: Fair Prescriptions: diltiaZEM [Cardizem] 60 mg PO BID #60 tablet Ferrous Gluconate [Fergon] 324 mg PO DAILYWM #30 tablet Lidocaine Patch 5% [Lidoderm Patch] 1 patch TOP DAILY PRN #30 patch PRN Reason: Pain Nicotine 7 mg Patch [Nicoderm] 1 each TOP Q24H #7 patch Nicotine 14 mg Patch [Nicoderm] 1 patch TOP DAILY #7 patch Prednisone 20 mg PO DAILY #70 tablet Montelukast [Singulair] 10 mg PO QPM #30 tablet Diet: Regular Activity Restrictions: Activity as Tolerated Shower Restrictions: No Driving Restrictions: No Instruction Topics: Iron tablets capsules extended-release tablets, Lidocaine dermal patch, Montelukast oral tablets, Nicotine skin patches, Prednisone tablets, Diltiazem tablets Health Concerns: You were hospitalized for a COPD flare up and pneumonia. You completed the complete course of antibiotics while here. You are being discharged on a slowly tapering-down course of Prednisone. There is no need for Insulin or glucose monitoring for you. A new prescription for evening Montelukast was also ordered which you were on while here. Resume your other usual medications for treating your lungs. The supplemental oxygen settings are now required to be higher: 4L/min oxygen at rest, and increase it to 6L/min oxygen when you are active, then bring it back down to 4L/min. During sleep it should be 4L/min. You were found to have iron deficiency anemia and a new prescription was ordered for daily iron replacement. Your blood pressure medication was changed because it was adding to a constant fast heart rate. Stop taking Amlodipine. In its place, start taking Cardizem twice a day. A new prescription for Lidocaine patch topically daily, for pain was ordered. New prescriptions for NicoDerm patch were ordered to help you stop smokin mg topically daily for 1 week then 7 mg topically daily. All your new prescriptions were electronically sent to [facility] in [place], and they were electronically cancelled at [facility]. Keep your upcoming appointment with [facility] on September 23. Please see your [employer] Consumer [employer] Teacher or PCP for hospital follow-up in the next 1 to 2 weeks. Plan of Treatment: As above. Also, prescriptions for a bedside commode and and overhead trapeze have been provided for you. Care Goals: Improvement in symptoms and stabilization are the goals. Assessment: The patient and significant-other understand and are agreeable with the plan. Additional Instructions or Follow Up instructions: If you have new or worsening symptoms, call your Family And Consumer Education Teacher, or your PCP or Oncologist for advice or come to the ER. No Smoking: If you smoke, Please STOP! Call for help. Follow-up with: Erika Melo MD [Primary Care Provider] -
--- NOTE | 2020-09-16 16:15 | DISCHARGE SUMMARY ---
Discharge Summary Admit Date: 09/10/20 Discharge Date: 09/16/20 Discharging Provider: Dr Balbina Gonzalez Primary Care Provider: Dr Erika Melo Code Status: Attempt Resuscitation Condition at Discharge: Fair Discharge Disposition: 01 Home, Self Care - ALLERGIES Allergies/Adverse Reactions: Allergies Allergy/AdvReac Type Severity Reaction Status Date / Time No Known Drug Allergies Allergy Verified 08/07/20 03:20 - MEDICATIONS Home Medications: Ambulatory Orders Medication Instructions Recorded Confirmed Nortriptyline [Pamelor] 50 mg PO DAILY PM 11/27/13 09/10/20 Oxycodone HCl/Acetaminophen 1 each PO TID PRN 07/30/15 09/10/20 [Percocet 10-325 mg Tablet] Atorvastatin [Lipitor] 80 mg PO DAILY 01/06/16 09/10/20 Ascorbic Acid [Vitamin C] 500 mg PO BID 07/23/16 09/10/20 Cholecalciferol (Vitamin D3) 2,000 units PO DAILY 07/23/16 09/10/20 [Vitamin D3] Folic Acid 1 mg PO DAILY 07/23/16 09/10/20 Ipratropium/Albuterol [Combivent 1 puffs INH TID PRN 07/23/16 09/10/20 Respimat] Fluticasone/Vilanterol [Breo 1 puffs INH DAILY 02/24/19 09/10/20 Ellipta 100-25 Mcg INH] Citalopram Hydrobromide 20 mg PO DAILY 09/10/20 09/10/20 [Citalopram HBr] Etoposide 50 mg PO DAILY 09/10/20 09/10/20 LORazepam [Ativan] 1 mg PO TID 09/10/20 09/10/20 Methadone 5 mg PO BID 09/10/20 09/10/20 Pantoprazole [Protonix] 40 mg PO BID 09/10/20 09/10/20 ondansetron HCL [Zofran] 8 mg PO DAILY PRN 09/10/20 09/10/20 traZODone [Desyrel] 50 mg PO QPM PRN 09/10/20 09/10/20 Ferrous Gluconate [Fergon] 324 mg PO DAILYWM #30 tablet 09/16/20 Lidocaine Patch 5% [Lidoderm Patch] 1 patch TOP DAILY PRN #30 patch 09/16/20 Montelukast [Singulair] 10 mg PO QPM #30 tablet 09/16/20 Nicotine 14 mg Patch [Nicoderm] 1 patch TOP DAILY #7 patch 09/16/20 Nicotine 7 mg Patch [Nicoderm] 1 each TOP Q24H #7 patch 09/16/20 Prednisone 20 mg PO DAILY #70 tablet 09/16/20 diltiaZEM [Cardizem] 60 mg PO BID #60 tablet 09/16/20 - LABS Result Diagrams: 09/14/20 05:15 09/14/20 05:15
--- NOTE | 2020-09-16 17:58 | PROVIDER PROGRESS NOTE ---
Assessment/Plan - Problem List (1) Acute on chronic respiratory failure with hypoxia Assessment/Plan: He was seen by RT during PT and evaluated for home oxygen: At rest on 4 L he was 92% saturated and with exercise on 2 L this dropped to 87%. It only increased to 88% with 5 L and finally went to 92% on 6 L. When I discussed discharge and adjusting meds and home oxygen, he was having a coughing spell, could not expectorate, he desaturated at rest to 86%. Repeat chest x-ray ordered>>> It showed resolution of pneumonia, bilateral fibrotic changes are seen in the right-sided hilar mass is seen. Patient is not ready for discharge today. (2) Tachycardia Assessment/Plan: His amlodipine for blood pressure was changed yesterday to Cardizem because of persistent tachycardia noted throughout this hospitalization. With Cardizem, blood pressures controlled and heart rate is in the 90s. Plan is to use Cardizem when he is ready for discharge. (3) Weakness Assessment/Plan: This patient had such weakness that he was short of breath just standing up at the side of the bed and then sitting down and repositioning in bed, for about 1 week before this admission. Here, he has been able to work with PT and takes approximately 5 steps. He desaturates even with that activity. (4) Community acquired pneumonia of left lower lobe of lung Assessment/Plan: Today he completed his 7-day course of IV treatment. A repeat chest x-ray was ordered when he desaturated during a coughing spasm. (5) COPD exacerbation Assessment/Plan: The IV steroids have been decreased slightly. He will need prednisone when he is ready for discharge. He is on nebs which are helping him and Singulair at night which is new for him and Mucinex for expectoration. He has end-stage lung disease, he knows that it is severe. He may be a candidate for an Afflo vest. (6) Lung cancer, hilus Qualifiers: Laterality: right Qualified Code(s): C34.01 - Malignant neoplasm of right main bronchus Assessment/Plan: He knows that the chemo was postponed and his next oncology visit is on September 23. (7) Pulmonary fibrosis Assessment/Plan: As per Hx (8) Anemia Qualifiers: Anemia type: iron deficiency Assessment/Plan: Oral iron has been started. He uses psyllium to prevent constipation. (9) Hypertension Qualifiers: Hypertension type: essential hypertension Qualified Code(s): I10 - Essential (primary) hypertension Assessment/Plan: Amlodipine has been changed to Cardizem, just yesterday, blood pressure control is good. (10) Chronic pain Assessment/Plan: Patient uses oral narcotics 5 times a day as needed. He was also started on a lidocaine patch here for lower back pain and the plan would be to discharge him with this new medication for pain control. (11) Tobacco use Assessment/Plan: Patient said he resumed smoking when he became very nervous, dealing with COPD, pulmonary fibrosis and lung cancer. His nicotine dose has been decreased since he has been here for 1 week. He is probably interested in a prescription for this, when he is ready for discharge. - Current Meds Current Meds: Current Medications Generic Name Dose Route Start Last Admin Trade Name Freq PRN Reason Stop Dose Admin Acetaminophen 650 mg 09/10/20 04:54 09/16/20 16:34 Tylenol PO 325 mg Q4HR PRN Administration Pain 1 to 4 Ascorbic Acid 500 mg 09/10/20 21:00 09/16/20 08:48 Vitamin C PO 500 mg BID ADALI Administration Atorvastatin Calcium 80 mg 09/10/20 21:00 09/15/20 20:56 Lipitor PO 80 mg QPM ADALI Administration Budesonide 0.5 mg 09/12/20 11:46 09/16/20 07:28 Pulmicort INH 0.5 mg RTBID ADALI Administration Calcium Carbonate/Glycine 500 mg 09/12/20 22:04 09/15/20 20:56 Tums PO 500 mg TID PRN Administration Heartburn Cholecalciferol 50 mcg 09/11/20 09:00 09/16/20 08:48 Vitamin D3 PO 50 mcg DAILY ADALI Administration Citalopram Hydrobromide 20 mg 09/11/20 09:00 09/16/20 08:49 Celexa PO 20 mg DAILY ADALI Administration Diltiazem HCl 60 mg 09/15/20 09:00 09/16/20 08:48 Cardizem PO 60 mg BID ADALI Administration Docusate Sodium 250 - 500 mg 09/13/20 09:00 09/16/20 08:51 Colace 250mg Capsule PO Not Given DAILY ADALI Enoxaparin Sodium 40 mg 09/10/20 09:00 09/16/20 09:07 Lovenox SUBQ 40 mg DAILY ADALI Administration Ferrous Gluconate 324 mg 09/13/20 08:00 09/16/20 07:50 Fergon PO 324 mg DAILYWM ADALI Administration Folic Acid 1 mg 09/11/20 09:00 09/16/20 08:48 PO 1 mg DAILY ADALI Administration Guaifenesin 600 mg 09/11/20 21:00 09/16/20 08:48 Mucinex PO 600 mg BID ADALI Administration Insulin Aspart 1 - 9 unit 09/10/20 08:00 09/16/20 16:51 Novolog SUBQ Not Given 0800,1200,1700,2100 [facility] Protocol Levalbuterol HCl 1.25 mg 09/15/20 08:30 09/16/20 01:40 Xopenex INH 1.25 mg RTQ4H PRN Administration Shortness of Air/Wheezing Levalbuterol HCl 1.25 mg 09/15/20 12:00 09/16/20 15:12 Xopenex INH 1.25 mg RTQID ADALI Administration Lidocaine 1 patch 09/10/20 17:36 09/16/20 08:51 Lidoderm Patch TOP 1 patch DAILY PRN Administration PAIN Lorazepam 1 mg 09/10/20 14:00 09/16/20 13:36 Ativan PO 1 mg TID ADALI Administration Methadone HCl 5 mg 09/10/20 21:00 09/16/20 08:47 PO 5 mg BID ADALI Administration Methylprednisolone 40 mg 09/15/20 21:00 09/16/20 08:49 Solu-Medrol (40mg Vial) IVP 40 mg BID ADALI Administration Montelukast Sodium 10 mg 09/12/20 21:00 09/15/20 20:56 Singulair PO 10 mg QPM ADALI Administration Nicotine 1 patch 09/15/20 09:00 09/16/20 08:57 Nicoderm TOP 1 patch DAILY ADALI Administration Nortriptyline HCl 50 mg 09/10/20 21:00 09/15/20 20:55 Pamelor PO 50 mg QPM ADALI Administration Oxycodone HCl 10 mg 09/12/20 16:02 09/16/20 16:34 Roxicodone PO 10 mg Q4H PRN Administration PAIN Pantoprazole Sodium 40 mg 09/12/20 23:00 09/16/20 08:47 Protonix PO 40 mg BID ADALI Administration Polyethylene Glycol 17 gm 09/12/20 09:00 09/16/20 08:49 Miralax PO 17 gm DAILY ADALI Administration Senna 8.6 - 17.2 mg 09/13/20 09:00 09/16/20 08:50 Senokot PO Not Given DAILY ADALI Sodium Chloride 10 ml 09/10/20 09:00 09/16/20 16:36 Normal Saline Flush 0.9% IVP 10 ml 0100,0900,1700 ADALI Administration Sodium Chloride 10 ml 09/10/20 04:54 09/15/20 20:56 Normal Saline Flush 0.9% IVP 10 ml PRN PRN Administration NEEDED PER PROVIDER ORDERS - Lab Result Fish Bone Diagrams: 09/14/20 05:15 09/14/20 05:15 - Additional Planning My Orders: My Active Orders 09/15/20 21:00 methylPREDNISolone SUCCINATE [SOLU-Medrol (40MG VIAL)] 40 mg IVP BID 09/16/20 09:00 Oxygen Desat. Study w/Exercise [RC] .ONCE 09/16/20 15:10 Discharge [RC] .ONCE Initiate Discharge Checklist [RC] .ONCE 09/16/20 17:54 Chest 1 View X-Ray [XR] Stat Subjective - Subjective Patient Reports: Cough (Today he is unable to expectorate his sputum.), Fatigue (He is more tired today than yesterday.) Objective Vital Signs: Vital Signs - 24 hr 09/15/20 09/15/20 09/15/20 20:05 20:58 23:45 Temperature 36.7 C Heart Rate 109 H Heart Rate [ 103 H Brachial] Respiratory 18 18 Rate Blood Pressure 112/61 Blood Pressure 106/65 [Left Brachial artery] O2 Saturation 97 09/16/20 09/16/20 09/16/20 01:40 07:29 07:34 Temperature 36.6 C Heart Rate 95 90 Heart Rate [ 91 Brachial] Respiratory 20 20 20 Rate Blood Pressure Blood Pressure 130/70 [Left Brachial artery] O2 Saturation 94 09/16/20 09/16/20 09/16/20 11:31 15:13 15:35 Temperature 36.8 C Heart Rate 100 110 H Heart Rate [ 109 H Brachial] Respiratory 20 20 18 Rate Blood Pressure Blood Pressure 127/60 [Left Brachial artery] O2 Saturation 94 Oxygen O2 Source Nasal cannula Oxygen Flow Rate 13 I&O (Last 24 Hrs): Intake and Output Totals x24h 09/14/20 09/15/20 09/16/20 23:59 23:59 23:59 Intake Total 9020 218 4126 Output Total 1680 5385 2375 Balance 160 -1615 319 General: Alert, Other (Peers disheveled and very fatigued, compared to yesterday) HEENT: Mucous membr. moist/pink, Other (Intermittent stridor) Neck: Other (Positive JVD in a vertical position) Neuro: Alert, Non Focal Cardiovascular: Regular rate Respiratory: Other (Diffusely diminished breath sounds and air movement, prolonged expiratory phase, no wheezes, rales or rhonchi) Abdomen: Soft Extremities: No edema - Results Results: Laboratory Results WBC 5.2 x10^3/uL (4.8-10.8) 09/14/20 05:15 RBC 3.61 10^6/uL (4.70-6.10) L 09/14/20 05:15 Hgb 11.3 g/dL (14.0-18.0) L 09/14/20 05:15 Hct 34.0 % (42.0-52.0) L 09/14/20 05:15 MCV 94.2 fL (80.0-94.0) H 09/14/20 05:15 MCH 31.3 pg (27.0-31.0) H 09/14/20 05:15 MCHC 33.2 g/dL (32.0-36.0) 09/14/20 05:15 RDW 14.6 % (12.0-15.0) 09/14/20 05:15 Plt Count 323 10^3/uL (130-450) 09/14/20 05:15 MPV 9.3 fL (7.4-11.4) 09/14/20 05:15 Neut # (Auto) 2.9 10^3/uL (1.5-6.6) 09/14/20 05:15 Lymph # (Auto) 1.4 10^3/uL (1.5-3.5) L 09/14/20 05:15 [place] # (Auto) 0.8 10^3/uL (0.0-1.0) 09/14/20 05:15 Eos # (Auto) 0.0 10^3/uL (0.0-0.7) 09/14/20 05:15 Baso # (Auto) 0.0 10^3/uL (0.0-0.1) 09/14/20 05:15 Absolute Nucleated RBC 0.00 x10^3/uL 09/14/20 05:15 Total Counted 100 09/12/20 04:40 Band Neuts % (Manual) 2 % (0-10) 09/12/20 04:40 Abnorm Lymph % (Manual) 0 % 09/12/20 04:40 Nucleated RBC % 0.0 /100WBC 09/14/20 05:15 Neutrophils # (Manual) 4.2 10^3/uL (1.5-6.6) 09/12/20 04:40 Lymphocytes # (Manual) 0.5 10^3/uL (1.5-3.5) L 09/12/20 04:40 Monocytes # (Manual) 0.1 10^3/uL (0.0-1.0) 09/12/20 04:40 Eosinophils # (Manual) 0.0 10^3/uL (0-0.7) 09/12/20 04:40 Basophils # (Manual) 0.0 10^3/uL (0-0.1) 09/12/20 04:40 Differential Comment MANUAL DIFFERENTIAL 09/12/20 04:40 Platelet Estimate NORMAL (130-450,000) (NORMAL) 09/12/20 04:40 RBC Morph Micro Appear NORMAL APPEARANCE (NORMAL) 09/12/20 04:40 Sodium 134 mmol/L (135-145) L 09/14/20 05:15 Potassium 4.8 mmol/L (3.5-5.0) 09/14/20 05:15 Chloride 95 mmol/L (101-111) L 09/14/20 05:15 Carbon Dioxide 30 mmol/L (21-32) 09/14/20 05:15 Anion Gap 9.0 (6-13) 09/14/20 05:15 BUN 27 mg/dL (6-20) H 09/14/20 05:15 Creatinine 0.7 mg/dL (0.6-1.2) 09/14/20 05:15 Estimated GFR (MDRD) 112 (>89) 09/14/20 05:15 Glucose 125 mg/dL (70-100) H 09/14/20 05:15 Lactic Acid 1.2 mmol/L (0.5-2.2) 09/10/20 02:35 Calcium 9.2 mg/dL (8.5-10.3) 09/14/20 05:15 Phosphorus 3.9 mg/dL (2.5-4.6) 09/14/20 05:15 Magnesium 2.1 mg/dL (1.7-2.8) 09/14/20 05:15 Iron 57 ug/dL (45-182) 09/12/20 04:40 TIBC 230 ug/dL (250-450) L 09/12/20 04:40 % Saturation 25 % (20-50) 09/12/20 04:40 Transferrin 164 mg/dL (180-329) L 09/12/20 04:40 Total Bilirubin 0.5 mg/dL (0.2-1.0) 09/10/20 02:35 AST 16 IU/L (10-42) 09/10/20 02:35 ALT 20 IU/L (10-60) 09/10/20 02:35 Alkaline Phosphatase 88 IU/L (42-121) 09/10/20 02:35 Troponin I High Sens 31.6 ng/L (2.3-19.7) H* 09/10/20 08:39 Total Protein 7.4 g/dL (6.7-8.2) 09/10/20 02:35 Albumin 3.6 g/dL (3.2-5.5) 09/10/20 02:35 Globulin 3.8 g/dL (2.1-4.2) 09/10/20 02:35 Albumin/Globulin Ratio 0.9 (1.0-2.2) L 09/10/20 02:35 Lipase 27 U/L (22-51) 09/10/20 02:35 Vitamin B12 524 pg/mL (180-914) 09/12/20 04:40 Folate 12.53 ng/mL (5.90 - >24.8) 09/12/20 04:40 Urine Color YELLOW 09/10/20 04:10 Urine Clarity CLEAR (CLEAR) 09/10/20 04:10 Urine pH 5.5 PH (5.0-7.5) 09/10/20 04:10 Ur Specific [place] 1.020 (1.002-1.030) 09/10/20 04:10 Urine Protein NEGATIVE mg/dL (NEGATIVE) 09/10/20 04:10 Urine Glucose (UA) NEGATIVE mg/dL (NEGATIVE) 09/10/20 04:10 Urine Ketones NEGATIVE mg/dL (NEGATIVE) 09/10/20 04:10 Urine Occult Blood TRACE-INTA (NEGATIVE) 09/10/20 04:10 Urine Nitrite NEGATIVE (NEGATIVE) 09/10/20 04:10 Urine Bilirubin NEGATIVE (NEGATIVE) 09/10/20 04:10 Urine Urobilinogen 0.2 (NORMAL) E.U./dL (NORMAL) 09/10/20 04:10 Ur Leukocyte Esterase NEGATIVE (NEGATIVE) 09/10/20 04:10 Ur Microscopic Review NOT INDICATED 09/10/20 04:10 Urine Culture Comments NOT INDICATED 09/10/20 04:10 Nasal Screen MRSA (PCR) NEGATIVE (NEGATIVE) 09/10/20 05:30 Coronavirus (PCR) NEGATIVE 09/10/20 06:30 Influenza A (Rapid) Negative (Negative) 09/10/20 08:30 Influenza B (Rapid) Negative (Negative) 09/10/20 08:30 - Procedures Procedures: Procedures EXCISION OF STOMACH, ENDO, DIAGN (01/06/16) INSPECTION OF LOWER INTESTINAL TRACT, ENDO (01/06/16)
--- NOTE | 2020-09-16 18:26 | XRAY Report ---
PROCEDURE: Chest 1 View X-Ray INDICATIONS: Worsened cough and desaturation TECHNIQUE: One view of the chest was acquired. COMPARISON: 09/10/2020, 08/07/2020, 07/22/2020. Correlation is also made with chest CT, 07/22/2020. FINDINGS: Surgical changes and devices: None. Lungs and pleura: No pleural effusions or pneumothorax. A right perihilar mass is seen. Interstitial prominence is seen involving the inferior aspect of both lungs, left worse than right, which is attr ibuted to fibrotic change. Mediastinum: Enlarged right-sided mediastinal lymph nodes are seen, which are better seen on prior CT . Heart size is normal. Bones and chest wall: No suspicious bony lesions. Moderate dextroconvex scoliosis is seen. Age-appro priate degenerative changes are seen. Overlying soft tissues appear unremarkable. IMPRESSION: Stable examination demonstrating a right infrahilar mass with enlarged lymph nodes and bilateral lung base fibrotic change. Reviewed by: Cricket Kent MD on 09/16/2020 5:25 PM [facility]DT Approved by: Cricket Kent MD on 09/16/2020 5:25 PM AKDT Station ID: [id number]
[2020-09-16] MEDS: NORTRIPTYLINE 25 MG CAPSULE PO SCH (21:41)
[2020-09-16] MEDS: MONTELUKAST 10 MG TABLET PO SCH (21:44)
[2020-09-16] MEDS: ATORVASTATIN 40 MG TABLET PO SCH (21:45)
[2020-09-16] MEDS: CALCIUM CARBONATE CHEW 500 MG TABLET PO PRN (22:31)
[2020-09-17] MEDS: ACETAMINOPHEN 325 MG TABLET PO PRN ×4 (00:37→14:44)
[2020-09-17] MEDS: oxyCODONE 5 MG TABLET PO PRN ×4 (00:37→14:45)
[2020-09-17] MEDS: SODIUM CHLORIDE FLUSH 0.9% 10 ML SYRINGE IVP SCH ×3 (00:39→15:47)
[2020-09-17] MEDS: LORazepam 1 MG TABLET PO SCH ×3 (06:42→21:21)
[2020-09-17] MEDS: BUDESONIDE 0.5 MG/2 ML NEB INH SCH ×2 (07:37→20:31)
[2020-09-17] MEDS: LEVALBUTEROL 1.25 MG/3 ML NEB INH SCH ×4 (07:37→20:31)
[2020-09-17] MEDS: INSULIN ASPART 300 UNIT/3 ML PEN SUBQ SCH ×4 (08:38→21:22)
[2020-09-17 08:40] LABS: BASOPHILS % (AUTO) 0.5 %; LYMPHOCYTES % (AUTO) 19.1 %; MEAN CORPUSCULAR HEMOGLOBIN 31.3 pg (27.0-31.0); MEAN CORPUSCULAR HGB CONC 32.8 g/dL (32.0-36.0); MEAN CORPUSCULAR VOLUME 95.4 fL (80.0-94.0); MONOCYTES % (AUTO) 15.8 %; NEUTROPHILS % (AUTO) 48.1 %; PLT - PLATELET COUNT 486 10^3/uL (130-450); RED BLOOD COUNT 4.15 10^6/uL (4.70-6.10); RED CELL DISTRIBUTION WIDTH 15.9 % (12.0-15.0); WHITE BLOOD COUNT 11.5 x10^3/uL (4.8-10.8)
[2020-09-17] MEDS: ENOXAPARIN 40 MG/0.4 ML SYRINGE SUBQ SCH (08:42)
[2020-09-17] MEDS: polyethylene glycoL 3350 17 GM PACKET PO SCH (08:42)
[2020-09-17] MEDS: METHADONE 5 MG TABLET PO SCH ×2 (08:43→21:20)
[2020-09-17] MEDS: CHOLECALCIFEROL 25 MCG TABLET PO SCH (08:43)
[2020-09-17] MEDS: FERROUS GLUCONATE 324 MG TABLET PO SCH (08:43)
[2020-09-17] MEDS: CITALOPRAM HYDROBROMIDE 20 MG TABLET PO SCH (08:44)
[2020-09-17] MEDS: FOLIC ACID 1 MG TABLET PO SCH (08:44)
[2020-09-17] MEDS: ASCORBIC ACID CHEW 500 MG TABLET PO SCH ×2 (08:44→21:20)
[2020-09-17] MEDS: guaiFENesin 600 MG TABLET PO SCH ×2 (08:44→21:21)
[2020-09-17] MEDS: predniSONE 20 MG TABLET PO SCH (08:48)
[2020-09-17 08:51] LABS: CALCIUM 9.1 mg/dL (8.5-10.3); CREATININE 0.8 mg/dL (0.6-1.2)
[2020-09-17] MEDS: NICOTINE 14 MG PATCH TOP SCH (08:56)
[2020-09-17] MEDS ORDERED: SODIUM CHLORIDE 0.9% 1,000 ML IV ONE (08:59)
[2020-09-17 09:07] LABS: ABNORMAL LYMPHS % (MANUAL) 0 %
[2020-09-17 09:10] LABS: BAND NEUTROPHILS % (MANUAL) 3 %; LYMPHOCYTES # (MANUAL) 2.2 10^3/uL (1.5-3.5); LYMPHOCYTES % (MANUAL) 5 %; MONOCYTES # (MANUAL) 1.7 10^3/uL (0.0-1.0); MYELOCYTES % (MANUAL) 10 %
[2020-09-17 09:11] LABS: DIFFERENTIAL COMMENT MANUAL DIFFERENTIAL
[2020-09-17] MEDS: DOCUSATE SODIUM 250 MG CAPSULE PO SCH (09:51)
[2020-09-17] MEDS: PANTOPRAZOLE 40 MG TABLET PO SCH ×2 (09:52→21:21)
[2020-09-17] MEDS: SENNA 8.6 MG TABLET PO SCH (09:52)
--- NOTE | 2020-09-17 15:53 | PROVIDER PROGRESS NOTE ---
Subjective - Prog Note Date Prog Note Date: 09/17/20 - Subjective Subjective: He still feels short of breath but better than yesterday. He thinks he did percent of his baseline from a few weeks ago. Still has some wheezing. He was able to walk a little more today and was able to get up into a chair. Current Medications - Current Medications Current Medications: Active Medications Acetaminophen (Tylenol) 650 mg PO Q4HR PRN PRN Reason: Pain 1 to 4 Last Admin: 09/17/20 14:44 Dose: 650 mg Documented by: Ascorbic Acid (Vitamin C) 500 mg PO BID [facility] Last Admin: 09/17/20 08:44 Dose: 500 mg Documented by: Atorvastatin Calcium (Lipitor) 80 mg PO QPM [facility] Last Admin: 09/16/20 21:45 Dose: 80 mg Documented by: Budesonide (Pulmicort) 0.5 mg INH RTBID [facility] Last Admin: 09/17/20 07:37 Dose: 0.5 mg Documented by: Calcium Carbonate/Glycine (Tums) 500 mg PO TID PRN PRN Reason: Heartburn Last Admin: 09/16/20 22:31 Dose: 500 mg Documented by: Cholecalciferol (Vitamin D3) 50 mcg PO DAILY [facility] Last Admin: 09/17/20 08:43 Dose: 50 mcg Documented by: Citalopram Hydrobromide (Celexa) 20 mg PO DAILY [facility] Last Admin: 09/17/20 08:44 Dose: 20 mg Documented by: Diltiazem HCl (Cardizem) 60 mg PO BID [facility] Last Admin: 09/17/20 08:43 Dose: 60 mg Documented by: Docusate Sodium (Colace 250mg Capsule) 250 - 500 mg PO DAILY [facility] Last Admin: 09/17/20 09:51 Dose: Not Given Documented by: Enoxaparin Sodium (Lovenox) 40 mg SUBQ DAILY [facility] Last Admin: 09/17/20 08:42 Dose: 40 mg Documented by: Ferrous Gluconate (Fergon) 324 mg PO DAILYWM [facility] Last Admin: 09/17/20 08:43 Dose: 324 mg Documented by: Folic Acid () 1 mg PO DAILY [facility] Last Admin: 09/17/20 08:44 Dose: 1 mg Documented by: Guaifenesin (Mucinex) 600 mg PO BID [facility] Last Admin: 09/17/20 08:44 Dose: 600 mg Documented by: Insulin Aspart (Novolog) 1 - 9 unit SUBQ 0800,1200,1700,2100 [facility]; Protocol Last Admin: 09/17/20 12:42 Dose: Not Given Documented by: Levalbuterol HCl (Xopenex) 1.25 mg INH RTQ4H PRN PRN Reason: Shortness of Air/Wheezing Last Admin: 09/16/20 01:40 Dose: 1.25 mg Documented by: Levalbuterol HCl (Xopenex) 1.25 mg INH RTQID [facility] Last Admin: 09/17/20 07:37 Dose: 1.25 mg Documented by: Lidocaine (Lidoderm Patch) 1 patch TOP DAILY PRN PRN Reason: PAIN Last Admin: 09/16/20 08:51 Dose: 1 patch Documented by: Lorazepam (Ativan) 1 mg PO TID [facility] Last Admin: 09/17/20 14:44 Dose: 1 mg Documented by: Methadone HCl () 5 mg PO BID [facility] Last Admin: 09/17/20 08:43 Dose: 5 mg Documented by: Montelukast Sodium (Singulair) 10 mg PO QPM [facility] Last Admin: 09/16/20 21:44 Dose: 10 mg Documented by: Nicotine (Nicoderm) 1 patch TOP DAILY [facility] Last Admin: 09/17/20 08:56 Dose: 1 patch Documented by: Nortriptyline HCl (Pamelor) 50 mg PO QPM [facility] Last Admin: 09/16/20 21:41 Dose: 50 mg Documented by: Oxycodone HCl (Roxicodone) 10 mg PO Q4H PRN PRN Reason: PAIN Last Admin: 09/17/20 14:45 Dose: 10 mg Documented by: Pantoprazole Sodium (Protonix) 40 mg PO BID [facility] Last Admin: 09/17/20 09:52 Dose: Not Given Documented by: Polyethylene Glycol (Miralax) 17 gm PO DAILY [facility] Last Admin: 09/17/20 08:42 Dose: 17 gm Documented by: Prednisone (Deltasone) 40 mg PO DAILYWM [facility] Last Admin: 09/17/20 08:48 Dose: 40 mg Documented by: Senna (Senokot) 8.6 - 17.2 mg PO DAILY [facility] Last Admin: 09/17/20 09:52 Dose: Not Given Documented by: Sodium Chloride (Normal Saline Flush 0.9%) 10 ml IVP 0100,0900,1700 [facility] Last Admin: 09/17/20 15:47 Dose: 10 ml Documented by: Sodium Chloride (Normal Saline Flush 0.9%) 10 ml IVP PRN PRN PRN Reason: NEEDED PER PROVIDER ORDERS Last Admin: 09/15/20 20:56 Dose: 10 ml Documented by: Trazodone HCl (Desyrel) 50 mg PO QPM PRN PRN Reason: SLEEP Nortriptyline [Pamelor] 50 mg PO DAILY PM 11/27/13 Oxycodone HCl/Acetaminophen [Percocet 10-325 mg Tablet] 1 each PO TID PRN 07/30/15 Atorvastatin [Lipitor] 80 mg PO DAILY 01/06/16 Ascorbic Acid [Vitamin C] 500 mg PO BID 07/23/16 Cholecalciferol (Vitamin D3) [Vitamin D3] 2,000 units PO DAILY 07/23/16 Folic Acid 1 mg PO DAILY 07/23/16 Ipratropium/Albuterol [Combivent Respimat] 1 puffs INH TID PRN 07/23/16 Fluticasone/Vilanterol [Breo Ellipta 100-25 Mcg INH] 1 puffs INH DAILY 02/24/19 Citalopram Hydrobromide [Citalopram HBr] 20 mg PO DAILY 09/10/20 Etoposide 50 mg PO DAILY 09/10/20 LORazepam [Ativan] 1 mg PO TID 09/10/20 Methadone 5 mg PO BID 09/10/20 Pantoprazole [Protonix] 40 mg PO BID 09/10/20 ondansetron HCL [Zofran] 8 mg PO DAILY PRN 09/10/20 traZODone [Desyrel] 50 mg PO QPM PRN 09/10/20 Objective - Vital Signs/Intake & Output Reviewed Vital Signs: Yes Vital Signs: Vital Signs x48h Temp Pulse Pulse Resp BP BP Pulse Ox 09/17/20 15:44 36.6 C 105 H 21 126/61 92 09/17/20 14:05 108 H 24 09/17/20 08:43 122/72 Intake & Output: Intake & Output 09/14/20 09/15/20 09/16/20 09/17/20 23:59 23:59 23:59 23:59 Intake Total 9325 967 1401 1940 Output Total 9719 5115 3025 1200 Balance 160 -1615 -131 740 - Objective General Appearance: positive: No acute distress, Alert Eyes Bilateral: positive: Normal inspection, Conjunctivae nml ENT: positive: ENT inspection nml, Other (Nasal cannula in place.) Neck: positive: Nml inspection Respiratory: positive: No respiratory distress, Other (Appears comfortable sitting in a chair and not in distress. He is tachypneic. He has bilateral crackles and faint aspiratory wheezes.) Cardiovascular: positive: No murmur, Tachycardia. negative: Irregularly irregular, Bradycardia, Systolic murmur Abdomen: positive: Non-tender, No distention. negative: Tenderness, Guarding, Rebound Skin: positive: Warm, Dry Extremities: positive: No pedal edema Neurologic/Psychiatric: positive: Oriented x3, Motor nml - Lab Results Fish Bones: 09/17/20 08:23 09/17/20 08:23 Other Labs: Lab Results x24hrs 09/17/20 09/17/20 09/17/20 Range/Units 11:08 08:23 08:23 WBC 11.5 H (4.8-10.8) x10^3/uL RBC 4.15 L (4.70-6.10) 10^6/uL Hgb 13.0 L (14.0-18.0) g/dL Hct 39.6 L (42.0-52.0) % MCV 95.4 H (80.0-94.0) fL MCH 31.3 H (27.0-31.0) pg MCHC 32.8 (32.0-36.0) g/dL RDW 15.9 H (12.0-15.0) % Plt Count 486 H (130-450) 10^3/uL MPV 9.0 (7.4-11.4) fL Neut # (Auto) Not Reportable Lymph # (Auto) Not Reportable Woodward # (Auto) Not Reportable Eos # (Auto) Not Reportable Baso # (Auto) Not Reportable Absolute Nucleated RBC Not Reportable Total Counted 100 Band Neuts % (Manual) 3 (0 - 10) % Reactive Lymphs % (Man) 14 % Abnorm Lymph % (Manual) 0 % Myelocytes % 10 H ( - 0) % Nucleated RBC % Not Reportable Neutrophils # (Manual) 6.4 (1.5-6.6) 10^3/uL Lymphocytes # (Manual) 2.2 (1.5-3.5) 10^3/uL Monocytes # (Manual) 1.7 H (0.0-1.0) 10^3/uL Eosinophils # (Manual) 0.0 (0-0.7) 10^3/uL Basophils # (Manual) 0.0 (0-0.1) 10^3/uL Differential Comment MANUAL DIFFERENTIAL Manual Slide Review Indicated Sodium 133 L (135-145) mmol/L Potassium 4.3 (3.5-5.0) mmol/L Chloride 88 L (101-111) mmol/L Carbon Dioxide 35 H (21-32) mmol/L Anion Gap 10.0 (6-13) BUN 26 H (6-20) mg/dL Creatinine 0.8 (0.6-1.2) mg/dL Estimated GFR (MDRD) 96 (>89) Glucose 110 H (70-100) mg/dL POC Whole Bld Glucose 96 (70 - 100) mg/dL Calcium 9.1 (8.5-10.3) mg/dL 09/17/20 09/16/20 09/16/20 Range/Units 07:22 20:40 16:41 WBC (4.8-10.8) x10^3/uL RBC (4.70-6.10) 10^6/uL Hgb (14.0-18.0) g/dL Hct (42.0-52.0) % MCV (80.0-94.0) fL MCH (27.0-31.0) pg MCHC (32.0-36.0) g/dL RDW (12.0-15.0) % Plt Count (130-450) 10^3/uL MPV (7.4-11.4) fL Neut # (Auto) Lymph # (Auto) Woodward # (Auto) Eos # (Auto) Baso # (Auto) Absolute Nucleated RBC Total Counted Band Neuts % (Manual) (0 - 10) % Reactive Lymphs % (Man) % Abnorm Lymph % (Manual) % Myelocytes % ( - 0) % Nucleated RBC % Neutrophils # (Manual) (1.5-6.6) 10^3/uL Lymphocytes # (Manual) (1.5-3.5) 10^3/uL Monocytes # (Manual) (0.0-1.0) 10^3/uL Eosinophils # (Manual) (0-0.7) 10^3/uL Basophils # (Manual) (0-0.1) 10^3/uL Differential Comment Manual Slide Review Sodium (135-145) mmol/L Potassium (3.5-5.0) mmol/L Chloride (101-111) mmol/L Carbon Dioxide (21-32) mmol/L Anion Gap (6-13) BUN (6-20) mg/dL Creatinine (0.6-1.2) mg/dL Estimated GFR (MDRD) (>89) Glucose (70-100) mg/dL POC Whole Bld Glucose 133 H 140 H 139 H (70 - 100) mg/dL Calcium (8.5-10.3) mg/dL 09/16/20 09/16/20 09/15/20 Range/Units 11:11 07:29 21:12 WBC (4.8-10.8) x10^3/uL RBC (4.70-6.10) 10^6/uL Hgb (14.0-18.0) g/dL Hct (42.0-52.0) % MCV (80.0-94.0) fL MCH (27.0-31.0) pg MCHC (32.0-36.0) g/dL RDW (12.0-15.0) % Plt Count (130-450) 10^3/uL MPV (7.4-11.4) fL Neut # (Auto) Lymph # (Auto) Woodward # (Auto) Eos # (Auto) Baso # (Auto) Absolute Nucleated RBC Total Counted Band Neuts % (Manual) (0 - 10) % Reactive Lymphs % (Man) % Abnorm Lymph % (Manual) % Myelocytes % ( - 0) % Nucleated RBC % Neutrophils # (Manual) (1.5-6.6) 10^3/uL Lymphocytes # (Manual) (1.5-3.5) 10^3/uL Monocytes # (Manual) (0.0-1.0) 10^3/uL Eosinophils # (Manual) (0-0.7) 10^3/uL Basophils # (Manual) (0-0.1) 10^3/uL Differential Comment Manual Slide Review Sodium (135-145) mmol/L Potassium (3.5-5.0) mmol/L Chloride (101-111) mmol/L Carbon Dioxide (21-32) mmol/L Anion Gap (6-13) BUN (6-20) mg/dL Creatinine (0.6-1.2) mg/dL Estimated GFR (MDRD) (>89) Glucose (70-100) mg/dL POC Whole Bld Glucose 136 H 114 H 109 H (70 - 100) mg/dL Calcium (8.5-10.3) mg/dL 09/15/20 09/15/20 09/15/20 Range/Units 16:56 11:39 07:25 WBC (4.8-10.8) x10^3/uL RBC (4.70-6.10) 10^6/uL Hgb (14.0-18.0) g/dL Hct (42.0-52.0) % MCV (80.0-94.0) fL MCH (27.0-31.0) pg MCHC (32.0-36.0) g/dL RDW (12.0-15.0) % Plt Count (130-450) 10^3/uL MPV (7.4-11.4) fL Neut # (Auto) Lymph # (Auto) Woodward # (Auto) Eos # (Auto) Baso # (Auto) Absolute Nucleated RBC Total Counted Band Neuts % (Manual) (0 - 10) % Reactive Lymphs % (Man) % Abnorm Lymph % (Manual) % Myelocytes % ( - 0) % Nucleated RBC % Neutrophils # (Manual) (1.5-6.6) 10^3/uL Lymphocytes # (Manual) (1.5-3.5) 10^3/uL Monocytes # (Manual) (0.0-1.0) 10^3/uL Eosinophils # (Manual) (0-0.7) 10^3/uL Basophils # (Manual) (0-0.1) 10^3/uL Differential Comment Manual Slide Review Sodium (135-145) mmol/L Potassium (3.5-5.0) mmol/L Chloride (101-111) mmol/L Carbon Dioxide (21-32) mmol/L Anion Gap (6-13) BUN (6-20) mg/dL Creatinine (0.6-1.2) mg/dL Estimated GFR (MDRD) (>89) Glucose (70-100) mg/dL POC Whole Bld Glucose 116 H 134 H 106 H (70 - 100) mg/dL Calcium (8.5-10.3) mg/dL 09/14/20 09/14/20 09/14/20 Range/Units 21:25 16:38 11:02 WBC (4.8-10.8) x10^3/uL RBC (4.70-6.10) 10^6/uL Hgb (14.0-18.0) g/dL Hct (42.0-52.0) % MCV (80.0-94.0) fL MCH (27.0-31.0) pg MCHC (32.0-36.0) g/dL RDW (12.0-15.0) % Plt Count (130-450) 10^3/uL MPV (7.4-11.4) fL Neut # (Auto) Lymph # (Auto) Woodward # (Auto) Eos # (Auto) Baso # (Auto) Absolute Nucleated RBC Total Counted Band Neuts % (Manual) (0 - 10) % Reactive Lymphs % (Man) % Abnorm Lymph % (Manual) % Myelocytes % ( - 0) % Nucleated RBC % Neutrophils # (Manual) (1.5-6.6) 10^3/uL Lymphocytes # (Manual) (1.5-3.5) 10^3/uL Monocytes # (Manual) (0.0-1.0) 10^3/uL Eosinophils # (Manual) (0-0.7) 10^3/uL Basophils # (Manual) (0-0.1) 10^3/uL Differential Comment Manual Slide Review Sodium (135-145) mmol/L Potassium (3.5-5.0) mmol/L Chloride (101-111) mmol/L Carbon Dioxide (21-32) mmol/L Anion Gap (6-13) BUN (6-20) mg/dL Creatinine (0.6-1.2) mg/dL Estimated GFR (MDRD) (>89) Glucose (70-100) mg/dL POC Whole Bld Glucose 123 H 113 H 100 (70 - 100) mg/dL Calcium (8.5-10.3) mg/dL 09/14/20 09/13/20 09/13/20 Range/Units 07:24 21:12 17:00 WBC (4.8-10.8) x10^3/uL RBC (4.70-6.10) 10^6/uL Hgb (14.0-18.0) g/dL Hct (42.0-52.0) % MCV (80.0-94.0) fL MCH (27.0-31.0) pg MCHC (32.0-36.0) g/dL RDW (12.0-15.0) % Plt Count (130-450) 10^3/uL MPV (7.4-11.4) fL Neut # (Auto) Lymph # (Auto) Woodward # (Auto) Eos # (Auto) Baso # (Auto) Absolute Nucleated RBC Total Counted Band Neuts % (Manual) (0 - 10) % Reactive Lymphs % (Man) % Abnorm Lymph % (Manual) % Myelocytes % ( - 0) % Nucleated RBC % Neutrophils # (Manual) (1.5-6.6) 10^3/uL Lymphocytes # (Manual) (1.5-3.5) 10^3/uL Monocytes # (Manual) (0.0-1.0) 10^3/uL Eosinophils # (Manual) (0-0.7) 10^3/uL Basophils # (Manual) (0-0.1) 10^3/uL Differential Comment Manual Slide Review Sodium (135-145) mmol/L Potassium (3.5-5.0) mmol/L Chloride (101-111) mmol/L Carbon Dioxide (21-32) mmol/L Anion Gap (6-13) BUN (6-20) mg/dL Creatinine (0.6-1.2) mg/dL Estimated GFR (MDRD) (>89) Glucose (70-100) mg/dL POC Whole Bld Glucose 113 H 169 H 139 H (70 - 100) mg/dL Calcium (8.5-10.3) mg/dL 09/13/20 09/13/20 09/12/20 Range/Units 11:17 07:23 21:16 WBC (4.8-10.8) x10^3/uL RBC (4.70-6.10) 10^6/uL Hgb (14.0-18.0) g/dL Hct (42.0-52.0) % MCV (80.0-94.0) fL MCH (27.0-31.0) pg MCHC (32.0-36.0) g/dL RDW (12.0-15.0) % Plt Count (130-450) 10^3/uL MPV (7.4-11.4) fL Neut # (Auto) Lymph # (Auto) Woodward # (Auto) Eos # (Auto) Baso # (Auto) Absolute Nucleated RBC Total Counted Band Neuts % (Manual) (0 - 10) % Reactive Lymphs % (Man) % Abnorm Lymph % (Manual) % Myelocytes % ( - 0) % Nucleated RBC % Neutrophils # (Manual) (1.5-6.6) 10^3/uL Lymphocytes # (Manual) (1.5-3.5) 10^3/uL Monocytes # (Manual) (0.0-1.0) 10^3/uL Eosinophils # (Manual) (0-0.7) 10^3/uL Basophils # (Manual) (0-0.1) 10^3/uL Differential Comment Manual Slide Review Sodium (135-145) mmol/L Potassium (3.5-5.0) mmol/L Chloride (101-111) mmol/L Carbon Dioxide (21-32) mmol/L Anion Gap (6-13) BUN (6-20) mg/dL Creatinine (0.6-1.2) mg/dL Estimated GFR (MDRD) (>89) Glucose (70-100) mg/dL POC Whole Bld Glucose 130 H 122 H 139 H (70 - 100) mg/dL Calcium (8.5-10.3) mg/dL 09/12/20 09/12/20 09/11/20 Range/Units 16:59 11:58 21:23 WBC (4.8-10.8) x10^3/uL RBC (4.70-6.10) 10^6/uL Hgb (14.0-18.0) g/dL Hct (42.0-52.0) % MCV (80.0-94.0) fL MCH (27.0-31.0) pg MCHC (32.0-36.0) g/dL RDW (12.0-15.0) % Plt Count (130-450) 10^3/uL MPV (7.4-11.4) fL Neut # (Auto) Lymph # (Auto) Woodward # (Auto) Eos # (Auto) Baso # (Auto) Absolute Nucleated RBC Total Counted Band Neuts % (Manual) (0 - 10) % Reactive Lymphs % (Man) % Abnorm Lymph % (Manual) % Myelocytes % ( - 0) % Nucleated RBC % Neutrophils # (Manual) (1.5-6.6) 10^3/uL Lymphocytes # (Manual) (1.5-3.5) 10^3/uL Monocytes # (Manual) (0.0-1.0) 10^3/uL Eosinophils # (Manual) (0-0.7) 10^3/uL Basophils # (Manual) (0-0.1) 10^3/uL Differential Comment Manual Slide Review Sodium (135-145) mmol/L Potassium (3.5-5.0) mmol/L Chloride (101-111) mmol/L Carbon Dioxide (21-32) mmol/L Anion Gap (6-13) BUN (6-20) mg/dL Creatinine (0.6-1.2) mg/dL Estimated GFR (MDRD) (>89) Glucose (70-100) mg/dL POC Whole Bld Glucose 178 H 124 H 144 H (70 - 100) mg/dL Calcium (8.5-10.3) mg/dL 09/11/20 09/11/20 09/11/20 Range/Units 17:42 11:40 08:27 WBC (4.8-10.8) x10^3/uL RBC (4.70-6.10) 10^6/uL Hgb (14.0-18.0) g/dL Hct (42.0-52.0) % MCV (80.0-94.0) fL MCH (27.0-31.0) pg MCHC (32.0-36.0) g/dL RDW (12.0-15.0) % Plt Count (130-450) 10^3/uL MPV (7.4-11.4) fL Neut # (Auto) Lymph # (Auto) Woodward # (Auto) Eos # (Auto) Baso # (Auto) Absolute Nucleated RBC Total Counted Band Neuts % (Manual) (0 - 10) % Reactive Lymphs % (Man) % Abnorm Lymph % (Manual) % Myelocytes % ( - 0) % Nucleated RBC % Neutrophils # (Manual) (1.5-6.6) 10^3/uL Lymphocytes # (Manual) (1.5-3.5) 10^3/uL Monocytes # (Manual) (0.0-1.0) 10^3/uL Eosinophils # (Manual) (0-0.7) 10^3/uL Basophils # (Manual) (0-0.1) 10^3/uL Differential Comment Manual Slide Review Sodium (135-145) mmol/L Potassium (3.5-5.0) mmol/L Chloride (101-111) mmol/L Carbon Dioxide (21-32) mmol/L Anion Gap (6-13) BUN (6-20) mg/dL Creatinine (0.6-1.2) mg/dL Estimated GFR (MDRD) (>89) Glucose (70-100) mg/dL POC Whole Bld Glucose 159 H 176 H 141 H (70 - 100) mg/dL Calcium (8.5-10.3) mg/dL 09/10/20 09/10/20 09/10/20 Range/Units 21:07 17:27 11:42 WBC (4.8-10.8) x10^3/uL RBC (4.70-6.10) 10^6/uL Hgb (14.0-18.0) g/dL Hct (42.0-52.0) % MCV (80.0-94.0) fL MCH (27.0-31.0) pg MCHC (32.0-36.0) g/dL RDW (12.0-15.0) % Plt Count (130-450) 10^3/uL MPV (7.4-11.4) fL Neut # (Auto) Lymph # (Auto) Woodward # (Auto) Eos # (Auto) Baso # (Auto) Absolute Nucleated RBC Total Counted Band Neuts % (Manual) (0 - 10) % Reactive Lymphs % (Man) % Abnorm Lymph % (Manual) % Myelocytes % ( - 0) % Nucleated RBC % Neutrophils # (Manual) (1.5-6.6) 10^3/uL Lymphocytes # (Manual) (1.5-3.5) 10^3/uL Monocytes # (Manual) (0.0-1.0) 10^3/uL Eosinophils # (Manual) (0-0.7) 10^3/uL Basophils # (Manual) (0-0.1) 10^3/uL Differential Comment Manual Slide Review Sodium (135-145) mmol/L Potassium (3.5-5.0) mmol/L Chloride (101-111) mmol/L Carbon Dioxide (21-32) mmol/L Anion Gap (6-13) BUN (6-20) mg/dL Creatinine (0.6-1.2) mg/dL Estimated GFR (MDRD) (>89) Glucose (70-100) mg/dL POC Whole Bld Glucose 133 H 159 H 132 H (70 - 100) mg/dL Calcium (8.5-10.3) mg/dL ABX Reporting Has patient been on IV antibiotics over the past 48 hours?: No Assessment/Plan - Problem List (1) Acute on chronic respiratory failure with hypoxia Impression: He is back to his baseline 4 L of oxygen at rest but he is now requiring 6 L of oxygen with exertion. Repeat chest x-ray yesterday showed fibrotic changes and no obvious infiltrate. He still does have crackles which I suspect is likely due to his fibrosis and faint expiratory wheezes. We will switch him to oral steroids today and watch him for the next 24 hours. If he has no further episod es of desaturations, we will look to discharge him tomorrow. I will attempt to contact his exhibit cleaner to discuss a prednisone taper on discharge and appropriate follow-up. He will need 4 L of oxygen at rest and 6 L with exertion. I spoke extensively with the patient and his significant other today for over 45 minutes to express my concerns regarding his underlying pulmonary fibrosis and COPD. I expressed that I am concerned he will likely not return to his baseline from just a few weeks ago and he would likely still be symptomatic over the next few days and weeks. They expressed understanding of this and the understand that he may have episodes of desaturation while at home. They will have an appointment for follow-up with his exhibit cleaner. They are eager on following up with the oncologist next week as scheduled. (2) Community acquired pneumonia of left lower lobe of lung Impression: Completed 7 days of treatment. Repeat x-ray has showed no obvious infiltrate. (3) COPD exacerbation Impression: This has improved. He still has dyspnea at rest but suspect is likely more to his pulmonary fibrosis and baseline COPD the necessarily acute exacerbation. We will switch him to oral prednisone today and discharge him tomorrow. As mentioned above, will discuss with his exhibit cleaner regarding a prednisone taper for discharge. Continue supplemental oxygen for goal saturation greater than 88%. Continue his current inhaler regimen. (4) Lung cancer, hilus Impression: Stable. He will be following up with his oncologist next week at the [facility]. Qualifiers: Laterality: right Qualified Code(s): C34.01 - Malignant neoplasm of right main bronchus (5) Pulmonary fibrosis Impression: I suspect is likely the primary force behind his ongoing dyspnea. We will attempt to contact his exhibit cleaner tomorrow prior to discharge. For the time being, we will continue submental oxygen for goal saturation greater than 88%. He will need 4 L at rest and 6 L with exertion. (6) Chronic pain Impression: We will continue the methadone and oxycodone. (7) Hypertension Impression: His blood pressure is well controlled on the current dose of diltiazem which we will continue. Qualifiers: Hypertension type: essential hypertension Qualified Code(s): I10 - Essential (primary) hypertension (8) Anemia of chronic disease Impression: His iron studies are suggestive of anemia of chronic disease. I will discontinue the iron supplementation.
[2020-09-17] MEDS ORDERED: [UNRECOGNIZED DRUG - OTHER] TOP PRN (18:25)
[2020-09-17] MEDS: ATORVASTATIN 40 MG TABLET PO SCH (21:20)
[2020-09-17] MEDS: NORTRIPTYLINE 25 MG CAPSULE PO SCH (21:20)
[2020-09-17] MEDS: MONTELUKAST 10 MG TABLET PO SCH (21:20)
[2020-09-17] MEDS: ACYCLOVIR 200 MG CAPSULE PO SCH (21:21)
[2020-09-18] MEDS: SODIUM CHLORIDE FLUSH 0.9% 10 ML SYRINGE IVP SCH ×3 (00:42→17:33)
[2020-09-18] MEDS: oxyCODONE 5 MG TABLET PO PRN ×4 (00:48→21:48)
[2020-09-18 04:59] LABS: BASOPHILS % (AUTO) 0.4 %; EOSINOPHILS % (AUTO) 0.1 %; HGB - HEMOGLOBIN 11.8 g/dL (14.0-18.0); LYMPHOCYTES % (AUTO) 19.1 %; MEAN CORPUSCULAR HEMOGLOBIN 31.8 pg (27.0-31.0); MEAN CORPUSCULAR HGB CONC 33.5 g/dL (32.0-36.0); MEAN CORPUSCULAR VOLUME 94.9 fL (80.0-94.0); MEAN PLATELET VOLUME 8.9 fL (7.4-11.4); MONOCYTES % (AUTO) 17.2 %; NEUTROPHILS % (AUTO) 46.5 %; PLT - PLATELET COUNT 424 10^3/uL (130-450); RED BLOOD COUNT 3.71 10^6/uL (4.70-6.10); RED CELL DISTRIBUTION WIDTH 16.2 % (12.0-15.0); WHITE BLOOD COUNT 15.3 x10^3/uL (4.8-10.8)
[2020-09-18 05:04] LABS: CALCIUM 9.1 mg/dL (8.5-10.3); CREATININE 0.7 mg/dL (0.6-1.2)
[2020-09-18 05:11] LABS: ABNORMAL LYMPHS % (MANUAL) 0 %
[2020-09-18] MEDS: ACYCLOVIR 200 MG CAPSULE PO SCH ×5 (05:35→21:30)
[2020-09-18] MEDS: LORazepam 1 MG TABLET PO SCH ×3 (05:35→21:39)
[2020-09-18 05:43] LABS: BAND NEUTROPHILS % (MANUAL) 1 %; DIFFERENTIAL COMMENT MANUAL DIFFERENTIAL; LYMPHOCYTES # (MANUAL) 4.4 10^3/uL (1.5-3.5); LYMPHOCYTES % (MANUAL) 29 %; METAMYELOCYTES % (MANUAL) 2 %; MONOCYTES # (MANUAL) 3.4 10^3/uL (0.0-1.0); MYELOCYTES % (MANUAL) 2 %; PLATELET ESTIMATE, MANUAL NORMAL (130-450,000) (NORMAL); RBC MORPHOLOGY (MULTIPLE) NORMAL APPEARANCE (NORMAL)
[2020-09-18] MEDS: LEVALBUTEROL 1.25 MG/3 ML NEB INH SCH ×4 (07:58→19:21)
[2020-09-18] MEDS: BUDESONIDE 0.5 MG/2 ML NEB INH SCH ×2 (07:58→19:21)
[2020-09-18] MEDS: INSULIN ASPART 300 UNIT/3 ML PEN SUBQ SCH ×4 (08:30→21:31)
[2020-09-18] MEDS: predniSONE 20 MG TABLET PO SCH (08:30)
[2020-09-18] MEDS: ACETAMINOPHEN 325 MG TABLET PO PRN ×3 (08:30→21:47)
[2020-09-18] MEDS: PANTOPRAZOLE 40 MG TABLET PO SCH ×2 (08:55→21:29)
[2020-09-18] MEDS: NICOTINE 14 MG PATCH TOP SCH (08:57)
[2020-09-18] MEDS: ENOXAPARIN 40 MG/0.4 ML SYRINGE SUBQ SCH (08:57)
[2020-09-18] MEDS: CHOLECALCIFEROL 25 MCG TABLET PO SCH (08:58)
[2020-09-18] MEDS: guaiFENesin 600 MG TABLET PO SCH ×2 (08:58→21:27)
[2020-09-18] MEDS: CITALOPRAM HYDROBROMIDE 20 MG TABLET PO SCH (08:59)
[2020-09-18] MEDS: METHADONE 5 MG TABLET PO SCH ×2 (08:59→21:26)
[2020-09-18] MEDS: ASCORBIC ACID CHEW 500 MG TABLET PO SCH ×2 (08:59→21:29)
[2020-09-18] MEDS: FOLIC ACID 1 MG TABLET PO SCH (08:59)
[2020-09-18] MEDS ORDERED: IOVERSOL 320 100 ML VIAL IVP ONE ×2 (09:14→16:36)
[2020-09-18] MEDS: polyethylene glycoL 3350 17 GM PACKET PO SCH (09:36)
[2020-09-18] MEDS: SENNA 8.6 MG TABLET PO SCH (09:36)
[2020-09-18] MEDS: DOCUSATE SODIUM 250 MG CAPSULE PO SCH (09:36)
--- NOTE | 2020-09-18 10:26 | CT Report ---
PROCEDURE: ANGIO CHEST W/WO INDICATIONS: Hypoxia. Lung Ca. Pulmonary fibrosis. CONTRAST: IV CONTRAST: Optiray 320 ml: 80 PO CONTRAST: *NO PO CONTRAST TECHNIQUE: After the administration of intravenous contrast, 2 mm thick sections acquired from the pulmonary api javi to the posterior costophrenic angles. 3-dimensional maximum intensity projection (MIP) coronal a nd sagittal reformats were then acquired through the thorax. For radiation dose reduction, the follow ing was used: automated exposure control, adjustment of mA and/or kV according to patient size. COMPARISON: Similar CT 07/22/2020 FINDINGS: Image quality: Excellent. Pulmonary arteries: Pulmonary arteries are narrowed to a slightly greater degree by previously prese nt by impingement from the right lung mass and associated right hilar and mediastinal adenopathy. The pulmonary arteries demonstrate no intraluminal filling defects to suggest central pulmonary embolism . Lungs and pleura: Lungs are abnormal with severe centrilobular emphysema and also superimposed pulmo nary fibrotic change greater on the left than the right. This is stable from the comparison CT 020. No pleural effusions or pneumothorax. Central and peripheral airways are patent. Mediastinum: Heart size is normal, without pericardial effusion. There has been a mild interval incr ease in size of previously present mediastinal and right hilar adenopathy. For example, in June of this year the subcarinal adenopathy had measured up to 2.1 x 4.4 cm and currently measures 2.8 x 4.5 cm. Note is made of a mild interval increase in mass effect constricting the bronchus intermedius on the right. The medial contiguous right perihilar lung mass has undergone a similar small but definit e increase in size. Thoracic aorta is normal in caliber and enhancement. Esophagus is normal in andre tammi, without hiatal hernia. Bones and chest wall: No suspicious bony lesions. Ribs and thoracic spine appear intact throughout. The thyroid is normal. No axillary or supraclavicular adenopathy. Abdomen: Visualized upper abdominal solid organs appear normal in the early arterial phase of enhanc ement. IMPRESSION: Mild interval increase in size of a medial right upper lobe lung mass abutting the mediastinal border , and also mild interval increase in size of right hilar and mediastinal adenopathy previously presen t. The right mainstem bronchus for example shows mild further constriction by the adjacent mass. Mild impingement on the central pulmonary arteries on the right has slightly increased. No pulmonary embo nereida is found. Reviewed by: Jack Mendoza MD on 09/18/2020 10:24 AM PDT Approved by: Jack Mendoza MD on 09/18/2020 10:24 AM PDT Station ID: [id number]
--- NOTE | 2020-09-18 11:31 | PROVIDER PROGRESS NOTE ---
Subjective - Prog Note Date Prog Note Date: 09/18/20 - Subjective Subjective: Feels about the same compared to yesterday. Still has significant dyspnea with minimal exertion. Continues to have a productive cough. He has been able to ambulate him more but he gets short of breath quickly. Current Medications - Current Medications Current Medications: Active Medications Acetaminophen (Tylenol) 650 mg PO Q4HR PRN PRN Reason: Pain 1 to 4 Last Admin: 09/18/20 08:30 Dose: 650 mg Documented by: Acyclovir (Zovirax) 800 mg PO 5XD [facility] Stop: 09/24/20 21:59 Last Admin: 09/18/20 10:27 Dose: 800 mg Documented by: Ascorbic Acid (Vitamin C) 500 mg PO BID [facility] Last Admin: 09/18/20 08:59 Dose: 500 mg Documented by: Atorvastatin Calcium (Lipitor) 80 mg PO QPM [facility] Last Admin: 09/17/20 21:20 Dose: 80 mg Documented by: Budesonide (Pulmicort) 0.5 mg INH RTBID [facility] Last Admin: 09/18/20 07:58 Dose: 0.5 mg Documented by: Calcium Carbonate/Glycine (Tums) 500 mg PO TID PRN PRN Reason: Heartburn Last Admin: 09/16/20 22:31 Dose: 500 mg Documented by: Cholecalciferol (Vitamin D3) 50 mcg PO DAILY [facility] Last Admin: 09/18/20 08:58 Dose: 50 mcg Documented by: Citalopram Hydrobromide (Celexa) 20 mg PO DAILY [facility] Last Admin: 09/18/20 08:59 Dose: 20 mg Documented by: Diltiazem HCl (Cardizem) 60 mg PO BID [facility] Last Admin: 09/18/20 08:59 Dose: 60 mg Documented by: Docusate Sodium (Colace 250mg Capsule) 250 - 500 mg PO DAILY [facility] Last Admin: 09/18/20 09:36 Dose: Not Given Documented by: Enoxaparin Sodium (Lovenox) 40 mg SUBQ DAILY [facility] Last Admin: 09/18/20 08:57 Dose: 40 mg Documented by: Folic Acid () 1 mg PO DAILY [facility] Last Admin: 09/18/20 08:59 Dose: 1 mg Documented by: Guaifenesin (Mucinex) 600 mg PO BID [facility] Last Admin: 09/18/20 08:58 Dose: 600 mg Documented by: Insulin Aspart (Novolog) 1 - 9 unit SUBQ 0800,1200,1700,2100 [facility]; Protocol Last Admin: 09/18/20 08:30 Dose: Not Given Documented by: Levalbuterol HCl (Xopenex) 1.25 mg INH RTQ4H PRN PRN Reason: Shortness of Air/Wheezing Last Admin: 09/16/20 01:40 Dose: 1.25 mg Documented by: Levalbuterol HCl (Xopenex) 1.25 mg INH RTQID [facility] Last Admin: 09/18/20 11:25 Dose: 1.25 mg Documented by: Lidocaine (Lidoderm Patch) 1 patch TOP DAILY PRN PRN Reason: PAIN Last Admin: 09/16/20 08:51 Dose: 1 patch Documented by: Lorazepam (Ativan) 1 mg PO TID [facility] Last Admin: 09/18/20 05:35 Dose: 1 mg Documented by: Methadone HCl () 5 mg PO BID [facility] Last Admin: 09/18/20 08:59 Dose: 5 mg Documented by: Montelukast Sodium (Singulair) 10 mg PO QPM [facility] Last Admin: 09/17/20 21:20 Dose: 10 mg Documented by: Nicotine (Nicoderm) 1 patch TOP DAILY [facility] Last Admin: 09/18/20 08:57 Dose: 1 patch Documented by: Non Formulary Med Patient Own Shing[employer] 1 each TOP Q4HR PRN PRN Reason: NEEDED PER PROVIDER ORDERS Last Admin: 09/17/20 18:51 Dose: 1 each Documented by: Nortriptyline HCl (Pamelor) 50 mg PO QPM [facility] Last Admin: 09/17/20 21:20 Dose: 50 mg Documented by: Oxycodone HCl (Roxicodone) 10 mg PO Q4H PRN PRN Reason: PAIN Last Admin: 09/18/20 08:29 Dose: 10 mg Documented by: Pantoprazole Sodium (Protonix) 40 mg PO BID [facility] Last Admin: 09/18/20 08:55 Dose: 40 mg Documented by: Polyethylene Glycol (Miralax) 17 gm PO DAILY [facility] Last Admin: 09/18/20 09:36 Dose: Not Given Documented by: Prednisone (Deltasone) 40 mg PO DAILYWM [facility] Last Admin: 09/18/20 08:30 Dose: 40 mg Documented by: Zafar (Senokot) 8.6 - 17.2 mg PO DAILY [facility] Last Admin: 09/18/20 09:36 Dose: Not Given Documented by: Sodium Chloride (Normal Saline Flush 0.9%) 10 ml IVP 0100,0900,1700 [facility] Last Admin: 09/18/20 09:04 Dose: 10 ml Documented by: Sodium Chloride (Normal Saline Flush 0.9%) 10 ml IVP PRN PRN PRN Reason: NEEDED PER PROVIDER ORDERS Last Admin: 09/15/20 20:56 Dose: 10 ml Documented by: Trazodone HCl (Desyrel) 50 mg PO QPM PRN PRN Reason: SLEEP Nortriptyline [Pamelor] 50 mg PO DAILY PM 11/27/13 Oxycodone HCl/Acetaminophen [Percocet 10-325 mg Tablet] 1 each PO TID PRN 07/30/15 Atorvastatin [Lipitor] 80 mg PO DAILY 01/06/16 Ascorbic Acid [Vitamin C] 500 mg PO BID 07/23/16 Cholecalciferol (Vitamin D3) [Vitamin D3] 2,000 units PO DAILY 07/23/16 Folic Acid 1 mg PO DAILY 07/23/16 Ipratropium/Albuterol [Combivent Respimat] 1 puffs INH TID PRN 07/23/16 Fluticasone/Vilanterol [Breo Ellipta 100-25 Mcg INH] 1 puffs INH DAILY 02/24/19 Citalopram Hydrobromide [Citalopram HBr] 20 mg PO DAILY 09/10/20 Etoposide 50 mg PO DAILY 09/10/20 LORazepam [Ativan] 1 mg PO TID 09/10/20 Methadone 5 mg PO BID 09/10/20 Pantoprazole [Protonix] 40 mg PO BID 09/10/20 ondansetron HCL [Zofran] 8 mg PO DAILY PRN 09/10/20 traZODone [Desyrel] 50 mg PO QPM PRN 09/10/20 Objective - Vital Signs/Intake & Output Reviewed Vital Signs: Yes Vital Signs: Vital Signs x48h Temp Pulse Pulse Resp BP BP Pulse Ox 09/18/20 08:59 125/69 09/18/20 08:25 36.6 C 87 18 114/70 95 09/18/20 07:58 84 24 Intake & Output: Intake & Output 09/15/20 09/16/20 09/17/20 09/18/20 23:59 23:59 23:59 23:59 Intake Total 970 2894 2065 550 Output Total 2585 2885 2375 0568 Balance -1615 -131 -310 -850 - Objective General Appearance: positive: Alert, Other (He appears comfortable while sitting in bed but with any exertion, he does appear to be in some respiratory distress and tachypneic but he will recover within a few minutes.) Eyes Bilateral: positive: Normal inspection, Conjunctivae nml ENT: positive: Other (Nasal cannula in place.) Neck: positive: Nml inspection Respiratory: positive: No respiratory distress, Other (He appears comfortable while sitting in bed but will become quite tachypneic with minimal exertion and it will take him a little time to recover. He has rhonchorous breath sounds throughout with crackles bilaterally.) Cardiovascular: positive: Regular rate & rhythm, No murmur. negative: Tachycardia, Bradycardia, Systolic murmur Abdomen: positive: Non-tender, No distention. negative: Tenderness, Guarding, Rebound Skin: positive: Warm, Dry Extremities: positive: No pedal edema Neurologic/Psychiatric: positive: Oriented x3. negative: Disoriented to person, Disoriented to place, Disoriented to time - Lab Results Fish Bones: 09/18/20 04:50 09/18/20 04:50 Other Labs: Lab Results x24hrs 09/18/20 09/18/20 09/18/20 Range/Units 07:43 04:50 04:50 WBC 15.3 H (4.8-10.8) x10^3/uL RBC 3.71 L (4.70-6.10) 10^6/uL Hgb 11.8 L (14.0-18.0) g/dL Hct 35.2 L (42.0-52.0) % MCV 94.9 H (80.0-94.0) fL MCH 31.8 H (27.0-31.0) pg MCHC 33.5 (32.0-36.0) g/dL RDW 16.2 H (12.0-15.0) % Plt Count 424 (130-450) 10^3/uL MPV 8.9 (7.4-11.4) fL Neut # (Auto) Not Reportable Lymph # (Auto) Not Reportable [place] # (Auto) Not Reportable Eos # (Auto) Not Reportable Baso # (Auto) Not Reportable Absolute Nucleated RBC Not Reportable Total Counted 100 Band Neuts % (Manual) 1 (0 - 10) % Abnorm Lymph % (Manual) 0 % Metamyelocytes % 2 H ( - 0) % Myelocytes % 2 H ( - 0) % Nucleated RBC % Not Reportable Neutrophils # (Manual) 6.9 H (1.5-6.6) 10^3/uL Lymphocytes # (Manual) 4.4 H (1.5-3.5) 10^3/uL Monocytes # (Manual) 3.4 H (0.0-1.0) 10^3/uL Eosinophils # (Manual) 0.0 (0-0.7) 10^3/uL Basophils # (Manual) 0.0 (0-0.1) 10^3/uL Differential Comment MANUAL DIFFERENTIAL Platelet Estimate NORMAL (130-450,000) (NORMAL) RBC Morph Micro Appear NORMAL APPEARANCE (NORMAL) Sodium 135 (135-145) mmol/L Potassium 4.7 (3.5-5.0) mmol/L Chloride 95 L (101-111) mmol/L Carbon Dioxide 32 (21-32) mmol/L Anion Gap 8.0 (6-13) BUN 31 H (6-20) mg/dL Creatinine 0.7 (0.6-1.2) mg/dL Estimated GFR (MDRD) 112 (>89) Glucose 116 H (70-100) mg/dL POC Whole Bld Glucose 96 (70 - 100) mg/dL Calcium 9.1 (8.5-10.3) mg/dL 09/17/20 09/17/20 Range/Units 20:23 16:28 WBC (4.8-10.8) x10^3/uL RBC (4.70-6.10) 10^6/uL Hgb (14.0-18.0) g/dL Hct (42.0-52.0) % MCV (80.0-94.0) fL MCH (27.0-31.0) pg MCHC (32.0-36.0) g/dL RDW (12.0-15.0) % Plt Count (130-450) 10^3/uL MPV (7.4-11.4) fL Neut # (Auto) Lymph # (Auto) [place] # (Auto) Eos # (Auto) Baso # (Auto) Absolute Nucleated RBC Total Counted Band Neuts % (Manual) (0 - 10) % Abnorm Lymph % (Manual) % Metamyelocytes % ( - 0) % Myelocytes % ( - 0) % Nucleated RBC % Neutrophils # (Manual) (1.5-6.6) 10^3/uL Lymphocytes # (Manual) (1.5-3.5) 10^3/uL Monocytes # (Manual) (0.0-1.0) 10^3/uL Eosinophils # (Manual) (0-0.7) 10^3/uL Basophils # (Manual) (0-0.1) 10^3/uL Differential Comment Platelet Estimate (NORMAL) RBC Morph Micro Appear (NORMAL) Sodium (135-145) mmol/L Potassium (3.5-5.0) mmol/L Chloride (101-111) mmol/L Carbon Dioxide (21-32) mmol/L Anion Gap (6-13) BUN (6-20) mg/dL Creatinine (0.6-1.2) mg/dL Estimated GFR (MDRD) (>89) Glucose (70-100) mg/dL POC Whole Bld Glucose 156 H 127 H (70 - 100) mg/dL Calcium (8.5-10.3) mg/dL ABX Reporting Has patient been on IV antibiotics over the past 48 hours?: No Assessment/Plan - Problem List (1) Acute on chronic respiratory failure with hypoxia Impression: He remains on his baseline 4 L of oxygen at rest and 6 L with exertion. Although he does not desaturate, he is still quite dyspneic with minimal exertio n. We will obtain a CT today to evaluate for possible pulmonary embolism and to ensure there is no obvious infiltrate which may be present and contributing to his dyspnea. If the CT is unremarkable, I suspect that his dyspnea is just from his pulmonary fibrosis and COPD and unfortunately, there is no real treatment for this and this is likely close to his new baseline. We will continue supplemental oxygen for goal saturation greater than 88%. I will attempt to contact his computer assembler prior to discharge to come up with a discharge plan regarding prednisone and follow-up. (2) Leukocytosis Impression: The etiology of his leukocytosis is not clear. His white count has increased to 15,000 today. Yesterday it was felt this may be due to hemoconcentration as all cell lines were elevated but today his hemoglobin is back down as well as his platelet count but his white count continues to rise. His lymphocytes have increased as well as monocytes over the past couple of days. There is no obvious source of infection at this time. Given he is afebrile we will hold off on antibiotics. We will obtain a CT of the chest to look for any possible i nfiltrate. We will repeat blood cultures today. We will recheck his CBC in the morning. This is stable or improved tomorrow then he can likely be discharged and he can follow-up with his oncologist next week. (3) Community acquired pneumonia of left lower lobe of lung Impression: He has completed 7 days of antibiotics. Chest x-ray did not reveal any obvious infiltrate. We will obtain a CT of the chest today for further evaluation. (4) COPD exacerbation Impression: He has improved. We will continue his home inhalers and prednisone 40 mg daily. He is back to his baseline oxygen requirements. Will discuss with his computer assembler prior to discharge regarding steroid taper on discharge. (5) Lung cancer, hilus Impression: We will repeat a CT today to look for pulmonary embolism or infiltrate. This will also evaluate his lung mass. He scheduled to see his oncologist next week and we will hope to discharge him prior to this so that he can follow-[facility] with [facility]. Qualifiers: Laterality: right Qualified Code(s): C34.01 - Malignant neoplasm of right main bronchus (6) Pulmonary fibrosis Impression: This is unfortunately likely contributing to his dyspnea. Prior imaging revealed significant fibrosis and emphysematous changes. We will repeat a CT today for further evaluation. Obtaining a palliative consult but he is scheduled to see them through the [facility] and he would prefer to follow-up with palliative care there rather than seeing different providers here. (7) Chronic pain Impression: Stable. Continue his home medications. (8) Hypertension Impression: Stable. Continue diltiazem. Qualifiers: Hypertension type: essential hypertension Qualified Code(s): I10 - Essential (primary) hypertension (9) Anemia of chronic disease Impression: His hemoglobin is stable. Iron studies are suggestive of anemia of chronic disease.
[2020-09-18] MEDS: NORTRIPTYLINE 25 MG CAPSULE PO SCH (21:26)
[2020-09-18] MEDS: ATORVASTATIN 40 MG TABLET PO SCH (21:26)
[2020-09-18] MEDS: MONTELUKAST 10 MG TABLET PO SCH (21:29)
[2020-09-18] MEDS: CALCIUM CARBONATE CHEW 500 MG TABLET PO PRN (21:59)
[2020-09-19] MEDS: SODIUM CHLORIDE FLUSH 0.9% 10 ML SYRINGE IVP SCH ×3 (01:11→14:15)
[2020-09-19] MEDS: LEVALBUTEROL 1.25 MG/3 ML NEB INH PRN (01:22)
[2020-09-19] MEDS: ACETAMINOPHEN 325 MG TABLET PO PRN (04:31)
[2020-09-19] MEDS: oxyCODONE 5 MG TABLET PO PRN (04:31)
[2020-09-19 05:23] LABS: BASOPHILS % (AUTO) 0.8 %; HGB - HEMOGLOBIN 11.9 g/dL (14.0-18.0); MEAN CORPUSCULAR HEMOGLOBIN 31.2 pg (27.0-31.0); MEAN CORPUSCULAR HGB CONC 32.5 g/dL (32.0-36.0); MEAN CORPUSCULAR VOLUME 96.1 fL (80.0-94.0); MEAN PLATELET VOLUME 9.3 fL (7.4-11.4); MONOCYTES % (AUTO) 12.3 %; NEUTROPHILS % (AUTO) 56.9 %; PLT - PLATELET COUNT 403 10^3/uL (130-450); RED BLOOD COUNT 3.81 10^6/uL (4.70-6.10); RED CELL DISTRIBUTION WIDTH 16.8 % (12.0-15.0); WHITE BLOOD COUNT 14.7 x10^3/uL (4.8-10.8)
[2020-09-19 05:28] LABS: CALCIUM 9.1 mg/dL (8.5-10.3); CREATININE 0.7 mg/dL (0.6-1.2)
[2020-09-19 05:33] LABS: ABNORMAL LYMPHS % (MANUAL) 0 %
[2020-09-19] MEDS: ACYCLOVIR 200 MG CAPSULE PO SCH ×4 (05:39→18:07)
[2020-09-19] MEDS: MORPHINE 2 MG/ML CARPUJECT IVP PRN ×3 (05:39→18:12)
[2020-09-19] MEDS: LORazepam 1 MG TABLET PO SCH ×2 (05:39→14:12)
[2020-09-19 05:59] LABS: BAND NEUTROPHILS % (MANUAL) 5 %; DIFFERENTIAL COMMENT MANUAL DIFFERENTIAL; LYMPHOCYTES # (MANUAL) 4.9 10^3/uL (1.5-3.5); LYMPHOCYTES % (MANUAL) 33 %; METAMYELOCYTES % (MANUAL) 2 %; MONOCYTES # (MANUAL) 1.3 10^3/uL (0.0-1.0); MYELOCYTES % (MANUAL) 3 %; PLATELET ESTIMATE, MANUAL NORMAL (130-450,000) (NORMAL); RBC MORPHOLOGY (MULTIPLE) NORMAL APPEARANCE (NORMAL)
[2020-09-19] MEDS: BUDESONIDE 0.5 MG/2 ML NEB INH SCH (07:28)
[2020-09-19] MEDS: LEVALBUTEROL 1.25 MG/3 ML NEB INH SCH ×3 (07:28→16:12)
[2020-09-19] MEDS: predniSONE 20 MG TABLET PO SCH (08:00)
[2020-09-19] MEDS: INSULIN ASPART 300 UNIT/3 ML PEN SUBQ SCH ×3 (08:01→16:59)
[2020-09-19] MEDS: METHADONE 5 MG TABLET PO SCH (08:33)
[2020-09-19] MEDS: ASCORBIC ACID CHEW 500 MG TABLET PO SCH (08:33)
[2020-09-19] MEDS: NICOTINE 14 MG PATCH TOP SCH (08:34)
[2020-09-19] MEDS: PANTOPRAZOLE 40 MG TABLET PO SCH (08:34)
[2020-09-19] MEDS: DOCUSATE SODIUM 250 MG CAPSULE PO SCH (08:34)
[2020-09-19] MEDS: CITALOPRAM HYDROBROMIDE 20 MG TABLET PO SCH (08:34)
[2020-09-19] MEDS: polyethylene glycoL 3350 17 GM PACKET PO SCH (08:35)
[2020-09-19] MEDS: FOLIC ACID 1 MG TABLET PO SCH (08:35)
[2020-09-19] MEDS: SENNA 8.6 MG TABLET PO SCH (08:35)
[2020-09-19] MEDS: guaiFENesin 600 MG TABLET PO SCH (08:35)
[2020-09-19] MEDS: ENOXAPARIN 40 MG/0.4 ML SYRINGE SUBQ SCH (08:35)
[2020-09-19] MEDS: CHOLECALCIFEROL 25 MCG TABLET PO SCH (08:40)
[2020-09-19 11:37] LABS: BILIRUBIN,URINE NEGATIVE (NEGATIVE); GLUCOSE, URINE (UA) NEGATIVE (NEGATIVE); KETONES,URINE (UA) NEGATIVE (NEGATIVE); LEUKOCYTE ESTERASE, URINE NEGATIVE (NEGATIVE); NITRITE,URINE NEGATIVE (NEGATIVE); OCCULT BLOOD,URINE NEGATIVE (NEGATIVE); PROTEIN,URINE NEGATIVE (NEGATIVE); UROBILINOGEN,URINE 0.2 (NORMAL) E.U./dL (NORMAL)
--- NOTE | 2020-09-19 11:42 | Discharge Plan ---
Discharge Plan Problem Reviewed?: Yes Disposition: Home, Self Care Condition: Fair Prescriptions: diltiaZEM [Cardizem] 60 mg PO BID #60 tablet predniSONE [Deltasone] 40 mg PO DAILYWM #80 tablet Lidocaine Patch 5% [Lidoderm Patch] 1 patch TOP DAILY PRN #30 patch PRN Reason: Pain Nicotine 7 mg Patch [Nicoderm] 1 each TOP Q24H #7 patch Nicotine 14 mg Patch [Nicoderm] 1 patch TOP DAILY #7 patch Insulin Aspart [NovoLOG] 1 - 2 unit SUBQ 0800,1200,1700,2100 #4 pen Montelukast [Singulair] 10 mg PO QPM #30 tablet Acyclovir [Zovirax] 800 mg PO 5XD 5 Days #100 capsule Activity Restrictions: Activity as Tolerated Shower Restrictions: No Driving Restrictions: No Instruction Topics: Iron tablets capsules extended-release tablets, Lidocaine dermal patch, Montelukast oral tablets, Nicotine skin patches, Prednisone tablets, Diltiazem tablets Health Concerns: You were hospitalized for a COPD flare up and pneumonia. You completed the complete course of antibiotics while here. You are being discharged on a slowly tapering-down course of Prednisone. We have also provided you with a prescription for insulin and glucose monitoring. Resume your other usual medications for treating your lungs. We have also ordered you a nebulizer to take as needed as well as a trilogy machine to help with your breathing when you feel short of breath. You can use this at night as well. The supplemental oxygen settings are now required to be higher: 4L/min oxygen at rest, and increase it to 6L/min oxygen when you are active, then bring it back down to 4L/min. During sleep it should be 4L/min. Your blood pressure medication was changed because it was adding to a constant fast heart rate. Stop taking Amlodipine. In its place, start taking Cardizem twice a day. A new prescription for Lidocaine patch topically daily, for pain was ordered. New prescriptions for NicoDerm patch were ordered to help you stop smokin mg topically daily for 1 week then 7 mg topically daily. All your new prescriptions were electronically sent to [facility] in [place]. Keep your upcoming appointment with [facility] on September 23. Please see your Massotherapist or PCP for hospital follow-up in the next 1 to 2 weeks. Plan of Treatment: Please take prednisone 40 mg daily for 2 weeks and then take 30 mg daily for 1 week. Then you can take 20 mg daily until you follow-up with your pulmonolgist. Also, prescriptions for a bedside commode and and overhead trapeze have been provided for you. Care Goals: Improvement in symptoms and stabilization are the goals. Assessment: The patient and significant-other understand and are agreeable with the plan. Additional Instructions or Follow Up instructions: If you have new or worsening symptoms, call your Massotherapist, or your PCP or Oncologist for advice or come to the ER. Follow-Up Care: [facility] - Pulmonary No Smoking: If you smoke, Please STOP! Call for help. Follow-up with: Erika Melo MD [Primary Care Provider] -
[2020-09-19 11:50] LABS: BACTERIA,URINE Rare /HPF (None Seen); CLARITY,URINE CLEAR (CLEAR); RBC,URINE None Seen /HPF (0-5); SQUAMOUS EPITHELIAL CELL,UR NONE SEEN (<= Few)
[2020-09-19 11:51] LABS: MUCUS,URINE Few Strands
--- NOTE | 2020-09-19 12:14 | DISCHARGE SUMMARY ---
"Discharge Summary Admit Date: 09/10/20 Discharge Date: 09/19/20 Discharging Provider: Manny Bray Primary Care Provider: Erika Melo Condition at Discharge: Fair Discharge Disposition: 01 Home, Self Care - DIAGNOSES Admission Diagnoses: Acute on chronic respiratory failure with hypoxia Community-acquired pneumonia of left lower lobe of lung COPD exacerbation Lung cancer, hilus Pulmonary fibrosis Chronic pain Hypertension Discharge Diagnoses with Status of Each Condition: Acute on chronic respiratory failure with hypoxia - resolved. Leukocytosis - improving but ongoing. Community-acquired pneumonia of left lower lobe of lung - resolved. COPD exacerbation - improved. Lung cancer, hilus - stable. Pulmonary fibrosis - stable. Chronic pain - stable. Hypoxia - stable. 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 He reports that he is chronically short of breath due to his COPD and pulmonary fibrosis. He has been short of breath for the past couple weeks and he thought this may have been the cancer but yesterday this became much more severe and he started to develop a cough with sputum production and so he sought medical attention. He reports no fevers but does complain of chills. Reports dyspnea at rest but this is most prominent with minimal exertion. He denies any chest pain, nausea, vomiting. He reports being tested for COVID-19 3 times now with the most recent being about 10 days ago and all of these tests were negative. He rarely leaves the house due to his dyspnea except for his medical appointments. He denies any history of blood clots in the past and denies any leg pain or edema. He is followed at the [facility]. His oncologist is Dr. Mary Wilson. Patient tells me he started chemotherapy about 3 weeks ago but only finished 2 out of 3 treatments due to some hematuria that presented after the second day of treatment. States he underwent bronchoscopy and had a biopsy of a lymph node. Unfortunately, they could not make an official diagnosis with this biopsy but he states that they are treating him as if he has small cell cancer. He is due for his next treatment in 6 days. He has been on and off of steroids for the past couple months due to his dyspnea. His fine unhairer is at the [facility]. He had called him yesterday to make an appointment for today due to his dyspnea. In the emergency department, he was found to be afebrile with a temperature of 37.3 C. He was tachycardic with a heart rate in the 120s. His blood pressure is 137/92. He was tachypneic with a respiratory in the low 20s. He was initially saturating in the mid 70s on 4 L of oxygen upon EMS arrival and he was placed on a nonrebreather mask with improvement in his saturations to 100%. He did desaturate in the emergency department with minimal exertion and so he remains on a nonrebreather mask saturating 100% on 15 L a minute. Labs in the emergency department were unremarkable. Chest x-ray was concerning for a left lower lobe infiltrate. He was given ceftriaxone and azithromycin IV in the [facility] department. Due to to the above findings, medicine was consulted for admission. The emergency department provider did speak with the oncologist on- call initially and it was felt the patient did not need to be transferred at this time. I did discuss goals of care and the patient would like to be a full code. - CONSULTS | PROCEDURES Consultations: Social Work, PT. Procedures: CT angiogram of the chest on September 18 showed mild interval increase in size of mediastinal right upper lobe lung mass abutting the mediastinal border, and also mild interval increase in size of right hilar mediastinal adenopathy previously present. The right mainstem bronchus for example shows mild further constriction by the adjacent mass. Mild impingement on the central pulmonary arteries on the right has likely increased. No pulmonary embolus is found. - HOSPITAL COURSE Hospital Course: He was admitted to the intensive care unit initially for acute on chronic hypoxic respiratory failure secondary to left lower lobe infiltrate. He was treated with doxycycline and ceftriaxone given his QTC was prolonged. He was also treated with Solu-Medrol 40 mg IV 3 times daily. Covid and influenza were ruled out. He was slow to improve but was eventually weaned back down to 4 L of oxygen which is his baseline. He initially required a nonrebreather at 15 L a minute but he was saturating 100% on this. His steroids were tapered down to 40 mg of prednisone daily. He ultimately completed 7 days of antibiotics during this hospitalization. She will blood cultures grew gram-positive bacilli and cocci which was felt to be contaminant. He was going to be discharged on hospital day 7 but he felt more short of breath and desaturated to the mid 80s despite being on 4 L of oxygen. An exercise desaturation test was obtained which showed he does require 6 L of oxygen with exertion and 4 L at rest. A repeat chest x-ray was obtained which showed no obvious infiltrate. Repeat labs were obtained which showed his white count had increased to 11,000 from 5000. His hemoglobin and platelet count had also increased and so it is felt to be hemoconcentration. He was given IV fluids but the following day his white count continued to increase to 15,000. There was an increase in monocytes and lymphoc ytes. Repeat blood cultures were obtained which were negative to date. Decision was made to obtain a CT angiogram which was negative for pulmonary embolism and did not reveal any obvious infiltrate or pulmonary vascular congestion. His right lung mass was slightly increased compared to prior imag ing I did speak with his oncologist discussed elevated white count and they agreed with obtaining an infectious work-up. Urinalysis was also unremarkable. The following day, his white count slightly improved to 14,000. Given there is no obvious source of infection and the patient felt stable, he was discharged home. It was recommended that he have repeat labs next week when he visits his oncologist. I did also speak with his fine unhairer prior to discharge to discuss a prednisone taper as the patient does feel improved from a respiratory standpoint while on prednisone. They recommended 40 mg daily for 2 weeks followed by 30 mg daily for a week and 20 mg daily until the patient is eval uated by his fine unhairer. This was ordered for the patient. The patient and his significant other requested to be discharged on insulin as his blood glucose was slightly elevated in the 180s so he was discharged on a sliding scale. Iron studies were obtained during his hospitalization and iron was discontinued as his iron studies were suggestive of anemia of chronic disease rather than iron d eficiency. I did discuss obtaining a palliative care consult but the patient is scheduled to see them through the [facility] and he prefers to see palliative care there to keep all his providers within one group and so palliative care was not consulted here. I did express with the patient and significant other my concern regarding his overall poor lung function and poor lung reserve. He does become dyspneic with minimal exertion but unfortunately, this is likely his new baseline given the severity of his COPD as well as pulmonary fibrosis. The patient is hypoxic at rest. I am ordering oxygen at 4 L/min via nasal cannula as this improves his oxygen saturations to 88%. With activity, he requires 6 L of oxygen a minute to maintain oxygen saturation of 88%. I am ordering home oxygen at 4 L/min via nasal cannula during rest and 6 L/min with activity. I am also ordering home nebulizer machine for administration of bronchodilators to help treat his COPD. I am also ordering trilogy for the patient. Patient has chronic hypoxic respiratory failure secondary to COPD. Patient requires noninvasive ventilator. Inhalation is required to decrease his work of breathing, improved pulmonary status and interruption of respiratory support could lead to serious harm including decline in health status, worsening of condition, increased risk of CO2 retention, untimely readmissions and . - ALLERGIES Allergies/Adverse Reactions: Allergies Allergy/AdvReac Type Severity Reaction Status Date / Time No Known Drug Allergies Allergy Verified 08/07/20 03:20 - MEDICATIONS Home Medications: Ambulatory Orders Medication Instructions Recorded Confirmed Nortriptyline [Pamelor] 50 mg PO DAILY PM 11/27/13 09/10/20 Oxycodone HCl/Acetaminophen 1 each PO TID PRN 07/30/15 09/10/20 [Percocet 10-325 mg Tablet] Atorvastatin [Lipitor] 80 mg PO DAILY 01/06/16 09/10/20 Ascorbic Acid [Vitamin C] 500 mg PO BID 07/23/16 09/10/20 Cholecalciferol (Vitamin D3) 2,000 units PO DAILY 07/23/16 09/10/20 [Vitamin D3] Folic Acid 1 mg PO DAILY 07/23/16 09/10/20 Ipratropium/Albuterol [Combivent 1 puffs INH TID PRN 07/23/16 09/10/20 Respimat] Fluticasone/Vilanterol [Breo 1 puffs INH DAILY 02/24/19 09/10/20 Ellipta 100-25 Mcg INH] Citalopram Hydrobromide 20 mg PO DAILY 09/10/20 09/10/20 [Citalopram HBr] Etoposide 50 mg PO DAILY 09/10/20 09/10/20 LORazepam [Ativan] 1 mg PO TID 09/10/20 09/10/20 Methadone 5 mg PO BID 09/10/20 09/10/20 Pantoprazole [Protonix] 40 mg PO BID 09/10/20 09/10/20 ondansetron HCL [Zofran] 8 mg PO DAILY PRN 09/10/20 09/10/20 traZODone [Desyrel] 50 mg PO QPM PRN 09/10/20 09/10/20 Lidocaine Patch 5% [Lidoderm Patch] 1 patch TOP DAILY PRN #30 patch 09/16/20 Montelukast [Singulair] 10 mg PO QPM #30 tablet 09/16/20 Nicotine 14 mg Patch [Nicoderm] 1 patch TOP DAILY #7 patch 09/16/20 Nicotine 7 mg Patch [Nicoderm] 1 each TOP Q24H #7 patch 09/16/20 diltiaZEM [Cardizem] 60 mg PO BID #60 tablet 09/16/20 Acyclovir [Zovirax] 800 mg PO 5XD 5 Days #100 capsule 09/19/20 Insulin Aspart [NovoLOG] 1 - 2 unit SUBQ 09/19/20 0800,1200,1700,2100 #4 pen predniSONE [Deltasone] 40 mg PO DAILYWM #80 tablet 09/19/20 - PHYSICAL EXAM AT DISCHARGE General Appearance: positive: No acute distress, Alert Eyes Bilateral: positive: Normal inspection, Conjunctivae nml ENT: positive: ENT inspection nml, Other (Nasal cannula in place.) Neck: positive: Nml inspection Respiratory: positive: No respiratory distress, Rhonchi, Other (Slightly tachypneic at rest but appears comfortable. He does have bilateral rhonchi. No obvious wheezing noted.). negative: Wheezes Cardiovascular: positive: No murmur, Tachycardia. negative: Irregularly irregular, Bradycardia, Systolic murmur Abdomen: positive: Non-tender, No distention. negative: Tenderness, Guarding, Rebound Skin: positive: No rash, Warm, Dry Extremities: positive: Full ROM, No pedal edema Neurologic/Psychiatric: positive: Oriented x3. negative: Disoriented to person, Disoriented to place, Disoriented to time Physical Exam Other/Comments: Vital Signs - 24 hr 09/18/20 09/18/20 09/19/20 19:20 21:27 01:04 Temperature 36.4 C L Heart Rate 98 Heart Rate [ 101 H Brachial] Respiratory 22 18 Rate Blood Pressure 128/67 Blood Pressure 123/66 [Right Brachial artery] O2 Saturation 98 09/19/20 09/19/20 09/19/20 01:16 01:20 07:29 Temperature Heart Rate 101 H 102 H Heart Rate [ 106 H Brachial] Respiratory 22 18 22 Rate Blood Pressure Blood Pressure [Right Brachial artery] O2 Saturation 98 09/19/20 09/19/20 09/19/20 07:44 11:14 16:06 Temperature 36.3 C L 36.5 C Heart Rate 110 H Heart Rate [ 102 H 96 Brachial] Respiratory 20 22 16 Rate Blood Pressure Blood Pressure 116/66 125/69 [Right Brachial artery] O2 Saturation 97 93 09/19/20 09/19/20 16:13 18:25 Temperature 36.4 C L Heart Rate 110 H Heart Rate [ 106 H Brachial] Respiratory 16 19 Rate Blood Pressure Blood Pressure 118/68 [Right Brachial artery] O2 Saturation 94 Oxygen O2 Source Nasal cannula Oxygen Flow Rate 13 - LABS Result Diagrams: 09/19/20 05:00 09/19/20 05:00 Other Lab Results: Laboratory Results - last 24 hr 09/18/20 09/19/20 09/19/20 21:05 05:00 05:00 WBC 14.7 H RBC 3.81 L Hgb 11.9 L Hct 36.6 L MCV 96.1 H MCH 31.2 H MCHC 32.5 RDW 16.8 H Plt Count 403 MPV 9.3 Neut # (Auto) Not Reportable Lymph # (Auto) Not Reportable [place] # (Auto) Not Reportable Eos # (Auto) Not Reportable Baso # (Auto) Not Reportable Absolute Nucleated RBC Not Reportable Total Counted 100 Band Neuts % (Manual) 5 Abnorm Lymph % (Manual) 0 Metamyelocytes % 2 H Myelocytes % 3 H Nucleated RBC % Not Reportable Neutrophils # (Manual) 7.8 H Lymphocytes # (Manual) 4.9 H Monocytes # (Manual) 1.3 H Eosinophils # (Manual) 0.0 Basophils # (Manual) 0.0 Differential Comment MANUAL DIFFERENTIAL Platelet Estimate NORMAL (130-450,000) RBC Morph Micro Appear NORMAL APPEARANCE Sodium 134 L Potassium 4.1 Chloride 93 L Carbon Dioxide 32 Anion Gap 9.0 BUN 28 H Creatinine 0.7 Estimated GFR (MDRD) 112 Glucose 121 H POC Whole Bld Glucose 185 H Calcium 9.1 Urine Color Urine Clarity Urine pH Ur Specific [place] Urine Protein Urine Glucose (UA) Urine Ketones Urine Occult Blood Urine Nitrite Urine Bilirubin Urine Urobilinogen Ur Leukocyte Esterase Urine RBC Urine WBC Ur Squamous Epith Cells Urine Bacteria Urine Mucus Urine Culture Comments 09/19/20 09/19/20 09/19/20 07:38 11:09 11:20 WBC RBC Hgb Hct MCV MCH MCHC RDW Plt Count MPV Neut # (Auto) Lymph # (Auto) [place] # (Auto) Eos # (Auto) Baso # (Auto) Absolute Nucleated RBC Total Counted Band Neuts % (Manual) Abnorm Lymph % (Manual) Metamyelocytes % Myelocytes % Nucleated RBC % Neutrophils # (Manual) Lymphocytes # (Manual) Monocytes # (Manual) Eosinophils # (Manual) Basophils # (Manual) Differential Comment Platelet Estimate RBC Morph Micro Appear Sodium Potassium Chloride Carbon Dioxide Anion Gap BUN Creatinine Estimated GFR (MDRD) Glucose POC Whole Bld Glucose 90 138 H Calcium Urine Color YELLOW Urine Clarity CLEAR Urine pH 6.0 Ur Specific [place] 1.020 Urine Protein NEGATIVE Urine Glucose (UA) NEGATIVE Urine Ketones NEGATIVE Urine Occult Blood NEGATIVE Urine Nitrite NEGATIVE Urine Bilirubin NEGATIVE Urine Urobilinogen 0.2 (NORMAL) Ur Leukocyte Esterase NEGATIVE Urine RBC None Seen Urine WBC 0-3 Ur Squamous Epith Cells NONE SEEN Urine Bacteria Rare Urine Mucus Few Strands Urine Culture Comments NOT INDICATED 09/19/20 16:34 WBC RBC Hgb Hct MCV MCH MCHC RDW Plt Count MPV Neut # (Auto) Lymph # (Auto) [place] # (Auto) Eos # (Auto) Baso # (Auto) Absolute Nucleated RBC Total Counted Band Neuts % (Manual) Abnorm Lymph % (Manual) Metamyelocytes % Myelocytes % Nucleated RBC % Neutrophils # (Manual) Lymphocytes # (Manual) Monocytes # (Manual) Eosinophils # (Manual) Basophils # (Manual) Differential Comment Platelet Estimate RBC Morph Micro Appear Sodium Potassium Chloride Carbon Dioxide Anion Gap BUN Creatinine Estimated GFR (MDRD) Glucose POC Whole Bld Glucose 170 H Calcium Urine Color Urine Clarity Urine pH Ur Specific [place] Urine Protein Urine Glucose (UA) Urine Ketones Urine Occult Blood Urine Nitrite Urine Bilirubin Urine Urobilinogen Ur Leukocyte Esterase Urine RBC Urine WBC Ur Squamous Epith Cells Urine Bacteria Urine Mucus Urine Culture Comments - DIAGNOSTIC IMAGING Diagnostic Imaging Results: Final report reviewed - FOLLOW UP Follow Up: He will follow up with his oncologist on September 23. He will also be making a telehealth appointment with his fine unhairer to discuss the steroid taper. - TIME SPENT Time Spent in Discharge (Minutes): 42"
[2020-09-19 18:27] VITALS: BP 118/68
== END 2020-09-19 19:00 | disposition home or self-care (01) | DRG 189 ==
LOC: EDUNIT# → ED 02:20 → ICU 04:54 → MS2 09-12 19:07
PROVIDERS: ADMIT Internal Medicine; ATTEND Internal Medicine
DX: J96.21 Acute and chronic respiratory failure with hypoxia (principal); J18.9 Pneumonia, unspecified organism; C34.01 Malignant neoplasm of right main bronchus; Z99.81 Dependence on supplemental oxygen; J43.9 Emphysema, unspecified; E86.0 Dehydration; J84.10 Pulmonary fibrosis, unspecified; G89.29 Other chronic pain; Z20.828 Contact with and (suspected) exposure to other viral communicable diseases; I10 Essential (primary) hypertension; F17.200 Nicotine dependence, unspecified, uncomplicated; R00.0 Tachycardia, unspecified; R53.1 Weakness; D63.8 Anemia in other chronic diseases classified elsewhere; R73.09 Other abnormal glucose
CPT/HCPCS: 36415; 71045; 71275; 80048; 80053; 81001; 81003; 82607; 82746; 83540; 83605; 83690; 83735; 84100; 84466; 84484; 85025; 87040; 87070; 87150; 87205; 87275; 87276; 93005; 94640; 94667; 94668; 94761; 96361; 96365; 96375; 97116; 97162; 97530; 99284; 99285; A9270; J1650; J7120; J7512; J7626; J8499; Q9967; U0004; 87086

== ENCOUNTER 2020-11-07 10:00 | Outpatient (CLI) | payer MEDICARE, MEDICAID ==
--- NOTE | 2020-11-07 17:59 | CONSULTATION NOTE ---
Palliative Care Consultation - Referral Referring Provider: Dr. Melo Time of Visit: Referral setting: Home Referral Reason: Pulmonary Fibrosis/Lung CA/COPD/Chronic Pain Syndrome - Information Sources Records reviewed: Previous records reviewed History/Review of Systems obtained from: Patient, Family (S/O Juliie) Exam limitations: Clinical condition (patient very anxious; both patient and S/O wanting to share their story) - History of Present Illness Brief History of Present Illness: This is an anxious 70-year-old gentleman with a complex history related to his respiratory status. He has known long-term pulmonary fibrosis, has been seen cause analyst for 6 to 7 years, but has had progressive decline related to this. With increased shortness of breath, worsening activity tolerance, and had been a heavy smoker up to 3 packs a day, recently quit. He has known emphysema/COPD, was admitted at [facility] 09/10-09/19 for left lower lobe pneumonia, with a long prolonged course with acute on chronic respiratory failure, and initiation of trilogy for respiratory support. He also had a extended stay at [facility], -10/14 with hypoxic respiratory failure secondary COPD versus ILD exacerbation. His course was complicated by ongoing intermittent hypoxia and versicolor with zoster recurrence. Patient continues with fluctuating hypoxia, feeding into his anxiety regarding this, and constantly watching his oximeter. He is quite frightened of not having enough breath, and suspect with his most recent hospitalizations, syndrome of PTSD. In the midst of all this patient is also been diagnosed with lung cancer, he did have a bronc that was nondefinitive, as they were only able to get a lymph node. It was presumed to be small cell, and has started treatment, he received carboplatin and etoposide x1 treatment. Patient has been recommended to receive radiation, this is complicated in the context patient is unable to lay flat, but is working on working up to this. He is supposed to be having a CT scan pending, as well as a second opinion for oncology. Patient is wanting to know if he is a candidate for immunotherapy, does feel like he has been on a roller coaster, and has had a series of unfortunate events up to this point. Patient is at home, in a hospital bed with head up. He does have trilogy, though is not using it consistently as feels it set too high. He has been in contact with [facility] but has not had any satisfactory results with this. He do es have 2 concentrators, resting oxygen is on 4 L, is watching often to keep his oxygen sat between 87-88% but not higher than 92 secondary to retention. It is unclear what is the exacerbating factor, meaning pulmonary fibrosis progressing and/or his cancer. He has been on a prednisone taper, is currently been decreased to 40 mg. He is wheezy throughout, does have nebulizer treatments which provide some relief. He does have intermittent anxiety attacks, and mood fluctuations. He short-term goal is to be strong enough to be able to tolerate whatever treatment plan might be coming his way, whether that is immunotherapy or radiation. He is currently mostly bedbound, but can ambulate several feet, and is working on getting stronger every day. He is mostly limited by his deconditioning as well as his dyspnea and chronic pain Medical/Surgical History - Past Medical History Cardiovascular: reports: High cholesterol Respiratory: reports: COPD, Emphysema, Other (lung ca; presumed small cell) Neuro: None Endocrine/Autoimmune: reports: None GI: reports: Chronic constipation : reports: None HEENT: reports: None Psych: reports: Anxiety Musculoskeletal: reports: Osteoarthritis, Scoliosis, Chronic back pain Derm: reports: None MRSA Hx?: No - Past Surgical History General: reports: Other HEENT: reports: Tonsil/Adenoidectomy - Substance History Use: Uses substance without health or social issues: Tobacco (hx 3 pack day since 15; recently quit), Cocaine (hx) Social History - Living Situation Living arrangement: At home Living Situation: With spouse/s.o. Support System: Patient lives in a mobile home with his significant other in [place]. They have been together for 10 years. He came up from [place], he helped take care of her as she went through breast cancer txOxana Jessica admits this has been difficult in the context of navigating the health care system, patients acute illness and significant care needs, and she has past trauma from losses in her life as a young child. She is working with therapist and feels supported and it has helped. He has significant financial stressors. 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 [place] has found it quite difficult not to be available, particularly in the context of the limitations of the pandemic. They are currently being supported by home health team, as well as [facility] from [facility]. Family History - Family History Family History: Mother: (ALS; he is one of 7 siblings most who have of lung ca/copd/etoh abuse), Alcoholism, Father: , Brother: Medications/Allergies - Medications Home Medications: Ambulatory Orders Medication Instructions Recorded Confirmed Nortriptyline [Pamelor] 50 mg PO DAILY PM 11/27/13 11/08/20 Oxycodone HCl/Acetaminophen 2 each PO TID PRN 07/30/15 11/08/20 [Percocet 10-325 mg Tablet] Atorvastatin [Lipitor] 80 mg PO DAILY 01/06/16 11/08/20 Ascorbic Acid [Vitamin C] 500 mg PO BID 07/23/16 11/08/20 Cholecalciferol (Vitamin D3) 2,000 units PO BID 07/23/16 11/08/20 [Vitamin D3] Folic Acid 1 mg PO DAILY 07/23/16 11/08/20 Fluticasone/Vilanterol [Breo 1 puffs INH DAILY 02/24/19 11/08/20 Ellipta 100-25 Mcg INH] Citalopram Hydrobromide 20 mg PO DAILY 09/10/20 11/08/20 [Citalopram HBr] Methadone 5 mg PO BID 09/10/20 11/08/20 Montelukast [Singulair] 10 mg PO QPM #30 tablet 09/16/20 11/08/20 Calcium Carbonate [Tums (Calcium 500 mg PO TID 11/08/20 11/08/20 Carbonate 500mg)] Clotrimazole Sukhdeep 10 mg PO QID 11/08/20 11/08/20 Codeine Phosphate/Guaifenesin 10 ml PO Q6HR PRN 11/08/20 11/08/20 [Guaifen-Codeine 100-10 mg/5 ml] Ipratropium/Albuterol [Combivent 1 amp INH Q6HR PRN 11/08/20 11/08/20 Respimat] Lansoprazole [Prevacid] 30 mg PO DAILY 11/08/20 11/08/20 Lisinopril [Prinivil] 5 mg PO DAILY 12/18/20 12/18/20 Valacyclovir HCl [Valtrex] 1 cap PO Q8HR 11/08/20 11/08/20 Zinc Gluconate [Zinc] 220 mg PO DAILY 11/08/20 11/08/20 guaiFENesin [Mucus Relief ER] 600 mg PO BID 11/08/20 11/08/20 polyethylene glycoL 3350 [Miralax] 17 gm PO DAILY 11/08/20 11/08/20 predniSONE [Deltasone] 20 mg PO DAILYWM 11/08/20 11/08/20 - Allergies Allergies/Adverse Reactions: Allergies Allergy/AdvReac Type Severity Reaction Status Date / Time No Known Drug Allergies Allergy Verified 08/07/20 03:20 Review of Systems - Constitutional Constitutional: reports: Fatigue, Poor appetite. denies: Fever, Chills - Eyes Eyes: reports: Vision loss - Ears, Nose & Throat Ears, Nose & Throat: reports: Dry mouth - Cardiovascular Cardiovascular: reports: Exertional dyspnea, Decr. exercise tolerance, Orthopnea - Respiratory Respiratory: reports: Cough, Sputum production, Wheezing, Hemoptysis, Orthopnea, SOB at rest, SOB with exertion - Gastrointestinal Gastrointestinal: reports: Constipation, Early satiety - Musculoskeletal Musculoskeletal: reports: Back pain, Muscle aches, Stiffness, Limited range of motion, Muscle weakness, Transfer issues (mostly bedbound; though working on ambulation; can walk about 10 feet but with freq rest periods; desats wtih any activity) - Integumentary Integumentary: reports: Dryness, Other (hx pressure ulcer) - Neurological Neurological: reports: General weakness - Psychiatric Psychiatric: reports: Anxiety, Other (mood fluctuations;) - Hematologic/Lymphatic Hematologic/Lymph: Recurrent infections (LLL pneumonia August, varciella zoster both August/September; has been COVID negative for 3 tests) Physical Exam - Vital Signs Temperature: 96.7 C Pulse Rate: 116 Respiratory Rate: 22 O2 Saturation: 95 (4 liters; decreases with minimal activity) Blood Pressure: 95/51 - Physical Exam General Appearance: positive: Mild distress, Anxious, Cachetic Eyes Bilateral: positive: No scleral icterus Neck: positive: Trachea midline Cardiovascular: positive: Tachycardia Respiratory: positive: Diminished throughout, Wheezes Abdomen: positive: Soft Skin: positive: Pallor, Dryness Extremities: positive: No pedal edema Neurologic/Psychiatric: positive: Oriented x3, Weakness Palliative Care - POLST Patient has POLST: No Pain: Pain unchanged, Location (chronic back pain; currently on methadone 5 mg BID and oxycodone; has pain contract [facility]) Tiredness/Fatigue: Moderate (4-6) Drowsiness/Sedation: Moderate (4-6) Nausea: None Anorexia: Moderate (4-6) Dyspnea: Severe (7-10) Depression: Moderate (4-6) Anxiety: Severe (7-10) Feelings of wellbeing/Perceived Quality of Life: Fair, Acceptable, Improved Sleep: Variable sleep pattern Constipation: Yes, Opoid induced, Intermittent constipation Performance Status: Currently receiving home health aide for bathing, patient is working with physical therapy for strengthening and increasing endurance. Patient is doing in bed exercises, is working on dangling, does report can walk few feet, but is limited by desaturation/hypoxia. Patient usually is wheelchair-bound for longer distance secondary to oxygen needs - Palliative Care Discussion: Patient and significant other, are somewhat traumatized by the last few weeks, did spend quite a bit of time telling her story, frustrations with the system, and hopes for the future. They do understand the seriousness of his illness, but are hopeful to be able to take treatment that will extend his quantity as well as improve his quality of life. They had been referred to hospice, was not admitted as goals did not align. In pursuing any treatment that would be of benefit. We did discuss in the context of benefit versus burden, sometimes can hasten once demise. He did express he does not want to be put on a ventilator, and has been a DO NOT RESUSCITATE with his last hospitalization. Patient does not have a POLST completed with reflection of these goals. Patient is quite anxious, introduced the role of palliative care. Home health RN following so little conversation to expand on this. Patient is hoping to continue to improve, gain strength, and be able to tolerate laying flat to be able to receive radiation at some point. He is also interested in pursuing possibly immunotherapy, does feel like his care needs to come to [facility] related to financial reasons. He is connected with oncology there, but is looking at second opinion with Dr. Sita WOLFE which is scheduled for this upcoming week. Did speak to his significant other Dulie, given they are NOT , and though partners, would recommend as a priority to do the DPOA for healthcare. I provided with a very simple form, that delineates these duties. Did recommend though they need further advance care planning documents to be more reflective of patient's wishes, as well as need to readdress the POLST in case needs to call 911 for assistance or transitions into acute care again. They have multiple forms, will address at next visit. Did ask that they could go through the paperwork, with their list of questions so we can address next time. Impression and Recommendations - Palliative Care Impression: This is a 70-year-old gentleman who presents with a complex and compromised respiratory status, related to limited stage small cell lung cancer, severe COPD, and interstitial lung disease. Patient does have a chronic respiratory failure, newly on trilogy currently not using, and fluctuating hypoxia. Patient is quite deconditioned, from 2 prolonged hospitalizations, is currently mostly bedbound, but working with home health physical therapy for improvement. Patient presents with high anxiety, chronic back pain, severe dyspnea, fluctuating mood, and concern for both quality and quantity of life. Palliative care to provide support for anticipatory guidance, advanced care planning, and symptom management. Recommendations/Counseling Done: 1. Advanced care planning. Despite patient's multiple admits, has not completed advance care planning documents. They do have multiple versions, recommended to get simple DPOA defined given patient's high risk for rehospitalization. Given [place] state laws, can have 2 witnesses versus notary given difficulty to leave the home. Introduced POLST, and recommended they write their questions as well as go through forms and see what might aligned with what their wishes are. 2. Anxiety. This is multifactorial, certainly impacted by patient's dyspnea and breathlessness. Patient this point in time only on citalopram, may benefit from low-dose benzodiazepine or BuSpar. Given this is our first meeting, and patient's high anxiety, will reevaluate and make recommendations with next visit. 3. Chronic pain syndrome. Patient has been transitioned in the last couple years to methadone 5 mg twice daily, with oxycodone, which has been increased to help address breathlessness. Patient may likely benefit better for low-dose morphine for breathlessness, will explore with patient's cause analyst, awaiting schedule and outcome of CT scan. Patient is supported by [facility] pain clinic, may not be able to be adherent with visits, will offer prescribing if problematic. 4. Lung cancer. This is been a long complicated journey for both of them, still awaiting now further options for treatment. Though there is some question if ILD is more prominent problem at this point. I suspect they feed on each other, particularly with patient's baseline wheezing and dyspnea. Patient's goal is to be able to lay flat and be able to receive radiation, also exploring immunotherapy as an option, though patient currently on steroids secondary to COPD/ILD exacerbation. 5. Caregiver fatigue. They are being supported by home health, this is been helpful for significant other. There is high anxiety regarding meeting patient's care needs, and his possible decline and high symptom burden. She does have some support from her son, but could benefit more from respite care. They also have significant amounts of financial stressors, and more complicated course, significant other could use increased support. She has been working with her counselor, finding is helpful. 6.Chronic respiratory failure. Did encourage them to follow-up regarding getting trilogy adjusted, patient at high risk for ongoing sequela. Did encourage him to focus less on the numbers, though certainly important to monitor, is spending a lot of time and energy responding. Patient without any symptoms of dizziness, gasping, it tends to just feed his anxiety. Encouraged mindfulness, slow breathing, distraction and refocus. Time Spent: 105 minutes, with greater than 50% of this done in counseling, both patient and caregiver very important for them to tell the story, to help with understanding of underlying issues. Unfortunately left little time for symptom management advanced care planning, will revisit next week, hopefully will have information from oncology, will follow up with cause analyst regarding possible use of low- dose morphine/benzo/BuSpar.
== END 2020-11-07 10:01 | disposition home or self-care (01) ==
LOC: PC 10:00
PROVIDERS: ATTEND Nurse Practitioner Adult Health
DX: Z51.5 Encounter for palliative care (principal); F41.9 Anxiety disorder, unspecified; G89.4 Chronic pain syndrome; J96.10 Chronic respiratory failure, unspecified whether with hypoxia or hypercapnia; J98.2 Interstitial emphysema; C34.90 Malignant neoplasm of unspecified part of unspecified bronchus or lung; Z99.81 Dependence on supplemental oxygen; Z87.891 Personal history of nicotine dependence
CPT/HCPCS: 99345

== ENCOUNTER 2020-11-13 11:00 | Outpatient (CLI) | payer MEDICARE, MEDICAID ==
--- NOTE | 2020-11-13 15:11 | CONSULTATION NOTE ---
Palliative Care Follow Up - Referral Referring Provider: Dr. Erika Melo Time of Visit: Referral setting: Home Referral Reason: Pulmonary Fibrosis/Lung CA/COPD/Chronic Pain Syndrome/Constipation - Information Sources Records reviewed: RN notes reviewed, Previous records reviewed History/Review of Systems obtained from: Patient, Family (s/o Duli) Exam limitations: Clinical condition (patient with mild STM/anxiety) - History of Present Illness Update Brief HPI Update: This is an anxious 70-year-old gentleman with a complex history related to his respiratory status. His known long-term pulmonary fibrosis, has been followed by pulmonology for 67 years, with progressive decline related to this. He has known COPD, was a heavy smoker up to 3 packs a day, just recently quit. He was diagnosed with lung cancer, this is been a complicated course in the context they do not know definitively what kind. 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 Unfortunately patient also then was admitted with pneumonia , with long prolonged course with acute on chronic respiratory failure, at that point in time they did initiate trilogy for respiratory support. He then as a result of worsening status, when went to oncology appointment 09/30 was admitted again, with hypoxic respiratory failure secondary COPD versus ILD exacerbation. Patient has been receiving support at home after discharge from the hospital at Loc[facility] 10/14 with home health. Originally had been referred to hospice but was not congruent with her goals, they are aware of the seriousness of his illness, but are hoping at some point he will be able to tolerate some palliative treatment. He had recommended radiation, he did have a second opinion yesterday, but was told he needed to be an ECOG of 2 before they could pursue further treatment without causing more harm than benefit. He is pending a CT scan from his protozoologist, as there is concern also for his progressing dyspnea and respiratory decline, that may be related to his interstitial lung disease. Palliative care meeting with patient and significant other, to discuss symptom management and advanced care planning documents. Patient is doing much better this visit, was quite anxious and had a lot of chaos on our introductory visit last week. Past Medical History: Hyperlipidemia, COPD, emphysema, chronic constipation, anxiety, osteoarthritis, severe scoliosis, chronic back pain, tobacco abuse history. Social History - Living Situation Living arrangement: At home Living Situation: With spouse/s.o. Support System: Patient lives in a mobile home with his significant other in [place]. They have been together for 10 years.Susannah is also his jas worker as well as his significant other. She herself has underlying anxiety, and feeling overwhelmed both with patient's increased care needs as well as navigating the healthcare system. [place] and [place] been difficult with the pandemic, but is finding ways to access some increased support and respite. Susannah has been encouraged to take more respite time, and consider getting JAS worker to fill in for a "day off". She has used her son and some family for some support, she is hoping to continue to meet small goals along the way. Medications/Allergies - Medications Home Medications: Ambulatory Orders Medication Instructions Recorded Confirmed Nortriptyline [Pamelor] 50 mg PO DAILY PM 11/27/13 11/13/20 Oxycodone HCl/Acetaminophen 2 each PO TID PRN 07/30/15 11/13/20 [Percocet 10-325 mg Tablet] Atorvastatin [Lipitor] 80 mg PO DAILY 01/06/16 11/13/20 Ascorbic Acid [Vitamin C] 500 mg PO BID 07/23/16 11/13/20 Cholecalciferol (Vitamin D3) 2,000 units PO BID 07/23/16 11/13/20 [Vitamin D3] Folic Acid 1 mg PO DAILY 07/23/16 11/13/20 Fluticasone/Vilanterol [Breo 1 puffs INH DAILY 02/24/19 11/13/20 Ellipta 100-25 Mcg INH] Citalopram Hydrobromide 20 mg PO DAILY 09/10/20 11/13/20 [Citalopram HBr] Methadone 5 mg PO BID 09/10/20 11/13/20 Montelukast [Singulair] 10 mg PO QPM #30 tablet 09/16/20 11/13/20 Calcium Carbonate [Tums (Calcium 500 mg PO TID 11/08/20 11/13/20 Carbonate 500mg)] Codeine Phosphate/Guaifenesin 10 ml PO Q6HR PRN 11/08/20 11/13/20 [Guaifen-Codeine 100-10 mg/5 ml] Ipratropium/Albuterol [Combivent 1 amp INH Q6HR PRN 11/08/20 11/13/20 Respimat] Lansoprazole [Prevacid] 30 mg PO DAILY 11/08/20 11/13/20 Lisinopril [Prinivil] 5 mg PO DAILY 11/08/20 11/13/20 Zinc Gluconate [Zinc] 220 mg PO DAILY 11/08/20 11/13/20 guaiFENesin [Mucus Relief ER] 600 mg PO BID 11/08/20 11/13/20 polyethylene glycoL 3350 [Miralax] 17 gm PO DAILY 11/08/20 11/13/20 predniSONE [Deltasone] 20 mg PO DAILYWM 11/08/20 11/13/20 Acyclovir [Zovirax] 800 mg PO .5X DAY MDD 10 days 11/13/20 11/13/20 Senna [Senokot] 8.6 mg PO DAILY PRN MDD titrate to 11/13/20 11/13/20 use - Allergies Allergies/Adverse Reactions: Allergies Allergy/AdvReac Type Severity Reaction Status Date / Time No Known Drug Allergies Allergy Verified 08/07/20 03:20 Review of Systems - Constitutional Constitutional: reports: Poor appetite. denies: Fever, Chills - Eyes Eyes: reports: Vision loss - Ears, Nose & Throat Ears, Nose & Throat: reports: Dry mouth - Cardiovascular Cardiovascular: reports: Exertional dyspnea, Decr. exercise tolerance. denies: Palpitations, Edema - Respiratory Respiratory: reports: Cough, Sputum production, Wheezing, Hemoptysis, Orthopnea, SOB at rest, SOB with exertion - Gastrointestinal Gastrointestinal: reports: Constipation (continues to struggle with constipation; large hard bm yesterday), Early satiety - Genitourinary Genitourinary: reports: Frequency - Musculoskeletal Musculoskeletal: reports: Back pain, Muscle aches, Stiffness, Limited range of motion, Muscle weakness, Transfer issues (mostly bedbound; though working on ambulation; can walk about 10 feet but with freq rest periods; desats wtih any activity) - Integumentary Integumentary: reports: Dryness, Hair changes (alopeica with chemo; growing back in), Other (hx pressure ulcer) - Neurological Neurological: reports: General weakness - Psychiatric Psychiatric: reports: Anxiety, Other (mood fluctuations;) - Hematologic/Lymphatic Hematologic/Lymph: Recurrent infections (LLL pneumonia October, varciella zoster both ; has been COVID negative for 3 tests; now with recurrent shingles) - All Other Systems All Other Systems: reports: Reviewed and negative Physical Exam - Vital Signs Pulse Rate: 111 Respiratory Rate: 20 O2 Saturation: 93 (3.5 liters; fluctuates with conversation/activity) - Physical Exam General Appearance: positive: Alert, Anxious (less than last visit), Cachetic (wt 138.6) Eyes Bilateral: positive: No scleral icterus ENT: positive: No signs of dehydration Neck: positive: Trachea midline Cardiovascular: positive: Tachycardia Respiratory: positive: Diminished throughout, Wheezes. negative: No respiratory distress (desats with conversation; is able to use Trilogy now; uses at bedtime, and during day for short intervals), Rales, Rhonchi Abdomen: positive: Soft Skin: positive: Pallor, Dryness, Pressure wound (dull pink on coccyx), Other (patient with scattered lesions on backside of shingles;) Extremities: positive: No pedal edema Neurologic/Psychiatric: positive: Oriented x3, Weakness Palliative Care - POLST Patient has POLST: Yes POLST Status: DNR, Selective Treatment (completed at visit; Use antibiotics and no medically assisted nutrition) Pain: Pain unchanged, Location (back pain; chronic; no chest pain) Tiredness/Fatigue: Moderate (4-6) Drowsiness/Sedation: Moderate (4-6) Nausea: None Anorexia: Mild (1-3) Dyspnea: Severe (7-10) Depression: Mild (1-3) Anxiety: Severe (7-10) (using CBD products with some improvement) Feelings of wellbeing/Perceived Quality of Life: Fair, Acceptable, Improved Sleep: Sleeps well, Sleep improved Constipation: Yes, Opoid induced, Unmanaged Performance Status: Patient mostly bedbound still, is doing some bed exercises. Physical therapy has some dangling up to 3 times a week, and trying to sit up in the recliner. He did ambulate short distance to get to the bathroom yesterday, but found it very difficult with his fluctuating hypoxia. Remains still quite stressed with any kind of activity.He is receiving bathing assistance and services, is dependent for most ADLs other than feeding. - Palliative Care Discussion: Duli and patient very encouraged with their telehealth appointment with Dr. Sita Hernandez yesterday. Their understanding is he thinks is most likely a squamous cell carcinoma, which actually is slower growing. Patient does still has hemoptysis, and he was quite logan patient needed to have an ECOG status are activity status much improved. Current goals are to work on getting stronger, eating better, and taking things slow with his breathing. They continue to fluctuate as far as anxiety and concern about the future. We did discuss in the context of his serious illness, though concern regarding advance care planning documents. They are going to complete the DPOA to solidify her status if it were to come into play. Patient understands he would be his own decision maker up to the point he could not make decisions for himself. We did discuss in the context of expected recovery if he were to needed to be coded, most likely would not return to previous level of function and patient is not interested in extending suffering or CPR. We did fragment in the context of allow natural , if patient were to have no breath or heartbeat, otherwise patient would choose to be hospitalized. Patient does not want to be put on a ventilator, BiPAP or breathing support for comfort is fine, and would treat reversible conditions. We did discuss in the "twilight zone" of hoping for the best, patient does and is hopeful to be able to receive some kind of treatment, but also if he were to face an end-of-life event, at this point they are talking about hospice and support at home. They have had an introductory visit with hospice, but their goals did not align. We did complete the POLST with DN AR/DNI and selective treatments, use of antibiotics for prolongation of life, as well as no assisted medical nutrition. Results - Lab Results Lab and Imaging Results: patient will need labs for pending CT scan, would also like to "know" as patient has hemopytsis if doing "okay". Labs ordered to be drawn by next week Impression and Recommendations - Palliative Care Impression: This is a 70-year-old gentleman who presents with complex and compromised respiratory status, related to lung cancer, severe COPD, and interstitial lung disease. Patient does have chronic respiratory failure, has done better and using trilogy more frequently. Continues with fluctuating hypoxia, but improved anxiety around this. Patient is quite deconditioned with 2 prolonged hospitalizations, is working with rehab. He does understand his external status needs to improve before he will be eligible for any kind of treatment. Patient continues to present with high anxiety, chronic back pain, severe dyspnea, hemoptysis, fluctuating mood and concern for both quality and quantity of life. Palliative care to provide support for anticipatory guidance, advanced care planning and symptom management Recommendations/Counseling Done: 1. Constipation. Patient still with chronic constipation, counseled to use MiraLAX half cap daily, if no BM by 48 hours to take a full cap. If no BM by third day to add to senna. If constipated beyond this to take 2 senna every 6 hours until bowel movement. This was written out and reviewed. Reviewed goal is a daily soft BM, particularly in the context of his activity intolerance and fluctuating hypoxia. 2. Anxiety. This is multifactorial, impacted by patient's dyspnea and breathlessness. Patient currently on citalopram, has been on benzodiazepine before, though expressed concerns with chronic opioid use and respiratory status. We did discuss possibly adding BuSpar, patient has trialed some CBD with some relief. They will continue to evaluate, can certainly add medication if needed. 3. Chronic pain syndrome. Patient is transitioning last couple years to methadone 5 mg twice daily with oxycodone up to 6 tabs daily, also uses it to address breathlessness. Patient's understanding was not able to use acetaminophen, patient without any contraindications, encouraged can add as an adjuvant but no more than 25 to 3000 mg in a day. 4. Lung cancer. This is been a long complicated journey for both of them, is awaiting pending CT scan, concern for pulmonary fibrosis changes versus lung cancer for worsening respiratory status. Patient continues with hemoptysis, does have scattered wheezes throughout. Is currently on prednisone 20 mg, being titrated by pulmonology. Does understand needs to get to 10 mg to be able to have immunotherapy per consult from yesterday. Patient's short-term goals is to improve functional status to be able to have consideration for further treatment options, does recognize the seriousness of his illness, which causes quite a bit of anxiety for both of them. Counseled regarding benefit versus burden, with patient's current frailty, could hasten patient's decline versus support his quality of life. We will continue to provide anticipatory guidance and support. 5. Advanced care planning. Did review again role of DPOA, and need to complete document given they are not . She does think she can have her neighbor and son's girlfriend's sign is witnesses, she will complete that today or tomorrow. Counseling provided also for POLST, definition of goals, completed POLST will get copy to PCP as well as KATHERINE Christensen. Patient did sign as DN AR/DNI and selective treatments, goals are to focus on quality of life, being as independent as possible, hopefully looking forward to treatment if improved, and at end-of-life he would like to be at home for comfortable respectful . 6. Shingles. Patient has had another flare, did call and speak with PCP Dr. Melo, they had ordered acyclovir, patient had already started she had some in the home. Reviewed order 800 mg 5 times a day, for 10 days. We did discuss possible prophylactic treatment, given his immunocompromise state and recurrent infections. Will readdress at completion of therapy. Time Spent: 90 minutes with greater than 50% of this done in counseling regarding goals of care, symptom management, and anticipatory guidance. Coordination of care with PCP
== END 2020-11-13 11:01 | disposition home or self-care (01) ==
LOC: PC 11:00
PROVIDERS: ATTEND Nurse Practitioner Adult Health
DX: Z51.5 Encounter for palliative care (principal); K59.00 Constipation, unspecified; F41.9 Anxiety disorder, unspecified; G89.4 Chronic pain syndrome; B02.9 Zoster without complications; C34.90 Malignant neoplasm of unspecified part of unspecified bronchus or lung; J44.9 Chronic obstructive pulmonary disease, unspecified; J84.10 Pulmonary fibrosis, unspecified; J96.10 Chronic respiratory failure, unspecified whether with hypoxia or hypercapnia; Z87.891 Personal history of nicotine dependence; Z66 Do not resuscitate
CPT/HCPCS: 99350

== ENCOUNTER 2020-11-16 23:11 | Outpatient (CLI) | payer MEDICARE, MEDICAID | END 2020-11-16 23:12 | disposition critical access hospital (66) | LOC: EMS 23:11 | PROVIDERS: ATTEND Surgery | DX: R06.00 Dyspnea, unspecified (principal) | CPT/HCPCS: A0425; A0427 ==

== ENCOUNTER 2020-11-16 23:23 | Emergency (ER) | payer MEDICARE, MEDICAID ==
--- NOTE | 2020-11-17 00:20 | ED Physician Documentation ---
PD HPI DYSPNEA - Stated complaint Stated Complaint: SOA, COPD, LUNG CA - Chief complaint Chief Complaint: Resp - History obtained from History obtained from: Patient, EMS - Additional information Additional information: Patient is brought to the emergency department by EMS after experiencing extreme dyspnea at home after his oxygen tank ran out, unbeknownst to him. Patient has a history of severe pulmonary fibrosis, COPD and pulmonary malignancy of some sort. Patient states his specialists do not know exactly what kind of cancer is in his lungs just yet, but he is followed at [facility] for this. The patient has a long complicated pulmonary history, and is currently at home on maximum oxygen via both nasal cannula and nonrebreather mask. He has a number of very large oxygen tanks which she keeps at home, and has significant home health support. Medics state that when they got there, the patient sats were in the 60s, and they realize that his oxygen tank had run out. They state they were able to get the patient back on home oxygen and that his sats did come up, but the patient had not yet recovered his respiratory comfort. They gave him a DuoNeb in route, and now, the patient states he thinks he is at his baseline. Medics state that for the latter part of the transport, the patient has been talking without difficulty and his respirations have become much less labored. The patient states that prior to the oxygen tank running out, he has been feeling at baseline. He has not been ill with anything recently. No fevers, new cough, or congestion that is new. No chest pain. No other complaints at this time. Review of Systems Ten Systems: 10 systems reviewed and negative Constitutional: reports: Reviewed and negative. denies: Fever Eyes: reports: Reviewed and negative Ears: reports: Reviewed and negative Nose: reports: Reviewed and negative Throat: reports: Reviewed and negative Cardiac: reports: Reviewed and negative. denies: Chest pain / pressure Respiratory: reports: Dyspnea. denies: Cough GI: reports: Reviewed and negative : reports: Reviewed and negative Skin: reports: Reviewed and negative Musculoskeletal: reports: Reviewed and negative Neurologic: reports: Reviewed and negative Psychiatric: reports: Reviewed and negative Endocrine: reports: Reviewed and negative Immunocompromised: reports: Reviewed and negative PD PAST MEDICAL HISTORY - Past Medical History Past Medical History: Yes Cardiovascular: High cholesterol Respiratory: COPD, Emphysema, Other Neuro: None Endocrine/Autoimmune: None GI: Chronic constipation : None HEENT: None Psych: Anxiety Musculoskeletal: Osteoarthritis, Scoliosis, Chronic back pain Derm: None - Past Surgical History Past Surgical History: Yes General: Other HEENT: Tonsil/Adenoidectomy - Present Medications Home Medications: Ambulatory Orders Medication Instructions Recorded Confirmed Nortriptyline [Pamelor] 50 mg PO DAILY PM 11/27/13 11/13/20 Oxycodone HCl/Acetaminophen 2 each PO TID PRN 07/30/15 11/13/20 [Percocet 10-325 mg Tablet] Atorvastatin [Lipitor] 80 mg PO DAILY 01/06/16 11/13/20 Ascorbic Acid [Vitamin C] 500 mg PO BID 07/23/16 11/13/20 Cholecalciferol (Vitamin D3) 2,000 units PO BID 07/23/16 11/13/20 [Vitamin D3] Folic Acid 1 mg PO DAILY 07/23/16 11/13/20 Fluticasone/Vilanterol [Breo 1 puffs INH DAILY 02/24/19 11/13/20 Ellipta 100-25 Mcg INH] Citalopram Hydrobromide 20 mg PO DAILY 09/10/20 11/13/20 [Citalopram HBr] Methadone 5 mg PO BID 09/10/20 11/13/20 Montelukast [Singulair] 10 mg PO QPM #30 tablet 09/16/20 11/13/20 Calcium Carbonate [Tums (Calcium 500 mg PO TID 11/08/20 11/13/20 Carbonate 500mg)] Codeine Phosphate/Guaifenesin 10 ml PO Q6HR PRN 11/08/20 11/13/20 [Guaifen-Codeine 100-10 mg/5 ml] Ipratropium/Albuterol [Combivent 1 amp INH Q6HR PRN 11/08/20 11/13/20 Respimat] Lansoprazole [Prevacid] 30 mg PO DAILY 11/08/20 11/13/20 Lisinopril [Prinivil] 5 mg PO DAILY 11/08/20 11/13/20 Zinc Gluconate [Zinc] 220 mg PO DAILY 11/08/20 11/13/20 guaiFENesin [Mucus Relief ER] 600 mg PO BID 11/08/20 11/13/20 polyethylene glycoL 3350 [Miralax] 17 gm PO DAILY 11/08/20 11/13/20 predniSONE [Deltasone] 20 mg PO DAILYWM 11/08/20 11/13/20 Acyclovir [Zovirax] 800 mg PO .5X DAY MDD 10 days 11/13/20 11/13/20 Senna [Senokot] 8.6 mg PO DAILY PRN MDD titrate to 11/13/20 11/13/20 use - Allergies Allergies/Adverse Reactions: Allergies Allergy/AdvReac Type Severity Reaction Status Date / Time No Known Drug Allergies Allergy Verified 08/07/20 03:20 - Social History Does the pt smoke?: Yes Smoking Status: Current every day smoker Does the pt drink ETOH?: No Does the pt have substance abuse?: Yes - Immunizations Immunizations are current?: No Immunizations: TDAP >10years/unknown - POLST Patient has POLST: Yes PD ED PE NORMAL - Vitals Vital signs reviewed: Yes - General General: Alert and oriented X 3, No acute distress, Well developed/nourished - HEENT HEENT: Atraumatic, PERRL, EOMI, Moist mucous membranes - Neck Neck: Supple, no meningeal sign - Cardiac Cardiac: RRR, No murmur, Strong equal pulses - Respiratory Respiratory: Other (Is mildly labored respirations, but his extremely conversational without difficulty. Mild coarseness of breath sounds with exhalation. No wheezing.) - Abdomen Abdomen: Soft, Non tender, Non distended - Derm Derm: Warm and dry - Extremities Extremities: No deformity - Neuro Neuro: Alert and oriented X 3 - Psych Psych: Normal mood, Normal affect Results - Vitals Vitals: Oxygen O2 Source Non-rebreather mask Oxygen Flow Rate 11 - Rads (name of study) CXR Radiology: Final report received, EMP read indepedently, See rad report (Pulmonary fibrosis, unchanged; questionable left basilar opacities.) PD MEDICAL DECISION MAKING - ED course Complexity details: reviewed old records, reviewed results, re-evaluated patient, considered differential, d/w patient ED course: At baseline upon arrival in the emergency department ahead been without symptoms of illness prior to his oxygen tank running out. Additionally, he had not experienced any chest pain. The patient was worked up with a chest x-ray, which was unremarkable, given the patient's baseline. I did not feel the patient needed any further work-up in the emergency department. This patient has a long, extensive medical history, but he has extensive support medically at home and is at his normal baseline. I felt the patient was stable for discharge home. We have discussed home management of symptoms, as well as usual indications for return. Departure - Departure Disposition: 01 Home, Self Care Clinical Impression: Pulmonary fibrosis, Oxygen dependent Lung cancer Qualifiers: Laterality: right Lung location: unspecified part of lung Qualified Code(s): C34.91 - Malignant neoplasm of unspecified part of right bronchus or lung Dyspnea Qualifiers: Dyspnea type: unspecified Qualified Code(s): R06.00 - Dyspnea, unspecified Condition: Stable Instructions: ED Dyspnea Shortness of Breath Comments: Your chest x-ray is not significantly changed today from your previous ones. Your episode today was almost certainly caused by your oxygen tank running out, and given that you are so dependent on oxygen, your reserve for this was very low. However, with nebulizer treatments and supplemental oxygen, you have been doing quite well and talking very easily in the her oxygen saturations have been quite good here. In terms of your cancer, further imaging and work-up should be determined by your specialist, and we do not generally do routine follow-up imaging from the emergency department, especially with no direct guidance from oncology. Please make appointments to see your assignment desk assistant and oncologist as soon as possible to determine what the next best step is in your treatment. Please continue your home oxygen regimen and continue to work with your home health providers. Discharge Date/Time: 11/17/20 01:18
[2020-11-17 01:20] VITALS: BP 108/80
--- NOTE | 2020-11-17 09:44 | XRAY Report ---
PROCEDURE: Chest 1 View X-Ray INDICATIONS: chest pain TECHNIQUE: One view of the chest was acquired. COMPARISON: Single view the chest dated 09/16/2020. FINDINGS: Surgical changes and devices: None. Lungs and pleura: Diffuse reticular opacities are redemonstrated at the bilateral lung bases, and as before appear more conspicuous on the left than on the right. There are likely subtle superimposed le ft basilar pulmonary radiopacities. No pleural effusion or pneumothorax. Mediastinum: Mediastinal contours appear normal. Heart size is normal. Bones and chest wall: Right convex scoliosis is redemonstrated. Overlying soft tissues appear unremar kable. IMPRESSION: 1. Pulmonary fibrosis, similar in extent to the prior study. 2. Questionable superimposed left basilar pulmonary radiopacities suspicious for aspiration/infection . Findings are consistent with the overnight interpretation. Reviewed by: Svetlana Damon MD on 11/17/2020 8:42 AM [place] Approved by: Svetlana Damon MD on 11/17/2020 8:42 AM [facility] Station ID: [id number]
== END 2020-11-17 01:18 | disposition home or self-care (01) ==
LOC: EDUNIT# → ED 23:23
DX: J84.10 Pulmonary fibrosis, unspecified (principal); C34.91 Malignant neoplasm of unspecified part of right bronchus or lung; F17.200 Nicotine dependence, unspecified, uncomplicated; Z99.81 Dependence on supplemental oxygen
CPT/HCPCS: 99283; 99284

== ENCOUNTER 2020-11-17 01:02 | Outpatient (CLI) | payer MEDICARE, MEDICAID | END 2020-11-17 01:03 | disposition home or self-care (01) | LOC: EMS 01:02 | PROVIDERS: ATTEND Surgery | DX: Z74.01 Bed confinement status (principal); Z99.81 Dependence on supplemental oxygen; C34.90 Malignant neoplasm of unspecified part of unspecified bronchus or lung | CPT/HCPCS: A0425; A0428 ==

== ENCOUNTER 2020-11-19 07:00 | Outpatient (CLI) | payer MEDICARE, MEDICAID ==
[2020-11-19 11:32] LABS: BASOPHILS # (AUTO) 0.1 10^3/uL (0.0-0.1); BASOPHILS % (AUTO) 0.4 %; EOSINOPHILS # (AUTO) 0.1 10^3/uL (0.0-0.7); EOSINOPHILS % (AUTO) 1.1 %; HCT - HEMATOCRIT 34.3 % (42.0-52.0); HGB - HEMOGLOBIN 11.2 g/dL (14.0-18.0); LYMPHOCYTES # (AUTO) 3.5 10^3/uL (1.5-3.5); LYMPHOCYTES % (AUTO) 26.5 %; MEAN CORPUSCULAR HEMOGLOBIN 31.4 pg (27.0-31.0); MEAN CORPUSCULAR HGB CONC 32.7 g/dL (32.0-36.0); MEAN CORPUSCULAR VOLUME 96.1 fL (80.0-94.0); MEAN PLATELET VOLUME 9.3 fL (7.4-11.4); MONOCYTES # (AUTO) 0.9 10^3/uL (0.0-1.0); MONOCYTES % (AUTO) 7.1 %; NEUTROPHILS # (AUTO) 8.5 10^3/uL (1.5-6.6); PLT - PLATELET COUNT 323 10^3/uL (130-450); RED BLOOD COUNT 3.57 10^6/uL (4.70-6.10); RED CELL DISTRIBUTION WIDTH 16.2 % (12.0-15.0); WHITE BLOOD COUNT 13.2 x10^3/uL (4.8-10.8)
[2020-11-19 11:51] LABS: ALBUMIN 2.8 g/dL (3.2-5.5); ALBUMIN/GLOBULIN RATIO 0.8 (1.0-2.2); BILIRUBIN,DIRECT 0.1 mg/dL (0.1-0.5); BILIRUBIN,TOTAL 0.9 mg/dL (0.2-1.0); CALCIUM 9.3 mg/dL (8.5-10.3); CREATININE 0.6 mg/dL (0.6-1.2); TOTAL PROTEIN 6.3 g/dL (6.7-8.2)
== END 2020-11-19 23:59 | disposition home or self-care (01) ==
LOC: LAB.R 07:00
PROVIDERS: ATTEND Nurse Practitioner Adult Health
DX: Z79.899 Other long term (current) drug therapy (principal)
CPT/HCPCS: 80053; 80076; 85025

== ENCOUNTER 2020-11-20 02:54 | Outpatient (CLI) | payer MEDICARE, MEDICAID | END 2020-11-20 02:55 | disposition critical access hospital (66) | LOC: EMS 02:54 | PROVIDERS: ATTEND Surgery | DX: R06.00 Dyspnea, unspecified (principal) | CPT/HCPCS: A0425; A0429 ==

== ENCOUNTER 2020-11-20 04:04 | Observation (INO) | payer MEDICARE, MEDICAID ==
[2020-11-20] MEDS ORDERED: CHERRY SYRUP 10 ML UDC PO ONE (04:25)
[2020-11-20] MEDS ORDERED: DEXAMETHASONE 10 MG/ML VIAL PO STA (04:25)
[2020-11-20] MEDS ORDERED: SODIUM CHLORIDE 0.9% 1,000 ML IV STA (04:25)
--- NOTE | 2020-11-20 04:44 | ED Physician Documentation ---
PD HPI DYSPNEA - Stated complaint Stated Complaint: SOA - Chief complaint Chief Complaint: Resp - History obtained from History obtained from: Patient, Friend, EMS - History of Present Illness Timing - onset: How many days ago (3) Timing - onset during: Rest Timing - duration: Days (3) Timing - details: Gradual onset, Still present, Waxing and waning Inciting event(s): URI Improved by: O2, BiPAP / CPAP, Lasix, Inhaler/neb, Steroids, Rest, Sitting up Worsened by: Exertion, Laying flat, Coughing Associated symptoms: Hemoptysis, Wheezing. No: Fever Similar symptoms before: Diagnosis (interstial lung disease, pneumonia and developing lung cancer.) Recently seen: Emergency Dept, Admitted - Additional information Additional information: 70-year-old male with history of COPD and interstitial lung disease with chronic respiratory failure has a diagnosis of lung cancer without a tissue specimen and he has had progression of his dyspnea. He has been having episodic severe dyspnea that take some time to recover after mild exertion. He has had an episode several days ago and was brought to the emergency department for evaluation. At that time it was discovered that his oxygen tank was off. He did recover. Today he had another episode similar with his oxygen tank running and his partner attempted a DuoNeb as well as applying additional oxygen at home. He does now have large oxygen tanks and 2 concentrator's capable of 10 L. When he came to the emergency department 3 days ago there was a question of a possible infiltrate in the left base and his primary care doctor has started him on some Augmentin today. The patient does periodically take some Lasix and he has not had results with this but the last time that he used it. Review of Systems Constitutional: denies: Fever Eyes: denies: Decreased vision Ears: denies: Ear pain Nose: denies: Congestion Throat: denies: Oral lesions / sores, Sore throat Cardiac: denies: Chest pain / pressure, Palpitations Respiratory: reports: Dyspnea, Cough GI: denies: Abdominal Pain, Nausea, Vomiting : denies: Dysuria, Frequency Skin: denies: Rash Musculoskeletal: denies: Neck pain, Back pain, Extremity pain Neurologic: reports: Generalized weakness. denies: Focal weakness, Numbness PD PAST MEDICAL HISTORY - Past Medical History Cardiovascular: High cholesterol Respiratory: COPD, Emphysema, Other Neuro: None Endocrine/Autoimmune: None GI: Chronic constipation : None HEENT: None Psych: Anxiety Musculoskeletal: Osteoarthritis, Scoliosis, Chronic back pain Derm: None - Past Surgical History Past Surgical History: Yes General: Other HEENT: Tonsil/Adenoidectomy - Present Medications Home Medications: Ambulatory Orders Medication Instructions Recorded Confirmed Nortriptyline [Pamelor] 50 mg PO DAILY PM 11/27/13 11/20/20 Oxycodone HCl/Acetaminophen 2 each PO TID PRN 07/30/15 11/20/20 [Percocet 10-325 mg Tablet] Atorvastatin [Lipitor] 80 mg PO DAILY 01/06/16 11/20/20 Ascorbic Acid [Vitamin C] 500 mg PO BID 07/23/16 11/20/20 Cholecalciferol (Vitamin D3) 2,000 units PO BID 07/23/16 11/20/20 [Vitamin D3] Folic Acid 1 mg PO DAILY 07/23/16 11/20/20 Fluticasone/Vilanterol [Breo 1 puffs INH DAILY 02/24/19 11/20/20 Ellipta 100-25 Mcg INH] Citalopram Hydrobromide 20 mg PO DAILY 09/10/20 11/20/20 [Citalopram HBr] Methadone 5 mg PO BID 09/10/20 11/20/20 Montelukast [Singulair] 10 mg PO QPM #30 tablet 09/16/20 11/20/20 Calcium Carbonate [Tums (Calcium 500 mg PO TID 11/08/20 11/20/20 Carbonate 500mg)] Codeine Phosphate/Guaifenesin 10 ml PO Q6HR PRN 11/08/20 11/20/20 [Guaifen-Codeine 100-10 mg/5 ml] Ipratropium/Albuterol [Combivent 1 amp INH Q6HR PRN 11/08/20 11/20/20 Respimat] Lansoprazole [Prevacid] 30 mg PO DAILY 11/08/20 11/20/20 Lisinopril [Prinivil] 5 mg PO DAILY 11/08/20 11/20/20 Zinc Gluconate [Zinc] 220 mg PO DAILY 11/08/20 11/20/20 guaiFENesin [Mucus Relief ER] 600 mg PO BID 11/08/20 11/20/20 polyethylene glycoL 3350 [Miralax] 17 gm PO DAILY 11/08/20 11/20/20 predniSONE [Deltasone] 20 mg PO DAILYWM 11/08/20 11/20/20 Acyclovir [Zovirax] 800 mg PO .5X DAY MDD 10 days 11/13/20 11/20/20 Senna [Senokot] 8.6 mg PO DAILY PRN MDD titrate to 11/13/20 11/20/20 use Amox/Clav 875/125 [Augmentin] 1 each PO Q12H 11/20/20 11/20/20 - Allergies Allergies/Adverse Reactions: Allergies Allergy/AdvReac Type Severity Reaction Status Date / Time No Known Drug Allergies Allergy Verified 08/07/20 03:20 - Social History Does the pt smoke?: Yes Smoking Status: Current every day smoker Does the pt drink ETOH?: No Does the pt have substance abuse?: Yes - Immunizations Immunizations are current?: No Immunizations: TDAP >10years/unknown - POLST Patient has POLST: Yes PD ED PE NORMAL - Vitals Vital signs reviewed: Yes (Tachycardic tachypneic and hypoxic afebrile) - General General: Alert and oriented X 3, Well developed/nourished, Other (Tachypneic at rest speaking in short sentences wearing a nonrebreather mask) - HEENT HEENT: Atraumatic, PERRL, EOMI - Neck Neck: Supple, no meningeal sign, No bony TTP - Cardiac Cardiac: No murmur, Other (Tachycardic to 130) - Respiratory Respiratory: Other (Tachypneic with coarse breath sounds bilaterally and fair air movement.No focal rhonchi) - Abdomen Abdomen: Soft, Non tender - Back Back: No CVA TTP, No spinal TTP - Derm Derm: Normal color, Warm and dry, No rash - Extremities Extremities: No deformity, No edema - Neuro Neuro: Alert and oriented X 3, yeast tender 2-12 intact, No motor deficit, No sensory deficit, Normal speech Eye Opening: Spontaneous Motor: Obeys Commands Verbal: Oriented GCS Score: 15 - Psych Psych: Normal mood, Normal affect Results - Vitals Vitals: Vital Signs - 24 hr 11/20/20 11/20/20 11/20/20 04:10 04:40 05:00 Temperature 36.4 C L Heart Rate 129 H 131 H 122 H Respiratory 28 H 20 26 H Rate Blood Pressure 109/78 86/57 L 87/61 L O2 Saturation 90 L 95 96 11/20/20 11/20/20 11/20/20 05:30 06:00 06:26 Temperature 36.4 C L Heart Rate 122 H 115 H 115 H Respiratory 22 20 17 Rate Blood Pressure 105/65 104/64 O2 Saturation 95 99 100 11/20/20 11/20/20 11/20/20 06:30 07:00 07:29 Temperature Heart Rate 115 H 115 H 113 H Respiratory 17 16 15 Rate Blood Pressure 93/64 100/61 106/61 O2 Saturation 100 99 91 L Oxygen O2 Source Nasal cannula Oxygen Flow Rate 15 - Labs Labs: Laboratory Tests 11/20/20 11/20/20 11/20/20 04:45 04:45 04:45 WBC 13.9 H RBC 4.02 L Hgb 12.4 L Hct 38.6 L MCV 96.0 H MCH 30.8 MCHC 32.1 RDW 16.0 H Plt Count 314 MPV 9.1 Neut # (Auto) 10.4 H Lymph # (Auto) 2.3 Tama # (Auto) 1.0 Eos # (Auto) 0.1 Baso # (Auto) 0.0 Absolute Nucleated RBC 0.00 Nucleated RBC % 0.0 Sodium 136 Potassium 3.9 Chloride 92 L Carbon Dioxide 30 Anion Gap 14.0 H BUN 19 Creatinine 0.6 Estimated GFR (MDRD) 134 Glucose 114 H Calcium 9.6 Total Bilirubin 0.9 AST 29 ALT 79 H Alkaline Phosphatase 88 B-Natriuretic Peptide 94 Total Protein 6.9 Albumin 3.2 Globulin 3.7 Albumin/Globulin Ratio 0.9 L Lipase 27 - Rads (name of study) chest CT with Radiology: Prelim report reviewed (Impression: 1. Interval increase in conspicuity of pulmonary interstitium. Differential considerations include pulmonary edema, pneumonia, metastatic disease. Necrotic mediastinal and hilar lymphadenopathy with stenosis of the right mainstem bronchus.), Final report received (This may be further evaluated better interventional brass cleaner to help ensure long-term patency. Chronic changes of COPD and pulmonary fibrosis. Cholelithiasis.), EMP read indepedently (It appears the left lower lobe is developing an infiltrate) Procedures - IVC sono (time) 0410 Bedside IVC sono: IVC measures (cm) (0.92), Dehydration (est 1-2 liter deficit) PD MEDICAL DECISION MAKING - ED course Complexity details: reviewed old records, reviewed results, re-evaluated patient, considered differential, d/w patient, d/w family ED course: 70-year-old male with history of interstitial lung disease COPD and lung cancer has chronic respiratory failure and an episode this evening again of severe dyspnea that appears improved currently. He is recently been diagnosed with pneumonia and placed on antibiotic today. The patient has a long and complicated history of respiratory failure and oxygen dependence and has help at home with a partner and with home health. He has been in to see Drew Obrien for a palliative care consult and he has been admitted into the hospital in August of this year he was admitted to our facility in September he was admitted into the [facility]. He is on a steroid taper and he is now down to 40 mg daily.Here in the emergency Department the patient is administered 10 mg of dexamethasone orally and he is anticipating a chest CT which is scheduled for 5 days from now. The patient does have an issue with transport to the hospital. We are doing his follow-up CT tonight. With the hope we get additional information about the possible infiltrate.He was also found to be dehydrated on interrogation the inferior vena cava and he is administered a liter of saline. The patient has improvement in his general ability to breathe but he continues to have desaturation with any activity. He looks like he is developing an infiltrate in the left lower lobe that is significantly worse than prior. He has been placed on oral Augmentin by his primary care doctor with suspicion of pneumonia and he will need more aggressive treatment than this. Departure - Departure Disposition: 66 [facility] DC/Xfer Clinical Impression: Chronic respiratory failure with hypoxia, Pulmonary fibrosis, Community acquired pneumonia of left lower lobe of lung
[2020-11-20] MEDS ORDERED: IOVERSOL 320 100 ML VIAL IVP ONE ×2 (04:52→06:29)
[2020-11-20 04:56] LABS: BASOPHILS % (AUTO) 0.1 %; EOSINOPHILS # (AUTO) 0.1 10^3/uL (0.0-0.7); EOSINOPHILS % (AUTO) 0.4 %; HGB - HEMOGLOBIN 12.4 g/dL (14.0-18.0); LYMPHOCYTES # (AUTO) 2.3 10^3/uL (1.5-3.5); LYMPHOCYTES % (AUTO) 16.6 %; MEAN CORPUSCULAR HEMOGLOBIN 30.8 pg (27.0-31.0); MEAN CORPUSCULAR HGB CONC 32.1 g/dL (32.0-36.0); MEAN PLATELET VOLUME 9.1 fL (7.4-11.4); MONOCYTES % (AUTO) 7.1 %; NEUTROPHILS # (AUTO) 10.4 10^3/uL (1.5-6.6); NEUTROPHILS % (AUTO) 75.2 %; PLT - PLATELET COUNT 314 10^3/uL (130-450); RED BLOOD COUNT 4.02 10^6/uL (4.70-6.10); WHITE BLOOD COUNT 13.9 x10^3/uL (4.8-10.8)
[2020-11-20 05:12] LABS: ALBUMIN 3.2 g/dL (3.2-5.5); ALBUMIN/GLOBULIN RATIO 0.9 (1.0-2.2); BILIRUBIN,TOTAL 0.9 mg/dL (0.2-1.0); CALCIUM 9.6 mg/dL (8.5-10.3); CREATININE 0.6 mg/dL (0.6-1.2); TOTAL PROTEIN 6.9 g/dL (6.7-8.2)
[2020-11-20] MEDS ORDERED: oxyCODONE 5 MG TABLET PO STA (05:41)
--- NOTE | 2020-11-20 08:31 | CT Report ---
PROCEDURE: CHEST W INDICATIONS: intersitial lung disease worsening CONTRAST: IV CONTRAST: Optiray 320 ml: 80 PO CONTRAST: *NO PO CONTRAST TECHNIQUE: After the administration of intravenous contrast, 5 mm thick sections acquired from the pulmonary api javi to the posterior costophrenic angles. 7 mm thick coronal MIP reformats were acquired. For radia tion dose reduction, the following was used: automated exposure control, adjustment of mA and/or kV according to patient size. COMPARISON: 09/18/2020. FINDINGS: Image quality: Excellent. Lungs and pleura: Again noted are severe centrilobular emphysema with superimposed interstitial pulmo nary fibrosis. There is interval development of extensive groundglass opacities in bilateral lung fie lds predominantly involving the left lung field and right mid to lower lung serrano concerning for int erstitial pulmonary edema versus underlying pneumonitis/infiltrates. Pulmonary metastasis cannot be e ntirely excluded. Patient's known right upper lobe/hilar mass appears slightly more prominent in size . No pleural effusion or pneumothorax is seen. Central and left peripheral airways are patent and nor mal in caliber. Narrowing of the right peripheral airways are noted from compression of the above-men tioned mass. Mediastinum: Heart size is normal. No pericardial effusion. Again noted is significant mediastinal and right hilar lymphadenopathy not significantly changed in size and appearance from previous study. Mild to moderate atherosclerotic disease is again seen. Thoracic aorta and central pulmonary arterie s are normal in size. Esophagus is normal in caliber. No hiatal hernia. Bones and chest wall: No suspicious bony lesions. No vertebral body compression fractures. No axil geraldine or supraclavicular adenopathy by size criteria. Thyroid gland is unremarkable. Abdomen: Again noted are well-circumscribed hypodense areas seen in right and left hepatic dome uncha nged in size and appearance from previous study and may represent hepatic cysts. Upper abdominal connor l loops are normal in caliber. IMPRESSION: 1. Interval development of extensive groundglass opacities concerning for pulmonary edema versus pneu monitis/pneumonia. Metastatic disease cannot be entirely excluded. There is no pleural effusion or pn eumothorax. 2. Right upper lobe/hilar mass with extensive right hilar and mediastinal lymphadenopathy slightly m ore prominent in size compared to previous study with worsening mass effect on adjacent right mainste m bronchus and more peripheral airway. 3. Severe centrilobular emphysema and pulmonary fibrosis. No significant discrepancies from preliminary reading. Reviewed by: Damian Melgoza MD on 11/20/2020 8:30 AM PST Approved by: Damian Melgoza MD on 11/20/2020 8:30 AM PST Station ID: [id number]
[2020-11-20] MEDS ORDERED: MORPHINE 2 MG/ML CARPUJECT IVP PRN (08:55)
[2020-11-20] MEDS ORDERED: ACETAMINOPHEN 325 MG TABLET PO PRN (08:55)
[2020-11-20] MEDS ORDERED: ONDANSETRON 4 MG/2 ML VIAL IVP PRN (08:55)
[2020-11-20] MEDS ORDERED: oxyCODONE 5 MG TABLET PO PRN (08:55)
[2020-11-20] MEDS ORDERED: ALBUTEROL NEB 2.5 MG/3 ML INH PRN (09:04)
--- NOTE | 2020-11-20 09:17 | HISTORY & PHYSICAL EXAMINATION ---
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 He reports that he is chronically short of breath due to his COPD and pulmonary fibrosis. He usually takes 6 L oxygen with nasal cannula. But he report he also rise up to 15 L of oxygen when he feel crisis, very shortness of breath at home. He will recently visited ICU for about two weeks and [facility]. He reported he did have bronchoscopy and image-guided needle biopsy for His lung cancer but the results were inconclusive. He has been chronic short of breath and he thought this may have been the cancer plus COPD and Interstitial lung disease. but yesterday this became much more severe and he started to develop a cough with sputum production and so he sought medical attention. He reports no fevers or chest pain. He Reports he has chronic dyspnea at rest but this is most prominent with minimal exertion. He denies any chest pain, nausea, vomiting. He has a repeated test for COVID-19 which was negative. In routine laboratory test show patient had elevated WBC at 14, Patient had a chronic elevated WBC. In ER, patient Is afebrile, had tachycardia HR around 129 and tachypnea 28. Patient also has been chronic tachcardia as well. Patient report he had a Trilogy in the home, he had Trelegy on the night. He hope he can continue to use Trilogy in the night at the hospital. CT of the chest show interval development of extensive groundglass opacities concerning for pulmonary edema versus pneumonitis or pneumonia. right upper lobe/hilar mass with extensive hilar and mediastinal lymphadenopathy slightly more predominant in the size, compared to previous study with worsening mass effect on adjacent right mainstem bronchus and more peripheral airway. Severe centrilobular emphysema and pulmonary fibrosis. Discussed the care goal with the patient, patient requests DNR/DNI History - Past Medical History Cardiovascular: reports: High cholesterol Respiratory: reports: COPD, Emphysema, Other Neuro: reports: None Endocrine/Autoimmune: reports: None GI: reports: Chronic constipation : reports: None HEENT: reports: None Psych: reports: Anxiety Musculoskeletal: reports: Osteoarthritis, Scoliosis, Chronic back pain Derm: reports: None MRSA Hx?: No Other Past Medical History: lung cancer - Past Surgical History General: reports: Other HEENT: reports: Tonsil/Adenoidectomy - Family & Social History Family History: Mother: (ALS; he is one of 7 siblings most who have of lung ca/copd/etoh abuse), Alcoholism, Father: , Brother: Family History Comment/Other: Father from ALS. His mother in her 50s from alcoholism. Living Situation: With spouse/s.o. Social History Notes: He lives at home with his significant other. He has significant smoking history but quit recently. He smoked up to 3 packs a day but usually smoked 1 to 2 packs a day. He smoked for over 40 years. He reports very minimal alcohol use. He has a remote history of cocaine use when he was living in [place]. - Substance History Use: Uses substance without health or social issues: Tobacco (hx 3 pack day since 15; recently quit), Cocaine (hx) - POLST Patient has POLST: Yes Meds/Allgy - Home Medications Home Medications: Ambulatory Orders Medication Instructions Recorded Confirmed Nortriptyline [Pamelor] 50 mg PO DAILY PM 11/27/13 11/13/20 Ascorbic Acid [Vitamin C] 500 mg PO BID 07/23/16 11/13/20 Cholecalciferol (Vitamin D3) 2,000 units PO BID 07/23/16 11/13/20 [Vitamin D3] Folic Acid 1 mg PO DAILY 07/23/16 11/13/20 Fluticasone/Vilanterol [Breo 1 puffs INH DAILY 02/24/19 11/13/20 Ellipta 100-25 Mcg INH] Citalopram Hydrobromide 20 mg PO DAILY 09/10/20 11/13/20 [Citalopram HBr] Methadone 5 mg PO BID 09/10/20 11/13/20 Montelukast [Singulair] 10 mg PO QPM #30 tablet 09/16/20 11/13/20 Calcium Carbonate [Tums (Calcium 500 mg PO TID 11/08/20 11/13/20 Carbonate 500mg)] Lansoprazole [Prevacid] 30 mg PO DAILY 11/08/20 11/13/20 Lisinopril [Prinivil] 5 mg PO DAILY 11/08/20 11/13/20 Zinc Gluconate [Zinc] 220 mg PO DAILY 11/08/20 11/20/20 guaiFENesin [Mucus Relief ER] 600 mg PO BID 11/08/20 11/13/20 polyethylene glycoL 3350 [Miralax] 17 gm PO DAILY 11/08/20 11/13/20 predniSONE [Deltasone] 20 mg PO DAILYWM 11/08/20 11/13/20 Senna [Senokot] 8.6 mg PO DAILY PRN MDD titrate to 11/13/20 11/13/20 use Acyclovir [Zovirax] 800 mg PO .5 TIMES PER DAY 11/20/20 Amlodipine Besylate [Norvasc] 2.5 mg PO DAILY 11/20/20 Amox/Clav 875/125 [Augmentin] 1 each PO Q12H 11/20/20 Atorvastatin Calcium [Lipitor] 80 mg PO QPM 11/20/20 Insulin Aspart [NovoLOG] 11/20/20 Ipratropium/Albuterol [Duoneb] 3 ml INH Q6H PRN 11/20/20 Oxycodone HCl 10 mg PO Q5H PRN 11/20/20 tiZANidine [Zanaflex] 4 mg PO BID PRN 11/20/20 11/20/20 traZODone [Desyrel] 50 mg PO HS PRN 11/20/20 11/20/20 - Allergies Allergies/Adverse Reactions: Allergies Allergy/AdvReac Type Severity Reaction Status Date / Time No Known Drug Allergies Allergy Verified 08/07/20 03:20 Review of Systems - Constitutional Constitutional: reports: Fatigue, Weakness. denies: Fever, Chills, Poor appeti te, Diaphoresis - Eyes Eyes: denies: Pain, Blurred vision, Field loss, Vision loss, Dipolpia - Ears, Nose & Throat Ears, Nose & Throat: denies: Ear pain, Vertigo, Nosebleeds, Sore throat - Cardiovascular Cariovascular: reports: Exertional dyspnea, Decr. exercise tolerance. denies: Irregular heart rate, Palpitations, Chest pain, Lightheadedness, Syncope - Respiratory Respiratory: reports: Cough, Sputum production, SOB at rest, SOB with exertion. denies: Wheezing, Snoring, Hemoptysis - Gastrointestinal Gastrointestinal: denies: Abdominal pain, Constipation, Diarrhea, Rectal bleeding, Black stools, Bloody stools, Nausea, Vomiting - Genitourinary Genitourinary: denies: Dysuria, Urgency, Incontinence - Musculoskeletal Musculoskeletal: denies: Muscle pain, Muscle aches, Limited range of motion - Integumentary Integumentary: denies: Rash, Lesions, Lumps - Neurological Neurological: reports: General weakness. denies: Focal weakness, Headache, Dizziness, Numbness, Pre-existing deficit, Abnormal gait, Seizures, Incoordination, Slurred speech - Psychiatric Psychiatric: denies: Depression, Suicidal, Delusions, Hallucinations - Endocrine Endocrine: denies: Polyuria, Polyphagia - Hematologic/Lymphatic Hematologic/Lymphatic: denies: Bruising, Blood clots Exam - Vital Signs Vital Signs: Vital Signs x48h Temp Pulse Resp BP Pulse Ox 11/20/20 08:53 115 H 18 97/74 94 11/20/20 07:29 113 H 15 106/61 91 L 11/20/20 07:00 115 H 16 100/61 99 11/20/20 06:30 115 H 17 93/64 100 11/20/20 06:26 115 H 17 104/64 100 11/20/20 06:00 115 H 20 99 11/20/20 05:30 36.4 C L 122 H 22 105/65 95 11/20/20 05:00 122 H 26 H 87/61 L 96 11/20/20 04:40 131 H 20 86/57 L 95 11/20/20 04:10 36.4 C L 129 H 28 H 109/78 90 L - Physical Exam General Appearance: positive: Alert, Moderate distress. negative: Lethargic Eyes Bilateral: positive: Normal inspection, PERRL, No lid inflammation ENT: positive: ENT inspection nml, No signs of dehydration. negative: Purulent nasal drainage Neck: positive: Nml inspection, Trachea midline. negative: Thyromegaly, Tr acheal deviation Respiratory: positive: Chest non-tender, Rales, Rhonchi. negative: No respiratory distress, Breath sounds nml, Wheezes Cardiovascular: positive: Regular rate & rhythm, No murmur, Tachycardia. negative: Bradycardia, Systolic murmur, Diastolic murmur Peripheral Pulses: positive: 2+ Abdomen: positive: Non-tender, Nml bowel sounds, No distention. negative: Tenderness, Guarding, Rebound Back: positive: Nml inspection Skin: positive: Color nml, Warm, Dry. negative: Cyanosis, Diaphoresis, Pallor Extremities: positive: Non-tender, Full ROM, Nml appearance. negative: Calf tenderness Neurologic/Psychiatric: positive: Oriented x3, Motor nml, Sensation nml, Mood/affect nml. negative: Weakness, Sensory loss, Facial droop, Slurred/abnml speech, Depressed mood/affect Conclusion/Plan - Problem List (1) Chronic respiratory failure with hypoxia Conclusion/Plan: (1) Acute on chronic respiratory failure with hypoxia Conclusion/Plan: He has chronic respiratory failure secondary to his COPD and pulmonary fibrosis, and lung cancer. He is now acutely hypoxic likely due to the right lobe pneumonia/Pneumonitis plus pulmonary edema. He saturating was 90% on nonreb reather mask at 15 L a minute Initially. This can likely be deescalated although he does desaturate with minimal exertion. We will place him on ceftriaxone IV and doxycycline IV for community-acquired pneumonia. Pt has hx of long QTC. Since the patient's symptoms improved after patient was give Decadron 10 mg in ER. We will Resume home Prednisone. Covid Was negative. We will begin with RT treatment, albuterol, Atrovent, Pulmicort. Give Lasix to reduce pulmonary edema. Continue supplemental oxygen for goal saturation greater than 88%. (2) Community acquired pneumonia Conclusion/Plan: CT of the chest show interval development of extensive groundglass opacities concerning for pulmonary edema versus pneumonitis or pneumonia. Patient also has slightly elevated WBC. Patient presents with cough with sputum. At this time, we will place him on ceftriaxone and doxycycline IV. Sputum culture. If there is no improvement over next 24 hours, we will consider broadening his antibiotics. (3) COPD exacerbation Conclusion/Plan: In CT of chest show Severe centrilobular emphysema and pulmonary fibrosis. Since the patient's symptoms improved after patient was give Decadron 10 mg in ER. We will Resume home Prednisone. We will adjust steroid dosage as patient condition develop. we will begin with RT treatment, albuterol, Atrovent, Pulmicort. Continue supplemental oxygen for goal saturation greater than 88%. (4) Lung cancer, hilus Conclusion/Plan: He has a right hilar lung mass and this is concerning for small cell cancer although biopsy was inconclusive from what the patient has told me. CT of chest show his right upper lobe/hilar mass with extensive hilar and mediastinal lymphadenopathy slightly more predominant in the size, compared to previous study with worsening mass effect on adjacent right mainstem bronchus and more peripheral airway. Discussed the result of CAT scan of the chest with the patient. Patient state he will see his oncologist and computer trainer in [facility] as soon after we discharged him. Patient was already seen by palliative care, we will resume palliative care for patient, called palliative and left message. After the patient was treated in the ER and medical floor, patient's symptoms is imporved now. At this time we will focus treat His pneumonia and COPD, followup with his Transformation Analyst and his oncologist (5) Pulmonary fibrosis Conclusion/Plan: pt has hx of his chronic severe pulmonary fibrosis shown in CAT of chest as well. We will continue treatment of the pneumonia and COPD exacerbation as mentioned above. Continue home prednisone, Continue supplemental oxygen. (6) Chronic pain Conclusion/Plan: We will continue his home pain medications once the dosing is confirmed by pharmacy. (7) Hypertension Conclusion/Plan: He is currently normotensive. We will resume his home amlodipine and metoprolol once dosing is confirmed by pharmacy. - Lab Results Fish Bones: 11/20/20 04:45 11/20/20 04:45 Core Measures - Anticipated LOS I expect patient to be DC'd or transferred within 96 hours.: Yes - DVT/VTE - Prophylaxis VTE/DVT Device ordered at admit?: Yes VTE/DVT Prophylaxis med ordered at admit?: Yes
[2020-11-20 09:38] LABS: C. PNEUMONIAE- RESP PCR PANEL NOT DETECTED
[2020-11-20] MEDS: cefTRIAXone 2 GM in SODIUM CHLORIDE 0.9% MINIBAG 100 ML IV SCH (10:23)
[2020-11-20] MEDS: METHADONE 5 MG TABLET PO SCH ×2 (10:36→21:28)
[2020-11-20] MEDS: SODIUM CHLORIDE FLUSH 0.9% 10 ML SYRINGE IVP PRN ×2 (10:42→14:23)
[2020-11-20] MEDS: BUDESONIDE 0.5 MG/2 ML NEB INH SCH ×2 (11:00→19:07)
[2020-11-20] MEDS ORDERED: IPRATROPIUM 0.2 MG/ML NEB INH SCH ×2 (11:00→14:00)
[2020-11-20] MEDS: FORMOTEROL FUMARATE NEB 20 MCG/2 ML INH SCH ×2 (11:00→19:07)
[2020-11-20] MEDS ORDERED: IPRATROPIUM/ALBUTEROL 3 ML NEB INH SCH (11:00)
[2020-11-20] MEDS: LEVALBUTEROL 1.25 MG/3 ML NEB INH PRN ×3 (11:00→19:07)
[2020-11-20] MEDS ORDERED: AZITHROMYCIN INJ 500 MG in SODIUM CHLORIDE 0.9% 250 ML IV SCH (11:00)
[2020-11-20] MEDS ORDERED: predniSONE 20 MG TABLET PO SCH (13:28)
[2020-11-20] MEDS ORDERED: FUROSEMIDE 20 MG TABLET PO ONE (14:15)
--- NOTE | 2020-11-20 14:56 | PHARMACY PROGRESS NOTE ---
- Best Possible Medication History Admit Date and Time: 11/20/20 0855 Processed by: Pharmacy Medication History completed: Yes Patient Interview: Completed Secondary Source(s): Pharmacy records, Insurance records As the person ultimately responsible for medication therapy, providers are able to order a medication from an existing home medication list in [facility] via the "Reconcile Routine" prior to Confirmation of that medication by naval surface fire support planner. Such practice is discouraged except when the physician, in their clinical judgment, deems that a medical need exists for a medication without regard to previous use.
[2020-11-20] MEDS: IPRATROPIUM 0.2 MG/ML NEB INH SCH ×2 (15:15→19:07)
[2020-11-20] MEDS ORDERED: tiZANidine 4 MG TABLET PO PRN (15:32)
[2020-11-20] MEDS ORDERED: traZODone 50 MG TABLET PO PRN (15:32)
[2020-11-20] MEDS: oxyCODONE 5 MG TABLET PO PRN (17:14)
[2020-11-20] MEDS: SACCHAROMYCES BOULARDII 250 MG CAPSULE PO SCH (17:15)
[2020-11-20] MEDS: ACYCLOVIR 200 MG CAPSULE PO SCH ×2 (18:41→22:20)
[2020-11-20] MEDS ORDERED: NORTRIPTYLINE HCL 50 MG PO SCH (21:00)
[2020-11-20] MEDS: MONTELUKAST 10 MG TABLET PO SCH (21:28)
[2020-11-20] MEDS: NORTRIPTYLINE 25 MG CAPSULE PO SCH (21:28)
[2020-11-20] MEDS: DOXYCYCLINE INJ 100 MG in SODIUM CHLORIDE 0.9% MINIBAG 100 ML IV SCH (21:29)
[2020-11-20] MEDS: SODIUM CHLORIDE FLUSH 0.9% 10 ML SYRINGE IVP SCH (21:29)
[2020-11-20] MEDS ORDERED: ZINC OXIDE 20% OINT 30 GM TUBE TOP PRN (21:38)
[2020-11-21] MEDS: SODIUM CHLORIDE FLUSH 0.9% 10 ML SYRINGE IVP SCH ×3 (00:15→18:13)
[2020-11-21] MEDS: oxyCODONE 5 MG TABLET PO PRN ×3 (00:47→22:17)
[2020-11-21] MEDS: guaiFENesin/CODEINE 5 ML UDC PO PRN (01:23)
[2020-11-21 05:15] LABS: BASOPHILS % (AUTO) 0.3 %; EOSINOPHILS # (AUTO) 0.1 10^3/uL (0.0-0.7); EOSINOPHILS % (AUTO) 0.8 %; HGB - HEMOGLOBIN 10.4 g/dL (14.0-18.0); LYMPHOCYTES # (AUTO) 3.2 10^3/uL (1.5-3.5); LYMPHOCYTES % (AUTO) 22.5 %; MEAN CORPUSCULAR HEMOGLOBIN 30.8 pg (27.0-31.0); MEAN CORPUSCULAR HGB CONC 31.8 g/dL (32.0-36.0); MEAN CORPUSCULAR VOLUME 96.7 fL (80.0-94.0); MEAN PLATELET VOLUME 9.5 fL (7.4-11.4); MONOCYTES % (AUTO) 7.1 %; NEUTROPHILS # (AUTO) 9.6 10^3/uL (1.5-6.6); NEUTROPHILS % (AUTO) 68.5 %; PLT - PLATELET COUNT 275 10^3/uL (130-450); RED BLOOD COUNT 3.38 10^6/uL (4.70-6.10); RED CELL DISTRIBUTION WIDTH 16.1 % (12.0-15.0)
[2020-11-21 05:21] LABS: CALCIUM 9.5 mg/dL (8.5-10.3); CREATININE 0.7 mg/dL (0.6-1.2)
[2020-11-21] MEDS: ACYCLOVIR 200 MG CAPSULE PO SCH ×4 (06:38→21:09)
[2020-11-21] MEDS: PANTOPRAZOLE 40 MG TABLET PO SCH (06:38)
[2020-11-21] MEDS: IPRATROPIUM 0.2 MG/ML NEB INH SCH ×4 (07:14→19:50)
[2020-11-21] MEDS: BUDESONIDE 0.5 MG/2 ML NEB INH SCH ×2 (07:14→19:50)
[2020-11-21] MEDS: FORMOTEROL FUMARATE NEB 20 MCG/2 ML INH SCH ×2 (07:14→19:50)
[2020-11-21] MEDS ORDERED: predniSONE 20 MG TABLET PO SCH ×3 (08:00)
[2020-11-21] MEDS: predniSONE 20 MG TABLET PO SCH (08:39)
[2020-11-21] MEDS: CITALOPRAM HYDROBROMIDE 20 MG TABLET PO SCH (08:45)
[2020-11-21] MEDS: SACCHAROMYCES BOULARDII 250 MG CAPSULE PO SCH ×2 (08:45→18:13)
[2020-11-21] MEDS: METHADONE 5 MG TABLET PO SCH ×2 (08:45→21:10)
[2020-11-21] MEDS: ENOXAPARIN 40 MG/0.4 ML SYRINGE SUBQ SCH (08:47)
[2020-11-21] MEDS: cefTRIAXone 2 GM in SODIUM CHLORIDE 0.9% MINIBAG 100 ML IV SCH (09:01)
[2020-11-21] MEDS: DOXYCYCLINE INJ 100 MG in SODIUM CHLORIDE 0.9% MINIBAG 100 ML IV SCH ×2 (09:40→21:10)
[2020-11-21] MEDS: LEVALBUTEROL 1.25 MG/3 ML NEB INH PRN ×3 (10:59→19:51)
--- NOTE | 2020-11-21 11:42 | PROVIDER PROGRESS NOTE ---
Assessment/Plan - Problem List (1) Acute on chronic respiratory failure with hypoxia Assessment/Plan: 11/21 Improved. clinically pt has chronic shortness of breath, pt has hx of lung cancer, severe COPD and pulmonary fibrosis. Patient has 98% oxygen saturation on 6 L of oxygen. Patient usually take 6 L oxygen at home. Respiratory rate is 20. Patient has chronic elevated heart rate, ST around 110-120. We will continue antibiotics for his pneumonia, continue steroid, Continue with breath treatment of Xopenex, Atrovent, Pulmicort, and performist. Continue supplemental of oxygen as needed. He has chronic respiratory failure secondary to his COPD and pulmonary fibrosis, and lung cancer. He is now acutely hypoxic likely due to the right lobe pneumonia/Pneumonitis plus pulmonary edema. He saturating was 90% on nonrebreather mask at 15 L a minute Initially. This can likely be deescalated although he does desaturate with minimal exertion. We will place him on ceftriaxone IV and doxycycline IV for community-acquired pneumonia. Pt has hx of long QTC. Since the patient's symptoms improved after patient was give Decadron 10 mg in ER. We will Resume home Prednisone. Covid Was negative. We will begin with RT treatment, albuterol, Atrovent, Pulmicort. Give Lasix to reduce pulmonary edema. Continue supplemental oxygen for goal saturation greater than 88%. (2) Community acquired pneumonia Conclusion/Plan: 11/21 Improved, WBC as his baseline. Patient has 98% oxygen saturation on 6 L of oxygen. Patient usually take 6 L oxygen at home. Patient has a chronic slightly elevated WBC. Blood culture is negative for bacteremia. Sputum culture show rare gram-positive. Patient agree we will switch to p.o. antibiotics. CT of the chest show interval development of extensive groundglass opacities concerning for pulmonary edema versus pneumonitis or pneumonia. Patient also has slightly elevated WBC. Patient presents with cough with sputum. At this time, we will place him on ceftriaxone and doxycycline IV. Sputum culture. If there is no improvement over next 24 hours, we will consider broadening his antibiotics. (3) COPD exacerbation Conclusion/Plan: 11/21. Patient reported his intake 40 mg prednisone in the home and he asked that we resume. we will Continue with breath treatment of Xopenex, Atrovent, Pulmicort, and performist In CT of chest show Severe centrilobular emphysema and pulmonary fibrosis. Since the patient's symptoms improved after patient was give Decadron 10 mg in ER. We will Resume home Prednisone. We will adjust steroid dosage as patient condition develop. we will begin with RT treatment, albuterol, Atrovent, Pulmicort. Continue supplemental oxygen for goal saturation greater than 88%. (4) Lung cancer, hilus Conclusion/Plan: 11/21 Discussed the care plan with the patient, patient does not want to have hospice care at this point, he want continue to fight for his medical problems and will see his oncologist after discharge seek any treatment options. He has a right hilar lung mass and this is concerning for small cell cancer although biopsy was inconclusive from what the patient has told me. CT of chest show his right upper lobe/hilar mass with extensive hilar and mediastinal lymphadenopathy slightly more predominant in the size, compared to previous study with worsening mass effect on adjacent right mainstem bronchus and more peripheral airway. Discussed the result of CAT scan of the chest with the patient. Patient state he will see his oncologist and top icer in [facility] as soon after we discharged him. Patient was already seen by palliative care, we will resume palliative care for patient, called palliative and left message. After the patient was treated in the ER and medical floor, patient's symptoms is imporved now. At this time we will focus treat His pneumonia and COPD, followup with his Histologist and his oncologist (5) Pulmonary fibrosis Conclusion/Plan: 11/21, Discussed the care plan with the patient, Patient want to continue to see his top icer to seek treatment. We will resume patient home steroid Prednisone. pt has hx of his chronic severe pulmonary fibrosis shown in CAT of chest as well. We will continue treatment of the pneumonia and COPD exacerbation as mentioned above. Continue home prednisone, Continue supplemental oxygen. (6) Chronic pain Conclusion/Plan: We will continue his home pain medications once the dosing is confirmed by pharmacy. (7) Hypertension pt has low edge of BP, will hold home BP meds Lisinopril (8)hx of shingles Patient recently had shingles, Patient take acyclovir in the home, we will continue, and continue pain control. - Current Meds Current Meds: Current Medications Generic Name Dose Route Start Last Admin Trade Name Freq PRN Reason Stop Dose Admin Acyclovir 800 mg 11/20/20 18:00 11/21/20 06:38 Acyclovir 200 Mg Capsule PO 11/21/20 22:01 800 mg 5XD ADALI Administration Budesonide 0.5 mg 11/20/20 12:00 11/21/20 07:14 Budesonide 0.5 Mg/2 Ml Neb INH 0.5 mg RTBID ADALI Administration Citalopram Hydrobromide 20 mg 11/21/20 09:00 11/21/20 08:45 Citalopram Hydrobromide 20 Mg Tablet PO 20 mg DAILY ADALI Administration Enoxaparin Sodium 40 mg 11/21/20 09:00 11/21/20 08:47 Enoxaparin 40 Mg/0.4 Ml Syringe SUBQ 40 mg DAILY ADALI Administration Formoterol Fumarate 20 mcg 11/20/20 12:00 11/21/20 07:14 Formoterol Fumarate Neb 20 Mcg/2 Ml INH 20 mcg RTBID ADALI Administration Guaifenesin/Codeine Phosphate 10 ml 11/20/20 09:10 11/21/20 01:23 Guaifenesin/Codeine 5 Ml Udc PO 10 ml Q6HR PRN Administration Cough Doxycycline Hyclate 100 mg/ 100 mls @ 100 mls/hr 11/20/20 21:00 11/21/20 10:45 Sodium Chloride IV 11/25/20 09:59 Infused BID ADALI Infusion Ipratropium [place] 0.5 mg 11/20/20 15:00 11/21/20 10:59 Ipratropium 0.2 Mg/Ml Neb INH 0.5 mg RTQID ADALI Administration Levalbuterol HCl 1.25 mg 11/20/20 09:15 11/21/20 10:59 Levalbuterol 1.25 Mg/3 Ml Neb INH 1.25 mg Q4H PRN Administration Shortness of Air/Wheezing Methadone HCl 5 mg 11/20/20 09:12 11/21/20 08:45 Methadone 5 Mg Tablet PO 5 mg BID ADALI Administration Montelukast Sodium 10 mg 11/20/20 21:00 11/20/20 21:28 Montelukast 10 Mg Tablet PO 10 mg QPM ADALI Administration Multi-Ingredient Ointment 1 applic 11/20/20 21:38 11/21/20 02:00 Zinc Oxide 20% Oint 30 Gm Tube TOP 1 applic BID PRN Administration NEEDED PER PROVIDER ORDERS Nortriptyline HCl 50 mg 11/20/20 21:00 11/20/20 21:28 Nortriptyline 25 Mg Capsule PO 50 mg QPM ADALI Administration Oxycodone HCl 10 mg 11/20/20 10:18 11/21/20 08:44 Oxycodone 5 Mg Tablet PO 10 mg TID PRN Administration PAIN Pantoprazole Sodium 40 mg 11/21/20 07:00 11/21/20 06:38 Pantoprazole 40 Mg Tablet PO 40 mg QDAC ADALI Administration Prednisone 40 mg 11/21/20 08:00 11/21/20 08:39 Prednisone 20 Mg Tablet PO 40 mg DAILYWM ADALI Administration Saccharomyces Boulardii 250 mg 11/20/20 17:00 11/21/20 08:45 Saccharomyces Boulardii 250 Mg Capsule PO 250 mg BIDWM ADALI Administration Sodium Chloride 10 ml 11/20/20 08:55 11/20/20 14:23 Sodium Chloride Flush 0.9% 10 Ml Syringe IVP 10 ml PRN PRN Administration NEEDED PER PROVIDER ORDERS Sodium Chloride 10 ml 11/20/20 17:00 11/21/20 08:46 Sodium Chloride Flush 0.9% 10 Ml Syringe IVP 10 ml 0100,0900,1700 ADALI Administration - Lab Result Fish Bone Diagrams: 11/21/20 04:41 11/21/20 04:41 - Additional Planning My Orders: My Active Orders 11/20/20 Lunch Regular Diet [DIET] 11/20/20 11:19 Oxygen Therapy [RC] .PRN 11/20/20 12:00 Budesonide [Pulmicort] 0.5 mg INH RTBID Formoterol Fumarate [Perforomist] 20 mcg INH RTBID 11/20/20 12:17 Miscellaenous Nursing Order [RC] DAILY 11/20/20 13:51 Home CPAP/BiPAP/NPPV [RC] .ONCE 11/20/20 15:00 Ipratropium [Atrovent] 0.5 mg INH RTQID 11/20/20 15:32 tiZANidine [Zanaflex] 4 mg PO BID PRN traZODone [Desyrel] 50 mg PO HS PRN 11/20/20 17:00 Saccharomyces [place]oul[place]ii [Florastor] 250 mg PO BIDWM Sodium Chloride Flush 0.9% [Normal Saline Flush 0.9%] 10 ml IVP 0100,0900,1700 11/20/20 18:00 Acyclovir [Zovirax] 800 mg PO 5XD 11/20/20 20:10 CUL, RESPIRATORY [RM] Urgent 11/20/20 21:00 Doxycycline Inj [Vibramycin Inj] 100 mg Sodium Chloride 0.9% Minibag [Normal Saline 0.9% Minibag] 100 ml IV BID Montelukast [Singulair] 10 mg PO QPM Nortriptyline [Pamelor] 50 mg PO QPM 11/20/20 21:38 Zinc Oxide 20% Oint [Zinc Oxide] 1 applic TOP BID PRN 11/21/20 07:00 Pantoprazole [Protonix] 40 mg PO QDAC 11/21/20 08:00 predniSONE [Deltasone] 40 mg PO DAILYWM 11/21/20 09:00 Citalopram Hydrobromide [Celexa] 20 mg PO DAILY Enoxaparin [Lovenox] 40 mg SUBQ DAILY 11/21/20 11:00 polyethylene glycoL 3350 [Miralax] 17 gm PO DAILY 11/22/20 05:00 BMP - BASIC METABOLIC PANEL [CHEM] DAILYLAB CBC - COMP BLD CT W/AUTO DIFF [HEME] DAILYLAB 11/23/20 05:00 BMP - BASIC METABOLIC PANEL [CHEM] DAILYLAB CBC - COMP BLD CT W/AUTO DIFF [HEME] DAILYLAB Subjective - Subjective Patient Reports: Feeling Better Objective Vital Signs: Vital Signs - 24 hr 11/20/20 11/20/20 11/20/20 15:00 15:15 15:32 Temperature 36.4 C L 36.4 C L Heart Rate 114 H 114 H Heart Rate [ Brachial] Heart Rate [ 113 H Monitoring electrodes] Respiratory 14 22 22 Rate Blood Pressure [Left Brachial artery] Blood Pressure [Right Brachial artery] Blood Pressure 94/54 L [Right Radial artery] O2 Saturation 94 93 11/20/20 11/20/20 11/20/20 15:46 16:16 19:09 Temperature 36.5 C Heart Rate 115 H Heart Rate [ 121 H Brachial] Heart Rate [ 121 H Monitoring electrodes] Respiratory 16 24 22 Rate Blood Pressure [Left Brachial artery] Blood Pressure 94/43 L [Right Brachial artery] Blood Pressure [Right Radial artery] O2 Saturation 92 86 L 11/20/20 11/20/20 11/21/20 20:00 21:12 00:09 Temperature 36.8 C 36.5 C Heart Rate Heart Rate [ 123 H 110 H Brachial] Heart Rate [ Monitoring electrodes] Respiratory 22 20 Rate Blood Pressure 83/67 L 91/61 [Left Brachial artery] Blood Pressure 89/51 L 108/56 L [Right Brachial artery] Blood Pressure [Right Radial artery] O2 Saturation 92 92 11/21/20 11/21/20 11/21/20 04:33 06:21 07:17 Temperature 36.5 C Heart Rate 114 H Heart Rate [ 107 H Brachial] Heart Rate [ Monitoring electrodes] Respiratory 22 18 24 Rate Blood Pressure [Left Brachial artery] Blood Pressure 113/58 L [Right Brachial artery] Blood Pressure [Right Radial artery] O2 Saturation 97 92 11/21/20 11/21/20 08:45 11:01 Temperature 36.6 C Heart Rate 108 H Heart Rate [ Brachial] Heart Rate [ 115 H Monitoring electrodes] Respiratory 20 20 Rate Blood Pressure [Left Brachial artery] Blood Pressure 88/57 L [Right Brachial artery] Blood Pressure [Right Radial artery] O2 Saturation 98 Oxygen O2 Source Nasal cannula Oxygen Flow Rate 15 I&O (Last 24 Hrs): Intake and Output Totals x24h 11/19/20 11/20/20 11/21/20 23:59 23:59 23:59 Intake Total 1750 635 Output Total 2145 125 Balance -395 510 General: Alert, Oriented x3, Cooperative, Moderate distress HEENT: Atraumatic Neck: Supple Lymphatic: no adenopathy Neuro: Alert, Non Focal, Oriented Times 3 Cardiovascular: Regular rate, Normal S1, Normal S2 Respiratory: Chest non-tender, Rales Abdomen: Normal bowel sounds, Soft, No tenderness Extremities: Normal pulses Skin: No breakdown - Results Results: Laboratory Results WBC 14.0 x10^3/uL (4.8-10.8) H 11/21/20 04:41 RBC 3.38 10^6/uL (4.70-6.10) L 11/21/20 04:41 Hgb 10.4 g/dL (14.0-18.0) L 11/21/20 04:41 Hct 32.7 % (42.0-52.0) L 11/21/20 04:41 MCV 96.7 fL (80.0-94.0) H 11/21/20 04:41 MCH 30.8 pg (27.0-31.0) 11/21/20 04:41 MCHC 31.8 g/dL (32.0-36.0) L 11/21/20 04:41 RDW 16.1 % (12.0-15.0) H 11/21/20 04:41 Plt Count 275 10^3/uL (130-450) 11/21/20 04:41 MPV 9.5 fL (7.4-11.4) 11/21/20 04:41 Neut # (Auto) 9.6 10^3/uL (1.5-6.6) H 11/21/20 04:41 Lymph # (Auto) 3.2 10^3/uL (1.5-3.5) 11/21/20 04:41 [place] # (Auto) 1.0 10^3/uL (0.0-1.0) 11/21/20 04:41 Eos # (Auto) 0.1 10^3/uL (0.0-0.7) 11/21/20 04:41 Baso # (Auto) 0.0 10^3/uL (0.0-0.1) 11/21/20 04:41 Absolute Nucleated RBC 0.00 x10^3/uL 11/21/20 04:41 Nucleated RBC % 0.0 /100WBC 11/21/20 04:41 Sodium 136 mmol/L (135-145) 11/21/20 04:41 Potassium 4.1 mmol/L (3.5-5.0) 11/21/20 04:41 Chloride 94 mmol/L (101-111) L 11/21/20 04:41 Carbon Dioxide 31 mmol/L (21-32) 11/21/20 04:41 Anion Gap 11.0 (6-13) 11/21/20 04:41 BUN 16 mg/dL (6-20) 11/21/20 04:41 Creatinine 0.7 mg/dL (0.6-1.2) 11/21/20 04:41 Estimated GFR (MDRD) 112 (>89) 11/21/20 04:41 Glucose 88 mg/dL (70-100) 11/21/20 04:41 Calcium 9.5 mg/dL (8.5-10.3) 11/21/20 04:41 Total Bilirubin 0.9 mg/dL (0.2-1.0) 11/20/20 04:45 AST 29 IU/L (10-42) 11/20/20 04:45 ALT 79 IU/L (10-60) H 11/20/20 04:45 Alkaline Phosphatase 88 IU/L (42-121) 11/20/20 04:45 B-Natriuretic Peptide 94 pg/mL (5-100) 11/20/20 04:45 Total Protein 6.9 g/dL (6.7-8.2) 11/20/20 04:45 Albumin 3.2 g/dL (3.2-5.5) 11/20/20 04:45 Globulin 3.7 g/dL (2.1-4.2) 11/20/20 04:45 Albumin/Globulin Ratio 0.9 (1.0-2.2) L 11/20/20 04:45 Lipase 27 U/L (22-51) 11/20/20 04:45 Nasal Adenovirus (PCR) NOT DETECTED 11/20/20 08:40 Nasal B. parapertussis DNA (PCR) NOT DETECTED 11/20/20 08:40 Nasal Coronavir 229E PCR NOT DETECTED 11/20/20 08:40 Nasal Coronavir HKU1 PCR NOT DETECTED 11/20/20 08:40 Nasal Coronavir NL63 PCR NOT DETECTED 11/20/20 08:40 Nasal Coronavir OC43 PCR NOT DETECTED 11/20/20 08:40 Nasal Enterovir/Rhinovir PCR NOT DETECTED 11/20/20 08:40 Nasal Influenza B PCR NOT DETECTED 11/20/20 08:40 Nasal Influenza A PCR NOT DETECTED 11/20/20 08:40 Nasal Parainfluen 1 PCR NOT DETECTED 11/20/20 08:40 Nasal Parainfluen 2 PCR NOT DETECTED 11/20/20 08:40 Nasal Parainfluen 3 PCR NOT DETECTED 11/20/20 08:40 Nasal Parainfluen 4 PCR NOT DETECTED 11/20/20 08:40 Nasal RSV (PCR) NOT DETECTED 11/20/20 08:40 Nasal B.pertussis DNA PCR NOT DETECTED 11/20/20 08:40 Nasal C.pneumoniae (PCR) NOT DETECTED 11/20/20 08:40 Akshat Human Metapneumo PCR NOT DETECTED 11/20/20 08:40 Nasal M.pneumoniae (PCR) NOT DETECTED 11/20/20 08:40 Nasal SARS-CoV-2 (PCR) NOT DETECTED 11/20/20 08:40 - Procedures Procedures: Procedures EXCISION OF STOMACH, ENDO, DIAGN (01/06/16) INSPECTION OF LOWER INTESTINAL TRACT, ENDO (01/06/16) ABX Reporting Has patient been on IV antibiotics over the past 48 hours?: Yes Current Medications - Current Medications Current Medications: Active Medications Acetaminophen (Acetaminophen 325 Mg Tablet) 650 mg PO Q4HR PRN PRN Reason: Pain 1 to 4 Acyclovir (Acyclovir 200 Mg Capsule) 800 mg PO 5XD [facility] Stop: 11/21/20 22:01 Last Admin: 11/21/20 11:46 Dose: 800 mg Documented by: Amoxicillin/Clavulanate Potassium (Amox/Clav 875 Mg/125 Mg Tablet) 1 tab PO BID [facility] Budesonide (Budesonide 0.5 Mg/2 Ml Neb) 0.5 mg INH RTBID [facility] Last Admin: 11/21/20 07:14 Dose: 0.5 mg Documented by: Citalopram Hydrobromide (Citalopram Hydrobromide 20 Mg Tablet) 20 mg PO DAILY [facility] Last Admin: 11/21/20 08:45 Dose: 20 mg Documented by: Enoxaparin Sodium (Enoxaparin 40 Mg/0.4 Ml Syringe) 40 mg SUBQ DAILY [facility] Last Admin: 11/21/20 08:47 Dose: 40 mg Documented by: Formoterol Fumarate (Formoterol Fumarate Neb 20 Mcg/2 Ml) 20 mcg INH RTBID [facility] Last Admin: 11/21/20 07:14 Dose: 20 mcg Documented by: Guaifenesin/Codeine Phosphate (Guaifenesin/Codeine 5 Ml Udc) 10 ml PO Q6HR PRN PRN Reason: Cough Last Admin: 11/21/20 01:23 Dose: 10 ml Documented by: Doxycycline Hyclate 100 mg/ (Sodium Chloride) 100 mls @ 100 mls/hr IV BID [facility] Stop: 11/22/20 00:00 Last Infusion: 11/21/20 10:45 Dose: Infused Documented by: Ipratropium [place] (Ipratropium 0.2 Mg/Ml Neb) 0.5 mg INH RTQID [facility] Last Admin: 11/21/20 10:59 Dose: 0.5 mg Documented by: Levalbuterol HCl (Levalbuterol 1.25 Mg/3 Ml Neb) 1.25 mg INH Q4H PRN PRN Reason: Shortness of Air/Wheezing Last Admin: 11/21/20 10:59 Dose: 1.25 mg Documented by: Methadone HCl (Methadone 5 Mg Tablet) 5 mg PO BID [facility] Last Admin: 11/21/20 08:45 Dose: 5 mg Documented by: Montelukast Sodium (Montelukast 10 Mg Tablet) 10 mg PO QPM [facility] Last Admin: 11/20/20 21:28 Dose: 10 mg Documented by: Morphine Sulfate (Morphine 2 Mg/Ml Carpuject) 2 mg IVP Q2HR PRN PRN Reason: SOB Multi-Ingredient Ointment (Zinc Oxide 20% Oint 30 Gm Tube) 1 applic TOP BID PRN PRN Reason: NEEDED PER PROVIDER ORDERS Last Admin: 11/21/20 02:00 Dose: 1 applic Documented by: Nortriptyline HCl (Nortriptyline 25 Mg Capsule) 50 mg PO QPM [facility] Last Admin: 11/20/20 21:28 Dose: 50 mg Documented by: Ondansetron HCl (Ondansetron 4 Mg/2 Ml Vial) 4 mg IVP Q6HR PRN PRN Reason: Nausea / Vomiting Oxycodone HCl (Oxycodone 5 Mg Tablet) 10 mg PO TID PRN PRN Reason: PAIN Last Admin: 11/21/20 08:44 Dose: 10 mg Documented by: Pantoprazole Sodium (Pantoprazole 40 Mg Tablet) 40 mg PO QDAC [facility] Last Admin: 11/21/20 06:38 Dose: 40 mg Documented by: Polyethylene Glycol (Polyethylene Glycol 3350 17 Gm Packet) 17 gm PO DAILY [facility] Last Admin: 11/21/20 11:46 Dose: 17 gm Documented by: Prednisone (Prednisone 20 Mg Tablet) 40 mg PO DAILYWM [facility] Last Admin: 11/21/20 08:39 Dose: 40 mg Documented by: Saccharomyces Boulardii (Saccharomyces Boulardii 250 Mg Capsule) 250 mg PO BIDWM [facility] Last Admin: 11/21/20 08:45 Dose: 250 mg Documented by: Sodium Chloride (Sodium Chloride Flush 0.9% 10 Ml Syringe) 10 ml IVP PRN PRN PRN Reason: NEEDED PER PROVIDER ORDERS Last Admin: 11/20/20 14:23 Dose: 10 ml Documented by: Sodium Chloride (Sodium Chloride Flush 0.9% 10 Ml Syringe) 10 ml IVP 0 100,0900,1700 ADALI Last Admin: 11/21/20 08:46 Dose: 10 ml Documented by: Tizanidine HCl (Tizanidine 4 Mg Tablet) 4 mg PO BID PRN PRN Reason: Muscle Spasms Trazodone HCl (Trazodone 50 Mg Tablet) 50 mg PO HS PRN PRN Reason: Insomnia Ascorbic Acid [Vitamin C] 500 mg PO BID 07/23/16 Cholecalciferol (Vitamin D3) [Vitamin D3] 2,000 units PO BID 07/23/16 Folic Acid 1 mg PO DAILY 07/23/16 Fluticasone/Vilanterol [Breo Ellipta 100-25 Mcg INH] 1 puffs INH DAILY 02/24/19 Citalopram Hydrobromide [Citalopram HBr] 20 mg PO DAILY 09/10/20 Methadone 5 mg PO BID 09/10/20 Lansoprazole [Prevacid] 30 mg PO DAILY 11/08/20 Lisinopril [Prinivil] 5 mg PO DAILY 11/08/20 Zinc Gluconate [Zinc] 220 mg PO DAILY 11/08/20 guaiFENesin [Mucus Relief ER] 600 mg PO BID 11/08/20 polyethylene glycoL 3350 [Miralax] 17 gm PO DAILY 11/08/20 predniSONE [Deltasone] 20 mg PO DAILYWM 11/08/20 Acyclovir [Zovirax] 800 mg PO .5 TIMES PER DAY 11/20/20 Atorvastatin Calcium [Lipitor] 80 mg PO QPM 11/20/20 Ipratropium/Albuterol [Duoneb] 3 ml INH Q6H PRN 11/20/20 Nortriptyline HCl [Pamelor] 50 mg PO QPM 11/20/20 Oxycodone HCl 10 mg PO Q5H PRN 11/20/20 tiZANidine [Zanaflex] 4 mg PO BID PRN 11/20/20 traZODone [Desyrel] 50 mg PO HS PRN 11/20/20
[2020-11-21] MEDS: polyethylene glycoL 3350 17 GM PACKET PO SCH (11:46)
[2020-11-21] MEDS ORDERED: cephALEXin 250 MG CAPSULE PO SCH (12:00)
[2020-11-21] MEDS ORDERED: MORPHINE 2 MG/ML CARPUJECT IVP PRN (12:06)
--- NOTE | 2020-11-21 12:12 | ADVANCE CARE PLANNING NOTE ---
Advance Care Planning - Planning Encounter Date: 11/21/20 Time: 11:00 Purpose: Advanced care planning for patient Parties in Attendance: Patient and me Decisional Capacity of the Patient: Patient is alert and orientated plus 4, patient has the capacity to make own decision - Diagnosis for Encounter (1) Acute on chronic respiratory failure with hypoxia Summary: He has chronic respiratory failure secondary to his COPD and pulmonary fibrosis, and lung cancer. He is now acutely hypoxic likely due to the right lobe pneumonia/Pneumonitis plus pulmonary edema, increased mass effect on adjacent right mainstem bronchus and more peripheral airway. He saturating was 90% on nonrebreather mask at 15 L a minute Initially. This can likely be deescalated although he does desaturate with minimal exertion. We will place him on ceftriaxone IV and doxycycline IV for community-acquired pneumonia. Pt has hx of long QTC. Since the patient's symptoms improved after patient was give Decadron 10 mg in ER. We will Resume home Prednisone. Covid Was negative. We will begin with RT treatment, albuterol, Atrovent, Pulmicort, perforomist. Continue supplemental oxygen for goal saturation greater than 88%. - Encounter Subjective/Patient's Story: Patient lives at home with his significant other, Bertha. He currently does not work due to his severe pulmonary disease and chronic shortness of breath and consistent O2 dependent. He reported he usually takes 6 L oxygen in his [place] in the home but he also report he could rise upto 15 L of oxygen for his called crisis, very shortness of breath. He does have very limited his activity due to his shortness of breath. He has not left the house very much over the past few months except for his medical appointments due to his dyspnea. All his Covid 19 has been negative. Discuss the detail care plan with pt. pt has History of severe COPD, severe pulmonary fibrosis, plus recently diagnosis lung cancer. Patient also reported his home is under modification for facility for his care. He is still satisfied with his current quality of life. He is still optimized and positive to his lung diseases. Patient reported he had palliative care provider Chiqui Rob for his palliative care, and there is some provider gave his advise for hospice care, At this point, he will continue to fight with his diseases. His immediate plan is after discharge from this hospital, he will see his oncologist to seek definition diagnosis and treatment. We also discussed the CODE STATUS, he want that "Do not resuscitation, Do not intubation" except usage of his Trilogy. Objective/Medical Story: The patient was a longtime smoker and used cocaine many years ago. He also was hepatitis C positive in the blood test. He believes he developed pulmonary fibrosis due to the cocaine use. He was also a significant smoker and developed COPD. He has now been on oxygen for some time and initially only required 2 L but then on 4 L of oxygen, now he used 6 L of oxygen at his baseline. He was diagnosed with the right hilar lung mass a few months ago and underwent biopsy of a lymph node which unfortunately was inconclusive. Patient report his customer field representative and oncologist even believed it was dangerous to him to do further biopsy study. 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 He had chemotherapy about 3 months weeks ago. The new CT of chest study shows interval development of extensive groundglass opacities concerning for pulmonary edema versus pneumonitis or pneumonia. right upper lobe/hilar mass with extensive hilar and mediastinal lymphadenopathy slightly more predominant in the size, compared to previous study with worsening mass effect on adjacent right mainstem bronchus and more peripheral airway. Severe centrilobular emphysema and pulmonary fibrosis. He presents today as mentioned above with worsening dyspnea and productive cough. He was admitted for treatment of his pneumonia at this time hospitalization. Goals of Care: He Continue that he believe he still has quality of life, Continue to seek the treatment, continue CODE STATUS, "Do not resuscitation, Do not intubation" except usage of his Trilogy. Plan: After stabilized and discharged from the hospital, he will call his oncologist and make an appointment to see his oncologist, and seek treatment. Code Status: Do Not Attempt Resuscitation Time spent on advance care plannin
--- NOTE | 2020-11-21 14:54 | XRAY Report ---
PROCEDURE: Chest 1 View X-Ray INDICATIONS: SOB TECHNIQUE: One view of the chest was acquired. COMPARISON: 11/16/2020, 08/07/2020 FINDINGS: Surgical changes and devices: None. Lungs and pleura: No pleural effusions or pneumothorax. No change in moderate left and mild right ba silar predominant reticulonodular density compared to 11/16/2020. These findings are increased compar ed to 08/07/2020 Mediastinum: Mediastinal contours appear normal. Heart size is normal. Bones and chest wall: No suspicious bony lesions. Overlying soft tissues appear unremarkable. IMPRESSION: No change in left greater than right pneumonia compared to 11/16/2020 Reviewed by: Jamila Artis MD on 11/21/2020 2:53 PM PST Approved by: Jamila Artis MD on 11/21/2020 2:53 PM PST Station ID: [id number]
[2020-11-21] MEDS: NORTRIPTYLINE 25 MG CAPSULE PO SCH (21:10)
[2020-11-21] MEDS: MONTELUKAST 10 MG TABLET PO SCH (21:10)
[2020-11-22] MEDS: ACYCLOVIR 200 MG CAPSULE PO SCH ×3 (00:15→11:08)
[2020-11-22] MEDS: SODIUM CHLORIDE FLUSH 0.9% 10 ML SYRINGE IVP SCH ×2 (00:15→08:47)
[2020-11-22 04:52] LABS: BASOPHILS % (AUTO) 0.2 %; EOSINOPHILS # (AUTO) 0.1 10^3/uL (0.0-0.7); EOSINOPHILS % (AUTO) 0.4 %; HGB - HEMOGLOBIN 10.2 g/dL (14.0-18.0); LYMPHOCYTES % (AUTO) 20.4 %; MEAN CORPUSCULAR HEMOGLOBIN 31.1 pg (27.0-31.0); MEAN CORPUSCULAR HGB CONC 32.1 g/dL (32.0-36.0); MEAN PLATELET VOLUME 9.3 fL (7.4-11.4); MONOCYTES # (AUTO) 1.1 10^3/uL (0.0-1.0); MONOCYTES % (AUTO) 7.8 %; NEUTROPHILS # (AUTO) 10.2 10^3/uL (1.5-6.6); NEUTROPHILS % (AUTO) 70.6 %; PLT - PLATELET COUNT 270 10^3/uL (130-450); RED BLOOD COUNT 3.28 10^6/uL (4.70-6.10); WHITE BLOOD COUNT 14.5 x10^3/uL (4.8-10.8)
[2020-11-22 04:58] LABS: CALCIUM 9.2 mg/dL (8.5-10.3); CREATININE 0.6 mg/dL (0.6-1.2)
[2020-11-22] MEDS: guaiFENesin/CODEINE 5 ML UDC PO PRN (05:32)
[2020-11-22] MEDS: PANTOPRAZOLE 40 MG TABLET PO SCH (06:34)
[2020-11-22] MEDS: FORMOTEROL FUMARATE NEB 20 MCG/2 ML INH SCH (07:07)
[2020-11-22] MEDS: IPRATROPIUM 0.2 MG/ML NEB INH SCH ×2 (07:08→11:35)
[2020-11-22] MEDS: BUDESONIDE 0.5 MG/2 ML NEB INH SCH (07:08)
[2020-11-22] MEDS: predniSONE 20 MG TABLET PO SCH (08:45)
[2020-11-22] MEDS: SACCHAROMYCES BOULARDII 250 MG CAPSULE PO SCH (08:46)
[2020-11-22] MEDS: ENOXAPARIN 40 MG/0.4 ML SYRINGE SUBQ SCH (08:46)
[2020-11-22] MEDS: CITALOPRAM HYDROBROMIDE 20 MG TABLET PO SCH (08:46)
[2020-11-22] MEDS: polyethylene glycoL 3350 17 GM PACKET PO SCH (08:46)
[2020-11-22] MEDS: METHADONE 5 MG TABLET PO SCH (08:49)
[2020-11-22] MEDS ORDERED: AMOX/CLAV 875 MG/125 MG TABLET PO SCH (09:00)
--- NOTE | 2020-11-22 09:20 | Discharge Plan ---
Discharge Plan Problem Reviewed?: Yes Disposition: Home, Self Care Condition: Poor Prescriptions: Amox/Clav 875/125 [Augmentin] 1 each PO Q12H #20 tablet Saccharomyces Boulardii [Florastor] 250 mg PO BIDWM #20 capsule Diet: Regular Activity Restrictions: Activity as Tolerated Shower Restrictions: No (fall precaution) Instruction Topics: COPD, Pneumonia, Cancer Lung, Oxygen Home Use, Pneumonia Prevent, Shortness of Breath Control Stress, Cancer Lung Dc, Pulmonary Fibrosis, Cancer Lung Plan Future, Cancer Lung Living, ED Dyspnea Shortness of Breath Health Concerns: COPD/pulmonary fibrosis/lung cancer, pneumonia and shortness of breath Plan of Treatment: You are prescribed antibiotics to finish the treatment course for your pneumonia, resume your home treatment regimen, continue safely use home oxygen. Discussed the image studies and advance care plan with you. CT of chest show his right upper lobe/hilar mass with worsening mass effect on adjacent right mainstem bronchus and more peripheral airway. You plan to continue your oncologist for evaluation and treatment. You also followup with palliative care as well. Care Goals: stabilization, improvement and quality of life Assessment: discussed the care plan in detail with you, answered your questions, and you understood. Additional Instructions or Follow Up instructions: You may followup with your PCP in one week, followup with your oncologist and investigator welfare as out-pt, followup with palliative care as out-pt as well. Should your symptoms return or worsen, you may present ER or call 911 for help. No Smoking: If you smoke, Please STOP! Call for help. Follow-up with: Erika Melo MD [Primary Care Provider] -
--- NOTE | 2020-11-22 10:16 | DISCHARGE SUMMARY ---
Discharge Summary Admit Date: 11/20/20 Discharge Date: 11/22/20 Discharging Provider: Salty Hernandez Primary Care Provider: Dr. Erika Melo Condition at Discharge: Poor Discharge Disposition: Home, Self Care Discharge Facility Name: home - DIAGNOSES Discharge Diagnoses with Status of Each Condition: (1) Acute on chronic respiratory failure with hypoxia Improved as pt's baseline. CXR reveal unchanged compared with 11/16/2020. pt has 91% sats on 6 liter of O2. pt report he usually take 6 liter of O2 at home. pt think he is improved to his baseline. pt can talk without difficult. He is comfortable sitting at bedside to play with computer. Pt asked to switch PO antibiotics and want to go home on today.He has been severe shortness of breath in the admission, and has been dyspneic with minimal exertion and has been likely as his baseline in the past given the severity of his COPD as well as pulmonary fibrosis and lung caner, presumed to be small cell. pt has hx of tachycarida. pt report he always has tachycardia. EKG show sinus tachycardia. pt has slight elevated WBC, pt has hx of elevated WBC. pt is chronic steroid usage. I had the discussion about the advance care plan again with pt. Discussed all image studies with pt, answered his questions, he had CT of chest show his right upper lobe/hilar mass with extensive hilar and mediastinal lymphadenopathy slightly more predominant in the size, compared to previous study with worsening mass effect on adjacent right mainstem bronchus and more peripheral airway, exte nsive COPD and pulmonary fibrosis. patient clearly requests DNR/DNI. Pt has been going back and forth on his wishes. as noted at pt's palliative care consult, Patient did sign as DN AR/DNI and selective treatments, his goals was focus on quality of life. Based on his clinic conditions, my suggestions to him as the same, focus on quality of life, transition to hospice care. However at this time, pt still does not recognize his disease severity, pt want to seek treatment from his oncologist, he state he will call [facility] for appointment to see his oncologist. Pt is alert and oriented plus 4. Respectfully it is pt's own decision for his medical care. Pt declined transition to hospice care at this time. Pt Originally had been referred to hospice but was not harmony with his goal in the previous. pt is not on treatment for his cancer now. pt report his oncologist and shoe sticks repairer believed it was too dangerous for him even to have needle biopsy. As far pt had inconclusive to lung mass diagnosis. pt had chemotherapy before but now he has no chemotherapy treatment. pt is prescribed antibiotics to finish the treat course and pt may resume his home medications as the scheduled, home oxygen, resume Trilogy ventilator as instructed for usage. Patient had the order, and called and left message to palliative care in the hospital, unfortunately because of holiday, palliative care could not come to see patient in the hospital. pt has been followup with palliative care already, pt may resume palliative care. (2) Community acquired pneumonia Improved, pt is unchanged in his CXR. pt is prescribed antibiotics and pt may resume his home medications (3) COPD exacerbation improved as his baseline. continue home medications and home oxygen as the scheduled, resume Trilogy ventilator as instructed for usage. (4) Lung cancer, hilus Pt's CT of chest on this time show his right upper lobe/hilar mass with extensive hilar and mediastinal lymphadenopathy slightly more predominant in the size, compared to previous study with worsening mass effect on adjacent right mainstem bronchus and more peripheral airway. Discussed the result of CT result of the chest with the patient. As this time, pt still want to seek treatment from his oncologist, he state he will call [facility] for appointment to see his oncologist. pt has been followup with palliative care, pt may resume palliative care. (5) Pulmonary fibrosis CT reveals pt has extensive COPD and pulmonary fibrosis as pt's medical hx. pt may resume home meds, Continue home oxygen, resume Trilogy ventilator as instructed for usage. (6) Chronic pain controlled, resume home pain medications (7) Hypertension pt has low edge of BP, pt may hold home BP meds Lisinopril (8)hx of shingles stable, no acute active or pain. Patient may take acyclovir as the scheduled. 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 He reports that he is chronically short of breath due to his COPD and pulmonary fibrosis. He usually takes 6 L oxygen with nasal cannula. But he report he also rise up to 15 L of oxygen when he feel crisis, very shortness of breath at home. He will recently visited ICU for about two weeks and [facility]. He reported he did have bronchoscopy and im age-guided needle biopsy for His lung cancer but the results were inconclusive. He has been chronic short of breath and he thought this may have been the cancer plus COPD and Interstitial lung disease. but yesterday this became much more severe and he started to develop a cough with sputum production and so he sought medical attention. He reports no fevers or chest pain. He Reports he has chronic dyspnea at rest but this is most prominent with minimal exertion. He denies any chest pain, nausea, vomiting. He has a repeated test for COVID-19 which was negative. In routine laboratory test show patient had elevated WBC at 14, Patient had a chronic elevated WBC. In ER, patient Is afebrile, had tachycardia HR around 129 and tachypnea 28. Patient also has been chronic tachcardia as well. Patient report he had a Trilogy in the home, he had Trilogy on the night. He hope he can continue to use Trilogy in the night at the hospital. CT of the chest show interval development of extensive groundglass opacities concerning for pulmonary edema versus pneumonitis or pneumonia. right upper lobe/hilar mass with extensive hilar and mediastinal lymphadenopathy slightly more predominant in the size, compared to previous study with worsening mass effect on adjacent right mainstem bronchus and more peripheral airway. Severe centrilobular emphysema and pulmonary fibrosis. Discussed the care goal with the patient, patient requests DNR/DNI - HOSPITAL COURSE Hospital Course: Patient was admitted for worsening and severe dyspnea. Patient has a history of chronic shortness of breathing. CT of the chest show interval development of extensive groundglass opacities concerning for pulmonary edema versus pneumonitis or pneumonia. right upper lobe/hilar mass with extensive hilar and mediastinal lymphadenopathy slightly more predominant in the size, compared to previous study with worsening mass effect on adjacent right mainstem bronchus and more peripheral airway. Severe centrilobular emphysema and pulmonary fibrosis. Patient was treated with intravenous antibiotics, supplemental oxygen, and breathing treatment and pain control. Discussed advance care plan with pt, advise pt for palliative and hospice care based on pt's disease severity and poor prognosis. But pt did not recognize his disease dangerous in nature, he still want to call his oncologist for treatment. respectfully this is pt's own medical decision. After treatment, patient symptoms improved. The detailed hospital course is as discharge Diagnosis summary. - ALLERGIES Allergies/Adverse Reactions: Allergies Allergy/AdvReac Type Severity Reaction Status Date / Time No Known Drug Allergies Allergy Verified 08/07/20 03:20 - MEDICATIONS Home Medications: Ambulatory Orders Medication Instructions Recorded Confirmed Ascorbic Acid [Vitamin C] 500 mg PO BID 07/23/16 11/20/20 Cholecalciferol (Vitamin D3) 2,000 units PO BID 07/23/16 11/20/20 [Vitamin D3] Folic Acid 1 mg PO DAILY 07/23/16 11/20/20 Fluticasone/Vilanterol [Breo 1 puffs INH DAILY 02/24/19 11/20/20 Ellipta 100-25 Mcg INH] Citalopram Hydrobromide 20 mg PO DAILY 09/10/20 11/20/20 [Citalopram HBr] Methadone 5 mg PO BID 09/10/20 11/20/20 Montelukast [Singulair] 10 mg PO QPM #30 tablet 09/16/20 11/20/20 Lansoprazole [Prevacid] 30 mg PO DAILY 11/08/20 11/20/20 Zinc Gluconate [Zinc] 220 mg PO DAILY 11/08/20 11/20/20 guaiFENesin [Mucus Relief ER] 600 mg PO BID 11/08/20 11/20/20 polyethylene glycoL 3350 [Miralax] 17 gm PO DAILY 11/08/20 11/20/20 predniSONE [Deltasone] 20 mg PO DAILYWM 11/08/20 11/20/20 Acyclovir [Zovirax] 800 mg PO .5 TIMES PER DAY 11/20/20 11/20/20 Atorvastatin Calcium [Lipitor] 80 mg PO QPM 11/20/20 11/20/20 Ipratropium/Albuterol [Duoneb] 3 ml INH Q6H PRN 11/20/20 11/20/20 Nortriptyline HCl [Pamelor] 50 mg PO QPM 11/20/20 11/20/20 Oxycodone HCl 10 mg PO Q5H PRN 11/20/20 11/20/20 tiZANidine [Zanaflex] 4 mg PO BID PRN 11/20/20 11/20/20 traZODone [Desyrel] 50 mg PO HS PRN 11/20/20 11/20/20 Amox/Clav 875/125 [Augmentin] 1 each PO Q12H #20 tablet 11/22/20 Saccharomyces Dahliadii [Florastor] 250 mg PO BIDWM #20 capsule 11/22/20 - PHYSICAL EXAM AT DISCHARGE General Appearance: positive: No acute distress, Alert. negative: Lethargic Eyes Bilateral: positive: Normal inspection, PERRL, No lid inflammation ENT: positive: ENT inspection nml, No signs of dehydration. negative: Purulent nasal drainage, Dry mucous membranes Neck: positive: Nml inspection, Trachea midline. negative: Thyromegaly, Tracheal deviation Respiratory: positive: Chest non-tender, Rales. negative: No respiratory distress (He present shortnesss of breath as his baseline, become more dyspneic with minimal exertion), Breath sounds nml Cardiovascular: positive: Regular rate & rhythm, No murmur, Tachycardia. negative: Bradycardia, Systolic murmur, Diastolic murmur Abdomen: positive: Non-tender, Nml bowel sounds, No distention. negative: Tenderness, Guarding Back: positive: Nml inspection. negative: CVA tenderness (R), CVA tenderness (L) Skin: positive: Color nml, Warm, Dry. negative: Cyanosis, Diaphoresis, Pallor Extremities: positive: Non-tender, Nml appearance. negative: Calf tenderness Neurologic/Psychiatric: positive: Oriented x3, Sensation nml, Mood/affect nml. negative: Sensory loss, Facial droop, Slurred/abnml speech, Depressed mood/affect - LABS Result Diagrams: 11/22/20 04:31 11/22/20 04:31 - FOLLOW UP Follow Up: You are prescribed antibiotics to finish the treatment course for your pneumonia, resume your home treatment regimen, continue Trilogy usage, continue safely use home oxygen. Discussed the image studies and advance care plan with you. CT of chest show his right upper lobe/hilar mass with worsening mass effect on adjacent right mainstem bronchus and more peripheral airway. You plan to continue your oncologist for evaluation and treatment. You also followup with palliative care as well. You may followup with your PCP in one week, followup with your oncologist and shoe sticks repairer as out-pt, followup with palliative care as out-pt as well. Should your symptoms return or worsen, you may present ER or call 911 for help. - TIME SPENT Time Spent in Discharge (Minutes): 45
[2020-11-22 13:27] VITALS: BP 119/60
== END 2020-11-22 14:23 | disposition home or self-care (01) ==
LOC: EDUNIT# → ED 04:04 → MS2 08:55
PROVIDERS: ADMIT Nurse Practitioner Gerontology; ATTEND Nurse Practitioner Gerontology
DX: J96.21 Acute and chronic respiratory failure with hypoxia (principal); J18.9 Pneumonia, unspecified organism; J84.10 Pulmonary fibrosis, unspecified; J43.2 Centrilobular emphysema; C34.01 Malignant neoplasm of right main bronchus; Z99.81 Dependence on supplemental oxygen; G89.29 Other chronic pain; I10 Essential (primary) hypertension; Z86.19 Personal history of other infectious and parasitic diseases; Z20.828 Contact with and (suspected) exposure to other viral communicable diseases; R00.0 Tachycardia, unspecified; Z66 Do not resuscitate; Z87.891 Personal history of nicotine dependence; J81.1 Chronic pulmonary edema; Z79.51 Long term (current) use of inhaled steroids; Z79.52 Long term (current) use of systemic steroids
CPT/HCPCS: 36415; 71045; 71260; 80048; 80053; 81599; 83605; 83690; 83880; 85025; 87040; 87070; 87077; 87181; 87205; 87631; 93005; 96365; 96366; 96367; 96372; 96375; 99284; 99285; A9270; G0378; J1650; J7512; J7626; J8499; Q9967; 0202U; 94640

== ENCOUNTER 2020-11-22 | Outpatient (CLI) | payer MEDICARE, MEDICAID | END 2020-11-22 14:22 | disposition home or self-care (01) | CPT/HCPCS: A0425; A0428 ==

== ENCOUNTER 2020-11-25 08:52 | Outpatient (CLI) | payer MEDICARE, MEDICAID | END 2020-11-25 08:53 | disposition critical access hospital (66) | LOC: EMS 08:52 | PROVIDERS: ATTEND Surgery | DX: R06.02 Shortness of breath (principal) | CPT/HCPCS: A0425; A0433 ==

== ENCOUNTER 2020-11-25 09:04 | Emergency (ER) | payer MEDICARE, MEDICAID ==
[2020-11-25] MEDS ORDERED: ALBUTEROL 1 PUFF INH STA (09:12)
[2020-11-25] MEDS ORDERED: MORPHINE 10 MG/ML VIAL IVP STA ×6 (09:19→15:44)
--- NOTE | 2020-11-25 09:23 | ED Physician Documentation ---
History of Present Illness - Stated complaint Stated Complaint: DIFFICUTLY BREATHING - Chief complaint Chief Complaint: Resp - History obtained from History obtained from: Family, EMS - Additonal information Additional information: 70yM with pmh lung cancer with POLST DNR/DNI with selective treatment only, recently hospitalized and discharged 11/22/19, p/w severe sob since that time. Patient was hypotensive, tachypneic, tachycardic with increased wob/inability to speak on arrival. After discussion with family and review of his wishes on POLST form, comfort care measures have been undertaken in the ED. Review of Systems Unable to obtain: Unresponsive PD PAST MEDICAL HISTORY - Past Medical History Cardiovascular: High cholesterol Respiratory: COPD, Emphysema, Other Neuro: None Endocrine/Autoimmune: None GI: Chronic constipation : None HEENT: None Psych: Anxiety Musculoskeletal: Osteoarthritis, Scoliosis, Chronic back pain Derm: None - Past Surgical History Past Surgical History: Yes General: Other HEENT: Tonsil/Adenoidectomy - Present Medications Home Medications: Ambulatory Orders Medication Instructions Recorded Confirmed Ascorbic Acid [Vitamin C] 500 mg PO BID 07/23/16 11/20/20 Cholecalciferol (Vitamin D3) 2,000 units PO BID 07/23/16 11/20/20 [Vitamin D3] Folic Acid 1 mg PO DAILY 07/23/16 11/20/20 Fluticasone/Vilanterol [Breo 1 puffs INH DAILY 02/24/19 11/20/20 Ellipta 100-25 Mcg INH] Citalopram Hydrobromide 20 mg PO DAILY 09/10/20 11/20/20 [Citalopram HBr] Methadone 5 mg PO BID 09/10/20 11/20/20 Montelukast [Singulair] 10 mg PO QPM #30 tablet 09/16/20 11/20/20 Lansoprazole [Prevacid] 30 mg PO DAILY 11/08/20 11/20/20 Zinc Gluconate [Zinc] 220 mg PO DAILY 11/08/20 11/20/20 guaiFENesin [Mucus Relief ER] 600 mg PO BID 11/08/20 11/20/20 polyethylene glycoL 3350 [Miralax] 17 gm PO DAILY 11/08/20 11/20/20 predniSONE [Deltasone] 20 mg PO DAILYWM 11/08/20 11/20/20 Acyclovir [Zovirax] 800 mg PO .5 TIMES PER DAY 11/20/20 11/20/20 Atorvastatin Calcium [Lipitor] 80 mg PO QPM 11/20/20 11/20/20 Ipratropium/Albuterol [Duoneb] 3 ml INH Q6H PRN 11/20/20 11/20/20 Nortriptyline HCl [Pamelor] 50 mg PO QPM 11/20/20 11/20/20 Oxycodone HCl 10 mg PO Q5H PRN 11/20/20 11/20/20 tiZANidine [Zanaflex] 4 mg PO BID PRN 11/20/20 11/20/20 traZODone [Desyrel] 50 mg PO HS PRN 11/20/20 11/20/20 Amox/Clav 875/125 [Augmentin] 1 each PO Q12H #20 tablet 11/22/20 Saccharomyces Boulardii [Florastor] 250 mg PO BIDWM #20 capsule 11/22/20 - Allergies Allergies/Adverse Reactions: Allergies Allergy/AdvReac Type Severity Reaction Status Date / Time No Known Drug Allergies Allergy Verified 08/07/20 03:20 - Social History Does the pt smoke?: Yes Smoking Status: Former smoker Does the pt drink ETOH?: No Does the pt have substance abuse?: Yes - Immunizations Immunizations are current?: No Immunizations: TDAP >10years/unknown - POLST Patient has POLST: Yes PD ED PE NORMAL - Vitals Vital signs reviewed: Yes - General General: Other (unresponsive, increased wob) - HEENT HEENT: Atraumatic, PERRL, EOMI - Neck Neck: Supple, no meningeal sign - Cardiac Cardiac: Other (tachycardic rate, regular rhythm) - Respiratory Respiratory: Other (BL rhonchi) - Abdomen Abdomen: Non tender, Non distended - Back Back: No spinal TTP - Derm Derm: Other (flushed, diaphoretic) - Extremities Extremities: No deformity - Neuro Neuro: Other (unresponsive) - Psych Psych: Other (unresponsive) Results - Vitals Vitals: Vital Signs - 24 hr 11/25/20 11/25/20 11/25/20 09:17 09:18 09:50 Temperature 35.6 C L Heart Rate 125 H 120 H 115 H Respiratory 27 H 24 43 H Rate Blood Pressure 76/50 L 79/51 L O2 Saturation 43 L 55 L 11/25/20 11/25/20 11/25/20 10:20 10:30 11:00 Temperature Heart Rate 115 H 115 H 121 H Respiratory 25 H 34 H 15 Rate Blood Pressure 62/40 L 70/51 L 75/54 L O2 Saturation 47 L 40 L 71 L 11/25/20 11/25/20 11/25/20 11:30 12:00 12:30 Temperature Heart Rate 121 H 121 H 120 H Respiratory 15 17 12 Rate Blood Pressure 78/50 L 70/56 L 72/50 L O2 Saturation 77 L 83 L 84 L 11/25/20 11/25/20 11/25/20 13:00 13:30 14:00 Temperature Heart Rate 121 H 124 H 120 H Respiratory 14 13 13 Rate Blood Pressure 76/57 L 64/55 L 63/51 L O2 Saturation 80 L 68 L 63 L 11/25/20 11/25/20 11/25/20 14:30 15:00 15:30 Temperature Heart Rate 119 H 121 H 121 H Respiratory 14 20 16 Rate Blood Pressure 60/50 L 66/52 L 64/53 L O2 Saturation 74 L 69 L 65 L Oxygen O2 Source Non-rebreather mask PD MEDICAL DECISION MAKING - ED course ED course: On arrival to the ED patient is tachypneic, hypotensive, unable to speak. It was confirmed on POLST form patient requests a "at end of life a comfortable and respectful ". I called his family member who was distraught and said she was coming and hung up. Will administer morphine for pain control at this time and discuss plan with family upon arrival. DNR/DNI with limited interventions. 9:30am - family at bedside. d/w re: comfort care. 10:45am - requesting more pain medication for his comfort. family all at bedside. 2:15pm - family at bedside. d/w hospitalist re: possibility of admission for palliative care. will look into possibility. recommended palliative care consult. My charge nurse called the palliative care clinic but they are not available. I will try calling myself for assistance in end of life care management. 2:30pm - message left to palliative care [employer] Chiqui art. will order standing morphine prn order for now for pain management. 3:15pm - patient comfortable appearing at this time. family at bedside. d/w palliative care RN Tressa - palliative [employer] Chiqui will call back shortly. 3:45 pm - family requesting more pain medicine. evaluated patient and he is more tachypneic, gasping. will give morphine. 4pm - d/w Chiqui Obrien NP palliative care. recommend PRN ativan 1mg q2h and prn morphine 10mg q2h for pain management/end of life care. Departure - Departure Clinical Impression: Shortness of breath, Lung cancer
[2020-11-25] MEDS ORDERED: fentaNYL 100 MCG/2 ML VIAL IM STA ×3 (10:48→11:43)
[2020-11-25] MEDS ORDERED: MORPHINE 10 MG/ML VIAL IM STA (12:08)
[2020-11-25] MEDS ORDERED: MORPHINE 10 MG/ML VIAL IVP SCH (15:00)
[2020-11-25] MEDS ORDERED: MORPHINE 2 MG/ML CARPUJECT IVP PRN (15:54)
[2020-11-25] MEDS: LORazepam 2 MG/ML VIAL IVP PRN ×2 (15:58→18:15)
[2020-11-25] MEDS ORDERED: MORPHINE 10 MG/ML VIAL IVP PRN (17:53)
[2020-11-25] MEDS ORDERED: SCOPOLAMINE PATCH TOP STA (18:34)
[2020-11-25 20:05] VITALS: BP 56/36
--- NOTE | 2020-11-25 20:20 | ED Physician Documentation ---
ED Addendum - Addendum Addendum: 11/25/20 20:19 Gentleman was signed out to me by Dr. Rosario at shift change. Briefly he has end-stage lung cancer and at family and personal request we are doing comfort care. Dr. Rosario had presented the case to Dr. Gonzalez for admission or observation for palliative care, Dr. Gonzalez felt she did not fit criteria for same. I spoke with Dr. Reynolds, the hospice physician, she does not fit criteria for GIP admission. He was treated in the emergency department with divided doses of morphine and a scopolamine patch. He was kept very comfortable and his supportive was at the bedside. He at 2016. Diagnosis 1. Lung cancer 2. Respiratory failure 3. Cardiac arrest Disposition distribution supervisor will aid the with arrangements.
== END 2020-11-25 23:06 | disposition expired ==
LOC: EDUNIT# → ED 09:04
DX: C34.90 Malignant neoplasm of unspecified part of unspecified bronchus or lung (principal); J96.90 Respiratory failure, unspecified, unspecified whether with hypoxia or hypercapnia; I46.9 Cardiac arrest, cause unspecified; J43.9 Emphysema, unspecified; Z87.891 Personal history of nicotine dependence; Z66 Do not resuscitate
CPT/HCPCS: 94640; 96372; 96374; 96375; 96376; 99281; 99285; J2060; J3490